=== PATIENT | female | born 1945 | race Caucasian/White ===

== ENCOUNTER 2018-03-09 15:20 | Inpatient (IN) | payer MEDICARE, OTHER ==
[2018-03-09] MEDS ORDERED: methylPREDNISolone 125 MG* 2 ML VIAL IV ONE (15:42)
[2018-03-09] MEDS ORDERED: Albuterol/Ipratropium NEB.SOL* Albuterol 2.5 MG/Ipratropium 0.5 MG 3 ML INH ONE (15:50)
--- OUTSIDE RECORDS SUMMARY | 2018-03-09 16:37 | XMS REPORT | Continuity of Care Document ---
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 Shaye Jack [id number] [facility] PayID: [id number] [address] [place] [address] Advance Directives Description No Information Available Problems Description No Information Family History Date Family Member(s) Problem(s) Comments Mother CAD Mother due to [place] () First Brother due to [place] () Second Brother Diabetes Social History Type Date Description Comments Sex Unknown Marital Status Lives With Spouse Occupation Retired Occupation [employer] and worked in [employer] Tobacco Use Start: Unknown currently smokes 1/2 Pack Daily ETOH Use Denies alcohol use Recreational Drug Use Denies Drug Use Tobacco Use Start: Unknown Patient is a current smoker, smokes every day Smoking Status Reviewed: 09/17/16 Patient is a current smoker, smokes every day Enjoy Exercising Enjoys exercising Allergies, Adverse Reactions, Alerts Date Description Reaction Status Severity Comments 09/17/2016 Codeine "bad stomach ache" Active Medications Medication Date Status Form Strength Qnty SIG Indications Ordering Provider Lisinopril 12/23/ Active Tablets 5mg 30tab 1 by mouth Brendon 2018 s every day MD Francois Doxycycline 12/09/ Active Capsules 100mg 10cap 1 tab by Brendon Monohydrate 2018 s mouth twice Heetderks a day for 5 , MD days Ferate 04/06/ Active Tablets 240(27Fe) 90tab Take One Maureen 2018 mg s Tablet By Ha, Mouth Once ALTERNATIVE ENERGY TECHNICIAN Daily Nebulizer 12/21/ Active Kit 1unit use to J44.1 Pearl Kit/Tubing/Tahmina 2016 s deliver Gerardo, thpiece albuterol [employer] SUPER[employer]OR[employer] via nebulizer four times a day Nebulizer 12/21/ Active Device 1unit use to J44.1 Pearl 2016 s administer Gerardo, albuterol [employer]PER[employer] Albuterol 12/21/ Active Nebulizer (2.5mg/3M 75uni inhale the Pearl Sulfate 2017 L) 0.083% ts contents of Gerardo, 1 vial via [employer] SUPER[employer]OR-[employer] nebulizer every 4 to 6 hours as needed for wheezing Atorvastatin 09/17/ Active Tablets 20mg 90tab 1 by mouth Pearl Calcium 2017 s every day Gerardo, [employer]IES SUPERVISOR-C Spiriva 09/17/ Active Aerosol 2.5mcg/Ac 4gm 2 J44.9 Brendon Respimat 2017 t inhalations Francois once daily MD Ventolin HFA / Active Aerosol 108(90Bas 18uni Inhale 2 Brendon 0000 e) ts Puffs By Francois mcg/Act Mouth Every MD 4 To 6 Hours as Needed For Wheezing / Tightness Prednisone 12/09/ Hx Tablets 20mg 10tab 2 tab by Brendon 2018 - s mouth daily Francois 12/23/ MD 2018 Advair Diskus 12/21/ Hx Aerosol 250-50mcg 60uni inhale one J44.1 Pearl 2016 - /Dose ts puff by Gerardo 12/09/ mouth twice [employer]ITIES SUPERVISOR-C 2018 a day Symbicort 11/29/ Hx Aerosol 160-4.5mc 18gm inhale two J44.9 Pearl 2017 - g/Act puffs into Gerardo 12/23/ lungs twice F[employer]ITIES SUPERVISOR-C 2018 a day Toprol XL 09/17/ Hx Tablets ER 25mg 30tab /2 tablet Pearl 2017 - 24HR s by mouth Gerardo 12/23/ every day F[employer]ITIES SUPER[employer]OR-C 2018 Dulera 09/17/ Hx Aerosol 100-5mcg/ 8.800 1 puff twice J44.9 Pearl 2017 - Act a day Gerardo 11/29/ CHARMAINE 2016 Medications Administered in Office Medication Date Status Form Strength Qnty SIG Indications Ordering Provider Injection 12/09/ Administered Injection Brendon Dexamethasone 2017 Shoaib Parrish MD Phosphate, 1 MG Immunizations CPT Code Status Date Vaccine Lot # [id number] Given 12/23/2017 Influenza Vaccine High Dose PF [id number] Given 11/29/2016 Influenza Vaccine High Dose PF [id number] Vital Signs Date Vital Result Comment 03/09/2018 2:16pm BP Systolic 152 mmHg BP Diastolic 90 mmHg Heart Rate 110 /min Body Temperature 97.6 F Respiratory Rate 30 /min O2 % BldC Oximetry 91 % 12/23/2017 2:30pm Weight 202.00 lb Weight 91.627 kg BP Systolic 150 mmHg BP Diastolic 80 mmHg Heart Rate 80 /min Body Temperature 97.9 F Respiratory Rate 16 /min O2 % BldC Oximetry 93 % 12/09/2017 10:57am BP Systolic 180 mmHg BP Diastolic 100 mmHg Heart Rate 106 /min Body Temperature 97.5 F Height 66 inches 5'6" O2 % BldC Oximetry 90 % 12/21/2016 10:09am BP Systolic 158 mmHg BP Diastolic 90 mmHg Heart Rate 108 /min Respiratory Rate 32 /min O2 % BldC Oximetry 96 % Ra 12/14/2016 2:16pm Weight 179.00 lb Weight 81.194 kg BP Systolic 100 mmHg BP Diastolic 70 mmHg Heart Rate 68 /min Body Temperature 97.8 F Respiratory Rate 20 /min O2 % BldC Oximetry 97 % 11/29/2016 11:09am Weight 178.00 lb Weight 80.741 kg BP Systolic 120 mmHg BP Diastolic 72 mmHg Heart Rate 80 /min Body Temperature 97.6 F Respiratory Rate 32 /min O2 % BldC Oximetry 96 % 09/17/2016 1:18pm Weight 178.00 lb Weight 80.741 kg BP Systolic 162 mmHg BP Diastolic 76 mmHg Heart Rate 86 /min Body Temperature 98.4 F Respiratory Rate 18 /min Height 66 inches 5'6" BMI (Body Mass Index) 28.7 kg/m2 O2 % BldC Oximetry 96 % Results Test Date Facility Test Result H/L Range Note Arterial Blood 01/10/2017 [facility] O2 Device nasal cannula N Gas [phone] Fio2 5 N PH Arterial 7.47 High 7.35-7.45 Pco2 Arterial 31 mmHg Low 35-45 Po2 Arterial 167 mmHg High 80-100 O2 Saturation Arterial 99.0 % High 95-98 Base Excess Arterial -0.9 N -2.0-2.0 1 Hco3 Arterial 24.2 mmol/L N 19-31 Laboratory test 01/10/2017 [facility] Packed Cells SEE RESULTS 2 finding [phone] BELO <SEE NOTE> Pathologist Review (SEE NOTE) N 3 Type & Screen 01/10/2017 [facility] Patient Blood O Positive N [phone] Type Antibody Screen NEGATIVE N Laboratory test 01/10/2017 [facility] Ferritin < 10.0 Low 11-307 finding [phone]/mL Iron & Iron 01/10/2017 [facility] Total Iron 482 g/ dL High 250-450 Binding Capacity [phone] Binding Capacity Iron < 15 g/dL Low 50-212 Unsaturated Iron Binding [phone] g/dL N % Iron Saturation 3 % Low 15-55 Laboratory test 01/10/2017 [facility] Procalcitonin < 0.1 ng/mL N <0.6 4 finding [phone] Cell Morphology 01/10/2017 [facility] Microcytosis 2 + N [phone] Hypochromasia 2+ N Polychromasia 1+ N Laboratory test 01/10/2017 [facility] Partial 27.4 seconds N 26.0-36.3 finding [phone] Thrombo Time PTT CBC Auto Diff 01/10/2017 [facility] White Blood 7.7 10^3/uL N 3.5-10.8 [phone] Count Red Blood Count 3.34 10^6/uL Low 4.0-5.4 Hemoglobin 6.4 g/dL Low 12.0-16.0 5 Hematocrit 22 % Low 35-47 Mean Corpuscular Volume 65 fL Low 80-97 Mean Corpuscular Hemoglobin 19 pg Low 27-31 Mean Corpuscular HGB Conc 29 g/dL Low 31-36 Red Cell Distribution Width 19 % High 10.5-15 Platelet Count 479 10^3/uL High 150-450 Mean Platelet Volume 8 um3 N 7.4-10.4 Abs Neutrophils 5.0 10^3/uL N 1.5-7.7 Abs Lymphocytes 1.9 10^3/uL N 1.0-4.8 Abs Monocytes 0.6 10^3/uL N 0-0.8 Abs Eosinophils 0.1 10^3/uL N 0-0.6 Abs Basophils 0.1 10^3/uL N 0-0.2 Abs Nucleated RBC 0.02 10^3/uL N Granulocyte % 65.3 % N 38-83 Lymphocyte % 24.8 % Low 25-47 Monocyte % 7.8 % N 1-9 Eosinophil % 1.1 % N 0-6 Basophil % 1.0 % N 0-2 Nucleated Red Blood Cells % 0.3 N Laboratory test 01/10/2017 [facility] B-Type 926 pg/ mL High 6 finding [phone] Natriuretic Peptide BNP CKMB 01/10/2017 [facility] CKMB ng/mL 1.7 ng/mL N 0.6-6 [phone] .[phone] Laboratory test 01/10/2017 [facility] C Reactive 13.47 mg/L High < 7 finding [phone] Protein 5.00 Troponin-I (TnI) 0.10 ng/mL High <0.04 8 Comp Metabolic Panel 01/10/2017 [facility] Sodium 137 mmol/L N 133-145 [phone] Potassium 3.1 mmol/L Low 3.5-5.0 Chloride 103 mmol/L N 101-111 Co2 Carbon Dioxide 27 mmol/L N 22-32 Anion Gap 7 mmol/L N 2-11 Glucose 115 mg/dL High 70-100 Blood Urea Nitrogen 16 mg/dL N 6-24 Creatinine 0.68 mg/dL N 0.51-0.95 BUN/Creatinine Ratio 23.5 High 8-20 Calcium 9.0 mg/dL N 8.6-10.3 Total Protein 6.6 g/dL N 6.4-8.9 Albumin 3.6 g/dL N 3.2-5.2 Globulin 3.0 g/dL N 2-4 Albumin/Globulin Ratio 1.2 N 1-3 Total Bilirubin 0.30 mg/dL N 0.2-1.0 Alkaline Phosphatase 91 U/L N 34-104 Alt 13 U/L N 7-52 Ast 13 U/L N 13-39 Egfr Non- 85.8 N >60 Egfr 110.3 N >60 9 Laboratory test 01/10/2017 [facility] Lactic Acid 1.6 mmol/L N 0.5-2.0 10 finding [phone] 1 Reference ranges based on room air. 2 SEE RESULTS BELOW [id number] OP PC TRANSFUSED 01/10/17 1902 [id number] OP PC TRANSFUSED 01/10/17 2257 3 Marked microcytic anemia. Thrombocytosis, favor reactive. Reviewed by Yolanda Pérez MD 4 Interpretive information available on [facility] Test Catalog at [email or web address] 5 Verbal to [id number] by [id number] at 1803 on 01/10/17. Results read back accurately. 6 >100 to <200 pg/mL: likely compensated congestive heart failure (CHF) 200 to 400 pg/mL: likely moderate CHF >400 pg/mL: likely moderate to severe CHF 7 Acute inflammation: >10.00 8 Result TnIDx:0.10 Called to [email or web address] at: 18:12:22 by:[id number] Read back by: [email or web address] 9 Because ethnic data is not always readily available, this report includes an eGFR for both -Americans and non- Americans. The National Kidney Disease Education Program (NKDEP) does not endorse the use of the MDRD equation for patients that are not between the ages of 18 and 70, are , have extremes of body size, muscle mass, or nutritional status, or are non- or non-. According to the National Kidney Foundation, irrespective of diagnosis, the stage of the disease is based on the level of kidney function: Stage Description GFR(mL/min/1.73 m(2)) 1 Kidney damage with normal or decreased GFR 90 2 Kidney damage with mild decrease in GFR 60-89 3 Moderate decrease in GFR 30-59 4 Severe decrease in GFR 15-29 5 Kidney failure <15 (or dialysis) 10 [facility] Severe Sepsis and Septic Shock Management Bundle Measure requires all lactic acids initially measuring >2.0 mmol/L be repeated. Procedures Date Code Description Status 12/09/2017 25410 Therapeutic,Prophylactic,Or Diagnostic Inj,SC/Im Completed Specify Drug 12/09/2017 38913 Nebulizer Treatment Completed 12/21/2016 76797 Nebulizer Treatment Completed 11/29/2016 69523 Nebulizer Treatment Completed 09/17/2016 18664 Spirometry Completed 03/14/2014 [id number] Mammogram Completed Encounters Type Date Location Provider Dx Diagnosis Office Visit 03/09/2018 Main Office Lan Styles44.1 Chronic obstructive 2:00p [employer] SUPERVISOR-[employer] pulmonary disease w (acute) exacerbation Office Visit 12/23/2017 Main Office Lan Silver44.1 Chronic obstructive 3:30p MD pulmonary disease w (acute) exacerbation I10 Essential (primary) hypertension Z12.31 Encntr screen mammogram for malignant neoplasm of breast Z23 Encounter for immunization Office Visit 12/09/2017 10:45a Main Office Lan Silver44.1 Chronic obstructive MD pulmonary disease w (acute) exacerbation Office Visit 12/21/2016 9:45a Main Office Lan Silva44.1 Chronic obstructive [employer]PER[employer] pulmonary disease w (acute) exacerbation Office Visit 12/14/2016 2:15p Main Office Lan Silva44.9 Chronic obstructive [employer] SUPER[employer]OR[employer] pulmonary disease, unspecified Office Visit 11/29/2016 11:15a Main Office Lan Silva44.9 Chronic obstructive [employer] pulmonary disease, unspecified Z23 Encounter for immunization Office Visit 09/17/2016 1:30p Main Office Pearl Carrillo, Z00.00 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 Daughter is in town until Sat; Report called to Dr Nichole Hernandez
[2018-03-09] MEDS ORDERED: Oseltamivir CAP* 75 MG CAP PO ONE (16:52)
[2018-03-09 17:17] LABS: Hematocrit 32 % (35-47); Mean Corpuscular HGB Conc 31 g/dl (31-36); Mean Corpuscular Hemoglobin 23 pg (27-31); Mean Corpuscular Volume 73 fL (80-97); Mean Platelet Volume 8.3 fL (7.4-10.4); Platelet Count 386 10^3/ul (150-450); Red Blood Count 4.42 10^6/ul (4.00-5.40); Red Cell Distribution Width 18 % (10.5-15); White Blood Count 8.9 10^3/ul (3.5-10.8)
[2018-03-09 17:22] LABS: Activated Partial Thrombo Time 27.1 seconds (26.0-36.3); INR 1.02 (0.77-1.02)
--- NOTE | 2018-03-09 17:25 | ED ---
Shortness of Breath - HPI Summary HPI Summary: A 72 y/o female presents to the ED via EMS c/o SOB. In the ED room, the patient has a pulse of 103 BPM. According to the patient, the SOB started yesterday. She went to yesterday and was given antibiotics, but didn't come to the [facility] ED as requested. Today, she saw her primary care provider who referred her to come to [facility] ED and was convinced by her to come. Patient took nebulizer Rxs and Prednisone today. She noted that the SOB started on 03/07/2018 on night and has chest pain ever since. She stated that she has a deep cough with sputum/phlegm. She denies any chest pain or pain whatsoever. She noted that she always has nebulizers. She stated that in August and September of 2017, she had a similar episode where her MD, Dr. Kang, gave her O2 and she felt better. She stated that she has felt good until 03/07/2018. No O2 at home. Patient did get flu shot. Patient stopped smoking 14 months ago. Admission on January 10, 2018. Allergic to codeine. Dr. Pennington calls her COPD. - History of Current Complaint Chief Complaint: EDShortnessOfBreath Time Seen by Provider: 03/09/18 15:29 Hx Obtained From: Patient, EMS Onset/Duration: Sudden Onset, Lasting Days, Still Present Timing: Constant Current Severity: None Dyspnea At: Rest Aggrevating Factors: Nothing Alleviating Factors: Nothing Associated Signs & Symptoms: Cough (Productive) - Allergy/Home Medications Allergies/Adverse Reactions: Allergies Allergy/AdvReac Type Severity Reaction Status Date / Time codeine Allergy GI Upset Verified 03/15/18 16:32 PMH/Surg Hx/FS Hx/Imm Hx Previously Healthy: No Endocrine/Hematology History: Denies: Hx Diabetes Respiratory History: Reports: Hx Chronic Obstructive Pulmonary Disease (COPD), Hx Pneumonia GI History: Reports: Hx Gastroesophageal Reflux Disease, Hx Ulcer Sensory History: Denies: Hx Contacts or Glasses, Hx Hearing Aid Opthamlomology History: Denies: Hx Contacts or Glasses - Surgical History Surgery Procedure, Year, and Place: CATARACTS AND CHOLECYSTECTOMY Infectious Disease History: No Infectious Disease History: Denies: Traveled Outside the [place] in Last 30 Days - Family History Known Family History: Positive: Other - [place] - Social History Lives: With Family Alcohol Use: None Substance Use Type: Reports: None Smoking Status (MU): Light Every Day Tobacco Smoker Review of Systems Negative: Fever Negative: Chest Pain Positive: Shortness Of Breath, Cough Gastrointestinal: Negative Positive: no symptoms reported Musculoskeletal: Negative Skin: Negative Neurological: Negative Psychological: Normal All Other Systems Reviewed And Are Negative: Yes Physical Exam - Summary Physical Exam Summary: Appearance: Well-appearing, no pain distress, well-nourished, respiratory distress at rest Skin: Warm, color reflects adequate perfusion, dry Head: Normal Head/Face inspection, atraumatic Eyes: Conjunctiva clear ENT: Normal inspection Neck: Supple, no nodes, no JVD Respiratory: decreased breath sounds throughout, expiratory wheezes Cardio: RRR, No murmur, pulses normal, brisk capillary refill Abdomen: Soft, nontender Bowel sounds: Present Musculoskeletal: Strength Intact/ROM intact, no calf tenderness, no edema. Psychological: Normal Neuro: Alert, muscle tone normal, no focal deficit Triage Information Reviewed: Yes Vital Signs On Initial Exam: Initial Vitals Temp Pulse Resp BP Pulse Ox 98.3 F 81 32 134/116 90 03/09/18 15:21 03/09/18 15:21 03/09/18 15:21 03/09/18 15:21 03/09/18 15:21 Vital Signs Reviewed: Yes Diagnostics - Vital Signs Vital Signs Temp Pulse Resp BP Pulse Ox 03/09/18 16:04 95 22 98 03/09/18 15:21 98.3 F 81 32 134/116 90 - Laboratory Lab Results: Lab Results 03/09/18 03/09/18 03/09/18 Range/Units 16:00 16:29 17:04 WBC 8.9 (3.5-10.8) 10^3/ul RBC 4.42 (4.00-5.40) 10^6/ul Hgb 10.0 L (12.0-16.0) g/dl Hct 32 L (35-47) % MCV 73 L (80-97) fL MCH 23 L (27-31) pg MCHC 31 (31-36) g/dl RDW 18 H (10.5-15) % Plt Count 386 (150-450) 10^3/ul MPV 8.3 (7.4-10.4) fL Neut % (Auto) Pending Lymph % (Auto) Pending [place] % (Auto) Pending Eos % (Auto) Pending Baso % (Auto) Pending Absolute Neuts (auto) Pending Absolute Lymphs (auto) Pending Absolute Monos (auto) Pending Absolute Eos (auto) Pending Absolute Basos (auto) Pending Absolute Nucleated RBC Pending Nucleated RBC % Pending Patient Temperature Not Reportable ABG pH 7.40 (7.35-7.45) ABG pH (Temp Correct) Not Reportable ABG pCO2 43 (35-45) mmHg ABG pCO2 (Temp Corrct Not Reportable ABG pO2 117 H (80-100) mmHg ABG pO2 (Temp Correct Not Reportable ABG HCO3 26.1 (19-31) mmol/L ABG O2 Saturation 98.8 H (94.0-98.0) % ABG Base Excess 1.5 (-2.0-2.0) mmol/L Respiration Rate Not Reportable O2 Delivery Device n/c Ventilator Type Not Reportable Vent Mode Not Reportable FiO2 2 Inspiratory Time Not Reportable PEEP Not Reportable Pressure Support Not Reportable Pressure Control Not Reportable EPAP Not Reportable IPAP Not Reportable BiPAP Not Reportable Influenza B (Rapid) Positive A (Negative) Result Diagrams: 03/14/18 05:52 03/14/18 05:52 Lab Statement: Any lab studies that have been ordered have been reviewed, and results considered in the medical decision making process. - Radiology CXR Radiology Interpretation Completed By: Radiologist Summary of Radiographic Findings: HYPERINFLATION, CONSISTENT WITH COPD. NO ACTIVE CARDIOPULMONARY DISEASE. ED PHYSICIAN REVIEWED THIS RADIOLOGY REPORT. - EKG 1601 Cardiac Rate: NL - 92 BPM EKG Rhythm: Sinus Rhythm - [address] Segment: Non-Specific Ectopy: None EKG Comparison: Other - Q-waves in leads II, III, AVF. Downsloping ST's in V5 and V6. Compared with 12/24/2016. Summary of EKG Findings: nl OMAR CT, nl QTc, nl axis Course/Dx - Course Course Of Treatment: A 72 y/o female presents to the ED c/o SOB. In the ED room , the patient has a pulse of 103 BPM. According to the patient, the SOB started yesterday. She went to yesterday and was given antibiotics, but didn't come to the [facility] ED as requested. Today, she saw her primary care provider who referred her to come to [facility] ED and was convinced by her to come. Patient took nebulizers and Prednisone today. She noted that the SOB started on 03/07/2018 on Janet night and had it ever since. She stated that she has a deep cough with sputum/phlegm. She denies any chest pain or pain whatsoever. Pt medications reviewed this visit. Physical examination findings significant for patient is well-appearing, no pain distress, well-nourished, respiratory distress at rest. Respiratory exam revealed decreased breath sounds throughout, expiratory wheezes. A CXR revealed hyperinflation, consistent with COPD, no active cardiopulmonary disease. An EKG revealed NSR of 92 BPM, nl OMAR CT, nl QTc, nl axis. Compared with an EKG on 12/24/2016, it was found Q-waves in leads II, III, AVF. Downsloping ST's in V5 and V6. Hematology, coagulation, blood gas , Chemistry, and serology screens were done. No significant laboratory abnormalities were found except Troponin I of 0.04 and positive influenza A screen. In the ED course, the patient received Tylenol, Ventolin, Duoneb, Aspirin, Lipitor, Robitussin, Heparin, Prinivil, Deltasone, Solu-Medrol, and Tamiflu. Patient care was discussed with investigator internal revenue, Dr. Zia Vega, who accepts patient for admission. Patient will be admitted with a diagnosis of acute respiratory distress, COPD exacerbation, and influenza. Patient is agreeable with this plan. - Diagnoses Differential Diagnosis/HQI/PQRI: Positive: Asthma, Bronchitis, CHF, COPD Exacerbation, [place], Pneumonia, Pulmonary Embolism Provider Diagnoses: Acute respiratory distress, COPD exacerbation, Influenza - Physician Notifications Discussed Care of Patient With: Zia Vega Time Discussed With Above Provider: 17:45 Instructed by Provider To: Other - ACCEPTS PATIENT FOR ADMISSION. Discharge - Sign-Out/Discharge Documenting (check all that apply): Patient Departure - ADMIT, Sign-Out Patient - RICHARDSON Signing out patient TO: Zia Vega Receiving patient FROM: Alejandra Bennett - Discharge Plan Condition: Stable Disposition: ADMITTED TO [facility] - Billing Disposition and Condition Condition: STABLE Disposition: Admitted to [facility] - Attestation Statements Document Initiated by Kamiibmary: Yes Documenting Scribe: Darren Lambert Provider For Whom Tashi is Documenting (Include Credential): Alejandra Bennett MD Scribe Attestation: Darren Sifuentes, scribed for Alejandra Bennett MD on 03/16/18 at 0114. Scribe Documentation Reviewed: Yes Provider Attestation: The documentation as recorded by the Darren rodriguez accurately reflects the service I personally performed and the decisions made by me, Alejandra Bennett MD Status of Scribe Document: Viewed
[2018-03-09 17:38] LABS: Albumin/Globulin Ratio 1.3 (1-3); BUN/Creatinine Ratio 34.9 (8-20); C Reactive Protein 9.01 mg/L (<8.01); Calcium 9.3 mg/dL (8.6-10.3); EGFR Non-African American 93.4 (>60); Potassium 3.7 mmol/L (3.5-5.0); Total Bilirubin 0.3 mg/dL (0.2-1.0)
[2018-03-09] MEDS ORDERED: Acetaminophen TAB* 325 MG PO PRN (17:39)
[2018-03-09 17:43] LABS: ABS Basophils 0 10^3/ul (0-0.2); ABS Eosinophils 0 10^3/ul (0-0.6); ABS Lymphocytes 0.6 10^3/ul (1.0-4.8); ABS Monocytes 0.8 10^3/ul (0-0.8); ABS Neutrophils 7.5 10^3/ul (1.5-7.7); ABS Nucleated RBC 0 10^3/ul; Eosinophil % 0 %; Lymphocyte % 7.2 %; Nucleated Red Blood Cells % 0
[2018-03-09 17:44] LABS: Microcytosis 1+
[2018-03-09 17:47] LABS: Polychromasia 1+
--- NOTE | 2018-03-09 20:25 | HP ---
CC: Carlyn Aguila NP* [facility] MEDICINE HISTORY AND PHYSICAL: DATE OF ADMISSION: 03/09/18 PRIMARY CARE PROVIDER: Carlyn Aguila NP ATTENDING PHYSICIAN: Dr. Haris Ayala* (dictation provided by Delores Aguila NP). CHIEF COMPLAINT: Shortness of breath. HISTORY OF PRESENT ILLNESS: Ms. Jack is a 72-year-old female with a past medical history of severe COPD and nfzcqnpa-cc-bchzgj aortic stenosis, who presents to the hospital today with concern for shortness of breath. Ms. Jack states that she started to feel unwell on Tuesday night. She felt more short of breath than usual. She had a more productive and irritating cough than usual. She denies any fever. She further denies any malaise or aches or unusual fatigue. She states she did have a flu shot this year. She has had no nausea, vomiting, diarrhea, or abdominal pain. In the emergency room, Ms. Jack was found to be flu positive. She is requiring 2 L nasal cannula to maintain an O2 saturation greater than 90%. She is short of breath and coughing at rest. PAST MEDICAL HISTORY: 1. COPD. 2. History of swskrobk-kq-lkcjop aortic stenosis. 3. History of PUD with GI bleed. 4. Hypertension. MEDICATIONS: Currently, per the patient are: 1. Lisinopril 2.5 mg p.o. daily. 2. Atorvastatin 20 mg p.o. daily. 3. Aspirin 81 mg p.o. daily. 4. Albuterol 2 puffs inhaled q.6 hours p.r.n. ALLERGIES: To CODEINE. FAMILY HISTORY: The patient reports that multiple members of her family have related to heart attacks. She does not know anything about her father's history. SOCIAL HISTORY: The patient is a long-term former smoker. She quit 01/11/17. She denies any alcohol or drug use. She states her will be the healthcare proxy. REVIEW OF SYSTEMS: A 14-point review of systems was completed with Ms. Jack and all those not mentioned above were negative. PHYSICAL EXAMINATION GENERAL: Ms. Jack is sitting in bed. She is in no acute distress. She becomes very winded when coughing. VITAL SIGNS: Temperature 98.3, pulse rate 81, respiratory rate 32, O2 saturation 90% on room air and 98% on 2 L nasal cannula, blood pressure 134/116. LUNGS: The patient is diminished throughout, but wheezing is noted with harsh coughing. HEART: S1, S2. No murmur, rub, or gallop, and regular. ABDOMEN: Soft, nontender with bowel sounds positive x4. EXTREMITIES: No cyanosis or edema. NEURO: She is alert, she is oriented x3. She moves all extremities equally. There is no facial asymmetry or focal weakness. Extraocular movements are intact. SKIN: Intact. DIAGNOSTIC STUDIES/LAB DATA: WBC 8.9, hemoglobin 10.0, hematocrit 32, platelet count 386. INR 1.02. D-dimer less than 200. pH 7.40, PCO2 of 43, PO2 of 117. Sodium 139, potassium 3.7, chloride 103, serum bicarbonate 26, BUN 22, creatinine 0.63, glucose 136. Alk phos 108. Total creatine kinase 348. Troponin 0.04. CRP 9.01. BNP 462. Flu B is positive. Chest x-ray shows no acute intrathoracic process. EKG shows sinus rhythm with no evidence of ischemia, though I did see T-wave inversion in V6. ASSESSMENT AND PLAN: Ms. Jack is a 72-year-old female with a past medical history of chronic obstructive pulmonary disease and mtsydbak-oj-tamnfz aortic stenosis, who presents today to the hospital with concern for shortness of breath, found to have a positive flu swab and likely component of chronic obstructive pulmonary disease exacerbation. Our plans are for inpatient admission as I expect her length of stay to be greater than 2 days for the followin. Shortness of breath. I think this is all attributable to flu causing chronic obstructive pulmonary disease exacerbation. Plan for Tamiflu, prednisone, albuterol nebulizers and inhalers. The patient is currently on 2 L nasal cannula and will wean that as tolerated. The patient will have guaifenesin p.r.n. and due to her new need for 2 L nasal cannula, she is evidencing acute hypoxic respiratory failure. 2. History of xmbmjpdn-pj-enndpi aortic stenosis. The patient has no erythema on exam and no pulmonary edema noted on chest x-ray. The patient states she had followed with Dr. Patel outpatient and I see a note there from June of this year. She states she has no longer been able to follow up with him due to a billing issue. He had hoped to get another repeat echocardiogram in October or so of this year. I do not see an indication at this point to repeat it while inpatient, but that certainly could be considered based on the clinical course. 3. Hypertension. Continue lisinopril. Her blood pressure is well controlled. 4. Code status is full code. TIME SPENT: Approximately 60 minutes was spent on the admission of this patient , more than half of the time was spent with the patient at the bedside reviewing the events leading up to this hospitalization, performing the physical examination, and reviewing my plan of care. DELORES AGUILA NP [id number]/[facility] #: [id number] ODALIS
[2018-03-09] MEDS: Heparin VIAL(*) 5000 UNITS/ML VIAL (FIVE THOUSAND) SUBCUT SCH (23:32)
[2018-03-10] MEDS: Albuterol HFA INHALER* 8 gm MDI INH PRN ×4 (03:28→18:05)
[2018-03-10] MEDS: Albuterol/Ipratropium NEB.SOL* Albuterol 2.5 MG/Ipratropium 0.5 MG 3 ML INH PRN ×2 (04:42→07:57)
--- NOTE | 2018-03-10 05:16 | PN ---
Hospitalist Progress Note Date of Service: 03/10/18 got called reg trending up trop from 0.04 to 0.09 to 0.12 pt has flu most likely demand iscehmia repeat trop and ekg at 6 am
[2018-03-10] MEDS: Heparin VIAL(*) 5000 UNITS/ML VIAL (FIVE THOUSAND) SUBCUT SCH ×3 (05:39→21:26)
--- NOTE | 2018-03-10 09:27 | PN ---
Subjective Date of Service: 03/10/18 Interval History: Pt is Influenza A + pt with h/o COPD. She c/o new productive cough, but states that her shortness of breath is at baseline after administration of nebulizer treatment. She denies gong, fever/chills. She has worsening shortness of breath and increased work of breathing after positioning for ECHO this morning. Rescue Inhaler administered. Objective Active Medications: Acetaminophen (Tylenol Tab*) 650 mg PO Q6H PRN Albuterol (Ventolin Hfa Inhaler*) 2 puff INH Q4H PRN Albuterol/Ipratropium (Duoneb (Albuterol 2.5 Mg/Ipratropium 0.5 Mg)) 1 neb INH Q4H PRN Aspirin (Aspirin Ec Tab*) 81 mg PO DAILY [facility] Atorvastatin Calcium (Lipitor*) 20 mg PO DAILY [facility] Guaifenesin (Robitussin*) 5 ml PO Q4H PRN Heparin Sodium (Porcine) (Heparin Vial(*)) 5,000 units SUBCUT Q8HR MONIQUE Lisinopril (Prinivil Tab*) 2.5 mg PO DAILY [facility] Prednisone (Deltasone Tab*) 40 mg PO DAILY [facility] Vital Signs: Temp Pulse Resp BP Pulse Ox 98.0 F 97 18 150/77 97 03/10/18 07:22 03/10/18 07:59 03/10/18 07:59 03/10/18 07:22 03/10/18 07:59 Oxygen Devices in Use Now: Nasal Cannula Appearance: Pt is resting upright in bed; in no acute distress Eyes: No Scleral Icterus Ears/Nose/Mouth/Throat: NL Teeth, Lips, Gums, Mucous Membranes Moist Neck: NL Appearance and Movements; NL JVP, Trachea Midline Respiratory: Symmetrical Chest Expansion and Respiratory Effort - Diffuse wheeze on R>L; diminished lung sounds, - - Diffuse wheezing and decreased breath sounds. Pt using accessory muscles for breathing. Cardiovascular: NL Sounds; No Murmurs; No JVD, RRR, No Edema Abdominal: NL Sounds; No Tenderness; No Distention Extremities: No Edema, No Clubbing, Cyanosis Neurological: Alert and Oriented x 3 Nutrition: Taking PO's Result Diagrams: 03/09/18 17:04 03/09/18 17:04 Additional Lab and Data: Microbiology and Other Data: Microbiology 03/09/18 16:15 Influenza Types A,B Antigen - Final Nasal Specimen received for Influenza A/B Molecular testing Assess/Plan/Problems-Billing Assessment: Pt is a 72yof who presents with Influenza A. Past medical hx significant for COPD, , HTN. - Patient Problems (1) Influenza A Current Visit: Yes Status: Acute Code(s): J10.1 - FLU DUE TO OTH IDENT INFLUENZA VIRUS W OTH RESP MANIFEST SNOMED Code(s): 843252389 Comment: -Tamiflu ordered, 75mg BID -Continue nebulizer treatments, inhaler -Continue PO fluids (2) COPD (chronic obstructive pulmonary disease) Current Visit: No Status: Acute Code(s): J44.9 - CHRONIC OBSTRUCTIVE PULMONARY DISEASE, UNSPECIFIED SNOMED Code(s): 68758477 Comment: -Wheezing throuhgout and decreased breath sounds. -Add Dulera, Spiriva -Add flutter valve -Continue prednisone (3) Severe aortic stenosis Current Visit: No Status: Acute Code(s): I35.0 - NONRHEUMATIC AORTIC (VALVE ) STENOSIS SNOMED Code(s): 67568418 Comment: -ECHO to evaluate (4) Hypertension Current Visit: Yes Status: Acute Code(s): I10 - ESSENTIAL (PRIMARY) HYPERTENSION SNOMED Code(s): 52856154 Comment: -Continue lisinopril (5) Hyperlipidemia Current Visit: Yes Status: Acute Code(s): E78.5 - HYPERLIPIDEMIA, UNSPECIFIED SNOMED Code(s): 59426551 Comment: -Continue atorvastatin (6) DVT prophylaxis Comment: -Heparin (7) Full code status Status and Disposition: Discharge to home when stable.
[2018-03-10] MEDS: Aspirin EC TAB* 81 MG TAB.EC PO SCH (09:39)
[2018-03-10] MEDS: Atorvastatin* 20 MG TAB PO SCH (09:39)
[2018-03-10] MEDS: Lisinopril TAB* 5 MG PO SCH (09:39)
[2018-03-10] MEDS: predniSONE TAB* 20 MG PO SCH (09:39)
[2018-03-10] MEDS: Albuterol/Ipratropium NEB.SOL* Albuterol 2.5 MG/Ipratropium 0.5 MG 3 ML INH SCH ×3 (11:38→19:15)
[2018-03-10] MEDS: Oseltamivir CAP* 75 MG CAP PO SCH ×2 (14:12→21:26)
[2018-03-10] MEDS: Tiotropium CAP.INH* CAP.INH/18 MCG (USE ORDER SET !) INH SCH (14:34)
[2018-03-10] MEDS ORDERED: Spiriva Inhaler DEVICE* 1 EACH DEVICE SCH (15:00)
--- NOTE | 2018-03-10 16:30 | ECHO ---
Patient: CAMERON SOTO [facility] Rec#: [id number] : 1945 Date: 03/10/2018 Age: 72y Height: 170 cm / 66.9 in Weight: 88 kg / 194.0 lbs Sex: F BSA: 1.99 Room#: [facility] Admit Date#: 03/09/2018 Type: Inpatient Referring: Cynthia Brower Reading: Jovi Lopez MD Medical Art Therapist: Ann Hayes RDCS CC: Carley Aguila Transthoracic Echocardiogram Indication: Shortness of breath BP: 141/65 HR: 91 Rhythm: NSR Findings History: COPD, moderate-severe aortic stenosis, HTN, former smoker. Patient was bent forward in seated position during the test due to respiratory needs. Technical Comments: The study is technically difficult. The study is technically limited due to the patient's history of COPD. Completed at 1340. Left Ventricle: The left ventricular chamber size is decreased. Moderate concentric left ventricular hypertrophy is observed. Global left ventricular wall motion and contractility are within normal limits. There is normal left ventricular systolic function. The estimated ejection fraction is 55-60%. Abnormal left ventricular diastolic function is observed. Left Atrium: The left atrial chamber size is normal. Right Ventricle: Moderator Band present. The right ventricular cavity size is normal. The right ventricle wall thickness is moderately increased. The right ventricular global systolic function is normal. Right Atrium: The right atrial cavity size is normal. Aortic Valve: The aortic valve is trileaflet. The aortic valve leaflets are moderately thickened. Moderate aortic leaflet calcification is visualized. Systolic excursion of the aortic valve cusps is reduced. There is no evidence of aortic regurgitation. There is mild to moderate aortic stenosis. The mean gradient of the aortic valve is 12 mmHg. The peak instantaneous gradient of the aortic valve is 28 mmHg. The aortic valve area, by peak velocities, is calculated at 1.3 cm2. The aortic valve area, by VTI's, is calculated at 1.4 cm2. Mitral Valve: There is mitral annular calcification. The mitral valve leaflets are mildly thickened. There is a trace of mitral regurgitation. Tricuspid Valve: There is trace tricuspid regurgitation. Unable to estimate the right ventricular systolic pressure. Pulmonic Valve: The pulmonic valve appears normal. There is no evidence of pulmonic regurgitation. There is no pulmonic stenosis. Pericardium: There is no significant pericardial effusion. Aorta: There is no dilatation of the ascending aorta. The aortic arch is not well visualized. The aortic root is normal in size. Pulmonary Artery: The main pulmonary artery is not well visualized. Venous: The inferior vena cava appears normal in size. There is a greater than 50% respiratory change in the inferior vena cava dimension. Conclusions There is normal left ventricular systolic function. The estimated ejection fraction is 55-60%. Global left ventricular wall motion and contractility are within normal limits. The left ventricular chamber size is decreased. Moderate concentric left ventricular hypertrophy is observed. Abnormal left ventricular diastolic function is observed. There is mild to moderate aortic stenosis. Since the prior echocardiogram completed 01/11/17, prior normal left ventricular size reported. Aortic stenosis assessment appears similiar. Measurements Name Value Normal Range RVIDd (AP) 2D 2.8 cm (0.9 - 2.6) RAd ISD 4CH 4.6 cm (3.4 - 4.9) RA (A4C)W 4.2 cm (2.9 - 4.6) IVSd (2D) 1.4 cm (0.6 - 1) LVPWd (2D) 1.5 cm (0.6 - 1) LVIDd (2D) 3.1 cm (3.6 - 5.4) LVIDs (2D) 1.7 cm - LV FS (2D) 44 % (25 - 45) Aortic Annulus 2.1 cm (1.4 - 2.6) Ao root diameter (2D) 3 cm (2.1 - 3.5) Ascending Ao 3.2 cm (2.1 - 3.4) LA dimension (AP) 2D 3.1 cm (2.3 - 3.8) LAd ISD 4CH 5.5 cm (2.9 - 5.3) LA ISD 4CH W 4.2 cm (2.5 - 4.5) Name Value Normal Range LA ESV BP (A/L) index 32 ml/m2 - Name Value Normal Range MV E-wave Vmax 1.2 m/sec - MV deceleration time 204 msec - MV A-wave Vmax 1.7 m/sec - MV E:A ratio 0.7 ratio - LV septal e' Vmax 0.03 m/sec - LV lateral e' Vmax 0.04 m/sec - LV E:e' septal ratio 40 ratio - LV E:e' lateral ratio 30 ratio - Name Value Normal Range AV Vmax 2.6 m/sec - AV VTI 50.7 cm - AV peak gradient 28 mmHg - AV mean gradient 12 mmHg - LVOT diameter 2 cm - LVOT Vmax 1.1 m/sec - LVOT VTI 22 cm - LVOT peak gradient 5 mmHg - LVOT mean gradient 2 mmHg - DOI (VTI) 0.44 ratio - LUIS ENRIQUE (continuity Vmax) 1.3 cm2 - LUIS ENRIQUE (continuity VTI) 1.4 cm2 - Name Value Normal Range TR peak gradient 23 mmHg - RAP 3 mmHg - IVC diameter 1.6 cm - Name Value Normal Range PV Vmax 1.9 m/sec -
[2018-03-10] MEDS: Mometasone/Formoter 100/5 MDI INH SCH (19:16)
[2018-03-11] MEDS: Albuterol/Ipratropium NEB.SOL* Albuterol 2.5 MG/Ipratropium 0.5 MG 3 ML INH SCH ×5 (00:30→23:53)
[2018-03-11] MEDS: Albuterol HFA INHALER* 8 gm MDI INH PRN (03:41)
[2018-03-11] MEDS: Heparin VIAL(*) 5000 UNITS/ML VIAL (FIVE THOUSAND) SUBCUT SCH ×3 (05:34→22:35)
[2018-03-11] MEDS: guaiFENesin LIQ* 100 MG/5 ML UDC PO PRN (05:37)
[2018-03-11] MEDS: Aspirin EC TAB* 81 MG TAB.EC PO SCH (07:20)
[2018-03-11] MEDS: predniSONE TAB* 20 MG PO SCH (07:20)
[2018-03-11] MEDS: Lisinopril TAB* 5 MG PO SCH (07:20)
[2018-03-11] MEDS: Atorvastatin* 20 MG TAB PO SCH (07:20)
[2018-03-11] MEDS: Oseltamivir CAP* 75 MG CAP PO SCH ×2 (07:20→22:35)
[2018-03-11] MEDS: Tiotropium CAP.INH* CAP.INH/18 MCG (USE ORDER SET !) INH SCH (08:39)
[2018-03-11] MEDS: Mometasone/Formoter 100/5 MDI INH SCH ×2 (08:42→19:28)
--- NOTE | 2018-03-11 09:17 | PN ---
Subjective Date of Service: 03/11/18 Interval History: Pt states that she becomes short of breath approximately 30 minutes before her next nebulizer treatment is due. She is always short of breath, but it has increased from baseline since she became ill on Tuesday. When she is between nebulizer treatments, the patient has decreased work of breathing, no use of accesory muscles, and no pursed lip breathings; within an hour before she is due , she has increased shortness of breath. Pt states that she feels weak with an occasional productive cough that has improved with guaifenecin use. She denies chest pain, gong, chills/fever, dizziness, myalgias, abdominal pain, n/v/d/c. Objective Active Medications: Acetaminophen (Tylenol Tab*) 650 mg PO Q6H PRN Albuterol (Ventolin Hfa Inhaler*) 2 puff INH Q4H PRN Albuterol/Ipratropium (Duoneb (Albuterol 2.5 Mg/Ipratropium 0.5 Mg)) 1 neb INH Q4H PRN Albuterol/Ipratropium (Duoneb (Albuterol 2.5 Mg/Ipratropium 0.5 Mg)) 1 neb INH [id number] AWAKE [facility] Aspirin (Aspirin Ec Tab*) 81 mg PO DAILY [facility] Atorvastatin Calcium (Lipitor*) 20 mg PO DAILY [facility] Device (Tiotropium Inhaler Device*) 1 each .SEE ORDER .USE w/ SPIRIVA CAPS [facility] Guaifenesin (Robitussin*) 5 ml PO Q4H PRN Heparin Sodium (Porcine) (Heparin Vial(*)) 5,000 units SUBCUT Q8HR [facility] Lisinopril (Prinivil Tab*) 2.5 mg PO DAILY [facility] Mometasone Furoate/Formoterol Fumar (Dulera 100/5 Mdi*) 2 puff INH BID [facility] Oseltamivir Phosphate (Tamiflu Cap*) 75 mg PO BID [facility] Prednisone (Deltasone Tab*) 40 mg PO DAILY [facility] Tiotropium [place] (Spiriva Cap.Inh*) 1 cap INH DAILY [facility] Vital Signs: Temp Pulse Resp BP Pulse Ox 99.8 F 99 20 138/72 97 03/11/18 07:24 03/11/18 07:24 03/11/18 07:25 03/11/18 07:24 03/11/18 07:24 Oxygen Devices in Use Now: Nasal Cannula Appearance: Pt is sitting up in bed, pursed lip breathing. Eyes: No Scleral Icterus Ears/Nose/Mouth/Throat: NL Teeth, Lips, Gums, Mucous Membranes Moist Neck: NL Appearance and Movements; NL JVP, Trachea Midline Respiratory: - - Breath sounds diminished throughout, wheezes noted in b/l upper lobes; use of accessory muscles for breathing. Cardiovascular: RRR, No Edema, - - Systolic murmur noted on auscultation Abdominal: NL Sounds; No Tenderness; No Distention Extremities: No Edema, No Clubbing, Cyanosis Neurological: Alert and Oriented x 3 Result Diagrams: 03/09/18 17:04 03/09/18 17:04 Additional Lab and Data: Microbiology and Other Data: Microbiology 03/09/18 16:15 Influenza Types A,B Antigen - Final Nasal Specimen received for Influenza A/B Molecular testing Assess/Plan/Problems-Billing Assessment: Pt is a 72yof who presents with Influenza A. Past medical hx significant for COPD, , HTN. - Patient Problems (1) Influenza A Current Visit: Yes Status: Acute Code(s): J10.1 - FLU DUE TO OTH IDENT INFLUENZA VIRUS W OTH RESP MANIFEST SNOMED Code(s): 904535538 Comment: -Continue tamiflu -Continue nebulizer treatments, inhalers -Continue to push PO fluids (2) COPD (chronic obstructive pulmonary disease) Current Visit: No Status: Acute Code(s): J44.9 - CHRONIC OBSTRUCTIVE PULMONARY DISEASE, UNSPECIFIED SNOMED Code(s): 89354981 Comment: -Pt continues to have decreased breath sounds and wheezing -Continue Dulera, Spiriva, flutter valve -Continue prednisone (3) Severe aortic stenosis Current Visit: No Status: Acute Code(s): I35.0 - NONRHEUMATIC AORTIC (VALVE ) STENOSIS SNOMED Code(s): 42759028 Comment: -Echo reads: normal LV fx, EF 55-60%, decreased LV chamber size, LVH, abnormal LV diastolic fx, mild to mod . Compared to 01/11/17, appears similar, while LV size was previously repoorted as normal. -Follow up with cardiology as outpatient (4) Hypertension Current Visit: Yes Status: Acute Code(s): I10 - ESSENTIAL (PRIMARY) HYPERTENSION SNOMED Code(s): 28142473 Comment: -Continue lisinopril (5) Hyperlipidemia Current Visit: Yes Status: Acute Code(s): E78.5 - HYPERLIPIDEMIA, UNSPECIFIED SNOMED Code(s): 51488633 Comment: -Continue atorvastatin (6) DVT prophylaxis Comment: -Heparin (7) Full code status Status and Disposition: Discharge to home when stable.
[2018-03-12] MEDS: Albuterol HFA INHALER* 8 gm MDI INH PRN ×2 (02:26→07:16)
[2018-03-12] MEDS: guaiFENesin LIQ* 100 MG/5 ML UDC PO PRN (03:49)
[2018-03-12] MEDS: Albuterol/Ipratropium NEB.SOL* Albuterol 2.5 MG/Ipratropium 0.5 MG 3 ML INH SCH ×3 (05:36→19:14)
[2018-03-12] MEDS: Heparin VIAL(*) 5000 UNITS/ML VIAL (FIVE THOUSAND) SUBCUT SCH ×3 (06:16→20:50)
[2018-03-12] MEDS: Aspirin EC TAB* 81 MG TAB.EC PO SCH (07:17)
[2018-03-12] MEDS: Lisinopril TAB* 5 MG PO SCH (07:17)
[2018-03-12] MEDS: Oseltamivir CAP* 75 MG CAP PO SCH ×2 (07:18→20:50)
[2018-03-12] MEDS: predniSONE TAB* 20 MG PO SCH (07:18)
[2018-03-12] MEDS: Atorvastatin* 20 MG TAB PO SCH (07:18)
[2018-03-12] MEDS: Mometasone/Formoter 100/5 MDI INH SCH ×2 (08:06→19:14)
[2018-03-12] MEDS: Tiotropium CAP.INH* CAP.INH/18 MCG (USE ORDER SET !) INH SCH (08:06)
--- NOTE | 2018-03-12 08:55 | PN ---
Subjective Date of Service: 03/12/18 Interval History: When asked how she feels, pt states "tired." She states she gets woken a lot during the night when people enter her room for vital signs, etc, but is not SOB at night. She states that her cough is controlled with medication, and that she is no longer bringing up sputum. She is less short of breath this morning, but states that she continues to be SOB before her next nebulizer is due throughout the day. She denies fever/chills/sweats, CP, bowel/bladder concerns. She denies hematemes, hematochezzia, recent fall or injury. She is wearing incontinence underwear, as she states she "leaks" when she coughs. Objective Active Medications: Acetaminophen (Tylenol Tab*) 650 mg PO Q6H PRN Albuterol (Ventolin Hfa Inhaler*) 2 puff INH Q4H PRN Albuterol/Ipratropium (Duoneb (Albuterol 2.5 Mg/Ipratropium 0.5 Mg)) 1 neb INH Q4H PRN Albuterol/Ipratropium (Duoneb (Albuterol 2.5 Mg/Ipratropium 0.5 Mg)) 1 neb INH [id number] AWAKE [facility] Aspirin (Aspirin Ec Tab*) 81 mg PO DAILY [facility] Atorvastatin Calcium (Lipitor*) 20 mg PO DAILY [facility] Device (Tiotropium Inhaler Device*) 1 each .SEE ORDER .USE w/ SPIRIVA CAPS MONIQUE Guaifenesin (Robitussin*) 5 ml PO Q4H PRN Heparin Sodium (Porcine) (Heparin Vial(*)) 5,000 units SUBCUT Q8HR [facility] Lisinopril (Prinivil Tab*) 2.5 mg PO DAILY [facility] Mometasone Furoate/Formoterol Fumar (Dulera 100/5 Mdi*) 2 puff INH BID [facility] Oseltamivir Phosphate (Tamiflu Cap*) 75 mg PO BID [facility] Prednisone (Deltasone Tab*) 40 mg PO DAILY [facility] Tiotropium [place] (Spiriva Cap.Inh*) 1 cap INH DAILY [facility] Vital Signs: Temp Pulse Resp BP Pulse Ox 99.1 F 93 16 122/72 98 03/12/18 07:03 03/12/18 08:07 12/30/18 08:07 03/12/18 07:14 03/12/18 08:07 Oxygen Devices in Use Now: Nasal Cannula Appearance: Pt wakes easily and sits upright exam; in no acute distress. Eyes: No Scleral Icterus, PERRLA Ears/Nose/Mouth/Throat: NL Teeth, Lips, Gums, Mucous Membranes Moist Neck: NL Appearance and Movements; NL JVP, Trachea Midline Respiratory: Symmetrical Chest Expansion and Respiratory Effort, - - No use of accessory muscles, no pursed lip breathing; diminished breath sounds in b/l lungs without wheeze, rales, rhonchi. Cardiovascular: NL Sounds; No Murmurs; No JVD, No Edema, - - Systolic murmur on auscultation Abdominal: NL Sounds; No Tenderness; No Distention Extremities: No Edema, No Clubbing, Cyanosis Skin: - - warm, dry, intact Neurological: Alert and Oriented x 3 Result Diagrams: 03/12/18 07:22 03/12/18 07:22 Additional Lab and Data: Microbiology and Other Data: Microbiology 03/09/18 16:15 Influenza Types A,B Antigen - Final Nasal Specimen received for Influenza A/B Molecular testing Assess/Plan/Problems-Billing Assessment: Pt is a 72yof who presents with Influenza A. Past medical hx significant for COPD, , HTN. - Patient Problems (1) Influenza A Comment: -Pt continues to be SOB before next nebulizer due -Continue tamiflu -Continue nebulizer treatments, inhalers -Continue to push PO fluids (2) Iron deficiency anemia Comment: -Pt severely anemic with hgb at 7.7. Pt has h/o iron deficiency anemia and hasn 't taken iron pills in unknown amount of time. This is likely the cause of the anemia. Iron study results of low iron, and low % saturation support deficiency as the likely cause. -Transfuse 1 unit PRBC -Fecal occult blood today -Ferrous gluconate 324 bid ordered -CBC in morning (3) Hypercapnia Comment: -Increase in CO2, likely 2/2 COPD, oxygen use -Continue to monitor (4) COPD (chronic obstructive pulmonary disease) Current Visit: No Status: Acute Code(s): J44.9 - CHRONIC OBSTRUCTIVE PULMONARY DISEASE, UNSPECIFIED SNOMED Code(s): 13664113 Comment: -Pt continues to have decreased breath sounds and SOB -Continue Dulera, Spiriva, flutter valve -Continue prednisone (5) Severe aortic stenosis Current Visit: No Status: Acute Code(s): I35.0 - NONRHEUMATIC AORTIC (VALVE ) STENOSIS SNOMED Code(s): 03587453 Comment: -Echo reads: normal LV fx, EF 55-60%, decreased LV chamber size, LVH, abnormal LV diastolic fx, mild to mod . Compared to 01/11/17, appears similar, while LV size was previously repoorted as normal. -Follow up with cardiology as outpatient (6) Hypertension Current Visit: Yes Status: Acute Code(s): I10 - ESSENTIAL (PRIMARY) HYPERTENSION SNOMED Code(s): 66642228 Comment: -Continue lisinopril (7) Hyperlipidemia Current Visit: Yes Status: Acute Code(s): E78.5 - HYPERLIPIDEMIA, UNSPECIFIED SNOMED Code(s): 69707377 Comment: -Continue atorvastatin (8) DVT prophylaxis Comment: -Heparin (9) Full code status Status and Disposition: Discharge to home when stable.
[2018-03-12 11:31] LABS: ABS Basophils 0 10^3/ul (0-0.2); ABS Eosinophils 0 10^3/ul (0-0.6); ABS Lymphocytes 1.5 10^3/ul (1.0-4.8); ABS Monocytes 0.8 10^3/ul (0-0.8); ABS Neutrophils 4.1 10^3/ul (1.5-7.7); ABS Nucleated RBC 0 10^3/ul; Eosinophil % 0.1 %; Hematocrit 25 % (35-47); Hemoglobin 7.7 g/dl (12.0-16.0); Mean Corpuscular HGB Conc 31 g/dl (31-36); Mean Corpuscular Hemoglobin 23 pg (27-31); Mean Corpuscular Volume 73 fL (80-97); Mean Platelet Volume 8.1 fL (7.4-10.4); Nucleated Red Blood Cells % 0.1; Platelet Count 329 10^3/ul (150-450); Red Cell Distribution Width 18 % (10.5-15); White Blood Count 6.5 10^3/ul (3.5-10.8)
[2018-03-12 11:43] LABS: Anion Gap 4 mmol/L (2-11); BUN/Creatinine Ratio 43.6 (8-20); Blood Urea Nitrogen 24 mg/dL (6-24); CO2 Carbon Dioxide 35 mmol/L (22-32); Calcium 8.6 mg/dL (8.6-10.3); Chloride 102 mmol/L (101-111); Creatine Kinase 90 U/L (10-223); EGFR Non-African American 109.3 (>60); Glucose 103 mg/dL (70-100); Potassium 3.7 mmol/L (3.5-5.0); Sodium 141 mmol/L (135-145)
[2018-03-12 12:20] LABS: Iron 37 ug/dL (50-212); Total Iron Binding Capacity 399 mcg/dL (250-450); Transferrin 285 mg/dL (203-362)
[2018-03-12 12:40] LABS: Ferritin 12.1 ng/mL (11-307)
[2018-03-12] MEDS: Ferrous Gluconate TAB* 324 MG TAB PO SCH ×2 (13:03→20:50)
[2018-03-13] MEDS: Albuterol/Ipratropium NEB.SOL* Albuterol 2.5 MG/Ipratropium 0.5 MG 3 ML INH SCH ×4 (01:48→19:33)
[2018-03-13] MEDS: Heparin VIAL(*) 5000 UNITS/ML VIAL (FIVE THOUSAND) SUBCUT SCH ×3 (06:12→20:17)
[2018-03-13] MEDS: Tiotropium CAP.INH* CAP.INH/18 MCG (USE ORDER SET !) INH SCH ×2 (06:30→07:45)
[2018-03-13] MEDS: Mometasone/Formoter 100/5 MDI INH SCH ×2 (06:30→07:44)
[2018-03-13 07:40] LABS: ABS Basophils 0 10^3/ul (0-0.2); ABS Eosinophils 0 10^3/ul (0-0.6); ABS Lymphocytes 1.4 10^3/ul (1.0-4.8); ABS Monocytes 0.7 10^3/ul (0-0.8); ABS Neutrophils 6.1 10^3/ul (1.5-7.7); ABS Nucleated RBC 0 10^3/ul; Eosinophil % 0.1 %; Hematocrit 23 % (35-47); Hemoglobin 6.9 g/dl (12.0-16.0); Lymphocyte % 16.9 %; Mean Corpuscular HGB Conc 30 g/dl (31-36); Mean Corpuscular Hemoglobin 22 pg (27-31); Mean Corpuscular Volume 73 fL (80-97); Mean Platelet Volume 7.9 fL (7.4-10.4); Nucleated Red Blood Cells % 0; Platelet Count 288 10^3/ul (150-450); Red Blood Count 3.13 10^6/ul (4.00-5.40); Red Cell Distribution Width 18 % (10.5-15); White Blood Count 8.3 10^3/ul (3.5-10.8)
[2018-03-13 07:42] LABS: BUN/Creatinine Ratio 45.3 (8-20); Calcium 8.6 mg/dL (8.6-10.3); Potassium 3.4 mmol/L (3.5-5.0)
[2018-03-13] MEDS: guaiFENesin LIQ* 100 MG/5 ML UDC PO PRN (08:14)
[2018-03-13] MEDS: Lisinopril TAB* 5 MG PO SCH (08:14)
[2018-03-13] MEDS: Atorvastatin* 20 MG TAB PO SCH (08:14)
[2018-03-13] MEDS: Ferrous Gluconate TAB* 324 MG TAB PO SCH ×2 (08:14→20:16)
[2018-03-13] MEDS: predniSONE TAB* 20 MG PO SCH (08:14)
[2018-03-13] MEDS: Aspirin EC TAB* 81 MG TAB.EC PO SCH (08:14)
[2018-03-13] MEDS: Oseltamivir CAP* 75 MG CAP PO SCH ×2 (08:15→20:16)
--- NOTE | 2018-03-13 10:30 | PN ---
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 Objective Active Medications: Acetaminophen (Tylenol Tab*) 650 mg PO Q6H PRN PRN Reason: PAIN Last Admin: 03/11/18 11:43 Dose: 650 mg Albuterol (Ventolin Hfa Inhaler*) 2 puff INH Q4H PRN PRN Reason: SOB/WHEEZING Last Admin: 03/12/18 07:16 Dose: 2 puff Albuterol/Ipratropium (Duoneb (Albuterol 2.5 Mg/Ipratropium 0.5 Mg)) 1 neb INH Q4H PRN PRN Reason: SOB/WHEEZING Last Admin: 03/10/18 07:57 Dose: 1 neb Albuterol/Ipratropium (Duoneb (Albuterol 2.5 Mg/Ipratropium 0.5 Mg)) 1 neb INH [id number] AWAKE [facility] Last Admin: 03/13/18 06:30 Dose: 1 neb Aspirin (Aspirin Ec Tab*) 81 mg PO DAILY [facility] Last Admin: 03/13/18 08:14 Dose: 81 mg Atorvastatin Calcium (Lipitor*) 20 mg PO DAILY [facility] Last Admin: 03/13/18 08:14 Dose: 20 mg Device (Tiotropium Inhaler Device*) 1 each .SEE ORDER .USE w/ SPIRIVA CAPS [facility] Ferrous Gluconate (Fergon Tab*) 324 mg PO BID [facility] Last Admin: 03/13/18 08:14 Dose: 324 mg Guaifenesin (Robitussin*) 5 ml PO Q4H PRN PRN Reason: COUGH Last Admin: 03/13/18 08:14 Dose: 5 ml Heparin Sodium (Porcine) (Heparin Vial(*)) 5,000 units SUBCUT Q8HR [facility] Last Admin: 03/13/18 06:12 Dose: 5,000 units Lisinopril (Prinivil Tab*) 2.5 mg PO DAILY [facility] Last Admin: 03/13/18 08:14 Dose: 2.5 mg Methylprednisolone Sodium Succinate (Solu-Medrol 40 Mg) 40 mg IV Q8H [facility] Mometasone Furoate/Formoterol Fumar (Dulera 200/5 Mdi*) 2 puff INH BID [facility] Oseltamivir Phosphate (Tamiflu Cap*) 75 mg PO BID [facility] Stop: 03/14/18 09:01 Last Admin: 03/13/18 08:15 Dose: 75 mg Tiotropium [place] (Spiriva Cap.Inh*) 1 cap INH DAILY [facility] Last Admin: 03/13/18 07:45 Dose: Not Given Vital Signs - 8 hr 03/13/18 03/13/18 02:48 06:31 Temperature 97.0 F Pulse Rate 92 84 Respiratory 18 20 Rate Blood Pressure 124/57 (mmHg) O2 Sat by Pulse 97 99 Oximetry Oxygen Devices in Use Now: Nasal Cannula - 2L Appearance: sitting up in bed, purse lip breathing Eyes: No Scleral Icterus, PERRLA Ears/Nose/Mouth/Throat: Mucous Membranes Moist Neck: NL Appearance and Movements; NL JVP, Trachea Midline Respiratory: Symmetrical Chest Expansion and Respiratory Effort, Clear to Auscultation, - - clear, prolonged expiratory phase Cardiovascular: RRR Abdominal: NL Sounds; No Tenderness; No Distention, No Hepatosplenomegaly Lymphatic: No Cervical Adenopathy Extremities: No Edema Skin: No Rash or Ulcers Neurological: Alert and Oriented x 3 Result Diagrams: 03/13/18 07:05 03/13/18 07:05 Additional Lab and Data: Microbiology and Other Data: Microbiology 03/09/18 16:15 Influenza Types A,B Antigen - Final Nasal Specimen received for Influenza A/B Molecular testing Assess/Plan/Problems-Billing Assessment: Pt is a 72 yo F who presents SOB f/w Influenza A with stay c/b worsening anemia. Past medical hx significant for COPD, , HTN. - Patient Problems (1) Influenza A Comment: -Continue tamiflu -Continue nebulizer treatments -increase steroids to IV 40 TID (2) Aortic stenosis Comment: mild-moderate on most recent TTE (3) Iron deficiency anemia Comment: -Pt anemic with hgb at 7.7 yesterday dropped to <7 today Pt has h/o iron deficiency anemia and hasn't taken iron pills in unknown amount of time. This is likely the cause of the anemia. Iron study results of low iron, and low % saturation support deficiency as the likely cause. -Transfuse 1 unit PRBC 03/13 -Fecal occult blood today (ordered) -Ferrous gluconate 324 bid ordered -trend H/H (4) COPD (chronic obstructive pulmonary disease) Comment: -Continue Dulera, Spiriva, flutter valve - prednisone transitioned to IV -increase dulera dose (5) Diastolic dysfunction with acute on chronic heart failure Comment: Continue lasix 20mg daily. [place] 1.5L fluid restriction continue daily weights, strict io (6) DVT prophylaxis Comment: HSQ Status and Disposition: Discharge to home when stable.
[2018-03-13] MEDS: methylPREDNISolone SOD 40 MG* 1 ML VIAL IV SCH ×2 (11:13→20:17)
[2018-03-13] MEDS: Mometasone/Formoter 200/5 MDI INH SCH (19:32)
[2018-03-14] MEDS: Albuterol/Ipratropium NEB.SOL* Albuterol 2.5 MG/Ipratropium 0.5 MG 3 ML INH SCH ×5 (00:47→19:14)
[2018-03-14] MEDS: Heparin VIAL(*) 5000 UNITS/ML VIAL (FIVE THOUSAND) SUBCUT SCH ×2 (04:26→12:23)
[2018-03-14] MEDS: methylPREDNISolone SOD 40 MG* 1 ML VIAL IV SCH ×2 (04:26→12:23)
[2018-03-14] MEDS: Albuterol HFA INHALER* 8 gm MDI INH PRN (05:03)
[2018-03-14 06:04] LABS: ABS Basophils 0 10^3/ul (0-0.2); ABS Eosinophils 0 10^3/ul (0-0.6); ABS Lymphocytes 1.2 10^3/ul (1.0-4.8); ABS Monocytes 0.5 10^3/ul (0-0.8); ABS Neutrophils 9.7 10^3/ul (1.5-7.7); ABS Nucleated RBC 0 10^3/ul; Eosinophil % 0 %; Hematocrit 24 % (35-47); Hemoglobin 7.5 g/dl (12.0-16.0); Lymphocyte % 10.6 %; Mean Corpuscular HGB Conc 31 g/dl (31-36); Mean Corpuscular Hemoglobin 23 pg (27-31); Mean Corpuscular Volume 75 fL (80-97); Mean Platelet Volume 8.1 fL (7.4-10.4); Nucleated Red Blood Cells % 0; Platelet Count 279 10^3/ul (150-450); Red Blood Count 3.19 10^6/ul (4.00-5.40); Red Cell Distribution Width 19 % (10.5-15); White Blood Count 11.4 10^3/ul (3.5-10.8)
[2018-03-14 06:26] LABS: BUN/Creatinine Ratio 47.9 (8-20); Calcium 8.9 mg/dL (8.6-10.3); EGFR Non-African American 127.9 (>60); Potassium 3.9 mmol/L (3.5-5.0)
[2018-03-14] MEDS: Mometasone/Formoter 200/5 MDI INH SCH ×2 (07:46→19:14)
[2018-03-14] MEDS: Tiotropium CAP.INH* CAP.INH/18 MCG (USE ORDER SET !) INH SCH (07:47)
[2018-03-14] MEDS: Atorvastatin* 20 MG TAB PO SCH (09:42)
[2018-03-14] MEDS: Aspirin EC TAB* 81 MG TAB.EC PO SCH (09:42)
[2018-03-14] MEDS: Lisinopril TAB* 5 MG PO SCH (09:42)
[2018-03-14] MEDS: Ferrous Gluconate TAB* 324 MG TAB PO SCH (09:43)
[2018-03-14] MEDS: Oseltamivir CAP* 75 MG CAP PO SCH (09:43)
--- NOTE | 2018-03-14 11:01 | PN ---
Subjective Date of Service: 03/14/18 Interval History: Pt is feeling much better now than on admission but still is SOB. She states her SOB is at her baseline level. She has a wet cough which is different from her baseline. She states she is absolutely leaving today. When I told her that I was concerned about her hemoglobin and blood in the stool she stated she still did not want to be in the hospital because she has to be home to take care of her . I told her I was worried that without attention for herself she may not be able to care for her . She intends to get help from office of the aging for her . She understands my concerns and the risks of going home and will seek attention again if needed. Objective Active Medications: Acetaminophen (Tylenol Tab*) 650 mg PO Q6H PRN PRN Reason: PAIN Last Admin: 03/11/18 11:43 Dose: 650 mg Albuterol (Ventolin Hfa Inhaler*) 2 puff INH Q4H PRN PRN Reason: SOB/WHEEZING Last Admin: 03/14/18 05:03 Dose: 2 puff Albuterol/Ipratropium (Duoneb (Albuterol 2.5 Mg/Ipratropium 0.5 Mg)) 1 neb INH Q4H PRN PRN Reason: SOB/WHEEZING Last Admin: 03/10/18 07:57 Dose: 1 neb Albuterol/Ipratropium (Duoneb (Albuterol 2.5 Mg/Ipratropium 0.5 Mg)) 1 neb INH [id number] AWAKE [facility] Last Admin: 03/14/18 07:46 Dose: 1 neb Aspirin (Aspirin Ec Tab*) 81 mg PO DAILY [facility] Last Admin: 03/14/18 09:42 Dose: 81 mg Atorvastatin Calcium (Lipitor*) 20 mg PO DAILY [facility] Last Admin: 03/14/18 09:42 Dose: 20 mg Device (Tiotropium Inhaler Device*) 1 each .SEE ORDER .USE w/ SPIRIVA CAPS [facility] Ferrous Gluconate (Fergon Tab*) 324 mg PO BID [facility] Last Admin: 03/14/18 09:43 Dose: 324 mg Guaifenesin (Robitussin*) 5 ml PO Q4H PRN PRN Reason: COUGH Last Admin: 03/13/18 08:14 Dose: 5 ml Heparin Sodium (Porcine) (Heparin Vial(*)) 5,000 units SUBCUT Q8HR [facility] Last Admin: 03/14/18 04:26 Dose: 5,000 units Lisinopril (Prinivil Tab*) 2.5 mg PO DAILY [facility] Last Admin: 03/14/18 09:42 Dose: 2.5 mg Methylprednisolone Sodium Succinate (Solu-Medrol 40 Mg) 40 mg IV Q8H [facility] Last Admin: 03/14/18 04:26 Dose: 40 mg Mometasone Furoate/Formoterol Fumar (Dulera 200/5 Mdi*) 2 puff INH BID [facility] Last Admin: 03/14/18 07:46 Dose: 2 puff Tiotropium [place] (Spiriva Cap.Inh*) 1 cap INH DAILY [facility] Last Admin: 03/14/18 07:47 Dose: 1 cap Vital Signs - 8 hr 03/14/18 03/14/18 03:49 07:47 Temperature 97.3 F Pulse Rate 69 66 Respiratory 19 20 Rate Blood Pressure 118/52 (mmHg) O2 Sat by Pulse 100 99 Oximetry Oxygen Devices in Use Now: Nasal Cannula - 3L, 99-100% Appearance: Elderly female sitting up in bed, pursed lip breathing but in NAD Eyes: No Scleral Icterus Ears/Nose/Mouth/Throat: Mucous Membranes Moist Respiratory: Symmetrical Chest Expansion and Respiratory Effort, - - moderately diminished breath sounds in all lung boyle Cardiovascular: NL Sounds; No Murmurs; No JVD, RRR, No Edema Abdominal: NL Sounds; No Tenderness; No Distention Extremities: No Clubbing, Cyanosis Skin: No Nodules or Sclerosis Neurological: Alert and Oriented x 3 Result Diagrams: 03/14/18 05:52 03/14/18 05:52 Additional Lab and Data: Microbiology and Other Data: Microbiology 03/09/18 16:15 Influenza Types A,B Antigen - Final Nasal Specimen received for Influenza A/B Molecular testing Assess/Plan/Problems-Billing Ms Jack is a 72 yo F who has a h/o COPD, HTN and aortic stenosis who presented to the ER with c/o SOB and was found to have influenza A. - Patient Problems (1) COPD (chronic obstructive pulmonary disease) Current Visit: Yes Status: Acute Code(s): J44.9 - CHRONIC OBSTRUCTIVE PULMONARY DISEASE, UNSPECIFIED SNOMED Code(s): 84875953 Comment: Pt with COPD exacerbation on admission secondary to influenza. Pt feels her breathing is now at baseline. Continue dulera, spiriva and transition back to prednisone 40mg daily as pt refuses to stay longer. (2) Influenza A Current Visit: Yes Status: Acute Code(s): J10.1 - FLU DUE TO OTH IDENT INFLUENZA VIRUS W OTH RESP MANIFEST SNOMED Code(s): 208531836 Comment: Pt has completed tamiflu treatment. Continue nebs, inhalers. Change back to prednisone 40mg daily. (3) Iron deficiency anemia Current Visit: Yes Status: Acute Code(s): D50.9 - IRON DEFICIENCY ANEMIA, UNSPECIFIED SNOMED Code(s): 68564494 Comment: Pt is quite anemic. Unclear what her baseline has been over the last 1 year. Last evaluation here was during an admission for dyspnea in 2017. The patient has a positive stool occult blood and H/H dropped from 10/32 on admission to a low of 6.9/23. On admission I suspect the patient was likely hemoconcentrated from being acutely ill with the flu. H/H has otherwise hovered in the 7-8/23-25 range. She received 1 unit PRBC this admission. She is markedly iron deficient with an iron level of 37 and ferritin of 12.1. She has been started on ferrous gluconate. She refuses to stay for GI evaluation and states that she wants to leave [place]. I am concerned however that she will not follow up with GI as she states all she ever does is pay bills to doctor's offices and she does not want to do that any more. Additionally she was recommended to have a colonoscopy after her hospitalization in 2017 as she never had one and I do not believe she ever followed up. I will try to contact her daughter to discuss my concerns about her leaving. (4) Aortic stenosis Current Visit: Yes Status: Acute Code(s): I35.0 - NONRHEUMATIC AORTIC (VALVE ) STENOSIS SNOMED Code(s): 53070141 Comment: Pt with mild to moderate on echo this admission. Will need outpatient follow up with cardiology for continued monitoring of the . (5) Hypertension Current Visit: Yes Status: Acute Code(s): I10 - ESSENTIAL (PRIMARY) HYPERTENSION SNOMED Code(s): 71500174 Comment: BP is under good control. Continue lisinopril 2.5mg daily. (6) Hyperlipidemia Current Visit: Yes Status: Acute Code(s): E78.5 - HYPERLIPIDEMIA, UNSPECIFIED SNOMED Code(s): 69100942 Comment: Continue lipitor. (7) DVT prophylaxis Current Visit: Yes Status: Acute Code(s): XOV9272 - SNOMED Code(s): 731180855 Comment: SQ heparin (8) Full code status Current Visit: Yes Status: Acute Code(s): Z78.9 - OTHER SPECIFIED HEALTH STATUS SNOMED Code(s): 896419127 Status and Disposition: .
[2018-03-14 13:28] VITALS: BP 106/47
--- NOTE | 2018-03-14 20:26 | DS ---
CC: [facility] * DISCHARGE SUMMARY: DATE OF ADMISSION: 03/09/18 DATE OF DISCHARGE: 03/14/18 PRIMARY CARE PROVIDER: [facility]. PRINCIPAL DIAGNOSES: 1. Chronic obstructive pulmonary disease exacerbation secondary to influenza A. 2. Iron deficiency anemia with heme-positive stool. DISCHARGE MEDICATIONS: 1. Lisinopril 2.5 mg p.o. daily. 2. Lipitor 20 mg p.o. daily. 3. Aspirin 81 mg p.o. daily. 4. Albuterol 2 puffs inhaled q.4 hours p.r.n. shortness of breath. 5. Prednisone 40 mg p.o. daily x2 days, 30 mg x2 days, 20 mg x2 days, and 10 mg x2 days. 6. Spiriva 1 puff inhaled daily (new). 7. Omeprazole 20 mg p.o. daily (new). 8. Ferrous gluconate 324 mg p.o. b.i.d.(new). HOSPITAL COURSE: Ms. Jack is a 72-year-old female who presented to the emergency room on 03/09/18 with complaints of shortness of breath. The patient has an extensive smoking history, but is not on home O2. Ultimately, she was found to be positive for influenza A. The patient was admitted for COPD exacerbation secondary to influenza A. The patient's breathing slowly recovered back to her baseline, which is quite tenuous. States at baseline she uses pursed-lip breathing. She does not have oxygen at home. She is being tested for this prior to discharge. The patient completed a full course of Tamiflu. She will continue on a prednisone taper at discharge. The patient will also have Spiriva added to her inhaler regimen. During the hospitalization, the patient was found to be quite anemic. Her hemoglobin on admission was 10, however, I suspect she was hemoconcentrated at that time. Her hemoglobin had subsequently decreased to a low of 6.9. The patient was transfused 1 unit of packed red blood cells. On the day of discharge, her hemoglobin is up to 7.5. She had a stool occult blood sent that was positive. I recommended to the patient staying for GI evaluation including possible upper and lower endoscopies. At this point, the patient absolutely refuses to do so. She states that she had an upper endoscopy many years ago, which was likely in 2010 when she had a GI bleed. She has never had a lower endoscopy. The patient at this point appears understand the risks of leaving the hospital and if she thinks to leave against medical advice. The patient has been started on ferrous gluconate and this should continue. Additionally, I have added omeprazole 20 mg daily, especially as the patient is on baby aspirin and has a history of peptic ulcer disease. I have recommended the patient be evaluated by Gastroenterology soon as an outpatient. Additionally, the patient has been recommended to follow up with her primary care provider in the next 4 to 7 days for post-hospital followup. The patient's daughter was present at the time of my discussion with the patient about the risks of leaving and is agreeable to helping, encourage her mom get to appropriate followup appointments. FOLLOWUP CONCERNS: The patient is being discharged to home today on 03/14/18. ACTIVITY LEVEL: As tolerated. DIET: Regular. CONDITION ON DISCHARGE: Stable. TOTAL TIME SPENT: 35 minutes were spent on discharging this patient. [id number]/[facility] #: [id number] ODALIS
== END 2018-03-14 15:00 | disposition home or self-care (01) | DRG 193 ==
LOC: ED 15:20 → MED 18:06
PROVIDERS: ADMIT Internal Medicine; ATTEND Hospitalist
PROC: 30233N1 Transfusion of Nonautologous Red Blood Cells into Peripheral Vein, Percutaneous Approach (ICD-10-PCS; principal; 2018-03-13)
DX: J10.1 Influenza due to other identified influenza virus with other respiratory manifestations (principal); J96.01 Acute respiratory failure with hypoxia; I50.33 Acute on chronic diastolic (congestive) heart failure; I24.8 Other forms of acute ischemic heart disease; J44.1 Chronic obstructive pulmonary disease with (acute) exacerbation; K92.1 Melena; I11.0 Hypertensive heart disease with heart failure; I35.0 Nonrheumatic aortic (valve) stenosis; E78.5 Hyperlipidemia, unspecified; R74.8 Abnormal levels of other serum enzymes; D50.9 Iron deficiency anemia, unspecified; Z79.82 Long term (current) use of aspirin; Z79.899 Other long term (current) drug therapy; Z88.5 Allergy status to narcotic agent; Z82.49 Family history of ischemic heart disease and other diseases of the circulatory system; Z87.891 Personal history of nicotine dependence
CPT/HCPCS: 36415; 71046; 80048; 80053; 82272; 82550; 82553; 82728; 82803; 83540; 83550; 83605; 83880; 84145; 84484; 85025; 85379; 85610; 85730; 86140; 86850; 86870; 86880; 86900; 86901; 86905; 86922; 87040; 93005; 93306; 94640; 99284; A9270-GY; J1644; J2920; J2930; J7512; P9016

== ENCOUNTER 2018-03-15 16:09 | Inpatient (IN) | payer MEDICARE, OTHER ==
--- NOTE | 2018-03-15 16:34 | ED ---
Shortness of Breath - HPI Summary HPI Summary: This pt is a 72 y/o female presenting to [facility] via EMS c/o worsening SOB today. Additionally pt has a fever and is tachycardic. Per EMS pt was saturating at 90 % on room air and respirations were 24. 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 EMS states pt was admitted to [facility] [place] [place] 4 days ago for influenza B and was discharged yesterday. Per , the doctor wanted the pt to stay longer but the pt declines as she did not want her to be alone yesterday. Pt was discharged home with 4 prescriptions but was unable to get spiriva but was told she didn't need it and was too expensive to pay out of pocket. Pt denies chest pain, nausea, vomiting. PMHx includes COPD - History of Current Complaint Chief Complaint: EDShortnessOfBreath Time Seen by Provider: 03/15/18 16:16 Hx Obtained From: Patient, EMS Onset/Duration: Lasting Days, Still Present Timing: Constant Dyspnea At: Rest Aggrevating Factors: Nothing Alleviating Factors: Oxygen Associated Signs & Symptoms: Fever - Allergy/Home Medications Allergies/Adverse Reactions: Allergies Allergy/AdvReac Type Severity Reaction Status Date / Time codeine Allergy GI Upset Verified 03/15/18 16:32 Home Medications: Home Medications Lisinopril TAB* [Prinivil TAB 5 MG*] 2.5 mg PO DAILY 03/15/18 [History Confirmed 03/15/18] PMH/Surg Hx/FS Hx/Imm Hx Endocrine/Hematology History: Denies: Hx Diabetes Respiratory History: Reports: Hx Chronic Obstructive Pulmonary Disease (COPD), Hx Pneumonia GI History: Reports: Hx Ulcer Sensory History: Denies: Hx Contacts or Glasses, Hx Hearing Aid Opthamlomology History: Denies: Hx Contacts or Glasses - Surgical History Surgery Procedure, Year, and Place: CATARACTS AND CHOLECYSTECTOMY Infectious Disease History: No Infectious Disease History: Denies: Traveled Outside the [place] in Last 30 Days - Family History Known Family History: Positive: Other - [place] - Social History Alcohol Use: None Substance Use Type: Reports: None Smoking Status (MU): Light Every Day Tobacco Smoker Type: Cigarettes Review of Systems Positive: Fever Negative: Chest Pain Positive: Shortness Of Breath Negative: Vomiting, Nausea Musculoskeletal: Negative Skin: Negative All Other Systems Reviewed And Are Negative: Yes Physical Exam - Summary Physical Exam Summary: GENERAL: Patient is a well developed and nourished female who is lying comfortable in the stretcher. HEAD AND FACE: Normocephalic EYES: PERRLA, EOMI x 2. EARS: Hearing grossly intact. MOUTH: Oropharynx within normal limits. NECK: Supple, trachea is midline, no adenopathy, no JVD, no carotid bruit. CHEST: Symmetric, no tenderness at palpation LUNGS: Decreased breath sounds. CVS: Regular rate and rhythm, S1 and S2 present, no murmurs or gallops appreciated. ABDOMEN: Soft, non-tender. Bowel sounds are normal. No abdominal abnormal pulsations. EXTREMITIES: Full ROM in all major joints, no edema, no cyanosis or clubbing. NEURO: Alert and oriented x 3. No acute neurological deficits. Speech is normal and follows commands. SKIN: Dry and warm Triage Information Reviewed: Yes Vital Signs On Initial Exam: Initial Vitals Temp Pulse Resp BP Pulse Ox 100.4 F 103 24 132/79 89 03/15/18 16:20 03/15/18 16:20 03/15/18 16:20 03/15/18 16:20 03/15/18 16:20 Vital Signs Reviewed: Yes Diagnostics - Vital Signs Vital Signs Temp Pulse Resp BP Pulse Ox 03/15/18 16:20 100.4 F 103 24 132/79 89 - Laboratory Result Diagrams: 03/15/18 17:56 03/15/18 17:56 Lab Statement: Any lab studies that have been ordered have been reviewed, and results considered in the medical decision making process. - Radiology Chest XR Radiology Interpretation Completed By: Radiologist Summary of Radiographic Findings: IMPRESSION: 1. Mild to moderate peribronchial cuffing could be seen in the setting of bronchitis/inflammatory lung disease. 2. There is very questionable infiltrate at the lateral aspect of the bilateral lung bases. Dr. Vo has reviewed this report. - EKG 17:29 Cardiac Rate: NL - at 98 bpm EKG Rhythm: Sinus Rhythm Summary of EKG Findings: ST depression but similar to old EKG on 03/10/18. Re-Evaluation - Re-Evaluation First Eval Re-Evaluation Time: 18:36 Comment: Pt is becoming septic Course/Dx - Course Assessment/Plan: Pt is a 72 y/o female, recently discharged yesterday from [facility] [place] [place], who presents to the ED via EMS c/o worsening SOB today. Additionally pt has a fever and is tachycardic. Per EMS pt was saturating at 90% on room air and respirations were 24. Chest XR shows 1. Mild to moderate peribronchial cuffing could be seen in the setting of bronchitis/inflammatory lung disease. 2. There is very questionable infiltrate at the lateral aspect of the bilateral lung bases. Workup remarkable for WBC of 16.7, hemoglobin of 8, hematocrit of 26, lactic acid of 4.5, troponin of 0.20, BNP of 294. Pt is septic secondary to pneumonia, most likely health care associated pneumonia given that she was recently discharged from the hospital. Pt was treated in the ED with Vancomycin and Zosyn. Pt will be admitted. Case discussed with hospitalist, Dr. Rodriguez, who accepted the pt for admission. I discussed results with patient. The patient agrees with this plan. - Diagnoses Provider Diagnoses: Pneumonia, Sepsis, Sepsis due to pneumonia - Physician Notifications Discussed Care of Patient With: Emma Rodriguez - hospitalist Time Discussed With Above Provider: 17:49 Instructed by Provider To: Admit As Inpatient - Critical Care Time Critical Care Time: 30-74 min Discharge - Sign-Out/Discharge Documenting (check all that apply): Patient Departure - Admit to [facility] [place] [place] - Discharge Plan Condition: Stable Disposition: ADMITTED TO [facility] Referrals: Carley Aguila VP [employer] [Primary Care Provider] - - Billing Disposition and Condition Condition: STABLE Disposition: Admitted to [facility] - Attestation Statements Document Initiated by Kamiibe: Yes Documenting Scribe: Adwoa Nieves Provider For Whom Scribe is Documenting (Include Credential): Pretty Vo MD Scribe Attestation: Adwoa Sifuentes, scribed for Pretty Vo MD on 03/15/18 at 1850. Scribe Documentation Reviewed: Yes Provider Attestation: The documentation as recorded by the Adwoa rodriguez accurately reflects the service I personally performed and the decisions made by me, Pretty Vo MD Status of Scribe Document: Viewed
[2018-03-15] MEDS ORDERED: Albuterol/Ipratropium NEB.SOL* Albuterol 2.5 MG/Ipratropium 0.5 MG 3 ML INH ONE (16:52)
[2018-03-15] MEDS ORDERED: NS 0.9% 1000 ML* 1,000 ML IV ONE ×2 (16:52→18:36)
[2018-03-15] MEDS ORDERED: Dexamethasone IV* 4 MG/ML 5 ML VIAL (20 MG) IVPB ONE (16:52)
[2018-03-15] MEDS ORDERED: Acetaminophen TAB* 325 MG PO ONE (16:53)
[2018-03-15] MEDS ORDERED: Vancomycin(*) 1,000 MG in NS 0.9% 250 ML* 250 ML IVPB ONE (17:39)
[2018-03-15] MEDS ORDERED: Piperacillin/Tazobac ADVAN(*) 3.375 GM in NS 0.9% 100 ML* 100 ML IVPB ONE (17:39)
[2018-03-15] MEDS ORDERED: NS 0.9% 250 ML* 250 ML ONE (17:43)
[2018-03-15 18:16] LABS: Hematocrit 26 % (35-47); Mean Corpuscular HGB Conc 30 g/dl (31-36); Mean Corpuscular Hemoglobin 24 pg (27-31); Mean Corpuscular Volume 77 fL (80-97); Red Blood Count 3.39 10^6/ul (4.00-5.40); Red Cell Distribution Width 21 % (10.5-15); White Blood Count 16.7 10^3/ul (3.5-10.8)
[2018-03-15 18:29] LABS: Albumin 3.5 g/dL (3.2-5.2); Albumin/Globulin Ratio 1.3 (1-3); BUN/Creatinine Ratio 34.4 (8-20); Calcium 8.8 mg/dL (8.6-10.3); Globulin 2.7 g/dL (2-4); Potassium 3.9 mmol/L (3.5-5.0); Total Bilirubin 0.3 mg/dL (0.2-1.0); Total Protein 6.2 g/dL (6.4-8.9)
[2018-03-15 18:30] LABS: Activated Partial Thrombo Time 25.4 seconds (26.0-36.3); INR 0.97 (0.77-1.02)
[2018-03-15 18:45] LABS: ABS Basophils 0 10^3/ul (0-0.2); ABS Eosinophils 0 10^3/ul (0-0.6); ABS Lymphocytes 2.2 10^3/ul (1.0-4.8); ABS Monocytes 1.1 10^3/ul (0-0.8); ABS Neutrophils 13.3 10^3/ul (1.5-7.7); ABS Nucleated RBC 0 10^3/ul; Eosinophil % 0.1 %; Lymphocyte % 13.1 %; Mean Platelet Volume 7.9 fL (7.4-10.4); Nucleated Red Blood Cells % 0.1; Platelet Count 235 10^3/ul (150-450)
[2018-03-15 18:47] LABS: Polychromasia 1+
[2018-03-15] MEDS ORDERED: Al Hydrox/Mg Hydrox/Simet LIQ* 30 ML UDC PO PRN (19:37)
[2018-03-15] MEDS ORDERED: Docusate CAP* 100 MG PO PRN (19:37)
[2018-03-15] MEDS ORDERED: Ondansetron INJ* 2 MG/ML VIAL IV PRN (19:37)
[2018-03-15] MEDS ORDERED: Senna TAB PO PRN (19:37)
[2018-03-15] MEDS ORDERED: Acetaminophen TAB* 325 MG PO PRN (19:37)
[2018-03-15] MEDS ORDERED: NS 0.9% 1000 ML* 1,000 ML IV SCH (19:45)
[2018-03-15 19:54] LABS: C Reactive Protein 27.27 mg/L (<8.01)
[2018-03-15 20:23] LABS: Urine Appearance Cloudy; Urine Bacteria Absent (Absent); Urine Bilirubin Negative (Negative); Urine Blood 3+ (Negative); Urine Color Yellow; Urine Glucose Negative (Negative); Urine Ketones Negative (Negative); Urine Nitrite Negative (Negative); Urine Protein Negative (Negative); Urine Red Blood Cell Trace(0-2/hpf) (Absent); Urine Specific Gravity 1.021 (1.010-1.030); Urine Urobilinogen Negative (Negative); Urine White Blood Cell 1+(6-10/hpf) (Absent)
[2018-03-15] MEDS ORDERED: Omeprazole CAP (NF) 20 MG CAP.DR PO SCH (21:00)
--- NOTE | 2018-03-15 21:20 | HP ---
CC: Carley Aguila NP * HISTORY AND PHYSICAL: DATE OF ADMISSION: 03/15/18 TIME OF EVALUATION: 1900 PRIMARY CARE PROVIDER: Carley Aguila NP CHIEF COMPLAINT: Shortness of breath. HISTORY OF PRESENT ILLNESS: This is a 72-year-old female with a past medical history of COPD, who was just admitted from 03/09/18 and left AMA on the with diagnosis of COPD exacerbation secondary to influenza. The patient states she needed to go home on 03/14/18 because her has dementia and no one can help him. When she got home, her daughter went to go pepper picker her medicines, stated it was 400 dollars and could not afford to pepper picker the medications. She became more anxious and short of breath and promptly came back to the emergency room for further evaluation. She states her cough is at its baseline. She denies any chest pain. No fevers. No nausea, vomiting, diarrhea. No abdominal pain. No urinary symptoms. She denies any black stools , bloody stools. She states that she is always short of breath. She states she can walk about 5 steps before she gets short of breath. When she was admitted, she did not qualify for oxygen and has remained on room air. When EMS came to pick her up, her sats were noted to be 80%. She came into the emergency room, requiring oxygen. She was found to have an elevated white count and elevated troponin. In the emergency room, the patient was given Tylenol, 1 DuoNeb, Decadron, Zosyn, vanco, 1 L of fluid and referred to the hospitalist service for further evaluation. PAST MEDICAL HISTORY: 1. History of an admission from 03/09/18 to 03/14/18, left AMA, diagnosed with COPD and influenza. 2. History of iron-deficiency anemia with heme-positive stool. 3. COPD, on room air. 4. History of idcs-ni-nvohsrpu aortic stenosis. 5. History of peptic ulcer disease with GI bleed. 6. Hypertension. 7. Hyperlipidemia. MEDICATIONS ON DISCHARGE: The 4 medications that she was unable to pepper picker were : 1. Ferrous gluconate 324 mg p.o. b.i.d. 2. Spiriva 1 cap inhale daily. 3. Omeprazole 20 mg p.o. daily. 4. Prednisone taper. The remaining medications that she takes on a regular basis are: 1. Atorvastatin 20 mg daily. 2. Aspirin 81 mg daily. 3. Lisinopril 2.5 mg daily. 4. Albuterol inhaler 2 puffs every 6 hours as needed. ALLERGIES: CODEINE, GI upset. FAMILY HISTORY: History of coronary disease, unable to give any further details. SOCIAL HISTORY: As mentioned, the patient lives at home with her who has dementia. She states she is independent of her ADLs and is always short of breath. She quit smoking back in December 2016. At that point, she had cut back to 1 pack per day as a long-time smoker. No alcohol use, no illicit drug use. Her healthcare proxy is her daughter and her . She states she would like to be a DNR/DNI. A MOLST will be completed this evening. REVIEW OF SYSTEMS: A 14-point review of systems as mentioned in the HPI, otherwise negative. PHYSICAL EXAMINATION GENERAL: Patient is sitting up with pursed lip breathing, in mild respiratory distress. VITAL SIGNS: T-max 100.4, pulse rate is 87, respiratory rate 24, oxygen saturation on 2 L, blood pressure 117/71. HEENT: Head: Normocephalic. Pupils equal and reactive, anicteric. Oropharynx : Mucous membranes moist. NECK: Supple. No lymphadenopathy. RESPIRATORY: Diminished breath sounds, poor aeration. Bilateral expiratory wheezing. No accessory muscle use aside from her pursed lip breathing. CARDIAC: Regular rate and rhythm. Harsh systolic blowing murmur, most prominent at the left sternal base. ABDOMEN: Soft, nontender, nondistended. EXTREMITIES: Trace pretibial edema, +1 DPs. NEUROLOGIC: Alert and oriented x3. No gross focal neurologic deficits. LABORATORY DATA: White count 16.7, hemoglobin 8, hematocrit 26, platelets 235, 000. INR is 0.97. PTT is 25. D-dimer is less than 200. Sodium 141, potassium 3.9, chloride 103, bicarb 31, BUN 21, creatinine 0.61, glucose 127, lactic acid is 4.5. Troponin 0.2. CRP is 27. BNP is 294. RADIOGRAPHIC DATA: Shows [id number] peribronchial cuffing, could be seen in the setting of bronchitis, inflammatory lung disease. There is very questionable infiltrate at the lateral aspect of the bilateral lung bases. EKG shows sinus rhythm with rate of [address] depression in the lateral leads. ASSESSMENT: This is a 72-year-old female with past medical history of chronic obstructive pulmonary disease, who was just discharged and left AMA on 03/14/18 , returns because she was unable to pepper picker her medications due to cost and now with shortness of breath. 1. Shortness of breath. Assessment: Patient presenting with acute hypoxic respiratory failure requiring oxygen supplement. She does have an elevated white count with an elevated troponin with ST depression on her EKG. I suspect this is her chronic obstructive pulmonary disease exacerbation secondary to her influenza that she was already treated for. I do not think that she has secondary bacterial infection based on her chest x-ray and her presentation. She already did get a dose of vanco and Zosyn in the emergency room. Plan: We will check a CRP. We will follow her sputum and blood culture. Repeat her lactate. Give her fluids. We will continue her on the prednisone at 40 mg in the morning and she got Decadron this evening. We will start her on albuterol neb and DuoNeb and start her on Dulera. She will need more maintenance therapy and Spiriva. I would recommend possibly getting Dr. Pennington involved and I also will consult Social Work to help with cost of her affording her prescriptions. I am also going to give her a low-dose Roxanol to help with work of breathing. 2. Microcytic anemia. On her last admission, she did require 1 unit of blood. She has heme-positive stool. Her H and H has not dropped since yesterday. She denies any black or bloody stools. No overt bleeding. Likely, she has some gastritis or peptic ulcer disease secondary to her chronic steroid use. Plan: We will monitor H and H. We will increase her omeprazole to 40 b.i.d. for now and consider GI workup as the patient is willing to stay for an EGD for further evaluation once her respiratory status stabilizes. 3. Elevated troponin. Assessment: The patient with no chest pain. She does have ST depression on her EKG. I suspect this is related to demand ischemia in the setting of her chronic obstructive pulmonary disease exacerbation. Plan: We will continue her on her aspirin, though may need to hold this if she continues to have low blood counts. We will trend her troponins and repeat an EKG in the morning. She had an echo on her last admission, which was on . It showed normal LV systolic function in the absence of chest pain on recent echocardiogram. No indication for further workup at this time. She likely would benefit from an outpatient stress test at some point. CHRONIC MEDICAL PROBLEMS: 1. Chronic obstructive pulmonary disease, as above. Continue Spiriva as well. 2. Anemia, as above. I will continue her on her ferrous sulfate. 3. Hyperlipidemia. Continue her on Lipitor. 4. Hypertension. The patient's blood pressures are soft. I am going to hold her lisinopril for now. 5. FEN. Continue the patient on regular diet. 6. DVT prophylaxis. Patient scores high risk. We will place her on SCDs in the setting of her heme-positive stools. 7. Code status. Patient confirms she is a DNR/DNI. We will have her fill out a MOLST form this evening. TIME SPENT: Greater than 60 minutes was spent doing the history and physical, more than half the time spent in direct patient contact. [id number]/[facility] #: [id number] ODALIS
[2018-03-15] MEDS ORDERED: Heparin VIAL(*) 5000 UNITS/ML VIAL (FIVE THOUSAND) SUBCUT SCH (22:00)
[2018-03-15] MEDS: Ferrous Gluconate TAB* 324 MG TAB PO SCH (23:28)
[2018-03-15] MEDS: Omeprazole CAP (NF) 20 MG CAP.DR PO SCH (23:28)
[2018-03-16] MEDS: Mometasone/Formoter 200/5 MDI INH SCH ×4 (03:15→20:30)
[2018-03-16] MEDS: Albuterol HFA INHALER* 8 gm MDI INH SCH ×7 (03:16→22:19)
[2018-03-16] MEDS: Albuterol/Ipratropium NEB.SOL* Albuterol 2.5 MG/Ipratropium 0.5 MG 3 ML INH PRN (03:24)
[2018-03-16] MEDS: Morphine ORAL CONCENTRATE* 5 MG/0.25 ML ORAL.SYRIN PO PRN ×4 (04:09→18:39)
--- NOTE | 2018-03-16 04:29 | PN ---
Progress Note - Progress Note Date of Service: 03/16/18 Note: Paged for pursed lip breathing, tacyhpnea and tri-podding - On arrival patient sleeping in bed. States her breathing seems better. Suspect treatments and morphine took effect. No further intervention at this time.
[2018-03-16] MEDS: Tiotropium CAP.INH* CAP.INH/18 MCG (USE ORDER SET !) INH SCH (08:12)
[2018-03-16] MEDS: Omeprazole CAP (NF) 20 MG CAP.DR PO SCH ×2 (08:38→20:52)
[2018-03-16] MEDS: Ferrous Gluconate TAB* 324 MG TAB PO SCH ×2 (08:38→20:52)
[2018-03-16] MEDS: predniSONE TAB* 20 MG PO SCH (08:38)
[2018-03-16] MEDS: Atorvastatin* 20 MG TAB PO SCH (08:38)
[2018-03-16] MEDS: Aspirin EC TAB* 81 MG TAB.EC PO SCH (08:38)
[2018-03-16 10:02] LABS: ABS Basophils 0 10^3/ul (0-0.2); ABS Eosinophils 0 10^3/ul (0-0.6); ABS Lymphocytes 1.1 10^3/ul (1.0-4.8); ABS Monocytes 0.5 10^3/ul (0-0.8); ABS Neutrophils 8.7 10^3/ul (1.5-7.7); ABS Nucleated RBC 0 10^3/ul; Eosinophil % 0 %; Hematocrit 24 % (35-47); Hemoglobin 7.4 g/dl (12.0-16.0); Lymphocyte % 10.8 %; Mean Corpuscular HGB Conc 31 g/dl (31-36); Mean Corpuscular Hemoglobin 24 pg (27-31); Mean Corpuscular Volume 77 fL (80-97); Mean Platelet Volume 8.4 fL (7.4-10.4); Nucleated Red Blood Cells % 0.2; Platelet Count 330 10^3/ul (150-450); Red Blood Count 3.08 10^6/ul (4.00-5.40); Red Cell Distribution Width 22 % (10.5-15); White Blood Count 10.3 10^3/ul (3.5-10.8)
[2018-03-16 10:25] LABS: BUN/Creatinine Ratio 27.8 (8-20); Calcium 8.6 mg/dL (8.6-10.3); EGFR Non-African American 111.6 (>60); Potassium 3.8 mmol/L (3.5-5.0)
[2018-03-16] MEDS ORDERED: Ipratropium 0.5MG/2.5ML NEB* 0.5 MG/2.5 ML NEB.SOLN INH PRN (15:39)
[2018-03-16] MEDS ORDERED: NS 0.9% 1000 ML* 1,000 ML IV SCH (15:45)
--- NOTE | 2018-03-16 15:48 | PN ---
Subjective Date of Service: 03/16/18 Interval History: C/O [place] with minimal walking. No cough. No new c/o. Objective Active Medications: Acetaminophen (Tylenol Tab*) 650 mg PO Q4H PRN PRN Reason: FEVER/PAIN Al Hydrox/Mg Hydrox/Simethicone (Maalox Plus*) 30 ml PO Q6H PRN PRN Reason: INDIGESTION Albuterol (Ventolin 2.5 Mg/3 Ml Neb.Светлана*) 2.5 mg INH Q2H PRN PRN Reason: SOB/WHEEZING Albuterol (Ventolin Hfa Inhaler*) 2 puff INH Q4HR [facility] Last Admin: 03/16/18 11:07 Dose: 2 puff Albuterol/Ipratropium (Duoneb (Albuterol 2.5 Mg/Ipratropium 0.5 Mg)) 1 neb INH Q4H PRN PRN Reason: SOB/WHEEZING Last Admin: 03/16/18 03:24 Dose: 1 neb Aspirin (Aspirin Ec Tab*) 81 mg PO DAILY [facility] Last Admin: 03/16/18 08:38 Dose: 81 mg Atorvastatin Calcium (Lipitor*) 20 mg PO DAILY [facility] Last Admin: 03/16/18 08:38 Dose: 20 mg Docusate Sodium (Colace Cap*) 100 mg PO BID PRN PRN Reason: CONSTIPATION Ferrous Gluconate (Fergon Tab*) 324 mg PO BID [facility] Last Admin: 03/16/18 08:38 Dose: 324 mg Sodium Chloride (Ns 0.9% 1000 Ml*) 1,000 mls @ 75 mls/hr IV PER RATE [facility] Last Admin: 03/16/18 00:22 Dose: 75 mls/hr Ipratropium [place] (Atrovent 0.5 Mg Neb.Светлана*) 0.5 mg INH Q6H PRN PRN Reason: SOB/WHEEZING Mometasone Furoate/Formoterol Fumar (Dulera 200/5 Mdi*) 2 puff INH BID [facility] Last Admin: 03/16/18 08:14 Dose: 2 puff Morphine Sulfate (Morphine Oral Concentrate*) 2.5 mg PO Q2H PRN PRN Reason: Pain and work of breathing Last Admin: 03/16/18 12:51 Dose: 2.5 mg Omeprazole (Prilosec Cap*) 40 mg PO BID [facility] Last Admin: 03/16/18 08:38 Dose: 40 mg Ondansetron HCl (Zofran Inj*) 4 mg IV Q4H PRN PRN Reason: NAUSEA/VOMITING Prednisone (Deltasone Tab*) 40 mg PO DAILY [facility] Last Admin: 03/16/18 08:38 Dose: 40 mg Senna (Senokot Tab*) 1 tab PO BID PRN PRN Reason: CONSTIPATION Tiotropium [place] (Spiriva Cap.Inh*) 1 cap INH DAILY [facility] Last Admin: 03/16/18 08:12 Dose: 1 cap Vital Signs - 8 hr 03/16/18 03/16/18 03/16/18 07:57 08:00 09:22 Temperature 97.9 F Pulse Rate 66 Respiratory 16 21 21 Rate Blood Pressure 121/55 (mmHg) O2 Sat by Pulse Oximetry 03/16/18 03/16/18 12:12 12:51 Temperature 98.3 F Pulse Rate 88 Respiratory 20 23 Rate Blood Pressure 126/94 (mmHg) O2 Sat by Pulse 100 Oximetry Oxygen Devices in Use Now: Nasal Cannula Appearance: Alert, partly up in bed. In fair spirits. Somewhat dyspneic. Eyes: No Scleral Icterus Respiratory: Symmetrical Chest Expansion and Respiratory Effort, Clear to Percussion, - - diminished BS BL Cardiovascular: NL Sounds; No Murmurs; No JVD, RRR, No Edema, - Extremities: No Edema, No Clubbing, Cyanosis, - Skin: No Rash or Ulcers, No Nodules or Sclerosis, - Neurological: Alert and Oriented x 3, NL Sensation Result Diagrams: 03/16/18 09:40 03/16/18 09:40 Assess/Plan/Problems-Billing Assessment: - Patient Problems (1) COPD (chronic obstructive pulmonary disease) Current Visit: No Status: Acute Code(s): J44.9 - CHRONIC OBSTRUCTIVE PULMONARY DISEASE, UNSPECIFIED SNOMED Code(s): 75678686 Comment: Pt could not afford tiotropium. Substitute neb ipratropium, investigate her eventual co-pay. Continue prednisone 40 mg daily for now. (2) Aortic stenosis Current Visit: No Status: Acute Code(s): I35.0 - NONRHEUMATIC AORTIC (VALVE ) STENOSIS SNOMED Code(s): 61573022 Comment: Pt with mild to moderate on echo 03/10/18. Will need outpatient follow up with cardiology. (3) Hyperlipidemia Current Visit: No Status: Acute Code(s): E78.5 - HYPERLIPIDEMIA, UNSPECIFIED SNOMED Code(s): 74069353 Comment: Continue lipitor. (4) Microcytic anemia Current Visit: No Status: Acute Code(s): D50.9 - IRON DEFICIENCY ANEMIA, UNSPECIFIED SNOMED Code(s): 343260678 Comment: Refused colonoscopy in past. Needs fup with PCP.
[2018-03-16] MEDS: Ipratropium 0.5MG/2.5ML NEB* 0.5 MG/2.5 ML NEB.SOLN INH SCH (17:59)
[2018-03-17] MEDS: Ipratropium 0.5MG/2.5ML NEB* 0.5 MG/2.5 ML NEB.SOLN INH SCH ×2 (01:10→06:01)
[2018-03-17] MEDS: Albuterol HFA INHALER* 8 gm MDI INH SCH ×3 (02:41→09:20)
[2018-03-17] MEDS: Mometasone/Formoter 200/5 MDI INH SCH ×4 (06:01→19:07)
[2018-03-17] MEDS: Tiotropium CAP.INH* CAP.INH/18 MCG (USE ORDER SET !) INH SCH ×2 (06:02→07:49)
[2018-03-17] MEDS: Omeprazole CAP (NF) 20 MG CAP.DR PO SCH ×2 (09:27→21:54)
[2018-03-17] MEDS: Aspirin EC TAB* 81 MG TAB.EC PO SCH (09:27)
[2018-03-17] MEDS: Ferrous Gluconate TAB* 324 MG TAB PO SCH ×2 (09:27→21:53)
[2018-03-17] MEDS: Atorvastatin* 20 MG TAB PO SCH (09:27)
[2018-03-17] MEDS: predniSONE TAB* 20 MG PO SCH (09:28)
--- NOTE | 2018-03-17 11:35 | PN ---
Subjective Date of Service: 03/17/18 Interval History: Less SOB today, minimal cough during the night non-productive. No new c/o. Objective Active Medications: Acetaminophen (Tylenol Tab*) 650 mg PO Q4H PRN PRN Reason: FEVER/PAIN Al Hydrox/Mg Hydrox/Simethicone (Maalox Plus*) 30 ml PO Q6H PRN PRN Reason: INDIGESTION Albuterol (Ventolin 2.5 Mg/3 Ml Neb.Светлана*) 2.5 mg INH Q2H PRN PRN Reason: SOB/WHEEZING Albuterol (Ventolin Hfa Inhaler*) 2 puff INH Q4HR [facility] Last Admin: 03/17/18 09:20 Dose: 2 puff Albuterol/Ipratropium (Duoneb (Albuterol 2.5 Mg/Ipratropium 0.5 Mg)) 1 neb INH Q4H PRN PRN Reason: SOB/WHEEZING Last Admin: 03/16/18 03:24 Dose: 1 neb Aspirin (Aspirin Ec Tab*) 81 mg PO DAILY [facility] Last Admin: 03/17/18 09:27 Dose: 81 mg Atorvastatin Calcium (Lipitor*) 20 mg PO DAILY [facility] Last Admin: 03/17/18 09:27 Dose: 20 mg Docusate Sodium (Colace Cap*) 100 mg PO BID PRN PRN Reason: CONSTIPATION Ferrous Gluconate (Fergon Tab*) 324 mg PO BID [facility] Last Admin: 03/17/18 09:27 Dose: 324 mg Sodium Chloride (Ns 0.9% 1000 Ml*) 1,000 mls @ 0 mls/hr IV PER RATE [facility] Last Admin: 03/17/18 10:08 Dose: 5 mls/hr Ipratropium [place] (Atrovent 0.5 Mg Neb.Светлана*) 0.5 mg INH [id number] AWAKE [facility] Last Admin: 03/17/18 06:01 Dose: 0.5 mg Mometasone Furoate/Formoterol Fumar (Dulera 200/5 Mdi*) 2 puff INH BID [facility] Last Admin: 03/17/18 07:49 Dose: Not Given Morphine Sulfate (Morphine Oral Concentrate*) 2.5 mg PO Q2H PRN PRN Reason: Pain and work of breathing Last Admin: 03/16/18 18:39 Dose: 2.5 mg Omeprazole (Prilosec Cap*) 40 mg PO BID [facility] Last Admin: 03/17/18 09:27 Dose: 40 mg Ondansetron HCl (Zofran Inj*) 4 mg IV Q4H PRN PRN Reason: NAUSEA/VOMITING Prednisone (Deltasone Tab*) 30 mg PO DAILY [facility] Senna (Senokot Tab*) 1 tab PO BID PRN PRN Reason: CONSTIPATION Tiotropium [place] (Spiriva Cap.Inh*) 1 cap INH DAILY [facility] Last Admin: 03/17/18 07:49 Dose: Not Given Vital Signs - 8 hr 03/17/18 03/17/18 03/17/18 06:03 08:00 08:22 Temperature 98.6 F Pulse Rate 84 70 Respiratory 20 23 16 Rate Blood Pressure 130/61 (mmHg) O2 Sat by Pulse 96 100 Oximetry Oxygen Devices in Use Now: Nasal Cannula Appearance: Alert, sitting up in bed. Somewhat tachypneic, in fair spirits. Eyes: No Scleral Icterus Respiratory: Symmetrical Chest Expansion and Respiratory Effort, Clear to Percussion, - - diminished bs BL, no wheezing Extremities: No Edema, No Clubbing, Cyanosis, - Skin: No Rash or Ulcers, No Nodules or Sclerosis, - Neurological: Alert and Oriented x 3, NL Sensation Result Diagrams: 03/16/18 09:40 03/16/18 09:40 Microbiology and Other Data: Microbiology 03/15/18 17:57 Aerobic Blood Culture - Preliminary Blood Venous No Growth Day 1 Anaerobic Blood Culture - Preliminary No Growth Day 1 Assess/Plan/Problems-Billing Assessment: - Patient Problems (1) COPD (chronic obstructive pulmonary disease) Current Visit: No Status: Acute Code(s): J44.9 - CHRONIC OBSTRUCTIVE PULMONARY DISEASE, UNSPECIFIED SNOMED Code(s): 64663311 Comment: Continue neb ipratropium, have ordered ipratropium/albuterol for neb , zero co-pay. Taper prednisone. (2) Aortic stenosis Current Visit: No Status: Acute Code(s): I35.0 - NONRHEUMATIC AORTIC (VALVE ) STENOSIS SNOMED Code(s): 52818403 Comment: Pt with mild to moderate on echo 03/10/18. Will need outpatient follow up with cardiology. (3) Hyperlipidemia Current Visit: No Status: Acute Code(s): E78.5 - HYPERLIPIDEMIA, UNSPECIFIED SNOMED Code(s): 22853911 Comment: Continue lipitor. (4) Microcytic anemia Current Visit: No Status: Acute Code(s): D50.9 - IRON DEFICIENCY ANEMIA, UNSPECIFIED SNOMED Code(s): 761154909 Comment: Refused colonoscopy in past. Needs fup with PCP.
[2018-03-17] MEDS ORDERED: Albuterol/Ipratropium NEB.SOL* Albuterol 2.5 MG/Ipratropium 0.5 MG 3 ML INH PRN (11:43)
[2018-03-17] MEDS: Albuterol/Ipratropium NEB.SOL* Albuterol 2.5 MG/Ipratropium 0.5 MG 3 ML INH SCH ×2 (12:00→17:58)
[2018-03-17] MEDS: Albuterol 2.5 MG/3 ML NEB.SOL* (0.083%) INH PRN (22:14)
[2018-03-18] MEDS: Albuterol/Ipratropium NEB.SOL* Albuterol 2.5 MG/Ipratropium 0.5 MG 3 ML INH SCH ×3 (01:20→13:09)
[2018-03-18] MEDS: Albuterol/Ipratropium NEB.SOL* Albuterol 2.5 MG/Ipratropium 0.5 MG 3 ML INH PRN (02:48)
[2018-03-18] MEDS: Mometasone/Formoter 200/5 MDI INH SCH ×2 (06:01→08:18)
[2018-03-18] MEDS: Aspirin EC TAB* 81 MG TAB.EC PO SCH (07:52)
[2018-03-18] MEDS: Atorvastatin* 20 MG TAB PO SCH (07:52)
[2018-03-18] MEDS: Omeprazole CAP (NF) 20 MG CAP.DR PO SCH (07:52)
[2018-03-18] MEDS: Ferrous Gluconate TAB* 324 MG TAB PO SCH (07:52)
[2018-03-18] MEDS ORDERED: predniSONE TAB* 10 MG PO SCH (09:00)
[2018-03-18] MEDS: Albuterol 2.5 MG/3 ML NEB.SOL* (0.083%) INH PRN (10:37)
[2018-03-18 11:31] VITALS: BP 124/63
--- NOTE | 2018-03-18 11:52 | PN ---
Progress Note - Progress Note Date of Service: 03/18/18
--- NOTE | 2018-03-18 11:54 | PN ---
Progress Note - Progress Note Date of Service: 03/18/18 Note: Time spent on discharge including exam of patient, discussion with patient, nurse, CM, Sherri pharmacist, review of EMR and preparation of discharge documents 50 minutes.
--- NOTE | 2018-03-18 20:20 | DS ---
CC: Carley Aguila [facility] DISCHARGE SUMMARY: DATE OF ADMISSION: DATE OF DISCHARGE: 03/18/18 HISTORY OF PRESENT ILLNESS: This 72-year-old woman presented with shortness of breath. She was admi tted on 03/09/18 for COPD exacerbation. She left AMA on 03/14/18. She was given prescription for ti otropium as well as prednisone and another medication. She was told the co-pay was 400 dollars and d id not pick pulling machine tender any of her medications. Tiotropium is not covered by her insurance. The patient was treated with bronchodilators and the prednisone taper. I think she is more or less at her baseline. She is markedly impaired. She has pursed-lip breathing and tachypnea at rest. On the day of discharge at rest, her O2 saturation was 88% on room air. She has been given home oxygen she has not had before. [facility] for her nebulizer from [place]. This did have a zero co -pay. She will use that 4 times a day and her nebulizer as needed. She was given her Dulera inhaler to take home; however, this is not covered by her insurance either. Her primary care provider will need to try to find some type of inhaler that is covered by her insurance, possibly a fluticasone francisca ne or some type of inhaled steroid combined with a long-acting beta-agonist. Otherwise, she will be p retty much tied to a nebulizer. She was given a prescription of Ventolin inhaler to take home, which I believe will be covered by her insurance. I note she has a very loud murmur of aortic stenosis. She has shhg-yp-cdommsep aortic stenosis on ec ho. She will follow up with her hostess cashier for this. FINAL DIAGNOSES: 1. Chronic obstructive pulmonary disease exacerbation. 2. Aortic stenosis. 3. History of peptic ulcer disease. DISCHARGE MEDICATIONS: 1. Albuterol/ipratropium by nebulizer every 4 hours p.r.n. 2. Mometasone/formoterol 200/5 two puffs b.i.d. 3. Prednisone 10 mg to taper from 3 to 0 over 3 days. 4. Ferrous gluconate 324 mg b.i.d. 5. Omeprazole 20 mg daily. 6. Albuterol inhaler 2 puffs every 4 hours p.r.n. CONDITION ON DISCHARGE: Stable. DISPOSITION ON DISCHARGE: Discharged to home. [id number]/[facility] #: [id number]
== END 2018-03-18 14:12 | disposition home or self-care (01) | DRG 190 ==
LOC: ED 16:09 → MEDTELE 19:37
PROVIDERS: ADMIT Pediatrics; ATTEND Internal Medicine
DX: J44.1 Chronic obstructive pulmonary disease with (acute) exacerbation (principal); J96.01 Acute respiratory failure with hypoxia; E78.5 Hyperlipidemia, unspecified; I35.0 Nonrheumatic aortic (valve) stenosis; I10 Essential (primary) hypertension; D50.9 Iron deficiency anemia, unspecified; K27.9 Peptic ulcer, site unspecified, unspecified as acute or chronic, without hemorrhage or perforation; Z66 Do not resuscitate; R79.89 Other specified abnormal findings of blood chemistry; Z88.5 Allergy status to narcotic agent; Z98.42 Cataract extraction status, left eye; Z98.41 Cataract extraction status, right eye; Z90.49 Acquired absence of other specified parts of digestive tract; Z87.891 Personal history of nicotine dependence; Z82.49 Family history of ischemic heart disease and other diseases of the circulatory system; Z99.81 Dependence on supplemental oxygen
CPT/HCPCS: 36415; 71045; 80048; 80053; 81003; 81015; 83605; 83735; 83880; 84484; 85025; 85379; 85610; 85730; 86140; 87040; 87086; 93005; 94640; 99284; A9270-GY; J1100; J2543; J3370; J7512

== ENCOUNTER 2018-04-09 04:30 | Inpatient (IN) | payer MEDICARE, OTHER ==
--- OUTSIDE RECORDS SUMMARY | 2018-04-09 04:38 | XMS REPORT | Continuity of Care Document ---
:1945 External Reference #:[id number] Author Name Jo Clark Care Team Providers Name Role Phone Carley Aguila NP Care Team Information Policy Services Representative Unavailable Payers Type Date Identification Numbers Payment Provider Subscriber Effective: Policy Number: [id number] Medicare - Bswny Umd Shaye Jack 2012 PayID: [id number] [address] [place] [address] Effective: 2013 Policy Number: [employer] Shaye Jack [id number] [facility] PayID: [id number] [address] [place] [address] Advance Directives Description No Information Available Problems Description No Information Family History Date Family Member(s) Problem(s) Comments Mother CAD Mother due to NM () First Brother due to NM () Second Brother Diabetes Social History Type Date Description Comments Sex Unknown Marital Status Lives With Spouse Occupation Retired Occupation [employer] and worked in [employer] Tobacco Use Start: Unknown currently smokes 1/2 [...] by Brendon Monohydrate 2018 s mouth twice Francois a day for 5 MD days Ferate 04/06/ Active Tablets 240(27Fe) 90tab Take One Maureen 2018 mg s Tablet By Shortle, Mouth Once ELECTRONIC COMPONENT PROCESSOR Daily Nebulizer 12/21/ Active Kit 1unit use to J44.1 Pearl Kit/Tubing/Tahmina 2016 s deliver georges Carrilloiece albuterol BACK STAYER-C via nebulizer four times a day Nebulizer 12/21/ Active Device 1unit use to J44.1 Pearl 2017 s administer Gerardo, albuterol BACK STAYER-C Albuterol 12/21/ Active Nebulizer (2.5mg/3M 75uni inhale the Pearl Sulfate 2017 L) 0.083% ts contents of Gerardo, 1 vial via BACK STAYER-C nebulizer every 4 to 6 hours as needed for wheezing Atorvastatin 09/17/ Active Tablets 20mg 90tab 1 by mouth Pearl Calcium 2017 s every day Gerardo, BACK STAYER-C Spiriva 09/17/ Active Aerosol 2.5mcg/Ac 4gm 2 J44.9 Brendon Respimat 2017 t inhalations Francois once daily MD Ventolin HFA / Active Aerosol 108(90Bas 18uni Inhale 2 Brendon 0000 e) ts Puffs By Francois mcg/Act Mouth Every MD 4 To 6 Hours as Needed For Wheezing / Tightness Prednisone 12/09/ Hx Tablets 20mg 10tab 2 tab by Brendon 2018 - s mouth daily Kristianetamelie 12/23/ MD Osorio Advair Diskus 12/21/ Hx Aerosol 250-50mcg 60uni inhale one J44.1 Pearl 2016 - /Dose ts puff by Gerardo 12/09/ mouth twice BACK STAYER-C 2018 a day Symbicort 11/29/ Hx Aerosol 160-4.5mc 18gm inhale two J44.9 Pearl 2016 - g/Act puffs into Gerardo 12/23/ lungs twice BACK STAYER-C 2018 a day Toprol XL 09/17/ Hx Tablets ER 25mg 30tab 1/2 tablet Pearl 2016 - 24HR s by mouth Gerardo 12/23/ every day BACK STAYER-C 2018 Dulera 09/17/ Hx Aerosol 100-5mcg/ 8.800 1 puff twice J44.9 Pearl 2017 - Act gm a day Gerardo 11/29/ BACK STAYER-C 2016 Medications Administered in Office Medication Date Status Form Strength Qnty SIG Indications Ordering Provider Injection 12/09/ Administered Injection Brendon Dexamethasone 2018 Shoaib Parrish MD Phosphate, 1 MG Immunizations CPT Code Status Date Vaccine Lot # [id number] Given 12/23/2017 Influenza Vaccine High Dose PF [id number] Given 11/29/2016 Influenza Vaccine High Dose PF [id number] Vital Signs Date Vital Result Comment 03/09/2018 [...] Date Facility Test Result H/L Range Note Inr/Protime 03/15/2018 [facility] Inr 0.97 N 0.77- 1.02 [phone] Laboratory test 03/15/2018 [facility] Partial 25.4 seconds Low 26.0-36.3 finding [phone] Thrombo Time PTT D Dimer Quantitative < 200 ng/mL N Less Than 230 1 Lactic Acid 4.5 mmol/L High 0.5-2.0 2 Comp Metabolic Panel 03/15/2018 [facility] Sodium 141 mmol/L N 135-145 [phone] Potassium 3.9 mmol/L N 3.5-5.0 Chloride 103 mmol/L N 101-111 Co2 Carbon Dioxide 31 mmol/L N 22-32 Anion Gap 7 mmol/L N 2-11 Glucose 127 mg/dL High 70-100 Blood Urea Nitrogen 21 mg/dL N 6-24 Creatinine 0.61 mg/dL N 0.51-0.95 BUN/Creatinine Ratio 34.4 High 8-20 Calcium 8.8 mg/dL N 8.6-10.3 Total Protein 6.2 g/dL Low 6.4-8.9 Albumin 3.5 g/dL N 3.2-5.2 Globulin 2.7 g/dL N 2-4 Albumin/Globulin Ratio 1.3 N 1-3 Total Bilirubin 0.30 mg/dL N 0.2-1.0 Alkaline Phosphatase 74 U/L N 34-104 Alt 27 U/L N 7-52 Ast 25 U/L N 13-39 Egfr Non- 97.0 >60 Egfr 117.3 >60 3 Laboratory test 03/15/2018 [facility] Magnesium 2.0 mg/dL N 1.9-2.7 finding [phone] Troponin-I (TnI) 0.20 ng/mL High <0.04 4 B-Type Natriuretic Peptide BNP 294 pg/mL High <=100 CBC Auto 03/15/2018 [facility] White Blood 16.7 10^3/ uL High 3.5-10.8 Diff [phone] Count Red Blood Count 3.39 10^6/uL Low 4.00-5.40 Hemoglobin 8.0 g/dL Low 12.0-16.0 Hematocrit 26 % Low 35-47 Mean Corpuscular Volume 77 fL Low 80-97 Mean Corpuscular Hemoglobin 24 pg Low 27-31 Mean Corpuscular HGB Conc 30 g/dL Low 31-36 Red Cell Distribution Width 21 % High 10.5-15 Platelet Count 235 10^3/uL N 150-450 Mean Platelet Volume 7.9 fL N 7.4-10.4 Abs Neutrophils 13.3 10^3/uL High 1.5-7.7 Abs Lymphocytes 2.2 10^3/uL N 1.0-4.8 Abs Monocytes 1.1 10^3/uL High 0-0.8 Abs Eosinophils 0 10^3/uL N 0-0.6 Abs Basophils 0 10^3/uL N 0-0.2 Abs Nucleated RBC 0 10^3/uL Granulocyte % 79.7 % Lymphocyte % 13.1 % Monocyte % 6.8 % Eosinophil % 0.1 % Basophil % 0.3 % Nucleated Red Blood Cells % 0.1 Cell Morphology 03/15/2018 [facility] Polychromasia 1 + [phone] Anisocytosis 1+ Laboratory test 03/15/2018 [facility] C Reactive 27.27 mg/L High <8.01 finding [phone] Protein Arterial Blood 03/09/2018 [facility] O2 Device n/c Gas [phone] Fio2 2 PH Arterial 7.40 N 7.35-7.45 Pco2 Arterial 43 mmHg N 35-45 Po2 Arterial 117 mmHg High 80-100 O2 Saturation Arterial 98.8 % High 94.0-98.0 Base Excess Arterial 1.5 mmol/L N -2.0-2.0 5 Hco3 Arterial 26.1 mmol/L N 19-31 Laboratory test 03/09/2018 [facility] Influenza A & B SEE RESULT 6 finding [phone] Request BELOW Procalcitonin < 0.1 ng/mL <0.6 7 Laboratory 03/09/2018 [facility] Influenza A & POSITIVE Abnormal Negative 8 test finding [phone] B Molecular Cell 03/09/2018 [facility] Microcytosis 1+ Morphology [phone] Hypochromasia 1+ Polychromasia 1+ Anisocytosis 1+ Laboratory test 03/09/2018 [facility] Troponin-I 0.04 ng/mL High <0.04 9 finding [phone] (TnI) CKMB 03/09/2018 [facility] CKMB ng/mL 8.2 ng/mL High 0.6-6.3 [phone] Laboratory test 03/09/2018 [facility] Creatine Kinase 348 U/L High 10-223 finding [phone] C Reactive Protein 9.01 mg/L High <8.01 Comp Metabolic Panel 03/09/2018 [facility] Sodium 139 mmol/L N 135-145 [phone] Potassium 3.7 mmol/L N 3.5-5.0 Chloride 103 mmol/L N 101-111 Co2 Carbon Dioxide 26 mmol/L N 22-32 Anion Gap 10 mmol/L N 2-11 Glucose 136 mg/dL High 70-100 Blood Urea Nitrogen 22 mg/dL N 6-24 Creatinine 0.63 mg/dL N 0.51-0.95 BUN/Creatinine Ratio 34.9 High 8-20 Calcium 9.3 mg/dL N 8.6-10.3 Total Protein 7.0 g/dL N 6.4-8.9 Albumin 4.0 g/dL N 3.2-5.2 Globulin 3.0 g/dL N 2-4 Albumin/Globulin Ratio 1.3 N 1-3 Total Bilirubin 0.30 mg/dL N 0.2-1.0 Alkaline Phosphatase 108 U/L High 34-104 Alt 14 U/L N 7-52 Ast 24 U/L N 13-39 Egfr Non- 93.4 >60 Egfr 113.0 >60 10 CBC Auto Diff 03/09/2018 [facility] White Blood 8.9 10^3/uL N 3.5-10.8 [phone] Count Red Blood Count 4.42 10^6/uL N 4.00-5.40 Hemoglobin 10.0 g/dL Low 12.0-16.0 Hematocrit 32 % Low 35-47 Mean Corpuscular Volume 73 fL Low 80-97 Mean Corpuscular Hemoglobin 23 pg Low 27-31 Mean Corpuscular HGB Conc 31 g/dL N 31-36 Red Cell Distribution Width 18 % High 10.5-15 Platelet Count 386 10^3/uL N 150-450 Mean Platelet Volume 8.3 fL N 7.4-10.4 Abs Neutrophils 7.5 10^3/uL N 1.5-7.7 Abs Lymphocytes 0.6 10^3/uL Low 1.0-4.8 Abs Monocytes 0.8 10^3/uL N 0-0.8 Abs Eosinophils 0 10^3/uL N 0-0.6 Abs Basophils 0 10^3/uL N 0-0.2 Abs Nucleated RBC 0 10^3/uL Granulocyte % 83.5 % Lymphocyte % 7.2 % Monocyte % 9.1 % Eosinophil % 0 % Basophil % 0.2 % Nucleated Red Blood Cells % 0 Laboratory test 03/09/2018 [facility] Partial 27.1 seconds N 26.0-36.3 finding [phone] Thrombo Time PTT D Dimer Quantitative < 200 ng/mL N Less Than 230 11 Lactic Acid 1.8 mmol/L N 0.5-2.0 12 B-Type Natriuretic Peptide BNP 462 pg/mL High <=100 Inr/Protime 03/09/2018 [facility] Inr 1.02 N 0.77- 1.02 [phone] Arterial Blood 01/10/2017 [facility] O2 Device nasal cannula N Gas [phone] Fio2 5 N PH Arterial 7.47 High 7.35-7.45 Pco2 Arterial 31 mmHg Low 35-45 Po2 Arterial 167 mmHg High 80-100 O2 Saturation Arterial 99.0 % High 95-98 Base Excess Arterial -0.9 N -2.0-2.0 13 Hco3 Arterial 24.2 mmol/L N 19-31 Laboratory test 01/10/2017 [facility] Packed Cells SEE RESULTS 14 finding [phone] BELO <SEE NOTE> Pathologist Review (SEE NOTE) N 15 Type & Screen 01/10/2017 [facility] Patient Blood O Positive N [phone] Type Antibody Screen NEGATIVE N Laboratory test 01/10/2017 [facility] Ferritin < 10.0 Low 11-307 finding [phone] ng/mL Iron & Iron 01/10/2017 [facility] Total Iron 482 g/ dL High 250-450 Binding Capacity [phone] Binding Capacity Iron < 15 g/dL Low 50-212 Unsaturated Iron Binding 467.56626 g/dL N % Iron Saturation 3 % Low 15-55 Laboratory test 01/10/2017 [facility] Procalcitonin < 0.1 ng/mL N <0.6 16 finding [phone] Cell Morphology 01/10/2017 [facility] Microcytosis 2 + N [phone] Hypochromasia 2+ N Polychromasia 1+ N Laboratory test 01/10/2017 [facility] Partial 27.4 seconds N 26.0-36.3 finding [phone] Thrombo Time PTT CBC Auto Diff 01/10/2017 [facility] White Blood 7.7 10^3/uL N 3.5-10.8 [phone] Count Red Blood Count 3.34 10^6/uL Low 4.0-5.4 Hemoglobin 6.4 g/dL Low 12.0-16.0 17 Hematocrit 22 % Low 35-47 Mean Corpuscular [...] Cells % 0.3 N Laboratory test 01/10/2017 [facility] B-Type 926 pg/ mL High 18 finding [phone] Natriuretic Peptide BNP CKMB 01/10/2017 [facility] CKMB ng/mL 1.7 ng/mL N 0.6-6 [phone] .3 Laboratory test 01/10/2017 [facility] C Reactive 13.47 mg/L High < 19 finding [phone] Protein 5.00 Troponin-I (TnI) 0.10 ng/mL High <0.04 20 Comp Metabolic Panel 01/10/2017 [facility] Sodium 137 mmol/L N 133-145 [phone] Potassium 3.1 mmol/L Low 3.5-5.0 Chloride 103 [...] 85.8 N >60 Egfr 110.3 N >60 21 Laboratory test 01/10/2017 [facility] Lactic Acid 1.6 mmol/L N 0.5-2.0 22 finding [phone] 1 Please note: The following may produce a false positive D Dimer test: - Rheumatoid factor greater than 60 IU/ml - Plasma hemoglobin greater than 0.05 gm/dl - Bilirubin greater than 50 mg/dl - Lipids greater than 1000 mg/dl - FDP greater than 20 ug/ml 2 Critical Result LACT:4.5 Called to [id number] at: 18:29:04 by:[id number] Read back by:AYANA [facility] Severe Sepsis and Septic Shock Management Bundle Measure requires all lactic acids initially measuring >2.0 mmol/L be repeated. 3 Because ethnic data is not always readily [...] 15-29 5 Kidney failure <15 (or dialysis) 4 Result TnIDx:0.20 Called to [id number] at: 18:28:48 by:[id number] Read back by: [id number] Troponin-I testing on Plasma Separator Tubes (PST) has a known false positive rate of 0.20-0.40%. All positive troponins reflex immediate secondary confirmatory testing. 5 Reference ranges based on room air. 6 SEE RESULT BELOW Name: SHAYE JACK : [address]: Alejandra Bennett MD Acct: [id number] Unit: [id number] AGE: 72 Location: ED Re03/09/18 SEX: F Status: PRE ER SPEC: [id number] DRAKE: 03/09/18-[address]: Alejandra Bennett MD REQ: [id number] RECD: 03/09/18 STATUS: DAVID MCKEON DR: Carley Aguila ELECTRONIC COMPONENT PROCESSOR _ SOURCE: NASAL SPDESC: ORDERED: Flu A B Request Procedure Result Reported Site Rapid Influenza A B Request Final 03/09/181625 ML Specimen received for Influenza A/B Molecular testing * ML - Main Lab . END OF REPORT DEPARTMENT OF PATHOLOGY, [address] [place] [address] Des Bach M.D. Director [facility] # [id number] Interpretive information available on [facility] Test Catalog at [email or web address] 8 Wound Specialist: [id number] Result TnIDx:0.04 Called to [id number] at: 17:40:48 by:[id number] Read back by: [id number] Troponin-I testing on Plasma Separator Tubes (PST) has a known false positive rate of 0.20-0.40%. All positive troponins reflex immediate secondary confirmatory testing. 10 Because ethnic data is not always readily [...] 15-29 5 Kidney failure <15 (or dialysis) 11 Please note: The following may produce a false positive D Dimer test: - Rheumatoid factor greater than 60 IU/ml - Plasma hemoglobin greater than 0.05 gm/dl - Bilirubin greater than 50 mg/dl - Lipids greater than 1000 mg/dl - FDP greater than 20 ug/ml 12 [facility] Severe Sepsis and Septic Shock Management Bundle Measure requires all lactic acids initially measuring >2.0 mmol/L be repeated. 13 Reference ranges based on room air. 14 SEE RESULTS BELOW [id number] OP PC TRANSFUSED 01/10/17 1902 [id number] OP PC TRANSFUSED 01/10/17 2257 15 Marked microcytic anemia. Thrombocytosis, favor reactive. Reviewed by Yolanda Pérez MD 16 Interpretive information available on [facility] Test Catalog at [email or web address] 17 Verbal to [id number] by [id number] at 1803 on 01/10/17. Results read back accurately. 18 >100 to <200 pg/mL: likely compensated congestive heart failure (CHF) 200 to 400 pg/mL: likely moderate CHF >400 pg/mL: likely moderate to severe CHF 19 Acute inflammation: >10.00 20 Result TnIDx:0.10 Called to [id number] at: 18:12:22 by:[id number] Read back by: [id number] 21 Because ethnic data is not always readily [...] 15-29 5 Kidney failure <15 (or dialysis) 22 [facility] Severe Sepsis and Septic Shock Management Bundle Measure requires all lactic acids initially measuring >2.0 mmol/L be repeated. Procedures Date Code Description Status 12/09/2017 83301 Therapeutic,Prophylactic,Or Diagnostic Inj,SC/Im Completed Specify Drug 12/09/2017 20553 Nebulizer Treatment Completed 12/21/2016 89137 Nebulizer Treatment Completed 11/29/2016 51444 Nebulizer Treatment Completed 09/17/2016 04001 Spirometry Completed 03/14/2014 [id number] Mammogram Completed Encounters Type Date Location Provider Dx Diagnosis Office Visit 03/09/2018 Main Office Lan Styles44.1 Chronic obstructive 2:00p [employer] STAYER-C pulmonary disease w (acute) exacerbation Office Visit 12/23/2017 Main Office Kalpana Silver.1 Chronic obstructive 3:30p MD pulmonary disease w (acute) exacerbation I10 Essential (primary) hypertension Z12.31 Encntr screen mammogram for malignant neoplasm of breast Z23 Encounter for immunization Office Visit 12/09/2017 10:45a Main Office Kalpana Silver.1 Chronic obstructive MD pulmonary disease w (acute) exacerbation Office Visit 12/21/2016 9:45a Main Office Lan Silva44.1 Chronic obstructive [employer]ER-C pulmonary disease w (acute) exacerbation Office Visit 12/14/2016 2:15p Main Office Kalpana Silva.9 Chronic obstructive [employer]ER-C pulmonary disease, unspecified Office Visit 11/29/2016 11:15a Main Office Pearl Carrillo, J44.9 Chronic obstructive [employer] STAYER-C pulmonary disease, unspecified Z23 Encounter for immunization Office Visit 09/17/2016 1:30p Main Office Pearl Carrillo, Z00.00 Encntr for BACK STAYER-C general adult medical exam w/o abnormal findings Z12.31 Encntr screen mammogram for malignant neoplasm of breast J44.9 Chronic obstructive pulmonary disease, unspecified I35.0 Nonrheumatic aortic (valve) stenosis Plan of Treatment Future Appointment(s):04/10/2018 2:30 pm - Brendon Parrish MD at Main Office
--- OUTSIDE RECORDS SUMMARY | 2018-04-09 04:38 | XMS REPORT | Continuity of Care Document ---
:1945 External Reference #:[id number] Author Name Karen Frausto Care Team Providers Name Role Phone Pearl Carrillo FNP Primary Care Physician Unavailable Payers Type Date Identification Numbers Payment Provider Subscriber Policy Number: [id number] Medicare Shaye Jack PayID: [id number] [address] [place] [address] Policy Number: [id number] [facility] Shaye Jack PayID: [id number] [address] [place] [address] Advance Directives Description No Information Available Problems Date Description Provider Status Onset: Chronic obstructive lung disease Active Onset: Aortic valve stenosis Active Family History Date Family Member(s) Problem(s) Comments Mother [place] Social History Type Date Description Comments Sex Unknown Marital Status Lives With Spouse Occupation Retired Tobacco Use Start: Unknown End: Former Cigarette Unknown Smoker Smoking Status Reviewed: 06/14/17 Former Cigarette Smoker ETOH Use Denies alcohol use Recreational Drug Use Denies Drug Use Tobacco Use Start: Unknown End: Patient is a former Unknown smoker Exercise Type/Frequency Does not exercise Exercises legs at night. Otherwise SOB Allergies, Adverse Reactions, Alerts Date Description Reaction Status Severity Comments 12/23/2016 Codeine "Bad stomach ache" Active Medications Medication Date Status Form Strength Qnty SIG Indications Ordering Provider Metoprolol / Active Tablets ER 25mg 1/2 by Unknown Succinate ER 0000 24HR mouth every day Atorvastatin 00/ Active Tablets 20mg 90tab 1 tab Max Calcium 0000 s daily Zander Patel M.D. Aspirin Ec / Active Tablets DR 81mg 1 by mouth Unknown 0000 every day Lisinopril / Active Tablets 2.5mg 90tab 1 by mouth Max 0000 s every day Zander Patel M.D. Ferrous / Active Tablets 240(27Fe) once a day Unknown Gluconate 0000 mg Albuterol / Active Nebulizer (2.5mg/3ML 1 vial via Unknown Sulfate 0000 ) 0.083% nebulizer 4 times daily as needed Ventolin HFA / Active Aerosol 108(90Base 18uni Inhale Two Laine 0000 ) mcg/Act ts Puffs By Aditi, Mouth 4 MD Times Daily as Needed Docusate Sodium 02/08/ Hx Capsules 100mg 60cap 1 by mouth Max 2017 - s twice D. Jorge, 02/06/ daily M.Zander 2017 Dulera / Hx Aerosol 100-5mcg/A 1 puff Unknown 0000 - ct twice a 2017 Spiriva /00/ Hx Aerosol 2.5mcg/Act 2 puffs Unknown Respimat 0000 - once daily 2016 Acetaminophen / Hx Tablets 500mg 1-2 tabs Unknown 0000 - 3x a day 02/06/ as needed 2016 Tussin / Hx Syrup 100mg/5ML 10ml Unknown 0000 - orally 02/06/ every 4 2017 hours as needed Albuterol / Hx Nebulizer (2.5mg/3ML 1 vial via Unknown Sulfate 0000 - ) 0.083% nebulizer 02/06/ 4 times 2017 daily as needed Advair Diskus / Hx Aerosol 250-50mcg/ 1 puff by Unknown 0000 - Dose mouth 05/22/ twice a 2018 day Lasix / Hx Tablets 20mg 1 by mouth Unknown 0000 - every day 05/22/ Pt states 2018 she is not currently taking Montelukast /00/ Hx Tablets 10mg 1 by mouth Unknown Sodium 0000 - every day 2017 Nicotine / Hx Patches 7mg/24HR apply Unknown Transdermal 0000 - 24HR patches System Step 3 02/06/ q24 hours 2017 Prednisone 00/00/ Hx TBPK 10mg (21) 6 tabs for Unknown 0000 - 2 days, 3 02/06/ tabs 2017 day#2, 2 tabs day#3, 1 tab for 7 days, 1/2 tab for 10 days Symbicort 00/00/ Hx Aerosol 160-4.5mcg 2 puff Unknown 0000 - /Act twice a 2016 Immunizations Description No Information Available Vital Signs Date Vital Result Comment 06/14/2017 2:16pm Height 67 inches 5'7" Weight 200.00 lb w/ shoes Heart Rate 86 /min BP Systolic Sitting 154 mmHg rue large cuff BP Diastolic Sitting 74 mmHg rue large cuff Respiratory Rate 18 /min BMI (Body Mass Index) 31.3 kg/m2 Ejection Fraction 50-55% echo 01/11/18 05/23/2017 10:22am Height 67 inches 5'7" Weight 191.00 lb Heart Rate 80 /min BP Systolic Sitting 120 mmHg BP Diastolic Sitting 72 mmHg Respiratory Rate 16 /min O2 % BldC Oximetry 94 % BMI (Body Mass Index) 29.9 kg/m2 02/08/2017 1:55pm Height 67 inches 5'7" Weight 180.00 lb w/shoes Heart Rate 88 /min 98 BP Systolic Sitting 108 mmHg LA reg cuff BP Diastolic Sitting 60 mmHg LA reg cuff BP Systolic Standing 88 mmHg LA reg cuff BP Diastolic Standing 60 mmHg LA reg cuff BMI (Body Mass Index) 28.2 kg/m2 Ejection Fraction 50-55% Echo 01/11/17 02/07/2017 3:19pm Height 67 inches 5'7" Weight 180.00 lb Heart Rate 84 /min BP Systolic Sitting 112 mmHg BP Diastolic Sitting 70 mmHg Respiratory Rate 14 /min O2 % BldC Oximetry 98 % BMI (Body Mass Index) 28.2 kg/m2 12/24/2016 11:00am Height 67 inches 5'7" Weight 177.00 lb per pt Heart Rate 86 /min BP Systolic Sitting 118 mmHg Rue reg cuff BP Diastolic Sitting 60 mmHg Rue reg cuff Respiratory Rate 26 /min O2 % BldC Oximetry 95 % On Ra BMI (Body Mass Index) 27.7 kg/m2 Neck Circumference in inches 16 Results Description No Information Available Procedures Date Code Description Status 03/10/2018 50247 ECHO Transthorasic Realtime 2D W Doppler & Color Flow Hosp Completed 06/14/2017 85723 EKG Tracing & Interpretation Completed 02/17/2017 31641 Diffusing Capacity Completed 02/17/2017 05817 Plethysmography Determination Lung Volumes & Per Airway Completed Resist 02/17/2017 43553 Pulmonary Stress Test Simple Completed 02/17/2017 62683 Pulmonary Function><Bronchodil Completed 01/11/2017 40338 ECHO Transthorasic Realtime 2D W Doppler & Color Flow Hosp Completed Encounters Type Date Location Provider Dx Diagnosis Office Visit 06/14/2017 [facility] Max Fermin R06.02 Shortness of 2:00p Of Cell Biologist AT [facility] Blanquita Patel breath J44.9 Chronic obstructive pulmonary disease, unspecified I35.0 Nonrheumatic aortic (valve) stenosis Office Visit 05/23/2017 10:45a Pulmonology And Laine R06.02 Shortness of Sleep Services Of MD Aditi breath [facility] J44.9 Chronic obstructive pulmonary disease, unspecified Office Visit 02/08/2017 1:30p [facility] Max Fermin J44.9 Chronic Of Cell Biologist AT [facility] Blanquita Patel obstructive pulmonary disease, unspecified I35.0 Nonrheumatic aortic (valve) stenosis R06.02 Shortness of breath Office Visit 02/07/2017 3:30p [facility] [place] J44.9 Chronic Sleep Services Of MD Aditi obstructive Cell Biologist pulmonary disease, unspecified Office Visit 01/16/2017 4:16p [facility] Haris Ayala MD J44.1 Chronic Assoc,pc obstructive Hospitalists pulmonary disease w (acute) exacerbation I35.0 Nonrheumatic aortic (valve) stenosis I50.33 Acute on chronic diastolic (congestive) heart failure D50.9 Iron deficiency anemia, unspecified Office Visit 01/15/2017 4:15p [place] Meredith Ayala I35.0 Nonrheumatic Assdesi man MD aortic (valve) Hospitalists stenosis R06.09 Other forms of dyspnea J44.1 Chronic obstructive pulmonary disease w (acute) exacerbation I50.33 Acute on chronic diastolic (congestive) heart failure Office Visit 01/14/2017 4:15p [facility] Haris Ayala I35.0 Nonrheumatic Assdesi man MD aortic (valve) Hospitalists stenosis R06.09 Other forms of dyspnea J44.1 Chronic obstructive pulmonary disease w (acute) exacerbation I50.33 Acute on chronic diastolic (congestive) heart failure Office Visit 01/13/2017 4:14p [facility] Emma I35.0 Nonrheumatic Assocdesi D.O. aortic (valve) Hospitalists stenosis R06.09 Other forms of dyspnea J44.1 Chronic obstructive pulmonary disease w (acute) exacerbation D50.9 Iron deficiency anemia, unspecified Office Visit 01/12/2017 [facility] Annabelle Thomas, I35.0 Nonrheumatic 12:26p Of Ilya Juares aortic (valve) stenosis Office Visit 01/12/2017 [facility] Haris Ayala MD I35.0 Nonrheumatic 4:14p Assoc,pc aortic (valve) Hospitalists stenosis R06.09 Other forms of dyspnea J44.9 Chronic obstructive pulmonary disease, unspecified D50.9 Iron deficiency anemia, unspecified Office Visit 01/11/2017 11:53a [facility] Max Fermin R06.02 Shortness of Of Ilya Patel M.D. breath I35.0 Nonrheumatic aortic (valve) stenosis Office Visit 01/11/2017 4:14p [facility] Haris Ayala I35.0 Nonrheumatic Assdesi man MD aortic (valve) Hospitalists stenosis R06.09 Other forms of dyspnea I50.33 Acute on chronic diastolic (congestive) heart failure D50.9 Iron deficiency anemia, unspecified Office Visit 01/10/2017 4:13p [facility] [place] D50.9 Iron deficiency Assoc,desi Hdez MD anemia, Hospitalists unspecified J44.1 Chronic obstructive pulmonary disease w (acute) exacerbation R74.8 Abnormal levels of other serum enzymes K27.9 Peptic ulc, site unsp, unsp as ac or chr, w/o hemor or perf Office Visit 12/24/2016 11:30a [facility] J44.9 Chronic Sleep Services Of MD Aditi obstructive Cell Biologist pulmonary disease, unspecified F17.210 Nicotine dependence, cigarettes, uncomplicated Z12.2 Encntr screen for malignant neoplasm of respiratory organs Plan of Treatment Future Appointment(s):04/12/2018 4:00 pm - Max Patel M.D. at [facility]04/05/2018 3:00 pm - Traveling ECHO 1 at [facility]06/14/2017 - Max Patel M.D.R06.02 Shortness of atqtyzX77.9 Chronic obstructive pulmonary disease, bcozfckbxvwW78.0 Nonrheumatic aortic (valve) stenosisNew Orders:Echocardiogram, Scheduled: 04/05/18Follow up:4 months
[2018-04-09 05:07] LABS: Hematocrit 19 % (35-47); Hemoglobin 5.6 g/dl (12.0-16.0); Mean Corpuscular HGB Conc 30 g/dl (31-36); Mean Corpuscular Hemoglobin 21 pg (27-31); Mean Corpuscular Volume 71 fL (80-97); Mean Platelet Volume 7.6 fL (7.4-10.4); Platelet Count 508 10^3/ul (150-450); Red Blood Count 2.62 10^6/ul (4.00-5.40); Red Cell Distribution Width 21 % (10.5-15); White Blood Count 8.9 10^3/ul (3.5-10.8)
[2018-04-09 05:14] LABS: Activated Partial Thrombo Time 26.8 seconds (26.0-36.3); INR 1.2 (0.77-1.02)
[2018-04-09 05:15] LABS: Albumin 3.3 g/dL (3.2-5.2); Calcium 9.1 mg/dL (8.6-10.3); Potassium 4.8 mmol/L (3.5-5.0); Total Bilirubin 0.8 mg/dL (0.2-1.0)
[2018-04-09 05:21] LABS: BUN/Creatinine Ratio 36.3 (8-20); EGFR Non-African American 61.1 (>60); Globulin 3.3 g/dL (2-4); Total Protein 6.6 g/dL (6.4-8.9)
[2018-04-09] MEDS ORDERED: NS 0.9% 1000 ML** 1,000 ML IV ONE ×2 (05:22→05:41)
[2018-04-09 05:45] LABS: ABS Basophils 0.1 10^3/ul (0-0.2); ABS Eosinophils 0 10^3/ul (0-0.6); ABS Lymphocytes 1.8 10^3/ul (1.0-4.8); ABS Monocytes 0.8 10^3/ul (0-0.8); ABS Neutrophils 6.1 10^3/ul (1.5-7.7); ABS Nucleated RBC 0.3 10^3/ul
[2018-04-09 05:54] LABS: Neutrophil % 68 %
[2018-04-09 06:06] LABS: Lymphocytes % 21 %
[2018-04-09 06:07] LABS: ABS Basophils 0.2 10^3/ul (0-0.2); ABS Eosinophils 0.1 10^3/ul (0-0.6); ABS Neutrophils 6.1 10^3/ul (1.5-7.7); Immature Granulocytes 1 % (0-9); Microcytosis 2+; Monocytes % 7 %; Nucleated Red Blood Cells/100 7 (0-0); Promyelocytes % 1 %
[2018-04-09 06:08] LABS: Polychromasia 2+
--- NOTE | 2018-04-09 06:49 | ED ---
Shortness of Breath - HPI Summary HPI Summary: Pt is 72 y/o F brought in by ambulance to ED c/o difficulty breathing since . She notes that she is very weak and hasnt been able to eat or sleep. Denies blood in stools. She has been admitted here twice this month for similar symptoms. On the first admission she was transfused and ultimately signed out AMA as she did not want to stay for more a GI workup for her anemia. - History of Current Complaint Chief Complaint: EDShortnessOfBreath Time Seen by Provider: 04/09/18 04:40 Hx Obtained From: Patient Onset/Duration: Lasting Weeks, Still Present Dyspnea At: Rest Aggrevating Factors: Nothing Alleviating Factors: Nothing - Allergy/Home Medications Allergies/Adverse Reactions: Allergies Allergy/AdvReac Type Severity Reaction Status Date / Time codeine Allergy GI Upset Verified 03/15/18 16:32 Home Medications: Home Medications Lisinopril TAB* [Prinivil TAB 5 MG*] 5 mg PO DAILY 04/09/18 [History Confirmed 04/09/18] PMH/Surg Hx/FS Hx/Imm Hx Endocrine/Hematology History: Denies: Hx Diabetes Respiratory History: Reports: Hx Chronic Obstructive Pulmonary Disease (COPD), Hx Pneumonia GI History: Reports: Hx Ulcer Sensory History: Reports: Hx Contacts or Glasses - readers Denies: Hx Hearing Aid Opthamlomology History: Reports: Hx Contacts or Glasses - readers - Surgical History Surgery Procedure, Year, and Place: CATARACTS AND CHOLECYSTECTOMY - Immunization History Immunizations Up to Date: Yes Infectious Disease History: No Infectious Disease History: Denies: Traveled Outside the [place] in Last 30 Days - Family History Known Family History: Positive: Other - [place] - Social History Alcohol Use: None Substance Use Type: Reports: None Smoking Status (MU): Former Smoker Type: Cigarettes Review of Systems Positive: Fatigue Positive: Other - Difficulty breathing Positive: Other - Negative: blood in stools All Other Systems Reviewed And Are Negative: Yes Physical Exam - Summary Physical Exam Summary: Appearance: Pale and mild respiratory distress, Well-nourished, lying in bed comfortably. VS notable for mild hypotension. Skin: Warm, dry, no obvious rash Eyes: sclera anicteric, marked conjunctival pallor is present. ENT: mucous membranes moist, pharynx appears normal Neck: Supple, nontender Respiratory: Clear to auscultation, no signs of respiratory distress Cardiovascular: Normal S1, S2. No murmurs. Normal distal pulses in tibial and radial bilaterally. Abdomen: Soft, nontender, normal active bowel sounds present Musculoskeletal: Normal, Strength/ROM Intact Neurological: A&Ox3, awake and alert, mentation is normal, speech is fluent and appropriate Psychiatric: affect is normal, does not appear anxious or depressed Triage Information Reviewed: Yes Vital Signs On Initial Exam: Initial Vitals Temp Pulse Resp BP Pulse Ox 98.3 F 90 20 89/42 95 04/09/18 04:35 04/09/18 04:35 04/09/18 04:35 04/09/18 04:35 04/09/18 04:35 Vital Signs Reviewed: Yes Diagnostics - Vital Signs Vital Signs Temp Pulse Resp BP Pulse Ox 04/09/18 05:10 89 68/53 97 04/09/18 05:00 88 94 04/09/18 04:40 89 89/42 100 04/09/18 04:39 89 100 04/09/18 04:35 98.3 F 90 20 89/42 95 - Laboratory Lab Results: Lab Results 04/09/18 04/09/18 04/09/18 Range/Units 04:44 04:44 04:44 WBC 8.9 (3.5-10.8) 10^3/ul RBC 2.62 L (4.00-5.40) 10^6/ul Hgb 5.6 L* (12.0-16.0) g/dl Hct 19 L (35-47) % MCV 71 L (80-97) fL MCH 21 L (27-31) pg MCHC 30 L (31-36) g/dl RDW 21 H (10.5-15) % Plt Count 508 H D (150-450) 10^3/ul MPV 7.6 (7.4-10.4) fL Neut % (Auto) Not Reportable Lymph % (Auto) Not Reportable [place] % (Auto) Not Reportable Eos % (Auto) Not Reportable Baso % (Auto) Not Reportable Absolute Neuts (auto) 6.1 (1.5-7.7) 10^3/ul Absolute Lymphs (auto) 1.8 (1.0-4.8) 10^3/ul Absolute Monos (auto) 0.8 (0-0.8) 10^3/ul Absolute Eos (auto) 0 (0-0.6) 10^3/ul Absolute Basos (auto) 0.1 (0-0.2) 10^3/ul Absolute Nucleated RBC 0.3 10^3/ul Immature Gran % 1 (0-9) % Neutrophils % 68 % Lymphocytes % 21 % Monocytes % 7 % Eosinophils % 1 % Basophils % 2 % Promyelocytes % 1 % Nucleated RBC % Not Reportable Abs Neuts (Manual) 6.1 (1.5-7.7) 10^3/ul Abs Lymphs (Manual) 1.9 (1.0-4.8) 10^3/ul Abs Monocytes (Manual) 0.6 (0-0.8) 10^3/ul Absolute Eos (Manual) 0.1 (0-0.6) 10^3/ul Abs Basophils (Manual) 0.2 (0-0.2) 10^3/ul Nucleated RBCs/100 WBC 7 H (0-0) Normal RBC Morphology Not Reportable Polychromasia 2+ Hypochromasia 2+ Microcytosis 2+ Elliptocytes 1+ INR (Anticoag Therapy) 1.20 H (0.77-1.02) APTT 26.8 (26.0-36.3) seconds Sodium 132 L (135-145) mmol/L Potassium 4.8 (3.5-5.0) mmol/L Chloride 97 L (101-111) mmol/L Carbon Dioxide 26 (22-32) mmol/L Anion Gap 9 (2-11) mmol/L BUN 33 H (6-24) mg/dL Creatinine 0.91 (0.51-0.95) mg/dL Est GFR ( Amer) 74.0 (>60) Est GFR (Non-Af Amer) 61.1 (>60) BUN/Creatinine Ratio 36.3 H (8-20) Glucose 131 H (70-100) mg/dL Calcium 9.1 (8.6-10.3) mg/dL Total Bilirubin 0.80 (0.2-1.0) mg/dL AST 64 H (13-39) U/L ALT 208 H (7-52) U/L Alkaline Phosphatase 145 H (34-104) U/L Total Protein 6.6 (6.4-8.9) g/dL Albumin 3.3 (3.2-5.2) g/dL Globulin 3.3 (2-4) g/dL Albumin/Globulin Ratio 1.0 (1-3) Blood Type Antibody Screen Crossmatch 04/09/18 Range/Units 04:44 WBC (3.5-10.8) 10^3/ul RBC (4.00-5.40) 10^6/ul Hgb (12.0-16.0) g/dl Hct (35-47) % MCV (80-97) fL MCH (27-31) pg MCHC (31-36) g/dl RDW (10.5-15) % Plt Count (150-450) 10^3/ul MPV (7.4-10.4) fL Neut % (Auto) Lymph % (Auto) [place] % (Auto) Eos % (Auto) Baso % (Auto) Absolute Neuts (auto) (1.5-7.7) 10^3/ul Absolute Lymphs (auto) (1.0-4.8) 10^3/ul Absolute Monos (auto) (0-0.8) 10^3/ul Absolute Eos (auto) (0-0.6) 10^3/ul Absolute Basos (auto) (0-0.2) 10^3/ul Absolute Nucleated RBC 10^3/ul Immature Gran % (0-9) % Neutrophils % % Lymphocytes % % Monocytes % % Eosinophils % % Basophils % % Promyelocytes % % Nucleated RBC % Abs Neuts (Manual) (1.5-7.7) 10^3/ul Abs Lymphs (Manual) (1.0-4.8) 10^3/ul Abs Monocytes (Manual) (0-0.8) 10^3/ul Absolute Eos (Manual) (0-0.6) 10^3/ul Abs Basophils (Manual) (0-0.2) 10^3/ul Nucleated RBCs/100 WBC (0-0) Normal RBC Morphology Polychromasia Hypochromasia Microcytosis Elliptocytes INR (Anticoag Therapy) (0.77-1.02) APTT (26.0-36.3) seconds Sodium (135-145) mmol/L Potassium (3.5-5.0) mmol/L Chloride (101-111) mmol/L Carbon Dioxide (22-32) mmol/L Anion Gap (2-11) mmol/L BUN (6-24) mg/dL Creatinine (0.51-0.95) mg/dL Est GFR ( Amer) (>60) Est GFR (Non-Af Amer) (>60) BUN/Creatinine Ratio (8-20) Glucose (70-100) mg/dL Calcium (8.6-10.3) mg/dL Total Bilirubin (0.2-1.0) mg/dL AST (13-39) U/L ALT (7-52) U/L Alkaline Phosphatase (34-104) U/L Total Protein (6.4-8.9) g/dL Albumin (3.2-5.2) g/dL Globulin (2-4) g/dL Albumin/Globulin Ratio (1-3) Blood Type O Positive Antibody Screen Positive Crossmatch See Detail Result Diagrams: 04/09/18 17:20 04/09/18 04:44 Lab Statement: Any lab studies that have been ordered have been reviewed, and results considered in the medical decision making process. - Radiology CXR Radiology Interpretation Completed By: ED Physician - No active disease, pending offical report. - EKG 446 Cardiac Rate: NL - 90 bpm EKG Rhythm: Sinus Rhythm Course/Dx - Course Course Of Treatment: Pt is 72 y/o F brought in by ambulance to ED c/o difficulty breathing since 03/08/18. She notes that she is very weak and hasnt been able to eat or sleep. Denies blood in stools. Physical exam revealed pt is pale, in mild respiratory distress, and has a marked conjunctival pallor. EKG taken at 0447 showed sinus rhythm at [address] Trujillo at 5:45 who agreed to admit pt. Pt is diagnosed with GI bleed and admitted to hospital. - Diagnoses Provider Diagnoses: GI bleeding - Physician Notifications Discussed Care of Patient With: Tonya Trujillo Time Discussed With Above Provider: 05:45 Instructed by Provider To: Admit As Observation - Critical Care Time Critical Care Time: 30-74 min - 72 y/o with symptomatic severe anemia associated with hypotension, requiring IVF and emergent transfusion. Discharge - Sign-Out/Discharge Documenting (check all that apply): Patient Departure - Admit - Discharge Plan Condition: Guarded Disposition: ADMITTED TO [facility] - Billing Disposition and Condition Condition: GUARDED Disposition: Admitted to [facility] - Attestation Statements Document Initiated by [place]: Yes Documenting Scribe: Sal Candelario Provider For Whom Michael is Documenting (Include Credential): Dr. Kashmir Mclain MD Scribe Attestation: Sal Sifuentes scribed for Dr. Kashmir Mclain MD on 04/09/18 at 1944. Scribe Documentation Reviewed: Yes Provider Attestation: The documentation as recorded by the michael, Sal Candelario accurately reflects the service I personally performed and the decisions made by me, Dr. Kashmir Mclain MD Status of Scribe Document: Viewed
[2018-04-09] MEDS ORDERED: Albuterol/Ipratropium NEB.SOL* Albuterol 2.5 MG/Ipratropium 0.5 MG 3 ML ONE (06:52)
[2018-04-09] MEDS ORDERED: Albuterol/Ipratropium NEB.SOL* Albuterol 2.5 MG/Ipratropium 0.5 MG 3 ML INH ONE (06:56)
--- NOTE | 2018-04-09 07:01 | PN ---
Hospitalist Progress Note Date of Service: 04/09/18 Patient admitted about an hour ago for GI bleed, and hypotension. Fluids were ordered 2 units PRBC ordered but unable to get thus far due to antibodies. Patient now having shortness of breath. on exam has wheezing and crackles. She has aortic stenosis, so giving massive hydration might make SOB worse. At this point will get ABG, ordered duonebs. telestrip showed heart block EKG obtained. Discussed with Dr. Bee. BP has now improved. Will place patient on vapotherm Dr. Bee to speak with farmworker cranberry.
[2018-04-09] MEDS ORDERED: Succinylcholine* 20 MG/ML 10 ML VIAL ONE (07:13)
[2018-04-09] MEDS ORDERED: fentaNYL* 50 MCG/ML 2 ML VIAL (100 MCG VIAL) ONE (07:42)
--- NOTE | 2018-04-09 08:57 | HP ---
CC: Carley Aguila NP * HISTORY AND PHYSICAL: DATE OF ADMISSION: 04/09/18 PRIMARY CARE PROVIDER: Ms. Carley Aguila NP CHIEF COMPLAINT: Shortness of breath, pale appearing. HISTORY OF PRESENT ILLNESS: This is a 72-year-old female with history of GERD, COPD, hypotension, hyperlipidemia, who now presents to the emergency room because of shortness of breath. knows the patient is looking very pale. Of note, the patient was in our hospital in February of 2018, at which point she was found to have anemia with iron deficiency anemia, as well as heme- positive stools. The patient was advised to get a GI evaluation while in the hospital, however, she left against medical advice. She now comes to the emergency room with complaining of shortness of breath that has been progressively worsening over the past week. This is associated with a pale appearance and occasional palpitations. There is occasional lightheadedness as well. She reports no chest pain, no nausea, no vomiting. She does not have any heartburn, however, reports that she takes medications for heartburn. She reports that she has had brown-colored stool with no blood or darkness to them. She reports that she had an endoscopy in 2010 and according to her, it was normal. PAST MEDICAL HISTORY: 1. COPD. 2. Hypotension. 3. Hyperlipidemia. 4. GERD. 5. Aortic stenosis. HOME MEDICATIONS: Include: 1. Lisinopril 5 mg daily. 2. DuoNebs every 4 hours as needed. 3. Omeprazole 20 mg daily. 4. Mometasone/formoterol 200/5 multidose inhaler 2 puffs b.i.d. 5. Ferrous gluconate 324 b.i.d. 6. Lipitor 20 mg daily. 7. Aspirin 81 mg daily. ALLERGIES: She is allergic to CODEINE, which causes her GI upset. FAMILY HISTORY: Mother: Heart attacks. SOCIAL HISTORY: She lives at home with her , is a former smoker, no alcohol use. REVIEW OF SYSTEMS: She does not have any fevers, however, does have lightheadedness, no chills. She has generalized weakness. She does not have any sore throat, no sinus congestion. She does not have trouble breathing, however, and is also having dry cough, no sputum production. Heart: She does not have any chest pain, however, does have palpitations, and is also having shortness of breath. GI: She does not have any abdominal pain, no nausea, no vomiting, does have chronic GERD, however, reports no heartburn. : No urinary symptoms, no dysuria, no increasing frequency. Neurological: She does not have any headaches, no generalized weakness or focal numbness. PHYSICAL EXAMINATION GENERAL: She is a very pale-appearing female, lying in an ER stretcher, in no apparent distress. VITAL SIGNS: Blood pressure of 75/40, pulse rate of 84, temperature of 98.3, oxygenation of 99% on 2 L nasal cannula, respiratory rate of 14. HEENT: Pupils equal, round, reactive to light, conjunctivae pale, there is oral mucosa that is dry, no nystagmus. Head is atraumatic, normocephalic. HEART: There is no chest wall tenderness, regular rate and rhythm, a 3/6 systolic murmur best heard at the right upper sternal border. LUNGS: There is no tachypnea, no use of accessory muscles. Minimal end- expiratory wheezing heard throughout all lung boyle. ABDOMEN: Bowel sounds are normoactive in all 4 quadrants. Abdomen is soft, nontender, nondistended. EXTREMITIES: There is no calf tenderness, no lower extremity edema. NEUROLOGICAL: Alert and oriented x3, there is no facial droop, speech is clear and coherent, symmetric smile, motor is 5/5 in all 4 extremities. DIAGNOSTIC STUDIES/LAB DATA: Labs, hemoglobin of 5.6, hematocrit of 19. Chemistry: Sodium of 132, potassium of 4.8, chloride of 97, BUN of 33, creatinine of 0.91, INR 1.20. EKG shows sinus rhythm with no acute ST-T changes. IMPRESSION AND PLAN: 1. Acute anemia: This is obcny-et-ihtzynq anemia, likely secondary to gastrointestinal losses. The patient was requested in February 2018 to get a GI workup, however, she refused and left against medical advice. At this point , I have started the patient on IV pantoprazole 40 mg b.i.d., hold home-dose ibuprofen as well as aspirin. We will give the patient 2 units of packed RBC. Monitor H and H. Requested GI consultation. 2. Hypotension: We have started the patient on IV bolus. Of note, the emergency room physician did not give any bolus, so I have ordered 1 L bolus now , we will give the patient blood and hopefully that will increase the patient's blood pressure as well. Hold the patient's lisinopril. 3. Hyperlipidemia: Continue the patient's home statin dose. 4. Chronic obstructive pulmonary disease: Currently does not appear to be in chronic obstructive pulmonary disease exacerbation. We will resume the patient' s home medication. 5. We will start the patient on a clear liquid diet, monitor H and H. 6. On bedrest, I have requested for a bed in the intensive care unit. We will follow the patient's vital signs closely. ICU level of care. 7. DVT prophylaxis with SCD. [id number]/[facility] #: [id number] ODALIS
[2018-04-09] MEDS ORDERED: Atorvastatin* 20 MG TAB PO SCH (09:00)
--- NOTE | 2018-04-09 10:02 | PRO ---
PROCEDURE NOTE: DATE OF PROCEDURE: 04/09/18 PROCEDURE: Insertion of a central line. DESCRIPTION OF PROCEDURE: The patient is a 72-year-old white female who is admitted with severe anem ia and probable GI bleeding and had poor vascular access, was unable to receive blood. To establish better venous access, a 7.5-[place] triple-lumen central venous catheter was inserted into the right i nternal jugular vein under ultrasound guidance and was advanced 20 cm. The patient tolerated the pro cedure well and there were no obvious complications and a post-insertion chest x- ray has been beatriz roberts [id number]/[id number] #: [id number]
[2018-04-09 10:20] LABS: Hematocrit 20 % (35-47); Hemoglobin 6.2 g/dl (12.0-16.0)
[2018-04-09] MEDS: Pantoprazole IV* 40 MG IV SCH ×2 (11:18→20:44)
[2018-04-09] MEDS: Ferrous Gluconate TAB* 324 MG TAB PO SCH ×2 (11:18→20:44)
[2018-04-09] MEDS: guaiFENesin ER TAB 600 MG PO SCH ×2 (11:18→20:44)
--- NOTE | 2018-04-09 12:30 | ECHO ---
Patient: CAMERON STOO Rec#: [id number] : 1945 Date: 04/09/2018 Age: 72y Height: 170 cm / 66.9 in Weight: 83.9 kg / 184.9 lbs Sex: F BSA: 1.95 Room#: [facility] 10 Admit Date#: 04/09/2018 Type: Inpatient Referring: Fabrice Bee MD Reading: Paul Lowe MD [place] Worker: Marine Burgess RN RDCS CC: Carley Aguila Transthoracic Echocardiogram Indication: Abnormal EKG BP: 72/42 HR: 85 Rhythm: NSR Findings History: COPD, aortic stenosis, HTN, former smoker. The patient was sitting upright in bed during the exam due to respiratory needs. Technical Comments: The study is technically limited due to the patient's history of COPD. The study was technically limited due to the patient's inability to lay in the left lateral decubitus position. Left Ventricle: The left ventricular chamber size is normal. Moderate concentric left ventricular hypertrophy is observed. There are multiple regional wall motion abnormalities. The posterolateral segments are best preserved. Moderate hypokinesis of the anterior and anterolateral segments. Severe hypokinesis to akinesis of the inferior and inferoseptal segments in the proximal to mid LV. There is moderate to severely decreased left ventricular systolic function. The estimated ejection fraction is 30-35%. Abnormal left ventricular diastolic function is observed. Abnormal left ventricular diastolic filling is observed, consistent with impaired relaxation. The patient was unable to perform a Valsalva maneuver. The basal anteroseptal, basal anterior, basal anterolateral, basal inferolateral, mid anteroseptal, mid anterolateral, mid inferolateral, mid inferior, apical septal, apical anterior, apical lateral, and apical inferior wall segments are hypokinetic (score 2). The basal inferior, basal inferoseptal, mid anterior, and mid inferoseptal wall segments are akinetic (score 3). Overall wallmotion score index is 2.25 Left Atrium: The left atrial chamber size is normal. Right Ventricle: The right ventricle wall thickness is mildly increased. The right ventricular cavity size is normal. The right ventricular global systolic function is mildly reduced. Right Atrium: The right atrial cavity size is normal. Aortic Valve: The aortic valve structure is not well visualized. The aortic valve leaflets are moderately thickened. Systolic excursion of the aortic valve cusps is reduced. There is a trace of aortic regurgitation. There is moderate to severe aortic stenosis.The peak velocity in the apical view was approximately 3.1 mps; DI of 0.32. The aortic appears to be severe by 2d c/w with low gradient . The mean gradient of the aortic valve is 20 mmHg. The peak instantaneous gradient of the aortic valve is 35 mmHg. The aortic valve area, by peak velocities, is calculated at 1.1 cm2. The aortic valve area, by VTI's, is calculated at 1.1 cm2. The dimensionless index is 0.34-0.35. Mitral Valve: There is mitral annular calcification. The mitral valve leaflets are mildly thickened. There is mild mitral regurgitation. There is mild mitral stenosis. by mean gradient. Tricuspid Valve: The tricuspid valve structure is not well visualized. There is mild to moderate tricuspid regurgitation. There is evidence of mild pulmonary hypertension. There is no tricuspid stenosis. Pulmonic Valve: The pulmonic valve structure is not well visualized. There is no evidence of pulmonic regurgitation. There is no pulmonic stenosis. Pericardium: There is no significant pericardial effusion. A pericardial fat pad is visualized. Aorta: There is no dilatation of the ascending aorta. The aortic arch is not well visualized. There is no dilation of the aortic root. Pulmonary Artery: The main pulmonary artery is not well visualized. Venous: The inferior vena cava is dilated. There is less than 50% respiratory change in the inferior vena cava dimension. Conclusions The study is technically limited due to the patient's history of COPD. Moderate concentric left ventricular hypertrophy is observed. The right ventricle wall thickness is mildly increased. The right ventricular global systolic function is mildly reduced. There is moderate to severe aortic stenosis.The peak velocity in the apical view was approximately 3.1 mps; DI of 0.32. The aortic appears to be severe by 2d c/w with low gradient . There is mild mitral regurgitation. There is mitral annular calcification. There is mild mitral stenosis by mean gradient. There is mild to moderate tricuspid regurgitation. There is evidence of mild pulmonary hypertension. There is moderate to severely decreased left ventricular systolic function. The estimated ejection fraction is 30-35%. Abnormal left ventricular diastolic filling is observed, consistent with impaired relaxation. There are multiple regional wall motion abnormalities. The posterolateral segments are best preserved. Moderate hypokinesis of the anterior and anterolateral segments. Severe hypokinesis to akinesis of the inferior and inferoseptal segments in the proximal to mid LV. Interval decrease in EF c/t 02/2018 when the EF was 55-60%. Measurements Name Value Normal Range RVIDd (AP) 2D 3.4 cm (0.9 - 2.6) RVDdMajor (2D) 3.7 cm (2.2 - 4.4) RAd ISD 4CH 4.8 cm (3.4 - 4.9) RA (A4C)W 3.8 cm (2.9 - 4.6) IVSd (2D) 1.2 cm (0.6 - 1) LVPWd (2D) 1.2 cm (0.6 - 1) LVIDd (2D) 4.3 cm (3.6 - 5.4) LVIDs (2D) 3.5 cm - LV FS (2D) 19 % (25 - 45) Aortic Annulus 2.1 cm (1.4 - 2.6) Ao root diameter (2D) 3 cm (2.1 - 3.5) Ascending Ao 3.4 cm (2.1 - 3.4) LA dimension (AP) 2D 2.9 cm (2.3 - 3.8) LAd ISD 4CH 4.4 cm (2.9 - 5.3) LA ISD 4CH W 3.7 cm (2.5 - 4.5) Name Value Normal Range LA ESV BP (A/L) index 32.8 ml/m2 - Name Value Normal Range MV E-wave Vmax 1.4 m/sec - MV deceleration time 236 msec - MV A-wave Vmax 1.2 m/sec - MV E:A ratio 1.1 ratio - LV septal e' Vmax 0.05 m/sec - LV lateral e' Vmax 0.07 m/sec - LV E:e' septal ratio 28 ratio - LV E:e' lateral ratio 20 ratio - Name Value Normal Range AV Vmax 2.9 m/sec - AV VTI 63.1 cm - AV peak gradient 35 mmHg - AV mean gradient 20 mmHg - LVOT diameter 2 cm - LVOT Vmax 1 m/sec - LVOT VTI 22.2 cm - LVOT peak gradient 4 mmHg - LVOT mean gradient 3 mmHg - DOI (VTI) 0.35 ratio - DOI (Vmax) 0.34 ratio - LUIS ENRIQUE (continuity Vmax) 1.1 cm2 - LUIS ENRIQUE (continuity VTI) 1.1 cm2 - Name Value Normal Range MV Vmax 1.6 m/sec - MV VTI 42.4 cm - MV peak gradient 10 mmHg - MV mean gradient 5 mmHg - MV PHT 65 msec - MVA (continuity VTI) 3.4 cm2 - Name Value Normal Range TR Vmax 2.5 m/sec - TR peak gradient 25 mmHg - RAP 15 mmHg - RVSP 40 mmHg - IVC diameter 2.4 cm - Name Value Normal Range PV Vmax 0.83 m/sec - Wallmotion BAS Hypokinetic BA Hypokinetic BAL Hypokinetic DONI Hypokinetic BI Akinetic BIS Akinetic MAS Hypokinetic MA Akinetic MAL Hypokinetic MIL Hypokinetic WA Hypokinetic MIS Akinetic Hypokinetic AA Hypokinetic AL Hypokinetic AI Hypokinetic APEX Hypokinetic
[2018-04-09 13:06] LABS: Hematocrit 25 % (35-47); Hemoglobin 7.7 g/dl (12.0-16.0)
[2018-04-09 13:32] LABS: Troponin I 0.68 ng/mL (<0.04)
[2018-04-09] MEDS ORDERED: Nitro Patch/OINT Remove TOPICAL SCH ×2 (14:00→21:00)
[2018-04-09 14:34] LABS: HDL Cholesterol 19.9 mg/dL
[2018-04-09] MEDS: Mometasone/Formoter 200/5 MDI INH SCH ×2 (14:47→20:04)
--- NOTE | 2018-04-09 15:27 | PN ---
Date of Service: 04/09/18 Critical Care Services: 72 y/o female woth COPD, aortic stenosis, and prior Hx PUD admitted with severe anemia and heme-positive stools. After admission, ECG showed a second-degree heart block (which resolved), and cardiac ECHO this AM shows LV systolic dysfunction. Has received 2 units packed RBCs with increase in hemoglobin to > 7 gm/dL. We are infusing blood slowly because of the risk of pulmonary congestion from the aortic stensis. Vital Signs: Temp Pulse Resp BP SpO2 FiO2 97.4 F 83 15 112/66 100 100 Physical Exam: Gen:Alert, oriented, and appears comfortable Lungs: Clear Cardiac:III/ harsh systolic murmur which radiates into the neck Extremities: Warm. No cyanosis or edema Fluid Balance (Past 24 Hours): 04/07/18 04/08/18 04/09/18 04/10/18 06:59 06:59 06:59 06:59 Intake Total 200 Balance 200 Weight 185 lb 199 lb 11.821 oz Intake: Oral 200 Labs: Laboratory Results - last 24 hr 04/09/18 04/09/18 04/09/18 04:44 04:44 04:44 WBC 8.9 RBC 2.62 L Hgb 5.6 L* Hct 19 L MCV 71 L MCH 21 L MCHC 30 L RDW 21 H Plt Count 508 H D MPV 7.6 Neut % (Auto) Not Reportable Lymph % (Auto) Not Reportable Rush % (Auto) Not Reportable Eos % (Auto) Not Reportable Baso % (Auto) Not Reportable Absolute Neuts (auto) 6.1 Absolute Lymphs (auto) 1.8 Absolute Monos (auto) 0.8 Absolute Eos (auto) 0 Absolute Basos (auto) 0.1 Absolute Nucleated RBC 0.3 Immature Gran % 1 Neutrophils % 68 Lymphocytes % 21 Monocytes % 7 Eosinophils % 1 Basophils % 2 Promyelocytes % 1 Nucleated RBC % Not Reportable Abs Neuts (Manual) 6.1 Abs Lymphs (Manual) 1.9 Abs Monocytes (Manual) 0.6 Absolute Eos (Manual) 0.1 Abs Basophils (Manual) 0.2 Nucleated RBCs/100 WBC 7 H Normal RBC Morphology Not Reportable Polychromasia 2+ Hypochromasia 2+ Microcytosis 2+ Elliptocytes 1+ INR (Anticoag Therapy) 1.20 H APTT 26.8 Patient Temperature ABG pH ABG pH (Temp Correct) ABG pCO2 ABG pCO2 (Temp Corrct ABG pO2 ABG pO2 (Temp Correct ABG HCO3 ABG O2 Saturation ABG Base Excess Respiration Rate Ventilator Type Vent Mode FiO2 Inspiratory Time PEEP Pressure Support Pressure Control EPAP IPAP BiPAP Sodium 132 L Potassium 4.8 Chloride 97 L Carbon Dioxide 26 Anion Gap 9 BUN 33 H Creatinine 0.91 Est GFR ( Amer) 74.0 Est GFR (Non-Af Amer) 61.1 BUN/Creatinine Ratio 36.3 H Glucose 131 H Calcium 9.1 Total Bilirubin 0.80 AST 64 H ALT 208 H Alkaline Phosphatase 145 H Troponin I B-Natriuretic Peptide Total Protein 6.6 Albumin 3.3 Globulin 3.3 Albumin/Globulin Ratio 1.0 Triglycerides Cholesterol LDL Cholesterol HDL Cholesterol Blood Type Antibody Screen Antibody Identification Direct Antiglob Test Crossmatch 04/09/18 04/09/18 04/09/18 04:44 07:04 08:30 WBC RBC Hgb Hct MCV MCH MCHC RDW Plt Count MPV Neut % (Auto) Lymph % (Auto) Rush % (Auto) Eos % (Auto) Baso % (Auto) Absolute Neuts (auto) Absolute Lymphs (auto) Absolute Monos (auto) Absolute Eos (auto) Absolute Basos (auto) Absolute Nucleated RBC Immature Gran % Neutrophils % Lymphocytes % Monocytes % Eosinophils % Basophils % Promyelocytes % Nucleated RBC % Abs Neuts (Manual) Abs Lymphs (Manual) Abs Monocytes (Manual) Absolute Eos (Manual) Abs Basophils (Manual) Nucleated RBCs/100 WBC Normal RBC Morphology Polychromasia Hypochromasia Microcytosis Elliptocytes INR (Anticoag Therapy) APTT ABG pH 7.31 L ABG pCO2 33 L ABG pO2 172 H ABG HCO3 18.2 L ABG O2 Saturation 100.0 H ABG Base Excess -8.6 L FiO2 100 Sodium Potassium Chloride Carbon Dioxide Anion Gap BUN Creatinine Est GFR ( Amer) Est GFR (Non-Af Amer) BUN/Creatinine Ratio Glucose Calcium Total Bilirubin AST ALT Alkaline Phosphatase Troponin I 0.65 H* B-Natriuretic Peptide Total Protein Albumin Globulin Albumin/Globulin Ratio Triglycerides Cholesterol LDL Cholesterol HDL Cholesterol Blood Type O Positive Antibody Screen Positive Antibody Identification Anti-S Direct Antiglob Test Negative Crossmatch See Detail 04/09/18 04/09/1804/09/19 10:05 12:50 12:50 WBC RBC Hgb 6.2 L* 7.7 L Hct 20 L 25 L MCV MCH MCHC RDW Plt Count MPV Neut % (Auto) Lymph % (Auto) Rush % (Auto) Eos % (Auto) Baso % (Auto) Absolute Neuts (auto) Absolute Lymphs (auto) Absolute Monos (auto) Absolute Eos (auto) Absolute Basos (auto) Absolute Nucleated RBC Immature Gran % Neutrophils % Lymphocytes % Monocytes % Eosinophils % Basophils % Promyelocytes % Nucleated RBC % Abs Neuts (Manual) Abs Lymphs (Manual) Abs Monocytes (Manual) Absolute Eos (Manual) Abs Basophils (Manual) Nucleated RBCs/100 WBC Normal RBC Morphology Polychromasia Hypochromasia Microcytosis Elliptocytes INR (Anticoag Therapy) APTT Patient Temperature ABG pH ABG pH (Temp Correct) ABG pCO2 ABG pCO2 (Temp Corrct ABG pO2 ABG pO2 (Temp Correct ABG HCO3 ABG O2 Saturation ABG Base Excess Respiration Rate Ventilator Type Vent Mode FiO2 Inspiratory Time PEEP Pressure Support Pressure Control EPAP IPAP BiPAP Sodium Potassium Chloride Carbon Dioxide Anion Gap BUN Creatinine Est GFR ( Amer) Est GFR (Non-Af Amer) BUN/Creatinine Ratio Glucose Calcium Total Bilirubin AST ALT Alkaline Phosphatase Troponin I 0.68 H* B-Natriuretic Peptide Total Protein Albumin Globulin Albumin/Globulin Ratio Triglycerides 55 Cholesterol 59 LDL Cholesterol 28 HDL Cholesterol 19.9 Blood Type Antibody Screen Antibody Identification Direct Antiglob Test Crossmatch 04/09/18 12:50 WBC RBC Hgb Hct MCV MCH MCHC RDW Plt Count MPV Neut % (Auto) Lymph % (Auto) Rush % (Auto) Eos % (Auto) Baso % (Auto) Absolute Neuts (auto) Absolute Lymphs (auto) Absolute Monos (auto) Absolute Eos (auto) Absolute Basos (auto) Absolute Nucleated RBC Immature Gran % Neutrophils % Lymphocytes % Monocytes % Eosinophils % Basophils % Promyelocytes % Nucleated RBC % Abs Neuts (Manual) Abs Lymphs (Manual) Abs Monocytes (Manual) Absolute Eos (Manual) Abs Basophils (Manual) Nucleated RBCs/100 WBC Normal RBC Morphology Polychromasia Hypochromasia Microcytosis Elliptocytes INR (Anticoag Therapy) APTT Patient Temperature ABG pH ABG pH (Temp Correct) ABG pCO2 ABG pCO2 (Temp Corrct ABG pO2 ABG pO2 (Temp Correct ABG HCO3 ABG O2 Saturation ABG Base Excess Respiration Rate Ventilator Type Vent Mode FiO2 Inspiratory Time PEEP Pressure Support Pressure Control EPAP IPAP BiPAP Sodium Potassium Chloride Carbon Dioxide Anion Gap BUN Creatinine Est GFR ( Amer) Est GFR (Non-Af Amer) BUN/Creatinine Ratio Glucose Calcium Total Bilirubin AST ALT Alkaline Phosphatase Troponin I B-Natriuretic Peptide > 1300 Total Protein Albumin Globulin Albumin/Globulin Ratio Triglycerides Cholesterol LDL Cholesterol HDL Cholesterol Blood Type Antibody Screen Antibody Identification Direct Antiglob Test Crossmatch Studies: Cardiac ECHO - results as mentioned. Nutrition: Soft diet started Impression: Patient with occult GI bleeding and severe (probably fe-deiciency) anemia, who also has aortic stenosis, a second-degree AV block that resolved, and possible myocardial ischemia. She is hemodynamically stable at present. Plan: 1. In light of possible myocardial ischemia, will transfuse to hemoglobin close to 10 gm/dL 2. Because of high BNP, will also "gently" diurese. 3. Will follow serial troponins and ECGs 4. Cardiology evaluating current situation, and possible need for pacemaker. Critical Care Time: 60 minutes
[2018-04-09 17:28] LABS: Hematocrit 27 % (35-47); Hemoglobin 8.6 g/dl (12.0-16.0)
[2018-04-09] MEDS ORDERED: Furosemide IV* 10 MG/ML 2 ML VIAL (20 MG) IV SLOW PU ONE (17:48)
[2018-04-09] MEDS: Atorvastatin* 80 MG TAB PO SCH (20:44)
[2018-04-09] MEDS ORDERED: Nitro Patch/OINT Remove PATCH OFF SCH (21:00)
--- NOTE | 2018-04-09 22:06 | CONS ---
CC: Dr. Parrish; Dr. Patel. CARDIOLOGY CONSULTATION: DATE OF CONSULT: . CONSULTING PROVIDER: Dr. Fabrice Bee. REASON FOR CONSULT: Abnormal EKG. HISTORY OF PRESENT ILLNESS: Shaye is a 72-year-old woman who has multiple medical problems including COPD of a moderate to severe degree, hypertension, hyperlipidemia and aortic stenosis. She apparently was in her usual state of health, able to do her own shopping and get around the house until late February when she was admitted with shortness of breath. She was diagnosed with influenza A and exacerbation of her COPD. She was also noted to be anemic with a hemoglobin that fell to 7.5. She had a history of iron-deficiency anemia and it was advised that she have endoscopy, but she declined and left against medical advice. She was discharged on medications for her COPD, but she did not acquire due to the cost. She was re-admitted in early March again with COPD, and was treated and discharged home. She states that since that time she has been limited in her ability to get around, more short of breath with exertion. She was sent home with nocturnal oxygen. She said that she has had to sit upright at 45 to 60 degrees at night and the last 4 or 5 days she has been having what she calls "hot flashes" episodes where she feels very warm , sweaty and has pressure in the back. She states this resolves after about 10 minutes or so. Early this morning, she was so short of breath that she decided to come to the emergency room. She was noted to have an exacerbation of her shortness of breath and was markedly anemic. She was admitted for possible GI bleed. She had brown stool that was guaiac positive. Her hemoglobin was 5.6. She received some opiates and Vapotherm and a central line was placed by Dr. Bee. She had an EKG performed at 4:47 a.m., which revealed sinus tachycardia with a possible old inferior KS and lateral ST depressions of 1 mm. She does have ischemia. The ST depressions were slightly more pronounced compared to 03/16/18, but were more similar to 03/15/18. She had a repeat EKG on 04/09/18 at 7 a.m. which revealed what appeared to be a third degree AV block with a narrow junctional escape that resolved on the 10:55 a.m. EKG, although she still had persistent [address] depressions and T-wave inversions and poor R-wave progression. It was felt that the AV block occurred in the setting of worsening hypoxemia. The patient is being transfused and currently is on 100% sat on 2 L nasal cannula. She has had no further arrhythmias. She denies any syncope or near syncope. She denies substernal chest pressure. She denies previous heart attacks. She does have a history of aortic stenosis. She was seen by Dr. Patel in January 2017 and it was felt that she had moderately severe aortic stenosis, EF of 65%, mean gradient across the valve was 20, peak velocity of 3 meters/ second, DI was 0.24 consistent with severe aortic stenosis and it was also thought that she had congestive heart failure, perhaps on the basis of diastolic dysfunction. He started her on diuretics and Lasix 20 mg a day and lisinopril 2.5 mg a day. She denies any strokes, mini strokes. She does apparently have a history of a GI bleed in 2010, possibly due to peptic ulcer disease. She has a history of tobacco use of 1 to 2 packs per day from the time she was a teenager until the end of 2016. She had a pulmonary function test in February 2017 which revealed an FEV1 of 0.7, moderate to severe COPD. PAST MEDICAL HISTORY: She has a history of hypertension, obesity, COPD, PUD/GI BLEED 2010, Iron deficiency anemia, Aortic stenosis, hyperlipidemia PAST SURGICAL HISTORY: Includes a hernia on the right and cholecystectomy. MEDICATIONS: As an outpatient include: 1. Lisinopril 5 mg a day. 2. DuoNeb 1 q.4 p.r.n. 3. Albuterol 2 puffs q.4 p.r.n. 4. Omeprazole 20 mg a day. 5. Ferrous gluconate 324 b.i.d. 6. Atorvastatin 20 mg a day. 7. Aspirin 81 mg a day. As an inpatient, she is on: 1. Atorvastatin 20 mg a day. 2. Albuterol. 3. Guanfacine. 4. Protonix IV 40 mg b.i.d. ALLERGIES: Her allergies include CODEINE, which results in GI upset. FAMILY HISTORY: Father's history is unknown. Her mother of an KS in her 70s. She has had 6 siblings, one brother of complications of diabetes, one brother of an KS in his 80s, and one brother of gangrene. SOCIAL HISTORY: She is and has 3 children. She denies alcohol use. She stopped smoking in December 2016. She was a nanny, retired in 2015. REVIEW OF SYSTEMS: Review of systems x12 was negative except as above and for a non-productive cough for the last few days. PHYSICAL EXAM: She is a well-developed obese female, in no apparent distress. Heart rate 85, blood pressure 112/66, O2 sats 100% on 2 L. No significant JVD. Carotids 2+, delayed and diminished with murmurs or transmitted bruits bilaterally. Extraocular muscles intact. Sclerae anicteric. There was xanthelasma of the eye folds medially. Cardiac exam: S1 and S2 with a 3/6 harsh systolic ejection murmur at the base radiating across the precordium, single S2. Chest: Decreased breath sounds, prolonged expiratory phase, no CVAT. Abdomen: Obese, nontender, no hepatosplenomegaly. Femoral pulses intact with bruits bilaterally. Distal pulses intact. No edema. Motor strength 5/5 bilaterally. Deep tendon reflexes are 2/4. Alert and oriented x3. DIAGNOSTIC STUDIES/LAB DATA: EKG was described as above. Her presenting hemoglobin was 5.6, which is now up to 7.7 with hematocrit of 25. Sodium 132, potassium 4.8, BUN 33, creatinine of 0.91. AST elevated at 64. ALT elevated at 208. Alk phos of 145. Troponin from 8:30 this morning was 0.65 and her repeat at 12:50 was 0.68. Her echo from today revealed moderate to severely decreased LV function, EF of 30% to 35%, abnormal diastolic function, multiple wall motion abnormalities with global moderate to severe hypokinesis as well as more severe hypokinesis and akinesis at the inferior and inferoseptal segments in the proximal to mid LV segments, interval decrease in EF compared to February 2008 when the EF was 55% to 60%. She also had moderate to severe , valve area calculated at 1.1 cm squared, appeared to be possibly severe and a peak velocity of 3.1 meter/second in the setting of decreased LV function raising the possibility of low gradient severe aortic stenosis. There was mild MR, mild mitral stenosis, mild to moderate TR, mild pulmonary hypertension. Chest x-ray from 04:38 revealed vascular congestion, increased lung boyle. IMPRESSION: Ms. Jack has a history of chronic obstructive pulmonary disease , moderate to severe, as well as aortic stenosis; tobacco use; hypertension; hyperlipidemia, now presents with decrease in exercise tolerance in the last month with severe anemia, and moderate to severe LV dysfunction. The severe anemia may be contributing to decompensation of her cardiopulmonary function but she also has newly found decreased LV function and elevation of her troponin. I suspect that she may have ischemic heart disease or a stress cardiomyopathy or a valvular cardiomyopathy as well as hemodynamically significant aortic stenosis in light of her pattern of symptoms for the last month consisting of progressive exercise limitation out of proportion to what she has had in past years. She does not appear to have acute GI bleed based on black or bright red blood but a GI evaluation is pending. I did discuss the case with her and Dr. Bee. Her prognosis is guarded given her multiple comorbidities as well as heart failure in her setting of severe aortic stenosis , LV dysfunction. Treatment options are limited. She had transient third degree AV block with extreme hypoxia this morning which limits our ability to use beta blockers, also excessive afterload reduction given her aortic stenosis. Anticoagulants are contraindicated given her anemia of unclear etiology at this point in time. Therefore, I recommend the followin. I would suggest transfusing as you are doing. 2. I would be vigilant for development of congestive heart failure on the basis of volume overload and use p.r.n. Lasix, perhaps between units. 3. I would add a low dose of nitrates given what appears to be ischemia and ischemic LV dysfunction. 4. I would watch for recurrent AV block. She may require temporary and then permanent pacing if this recurs outside the setting of severe hypoxemia and extremis. 5. We will try and maintain a potassium of over 4. 6. We would continue a GI evaluation as you are doing. 7. At some point, she may benefit from cardiac catheterization and consideration of TAVR. We will try to stabilize her before pursuing that. She is willing, she is a full resuscitation and understands that her prognosis is guarded. She also understands that when she stabilized, we should consider intervention for coronary artery disease and aortic stenosis. This may require revascularization and TAVR percutaneously or perhaps surgically. She will be at increased risk for complications at a major operating procedure given her underlying chronic obstructive pulmonary disease. She also appears to have some degree of vascular disease with femoral bruits. 8. We would recommend continuing aggressive treatment of her lipids. 9. We would recommend increasing her Lipitor to 80 mg a day. 10. We will start aspirin when it is safe to do so from a GI standpoint. 11. Further recommendations will depend on her clinical course. [id number]/[facility] #: [id number] ODALIS
[2018-04-09 22:12] LABS: Hematocrit 27 % (35-47); Hemoglobin 8.7 g/dl (12.0-16.0)
[2018-04-09] MEDS: Albuterol/Ipratropium NEB.SOL* Albuterol 2.5 MG/Ipratropium 0.5 MG 3 ML INH PRN (22:34)
--- NOTE | 2018-04-09 22:48 | CONS ---
GASTROENTEROLOGY CONSULTATION REPORT: DATE OF CONSULT: 04/09/18 REQUESTING PROVIDER: Dr. Bee in ICU REASON FOR CONSULT: Severe anemia. HISTORY OF PRESENT ILLNESS: Ms. Jack is a 72-year-old woman with a history of GERD, COPD, hyperlipidemia, udqatqlr-co-ezlppx aortic stenosis, LVH and a history of duodenal/jejunal ulcers in 2010, who is admitted with progressive dyspnea and severe anemia. Ms. Jack was admitted in late February for a COPD exacerbation. She was noted to be anemic at that time, but she declined GI consultation. Labs on discharge were hemoglobin of 7.4 and hematocrit of 24. Since late February, Ms. Jack states that she has had progressive shortness of breath. Symptoms got to the point that she presented to the ER yesterday for evaluation. She complains of some non-productive cough, which is new for her. Her has noticed that she is quite pale looking. She denies any GI symptoms including GERD, nausea, vomiting, dysphagia, abdominal pain, melena, or hematochezia. She states that she has 1 to 2 brown stools per day. She is not aware of the medications that she is on, although she is currently listed as taking omeprazole 20 mg daily. On arrival to the ER, labs are notable for a hemoglobin of 5.6 and hematocrit of 19. She was admitted to the ICU. She has since received at least 1 unit of blood with follow-up hemoglobin 6.2 and hematocrit 20. Labs also notable for elevated LFTs with an AST of 64, ALT of 208 , alk phos 145, as well as an elevated troponin of 0.65. On chart review, Ms. Jack was seen by GI in 2010 for GI bleeding. An initial EGD showed a large clot in the pyloric channel likely due to duodenal ulceration. Follow-up EGD demonstrated at least 3 duodenal and proximal jejunal ulcers. CLOtest was negative for H. pylori. No repeat EGD since this time. She says that she has never had a colonoscopy in the past. PAST MEDICAL HISTORY: 1. Severe COPD. 2. Hyperlipidemia. 3. GERD and history of duodenal ulceration with GI bleeding in 2010. 4. Yercnarb-xr-dljeiz aortic stenosis with LVH. PAST SURGICAL HISTORY: None. HOME MEDICATIONS: Per H and P (the patient not able to confirm): 1. Lisinopril 5 mg daily. 2. DuoNeb every 4 hours as needed. 3. Omeprazole 20 mg daily. 4. Mometasone/formoterol 200/5 two puffs b.i.d. 5. Iron 324 b.i.d. 6. Lipitor 20 daily. 7. Aspirin 81 daily. ALLERGIES: Allergic to CODEINE, which causes stomach upset. FAMILY HISTORY: No known GI or liver disease. SOCIAL HISTORY: Lives at home with her . Former smoker. No alcohol or drug use. REVIEW OF SYSTEMS: The patient complains of shortness of breath and nonproductive cough. Feels a bit lightheaded at times. 14 point review of systems otherwise negative except as previously stated. PHYSICAL EXAM: Vital Signs: Temp 97.4, heart rate 83, blood pressure 108/73, 100% on room air with a respiratory rate of 23. General: Chronically ill-appearing woman, sitting upright, coughing intermittently, in no acute distress. HEENT: Mildly dry oral mucosa. Cardiovascular: Systolic murmur. Regular rate and rhythm. Lungs: Mild tachypnea, some mild wheezing and faint crackles on bases. Abdomen: Soft, nontender, nondistended. Extremities: No lower extremity edema. Skin: No jaundice. DIAGNOSTIC STUDIES/LAB DATA: Labs reviewed. White count 8.9, hemoglobin 5.6, hematocrit 19, platelet count 508. Repeat blood count after several hours (and 1 unit of blood): hemoglobin 6.2 and hematocrit 20. INR 1.2. Sodium 132, BUN 33 , creatinine 0.91, AST 64, ALT 208, alk phos 145, bilirubin 0.8, troponin 0.65. Of note, the patient previously had normal LFTs. Imaging: Chest x-ray on 04/09/18 performed after a central line was placed, no pneumothorax noted on that imaging study. IMPRESSION AND RECOMMENDATION: Ms. Jack is a 72-year-old woman with a history of significant chronic obstructive pulmonary disease, moderate-to- severe aortic stenosis with left ventricular hypertrophy, gastroesophageal reflux disease, and history of peptic ulcer disease related bleeding in 2010, who is admitted with progressive dyspnea and severe anemia. Chart review demonstrates anemia dating back at least a month. The patient declined gastroenterology consultation at that time. It seems that her anemia has slightly worsened since this time suggestive of chronic versus acute-on- chronic anemia. Gastrointestinal blood loss is the concern, particularly given her history of duodenal ulcer bleeding in 2010. The patient is currently hemodynamically stable and receiving transfusions in the ICU. Labs are concerning for a new mild elevation in liver enzymes as well as as an elevation in her troponin to 0.65. It is possible that both of these lab abnormalities may be explained by decompensated heart failure in the setting of severe anemia. The patient's presentation certainly warrants endoscopic evaluation for source of blood loss; however, I think that it is best to wait until she has been optimized from a cardiopulmonary standpoint. Further transfusions needed to place her blood counts in a more safe range from cardiac standpoint. Cardiology evaluation pending for the elevated troponin and second degree heart block seen on EKG (per Dr Bee). We will continue to follow along to discuss timing of EGD depending on clinical status. 1. Clear diet okay from GI standpoint for now. 2. Continue supportive care and transfusions per ICU team. 3. IV PPI b.i.d. or drip. 4. We will await Cardiology's evaluation prior to determining time for case given the patient's cardiovascular history, abnormal heart rhythm seen by ICU team, and elevated troponin. 5. Please obtain abdominal ultrasound given abnormal liver function tests. Please also trend comprehensive panel daily. Depending on trend and ultrasound results, we will consider expanded abnormal liver function test workup. Thank you very much for this consult. GI will continue to follow. [id number]/[facility] #: [id number] ODALIS
[2018-04-10] MEDS: Albuterol/Ipratropium NEB.SOL* Albuterol 2.5 MG/Ipratropium 0.5 MG 3 ML INH PRN (05:03)
[2018-04-10 06:15] LABS: Hematocrit 31 % (35-47); Mean Corpuscular HGB Conc 33 g/dl (31-36); Mean Corpuscular Hemoglobin 25 pg (27-31); Mean Corpuscular Volume 77 fL (80-97); Mean Platelet Volume 7.9 fL (7.4-10.4); Platelet Count 380 10^3/ul (150-450); Red Blood Count 3.96 10^6/ul (4.00-5.40); Red Cell Distribution Width 21 % (10.5-15); White Blood Count 9.5 10^3/ul (3.5-10.8)
[2018-04-10 06:42] LABS: Albumin 3.1 g/dL (3.2-5.2); Albumin/Globulin Ratio 1.1 (1-3); BUN/Creatinine Ratio 31.3 (8-20); Calcium 8.5 mg/dL (8.6-10.3); EGFR African American 82.2 (>60); Globulin 2.8 g/dL (2-4); Potassium 4.3 mmol/L (3.5-5.0); Total Protein 5.9 g/dL (6.4-8.9)
[2018-04-10 06:44] LABS: Troponin I 0.73 ng/mL (<0.04)
[2018-04-10 07:01] LABS: Ferritin 14.5 ng/mL (11-307)
[2018-04-10 07:44] LABS: ABS Basophils 0.1 10^3/ul (0-0.2); ABS Eosinophils 0.1 10^3/ul (0-0.6); ABS Lymphocytes 1.9 10^3/ul (1.0-4.8); ABS Monocytes 0.9 10^3/ul (0-0.8); ABS Neutrophils 6.5 10^3/ul (1.5-7.7)
[2018-04-10 07:46] LABS: ABS Basophils 0 10^3/ul (0-0.2); ABS Eosinophils 0 10^3/ul (0-0.6); ABS Neutrophils 7.3 10^3/ul (1.5-7.7); Lymphocytes % 17 %; Monocytes % 6 %; Neutrophil % 77 %; Nucleated Red Blood Cells/100 2 (0-0); Polychromasia 1+
[2018-04-10] MEDS ORDERED: Nitro 2% OINT* (Nitroglycerin) 1 INCH/PAK PAK TOPICAL SCH (08:00)
[2018-04-10] MEDS: Mometasone/Formoter 200/5 MDI INH SCH ×2 (08:38→21:56)
[2018-04-10] MEDS: Pantoprazole IV* 40 MG IV SCH ×2 (09:16→20:38)
[2018-04-10] MEDS: Ferrous Gluconate TAB* 324 MG TAB PO SCH ×2 (09:16→20:41)
[2018-04-10] MEDS: guaiFENesin ER TAB 600 MG PO SCH ×2 (09:16→20:37)
[2018-04-10] MEDS: Levofloxacin TAB* 750 MG PO SCH (14:57)
--- NOTE | 2018-04-10 15:02 | PN ---
Date of Service: 04/10/18 Critical Care Services: 72 y/o female with PMH of tobacco induced COPD, moderate to severe aortic stenosis, obesity, and prior Hx PUD admitted with severe anemia and heme- positive stools. After admission, ECG showed a second-degree heart block ( which resolved), and cardiac ECHO showing LV systolic dysfunction. Has received 2 units packed RBCs with increase in hemoglobin to > 7 gm/dL. Current complains: thick, yellow, non-bloody sputum. No chest pain, fever, rigors, no blood in stool. Denies hematemesis, hemoptysis. Respiratory status at baseline. Home O2 requirements ~3LPM continuous. Overnight/24h events: 2 units of PRBC. EKG changes. Vital Signs: Temp Pulse Resp BP SpO2 FiO2 99.1 F 90 25 114/77 97 100 04/10/18 11:49 04/10/18 14:30 04/10/18 14:30 04/10/18 14:30 04/10/18 14:30 04/10 04:00 Physical Exam: Gen: HEENT: Lungs: Cardiac: Abdomen: Extremities: Neuro: Fluid Balance (Past 24 Hours): I= O= Net Intake & Output 04/08/18 04/09/18 04/10/18 04/11/18 06:59 06:59 06:59 06:59 Intake Total 2725 700 Balance 2725 700 Weight 185 lb 193 lb 12.581 oz Intake: IV Fluids 1475 NS (0.9%) 1475 Oral 660 700 Packed Cells 590 Other: Estimated Void Medium Large # Voids 1 ADLs: Meal Record Start: 04/09/18 06: 10 Freq: 09,13,18 Status: Active Protocol: Created 04/09/18 06:10 System (Rec: 04/09/18 06:10 System [id number]) Document 04/09/18 09:00 [id number] (Rec: 04/09/18 13:19 [id number] ICU-C07) Document 04/09/18 13:00 [id number] (Rec: 04/09/18 13:19 [id number] ICU-C07) Document 04/09/18 18:00 [id number] (Rec: 04/09/18 18:59 [id number] ICU-C07) Document 04/10/18 09:15 [id number] (Rec: 04/10/18 09:19 [id number] ICU-M25) Document 04/10/18 13:00 [id number] (Rec: 04/10/18 13:56 [id number] ICU-C25) Intake and Output Start: 04/09/18 04: 38 Freq: Status: Complete Protocol: Created 04/09/18 04:38 System (Rec: 04/09/18 04:38 System [id number]) Intake and Output Start: 04/09/18 06: 10 Freq: Q1HR Status: Active Protocol: Created 04/09/18 06:10 System (Rec: 04/09/18 06:10 System ICU-M25) Document 04/09/18 13:00 [id number] (Rec: 04/09/18 13:07 [id number] ICU-C07) Document 04/09/18 14:00 [id number] (Rec: 04/09/18 15:36 [id number] ICU-C07) Document 04/09/18 15:00 [id number] (Rec: 04/09/18 16:03 [id number] ICU-C07) Document 04/09/18 18:00 [id number] (Rec: 04/09/18 18:59 [id number] ICU-C07) Document 04/09/18 20:00 [id number] (Rec: 04/09/18 22:42 [id number] ICU-C06) Document 04/09/18 23:00 [id number] (Rec: 04/09/18 23:03 [id number] ICU-C06) Document 04/10/18 01:00 [id number] (Rec: 04/10/18 01:58 [id number] ICU-C06) Document 04/10/18 02:00 [id number] (Rec: 04/10/18 02:50 [id number] ICU-C25) Document 04/10/18 03:00 [id number] (Rec: 04/10/18 05:08 [id number] ICU-C25) Document 04/10/18 04:00 [id number] (Rec: 04/10/18 05:09 [id number] ICU-C25) Document 04/10/18 05:00 [id number] (Rec: 04/10/18 05:09 [id number] ICU-C25) Document 04/10/18 06:00 [id number] (Rec: 04/10/18 06:13 [id number] ICU-C25) Document 04/10/18 13:00 [id number] (Rec: 04/10/18 14:43 [id number] ICU-C25) Labs: Laboratory Results - last 24 hr 04/09/18 04/09/18 04/09/18 04:44 12:50 17:20 WBC RBC Hgb 8.6 L Hct 27 L MCV MCH MCHC RDW Plt Count MPV Neut % (Auto) Lymph % (Auto) Casey % (Auto) Eos % (Auto) Baso % (Auto) Absolute Neuts (auto) Absolute Lymphs (auto) Absolute Monos (auto) Absolute Eos (auto) Absolute Basos (auto) Absolute Nucleated RBC Neutrophils % Lymphocytes % Monocytes % Eosinophils % Basophils % Nucleated RBC % Abs Neuts (Manual) Abs Lymphs (Manual) Abs Monocytes (Manual) Absolute Eos (Manual) Abs Basophils (Manual) Nucleated RBCs/100 WBC Normal RBC Morphology Polychromasia Anisocytosis Sodium Potassium Chloride Carbon Dioxide Anion Gap BUN Creatinine Est GFR ( Amer) Est GFR (Non-Af Amer) BUN/Creatinine Ratio Glucose Calcium Ferritin Total Bilirubin AST ALT Alkaline Phosphatase Troponin I B-Natriuretic Peptide > 1300 H Total Protein Albumin Globulin Albumin/Globulin Ratio Blood Type O Positive Antibody Screen Positive Antibody Identification Anti-S Direct Antiglob Test Negative Crossmatch See Detail 04/09/18 04/09/18 04/10/18 19:37 22:04 06:00 WBC 9.5 RBC 3.96 L Hgb 8.7 L 10.0 L Hct 27 L 31 L MCV 77 L MCH 25 L MCHC 33 RDW 21 H Plt Count 380 MPV 7.9 Neut % (Auto) Not Reportable Lymph % (Auto) Not Reportable Casey % (Auto) Not Reportable Eos % (Auto) Not Reportable Baso % (Auto) Not Reportable Absolute Neuts (auto) 6.5 Absolute Lymphs (auto) 1.9 Absolute Monos (auto) 0.9 H Absolute Eos (auto) 0.1 Absolute Basos (auto) 0.1 Absolute Nucleated RBC Not Reportable Neutrophils % 77 Lymphocytes % 17 Monocytes % 6 Eosinophils % 0 Basophils % 0 Nucleated RBC % Not Reportable Abs Neuts (Manual) 7.3 Abs Lymphs (Manual) 1.6 Abs Monocytes (Manual) 0.6 Absolute Eos (Manual) 0 Abs Basophils (Manual) 0 Nucleated RBCs/100 WBC 2 H Normal RBC Morphology Not Reportable Polychromasia 1+ Anisocytosis 1+ Sodium Potassium Chloride Carbon Dioxide Anion Gap BUN Creatinine Est GFR ( Amer) Est GFR (Non-Af Amer) BUN/Creatinine Ratio Glucose Calcium Ferritin Total Bilirubin AST ALT Alkaline Phosphatase Troponin I 0.88 H* B-Natriuretic Peptide Total Protein Albumin Globulin Albumin/Globulin Ratio Blood Type Antibody Screen Antibody Identification Direct Antiglob Test Crossmatch 04/10/18 06:00 WBC RBC Hgb Hct MCV MCH MCHC RDW Plt Count MPV Neut % (Auto) Lymph % (Auto) Casey % (Auto) Eos % (Auto) Baso % (Auto) Absolute Neuts (auto) Absolute Lymphs (auto) Absolute Monos (auto) Absolute Eos (auto) Absolute Basos (auto) Absolute Nucleated RBC Neutrophils % Lymphocytes % Monocytes % Eosinophils % Basophils % Nucleated RBC % Abs Neuts (Manual) Abs Lymphs (Manual) Abs Monocytes (Manual) Absolute Eos (Manual) Abs Basophils (Manual) Nucleated RBCs/100 WBC Normal RBC Morphology Polychromasia Anisocytosis Sodium 133 L Potassium 4.3 Chloride 101 Carbon Dioxide 27 Anion Gap 5 BUN 26 H Creatinine 0.83 Est GFR ( Amer) 82.2 Est GFR (Non-Af Amer) 68.0 BUN/Creatinine Ratio 31.3 H Glucose 168 H Calcium 8.5 L Ferritin 14.5 Total Bilirubin 1.00 AST 38 ALT 142 H Alkaline Phosphatase 125 H Troponin I 0.73 H* B-Natriuretic Peptide Total Protein 5.9 L Albumin 3.1 L Globulin 2.8 Albumin/Globulin Ratio 1.1 Blood Type Antibody Screen Antibody Identification Direct Antiglob Test Crossmatch Studies: CXR 04/09: bilateral interstitial opacities. RCVL too deep Nutrition: advanced to cardiac diet Impression: # Acute symptomatic anemia 5.6 # hx/o of COPD # acute bronchitis # Troponin leak # Aortic stenosis # AV block Plan: # Acute symptomatic anemia 5.6 likely due to upper GIB # Hx/o duodenal ulcer with associated bleeding in 2010 s/p 2 u PRBC in the last 24 hours no suggestion of ongoing bleed hemodynamically stable -monitor CBC daily -GI recs noted. Need for endoscopy as per GI. -on PPI BID # hx/o of COPD # acute bronchitis # acute on chronic hypoxemic respiratory failure respiratory status improving to baseline. Currently on NC 3LPM new productive sputum x >2 weeks no suggestion of acute exacerbation -Levaquin x 5 days started 04/10 -agree with Dulera, bronchodilators, and Mucinex # Moderate to severe # Troponin leak, likely due to demand from anemia # Hx/o HTN, HLD # acute LV dysfunction likely due to anemia # Transient third degree AVB resolved as per last EKG down-trending trops 0.6-->0.88-->0.73 no overt signs of acute decompensation no c/o chest pain or suggestion of ongoing ACS -needs to start ASA no suggestion of bleeding for >48 hours - on statin - recommend starting ACEi by tomorrow if hemodynamics are stable - BB held due to AVB and - started Imdur 10 mg BID. Increase as tolerated. - keep on Tele at all times. - Cardio recs noted. Will need a cardiac cath with TAVR in the future. Prognosis: guarded Dispo: transfer to Tele Critical Care Time: 55 mins
[2018-04-10] MEDS: Atorvastatin* 80 MG TAB PO SCH (20:37)
[2018-04-10] MEDS: CMC:Isosorbide Mononitrate (NF) 20 MG TAB PO SCH (20:41)
[2018-04-10] MEDS: Albuterol HFA INHALER* 8 gm MDI INH PRN (21:55)
[2018-04-11] MEDS: Ferrous Gluconate TAB* 324 MG TAB PO SCH ×2 (08:34→20:10)
[2018-04-11] MEDS: guaiFENesin ER TAB 600 MG PO SCH ×2 (08:34→20:10)
[2018-04-11] MEDS: Levofloxacin TAB* 750 MG PO SCH (08:35)
[2018-04-11] MEDS: Pantoprazole IV* 40 MG IV SCH ×2 (08:35→20:10)
[2018-04-11] MEDS: CMC:Isosorbide Mononitrate (NF) 20 MG TAB PO SCH ×2 (08:35→20:10)
[2018-04-11] MEDS: Albuterol HFA INHALER* 8 gm MDI INH PRN (08:47)
[2018-04-11] MEDS: Mometasone/Formoter 200/5 MDI INH SCH ×2 (08:47→19:59)
--- NOTE | 2018-04-11 09:24 | PN ---
Subjective Date of Service: 04/11/18 Interval History: Probably at her baseline. Objective Active Medications: Albuterol (Ventolin Hfa Inhaler*) 2 puff INH Q4HR PRN PRN Reason: SHORTNESS OF BREATH Last Admin: 04/11/18 08:47 Dose: 2 puff Albuterol/Ipratropium (Duoneb (Albuterol 2.5 Mg/Ipratropium 0.5 Mg)) 1 neb INH Q4H PRN PRN Reason: SOB/WHEEZING Last Admin: 04/10/18 05:03 Dose: 1 neb Atorvastatin Calcium (Lipitor*) 80 mg PO 2100 [facility] Last Admin: 04/10/18 20:37 Dose: 80 mg Ferrous Gluconate (Fergon Tab*) 324 mg PO BID [facility] Last Admin: 04/11/18 08:34 Dose: 324 mg Guaifenesin (Mucinex*) 600 mg PO BID [facility] Last Admin: 04/11/18 08:34 Dose: 600 mg Isosorbide Mononitrate (Isosorbide Mononitrate (Nf)) 10 mg PO BID [facility]; Protocol Last Admin: 04/11/18 08:35 Dose: 10 mg Levofloxacin (Levaquin Tab*) 750 mg PO DAILY [facility] Stop: 04/14/18 09:01 Last Admin: 04/11/18 08:35 Dose: 750 mg Mometasone Furoate/Formoterol Fumar (Dulera 200/5 Mdi*) 2 puff INH BID [facility] Last Admin: 04/11/18 08:47 Dose: 2 puff Pantoprazole Sodium (Protonix Iv*) 40 mg IV BID [facility] Last Admin: 04/11/18 08:35 Dose: 40 mg Vital Signs - 8 hr 04/11/18 04/11/18 04/11/18 04:18 07:51 08:00 Temperature 98.2 F Pulse Rate 87 84 Respiratory 18 20 20 Rate Blood Pressure 104/58 105/57 (mmHg) O2 Sat by Pulse 100 100 100 Oximetry 04/11/18 08:48 Temperature Pulse Rate 84 Respiratory 20 Rate Blood Pressure (mmHg) O2 Sat by Pulse 100 Oximetry Oxygen Devices in Use Now: Nasal Cannula Appearance: Sitting up in bed. Somewhat tachypneic, otherwise looks comfortable. Eyes: No Scleral Icterus Respiratory: Clear to Percussion, - - diminished BS BL Cardiovascular: RRR, No Edema, - - 3/6 systolic murmur Extremities: No Edema, No Clubbing, Cyanosis, - Neurological: Alert and Oriented x 3, NL Sensation Result Diagrams: 04/11/18 09:50 04/11/18 09:50 Additional Lab and Data: Lab Results 04/09/18 04/09/18 04/09/18 Range/Units 04:44 04:44 04:44 WBC 8.9 (3.5-10.8) 10^3/ul RBC 2.62 L (4.00-5.40) 10^6/ul Hgb 5.6 L* (12.0-16.0) g/dl Hct 19 L (35-47) % MCV 71 L (80-97) fL MCH 21 L (27-31) pg MCHC 30 L (31-36) g/dl RDW 21 H (10.5-15) % Plt Count 508 H D (150-450) 10^3/ul MPV 7.6 (7.4-10.4) fL Neut % (Auto) Not Reportable Lymph % (Auto) Not Reportable [place] % (Auto) Not Reportable Eos % (Auto) Not Reportable Baso % (Auto) Not Reportable Absolute Neuts (auto) 6.1 (1.5-7.7) 10^3/ul Absolute Lymphs (auto) 1.8 (1.0-4.8) 10^3/ul Absolute Monos (auto) 0.8 (0-0.8) 10^3/ul Absolute Eos (auto) 0 (0-0.6) 10^3/ul Absolute Basos (auto) 0.1 (0-0.2) 10^3/ul Absolute Nucleated RBC 0.3 10^3/ul Immature Gran % 1 (0-9) % Neutrophils % 68 % Lymphocytes % 21 % Monocytes % 7 % Eosinophils % 1 % Basophils % 2 % Promyelocytes % 1 % Nucleated RBC % Not Reportable Abs Neuts (Manual) 6.1 (1.5-7.7) 10^3/ul Abs Lymphs (Manual) 1.9 (1.0-4.8) 10^3/ul Abs Monocytes (Manual) 0.6 (0-0.8) 10^3/ul Absolute Eos (Manual) 0.1 (0-0.6) 10^3/ul Abs Basophils (Manual) 0.2 (0-0.2) 10^3/ul Nucleated RBCs/100 WBC 7 H (0-0) Normal RBC Morphology Not Reportable Polychromasia 2+ Hypochromasia 2+ Microcytosis 2+ Elliptocytes 1+ INR (Anticoag Therapy) 1.20 H (0.77-1.02) APTT 26.8 (26.0-36.3) seconds Sodium 132 L (135-145) mmol/L Potassium 4.8 (3.5-5.0) mmol/L Chloride 97 L (101-111) mmol/L Carbon Dioxide 26 (22-32) mmol/L Anion Gap 9 (2-11) mmol/L BUN 33 H (6-24) mg/dL Creatinine 0.91 (0.51-0.95) mg/dL Est GFR ( Amer) 74.0 (>60) Est GFR (Non-Af Amer) 61.1 (>60) BUN/Creatinine Ratio 36.3 H (8-20) Glucose 131 H (70-100) mg/dL Calcium 9.1 (8.6-10.3) mg/dL Total Bilirubin 0.80 (0.2-1.0) mg/dL AST 64 H (13-39) U/L ALT 208 H (7-52) U/L Alkaline Phosphatase 145 H (34-104) U/L Total Protein 6.6 (6.4-8.9) g/dL Albumin 3.3 (3.2-5.2) g/dL Globulin 3.3 (2-4) g/dL Albumin/Globulin Ratio 1.0 (1-3) Blood Type Antibody Screen Crossmatch 04/09/18 Range/Units 04:44 WBC (3.5-10.8) 10^3/ul RBC (4.00-5.40) 10^6/ul Hgb (12.0-16.0) g/dl Hct (35-47) % MCV (80-97) fL MCH (27-31) pg MCHC (31-36) g/dl RDW (10.5-15) % Plt Count (150-450) 10^3/ul MPV (7.4-10.4) fL Neut % (Auto) Lymph % (Auto) [place] % (Auto) Eos % (Auto) Baso % (Auto) Absolute Neuts (auto) (1.5-7.7) 10^3/ul Absolute Lymphs (auto) (1.0-4.8) 10^3/ul Absolute Monos (auto) (0-0.8) 10^3/ul Absolute Eos (auto) (0-0.6) 10^3/ul Absolute Basos (auto) (0-0.2) 10^3/ul Absolute Nucleated RBC 10^3/ul Immature Gran % (0-9) % Neutrophils % % Lymphocytes % % Monocytes % % Eosinophils % % Basophils % % Promyelocytes % % Nucleated RBC % Abs Neuts (Manual) (1.5-7.7) 10^3/ul Abs Lymphs (Manual) (1.0-4.8) 10^3/ul Abs Monocytes (Manual) (0-0.8) 10^3/ul Absolute Eos (Manual) (0-0.6) 10^3/ul Abs Basophils (Manual) (0-0.2) 10^3/ul Nucleated RBCs/100 WBC (0-0) Normal RBC Morphology Polychromasia Hypochromasia Microcytosis Elliptocytes INR (Anticoag Therapy) (0.77-1.02) APTT (26.0-36.3) seconds Sodium (135-145) mmol/L Potassium (3.5-5.0) mmol/L Chloride (101-111) mmol/L Carbon Dioxide (22-32) mmol/L Anion Gap (2-11) mmol/L BUN (6-24) mg/dL Creatinine (0.51-0.95) mg/dL Est GFR ( Amer) (>60) Est GFR (Non-Af Amer) (>60) BUN/Creatinine Ratio (8-20) Glucose (70-100) mg/dL Calcium (8.6-10.3) mg/dL Total Bilirubin (0.2-1.0) mg/dL AST (13-39) U/L ALT (7-52) U/L Alkaline Phosphatase (34-104) U/L Total Protein (6.4-8.9) g/dL Albumin (3.2-5.2) g/dL Globulin (2-4) g/dL Albumin/Globulin Ratio (1-3) Blood Type O Positive Antibody Screen Positive Crossmatch See Detail Microbiology and Other Data: Microbiology 04/09/18 08:30 Nasal Screen MRSA (PCR) - Final Nasal Mrsa Not Detected Assess/Plan/Problems-Billing Assessment: - Patient Problems (1) Iron deficiency anemia Current Visit: No Status: Acute Code(s): D50.9 - IRON DEFICIENCY ANEMIA, UNSPECIFIED SNOMED Code(s): 05620454 Comment: Received 4 UPC's with good hgb response. CBC 04/[address] Stubbs will do EGD afternoon 04/11. Continue bid IV PPI for now. (2) COPD (chronic obstructive pulmonary disease) Current Visit: No Status: Acute Code(s): J44.9 - CHRONIC OBSTRUCTIVE PULMONARY DISEASE, UNSPECIFIED SNOMED Code(s): 36892902 Comment: Continue neb ipratropium, have ordered ipratropium/albuterol for neb , zero co-pay. Taper prednisone. (3) Third degree AV block Current Visit: Yes Status: Acute Code(s): I44.2 - ATRIOVENTRICULAR BLOCK, COMPLETE SNOMED Code(s): 45319319 Comment: Transient. In the setting of severe hypoxia and severe anemia. (4) Aortic stenosis Current Visit: No Status: Acute Code(s): I35.0 - NONRHEUMATIC AORTIC (VALVE ) STENOSIS SNOMED Code(s): 08675003 Comment: ? severe. Dr. Lowe's note appreciated. (5) CAD (coronary artery disease) Current Visit: Yes Status: Acute Code(s): I25.10 - ATHSCL HEART DISEASE OF [place] CORONARY ARTERY W/O ANG PCTRS SNOMED Code(s): 42712567 Comment: LVEF down to 30-35%, with wall motion abnormalities. Femoral bruits noted. Statin dose increased. Hold BB due to ht block.
[2018-04-11 10:07] LABS: ABS Basophils 0 10^3/ul (0-0.2); ABS Eosinophils 0.1 10^3/ul (0-0.6); ABS Lymphocytes 1.4 10^3/ul (1.0-4.8); ABS Monocytes 0.7 10^3/ul (0-0.8); ABS Nucleated RBC 0.1 10^3/ul; Eosinophil % 0.9 %; Hematocrit 32 % (35-47); Lymphocyte % 16.9 %; Mean Corpuscular HGB Conc 31 g/dl (31-36); Mean Corpuscular Hemoglobin 25 pg (27-31); Mean Corpuscular Volume 81 fL (80-97); Mean Platelet Volume 8.3 fL (7.4-10.4); Nucleated Red Blood Cells % 0.8; Platelet Count 300 10^3/ul (150-450); Red Blood Count 3.98 10^6/ul (4.00-5.40); Red Cell Distribution Width 21 % (10.5-15); White Blood Count 8.1 10^3/ul (3.5-10.8)
[2018-04-11 10:36] LABS: CO2 Carbon Dioxide 22 mmol/L (22-32); Calcium 8.4 mg/dL (8.6-10.3); Chloride 104 mmol/L (101-111); Sodium 134 mmol/L (135-145)
[2018-04-11 10:42] LABS: Anion Gap 8 mmol/L (2-11); BUN/Creatinine Ratio 25.4 (8-20); Blood Urea Nitrogen 16 mg/dL (6-24); EGFR Non-African American 93.4 (>60); Glucose 138 mg/dL (70-100)
[2018-04-11] MEDS: Albuterol/Ipratropium NEB.SOL* Albuterol 2.5 MG/Ipratropium 0.5 MG 3 ML INH SCH ×3 (13:38→19:59)
[2018-04-11] MEDS ORDERED: fentaNYL* 50 MCG/ML 2 ML VIAL (100 MCG VIAL) ONE (15:25)
[2018-04-11] MEDS ORDERED: Midazolam* 1 MG/ML 10 ML VIAL (10 MG) ONE (15:26)
[2018-04-11] MEDS: Atorvastatin* 80 MG TAB PO SCH (20:10)
--- NOTE | 2018-04-12 01:11 | PRO ---
DATE: 04/11/18 - ROOM #442 REFERRING PHYSICIAN: Bill Solis* PROCEDURE: Upper gastrointestinal endoscopy through to distal duodenum with a pediatric scope. INDICATION: This 72-year-old woman presented with profound microcytic anemia and was found to have heme-positive stool. She has severe COPD. She had upper endoscopy in June 2010 with a bleeding duodenal bulb ulcer, seen by Dr. Soto. Her medication listing shows omeprazole 20 mg and chronic iron, though she cannot identify her medications and just says with irritation that she is on 4 medications that are listed and that should be consulted. Labs at this presentation were hemoglobin 5.6, MCV 71 and she has had microcytic anemia presentations before including 01/10/17 when her MCV was 65 and hemoglobin 6.4. Stool occult blood was negative January 2017 and positive 03/13/18, when she refused workup. She denies any acid peptic complaint currently. Informed consent was obtained for a limited sedation pediatric exam. She has never had a colonoscopy. ENDOSCOPIST: Mark Stubbs MD MEDICATION: Midazolam 1.5 mg. FINDINGS: She is a chronically ill-appearing, substantially overweight woman with a hacking, barking cough that is nonproductive. She tells me she quit smoking 14 months ago and accepted O2 therapy during an admission several weeks ago. She was positioned left side down and a small amount of sedative given in 3 increments and she seemed to calm down with less cough and tolerated the exam quite well. ESOPHAGOGASTRODUODENOSCOPY: Larynx - very limited views, showed no obvious erythema and there was no blood. Esophagus - easily entered. The mucosa was normal in the upper, mid, and lower esophagus with EG junction at 40. There were no erosions. The EG junction appeared a little loose, but there was no scarring or Boyd's change. Stomach - there was a moderate amount of food layering in the mid gastric body, greater curvature. With air distention, she had no trouble and eventually views of the antrum were complete and fundus complete without any pathology or bleeding. There was no deformity. There was no blood in the mid body where mucosal views were approximately two-thirds to three-quarters. Duodenum - the pylorus, bulb, and second through fourth portions appeared normal. No blood was seen. There were no AVMs. IMPRESSION: 1. Normal upper endoscopy - slight limitations in the mid gastric body, though this would be the lowest risk area for an acute or chronic bleeding source. Postprocedure, another rectal specimen was sent for Hemoccult. 2. Iron-deficiency anemia - chronic source seems very likely. Her ability to tolerate a prep, cooperate with the exam, and subsequently tolerate treatment that would be directed towards findings is very much in question. Parenteral iron followed by verified oral iron would be the initial plan with followup with her pulmonary physician and an assessment of her realistic capabilities. [id number]/[facility] #: [id number] ODALIS
[2018-04-12] MEDS: Albuterol/Ipratropium NEB.SOL* Albuterol 2.5 MG/Ipratropium 0.5 MG 3 ML INH SCH ×4 (01:14→20:13)
[2018-04-12] MEDS: Mometasone/Formoter 200/5 MDI INH SCH ×2 (07:56→20:13)
--- NOTE | 2018-04-12 08:14 | PN ---
Subjective Date of Service: 04/12/18 Interval History: HD# 4 on 04/12/18 for this 72 yo F with PMH COPD on home 2-3L, severe aortic stenosis, who presnted SOB with ? COPD exacerbation and severe ID anemia with hemoglobin to 5 s/p 4U PRBC, hospital stay c/b transient 3rd degree AVB, tropinemia. Overnight no acute events. Vitals 105/57, 89, 98.2, 99% on 3L. Voiding freely, last BM 04/11. No labs this morning, CBC ordered. This morning seen lying in bed, still sig short of breath, and with poor pulm reserve. she has no acute complaints and poorly oriented to what brought her in the hospital. Discussed this morning with much time spent in education. She has no chest pain, she does have SOB but is at her home O2 requirement, no GI concerns. Would be amenable to colo if needed to be done. Tolerating diet Objective Active Medications: Albuterol (Ventolin Hfa Inhaler*) 2 puff INH Q4HR PRN PRN Reason: SHORTNESS OF BREATH Last Admin: 04/11/18 08:47 Dose: 2 puff Albuterol/Ipratropium (Duoneb (Albuterol 2.5 Mg/Ipratropium 0.5 Mg)) 1 neb INH [id number] [facility] Last Admin: 04/12/18 07:56 Dose: 1 neb Atorvastatin Calcium (Lipitor*) 80 mg PO 2100 [facility] Last Admin: 04/11/18 20:10 Dose: 80 mg Ferrous Gluconate (Fergon Tab*) 324 mg PO BID [facility] Last Admin: 04/11/18 20:10 Dose: 324 mg Guaifenesin (Mucinex*) 600 mg PO BID [facility] Last Admin: 04/11/18 20:10 Dose: 600 mg Isosorbide Mononitrate (Isosorbide Mononitrate (Nf)) 10 mg PO BID [facility]; Protocol Last Admin: 04/11/18 20:10 Dose: 10 mg Levofloxacin (Levaquin Tab*) 750 mg PO DAILY [facility] Stop: 04/14/18 09:01 Last Admin: 04/11/18 08:35 Dose: 750 mg Mometasone Furoate/Formoterol Fumar (Dulera 200/5 Mdi*) 2 puff INH BID [facility] Last Admin: 04/12/18 07:56 Dose: 2 puff Pantoprazole Sodium (Protonix Iv*) 40 mg IV BID [facility] Last Admin: 04/11/18 20:10 Dose: 40 mg Vital Signs - 8 hr 04/12/18 04/12/18 04/12/18 00:17 00:54 01:15 Temperature 98.2 F Pulse Rate 91 89 Respiratory 20 16 Rate Blood Pressure 93/60 (mmHg) O2 Sat by Pulse 100 98 99 Oximetry 04/12/18 04/12/18 03:33 07:58 Temperature 98.2 F Pulse Rate 89 86 Respiratory 24 18 Rate Blood Pressure 105/57 (mmHg) O2 Sat by Pulse 99 100 Oximetry Oxygen Devices in Use Now: Nasal Cannula Appearance: Woman in bed in no acute distress Eyes: No Scleral Icterus, PERRLA Ears/Nose/Mouth/Throat: NL Teeth, Lips, Gums, Mucous Membranes Moist Neck: NL Appearance and Movements; NL JVP Respiratory: Symmetrical Chest Expansion and Respiratory Effort, - - Distant lung sounds qith E wheeze, SOB with short sentences, pursed lip breathing Cardiovascular: NL Sounds; No Murmurs; No JVD, - - 3/6 ARTURO across precordium Abdominal: NL Sounds; No Tenderness; No Distention Lymphatic: No Cervical Adenopathy Extremities: No Edema Skin: No Rash or Ulcers Neurological: Alert and Oriented x 3 Result Diagrams: 04/11/18 09:50 04/11/18 09:50 Microbiology and Other Data: Microbiology 04/09/18 08:30 Nasal Screen MRSA (PCR) - Final Nasal Mrsa Not Detected Assess/Plan/Problems-Billing Assessment: 72 yo F with PMH COPD, severe aortic stenosis, who presnted SOB with ? COPD exacerbation and severe ID anemia with hemoglobin to 5 s/p 4U PRBC, hospital stay c/b transient 3rd degree AVB, tropinemia. - Patient Problems (1) Iron deficiency anemia Current Visit: No Status: Acute Code(s): D50.9 - IRON DEFICIENCY ANEMIA, UNSPECIFIED SNOMED Code(s): 80464064 Comment: Received 4 UPC's with good hgb response. EGD neg per verbal report, discuss with GI if colonoscopy indicated in this event -Has not done colo in the past (2) COPD (chronic obstructive pulmonary disease) Current Visit: No Status: Acute Code(s): J44.9 - CHRONIC OBSTRUCTIVE PULMONARY DISEASE, UNSPECIFIED SNOMED Code(s): 16229576 Comment: With acute exacerbation. Remains on Duonebs, does not appear she has been on steroids this admission, unclear why not -Start Pred 40mg daily and will likely need slow taper -DC Levaquin, no e/o acute consolidation, resume azithromyci Abx Day 06/18 on (3) Third degree AV block Current Visit: Yes Status: Acute Code(s): I44.2 - ATRIOVENTRICULAR BLOCK, COMPLETE SNOMED Code(s): 69896451 Comment: Transient. In the setting of severe hypoxia and severe anemia. -Cardiology following, plan for outpt pacer (4) Aortic stenosis Current Visit: No Status: Acute Code(s): I35.0 - NONRHEUMATIC AORTIC (VALVE ) STENOSIS SNOMED Code(s): 96856539 Comment: ? severe. She has seen Dr. Thomas and considering TAVR, likely a cath prior -She needs to be optimized from a pulm standpoint (see above) -Continue careful fluid mgmt -Will need repeat Echo prior to discharge per cards recommendation (5) Elevated troponin Current Visit: No Status: Acute Code(s): R74.8 - ABNORMAL LEVELS OF OTHER SERUM ENZYMES SNOMED Code(s): 348193484 Comment: Likely demand ischemia. No further work up at this time. She will follow up with Dr. Patel as an outpatient. -Cath should be planned if going for TAVR (6) Hypertension Current Visit: No Status: Acute Code(s): I10 - ESSENTIAL (PRIMARY) HYPERTENSION SNOMED Code(s): 70925011 Comment: BP is under good control. Hold lisinopiorl still (7) DVT prophylaxis Current Visit: No Status: Acute Code(s): NVR1527 - SNOMED Code(s): 645299188 Comment: SQ heparin Status and Disposition: Inpatient, start steroids today
[2018-04-12] MEDS: Pantoprazole IV* 40 MG IV SCH ×2 (09:32→20:32)
[2018-04-12] MEDS: CMC:Isosorbide Mononitrate (NF) 20 MG TAB PO SCH ×2 (09:32→20:32)
[2018-04-12] MEDS: Levofloxacin TAB* 750 MG PO SCH (09:33)
[2018-04-12] MEDS: guaiFENesin ER TAB 600 MG PO SCH ×2 (09:33→20:32)
[2018-04-12] MEDS: Ferrous Gluconate TAB* 324 MG TAB PO SCH ×2 (09:33→20:32)
--- NOTE | 2018-04-12 09:59 | PN ---
Subjective Date of Service: 04/12/18 - CC: SOB Interval History: The patient remains SOB, per nurse pursed lip breathing this AM, improved post nebulizer Tx. Persistent cough, productive of sputum, white. Medications Active Medications: Albuterol (Ventolin Hfa Inhaler*) 2 puff INH Q4HR PRN PRN Reason: SHORTNESS OF BREATH Last Admin: 04/11/18 08:47 Dose: 2 puff Albuterol/Ipratropium (Duoneb (Albuterol 2.5 Mg/Ipratropium 0.5 Mg)) 1 neb INH [id number] [facility] Last Admin: 04/12/18 07:56 Dose: 1 neb Atorvastatin Calcium (Lipitor*) 80 mg PO 2100 [facility] Last Admin: 04/11/18 20:10 Dose: 80 mg Ferrous Gluconate (Fergon Tab*) 324 mg PO BID [facility] Last Admin: 04/12/18 09:33 Dose: 324 mg Guaifenesin (Mucinex*) 600 mg PO BID [facility] Last Admin: 04/12/18 09:33 Dose: 600 mg Isosorbide Mononitrate (Isosorbide Mononitrate (Nf)) 10 mg PO BID [facility]; Protocol Last Admin: 04/12/18 09:32 Dose: 10 mg Levofloxacin (Levaquin Tab*) 750 mg PO DAILY [facility] Stop: 04/14/18 09:01 Last Admin: 04/12/18 09:33 Dose: 750 mg Mometasone Furoate/Formoterol Fumar (Dulera 200/5 Mdi*) 2 puff INH BID [facility] Last Admin: 04/12/18 07:56 Dose: 2 puff Pantoprazole Sodium (Protonix Iv*) 40 mg IV BID [facility] Last Admin: 04/12/18 09:32 Dose: 40 mg Objective Vital Signs: Temp Pulse Resp BP Pulse Ox 97.6 F 92 18 113/59 100 04/12/18 08:23 04/12/18 08:23 04/12/18 08:23 04/12/18 08:23 04/12/18 08:23 Oxygen Devices in Use Now: Nasal Cannula Appearance: Pale elderly female, appears chronically ill, SOB, lying at 45 degrees. Eyes: No Scleral Icterus, PERRLA - conjunctiva pale, some color. Ears/Nose/Mouth/Throat: Mucous Membranes Moist Neck: Trachea Midline, No Thyroid Enlargement, Masses Respiratory: Symmetrical Chest Expansion and Respiratory Effort - Rhonchi and rhonchorous cough, no wheezing, no rales. Cardiovascular: RRR - S1, no S2, 3/6 pansystolic murmur RUSB with radiation. Abdominal: NL Sounds; No Tenderness; No Distention Skin: No Rash or Ulcers Neurological: Alert and Oriented x 3 Laboratory Results: 04/11/18 09:50 04/11/18 09:50 INR (Anticoag Therapy) 1.20 (0.77-1.02) H 04/09/18 04:44 APTT 26.8 seconds (26.0-36.3) 04/09/18 04:44 Total Bilirubin 1.00 mg/dL (0.2-1.0) 04/10/18 06:00 AST 38 U/L (13-39) 04/10/18 06:00 ALT 142 U/L (7-52) H 04/10/18 06:00 Alkaline Phosphatase 125 U/L (34-104) H 04/10/18 06:00 B-Natriuretic Peptide > 1300 pg/mL (<=100) H 04/09/18 12:50 Total Protein 5.9 g/dL (6.4-8.9) L 04/10/18 06:00 Albumin 3.1 g/dL (3.2-5.2) L 04/10/18 06:00 Globulin 2.8 g/dL (2-4) 04/10/18 06:00 Albumin/Globulin Ratio 1.1 (1-3) 04/10/18 06:00 Triglycerides 55 mg/dL 04/09/18 12:50 Cholesterol 59 mg/dL 04/09/18 12:50 LDL Cholesterol 28 mg/dL 04/09/18 12:50 HDL Cholesterol 19.9 mg/dL 04/09/18 12:50 04/09/18 04/09/18 04/09/18 08:30 12:50 19:37 Troponin I 0.65 H* 0.68 H* 0.88 H* 04/10/18 06:00 Troponin I 0.73 H* Diagnostic Imaging: Endoscopy, upper 04/12/18: No acute issues identified. ECHO: 04/09/18: F 30-35%, mod-sev , DI 0.31, MS, MR, TR. February EF 55%. EKG Data: Telemetry: NSR, no heart block x 3 days (did not check further back). Assessment/Plan 72 yo who presented with SOB. Anemic, iron deficiency w/o upper GI etiology seen on EGD, Mod-severe , new CM, transient 3rd degree HB, COPD. : Mod-severe, exam suggests severe. Discussed again TAVR, pt amenable, expressed interest in RPH/Marco. I discussed impact this could have on breathing. CM: New from February, could be from alone, but I am more suspicious her hypoxia on prentation contributed as well. Plan: repeat limited echo to look at EF before discharge (check or Tuesday). Conduction: No further heart block, but I agree with Dr Patel a non urgent pacer indicated as could recur. Optimize COPD prior to scheduling. Trop bump: Needs cath to eval for CAD as well as pre TAVR. Timing depends on stabilization of lungs. Low Fe+ anemia: Per GI not source on EGD, Fe replacement planned, no lower endoscopy planned. At risk for AVM's with . I will discuss with cathing cardiologists: I don't think any need for colonoscopy for diagnostic cath, but she may not be considered a candidate for stents if needed w/o additional work up (and TAVR requires antiplatelet agents as well for several weeks). COPD: Per hospitalists, but impacts on moving forward with cardiac issues, needs to be able to lie flatter. ADDENDUM: discussed with GI, tentative plan is clears to prep to colonoscopy Tuesday. I support this as GI issues impact on cardiac procedures, much better to give this complex woman a GI prep here than home (at risk for drop in BP with , more heart block with increased vagal tone from prep. LS
[2018-04-12 13:16] LABS: ABS Basophils 0.1 10^3/ul (0-0.2); ABS Eosinophils 0.1 10^3/ul (0-0.6); ABS Lymphocytes 1.3 10^3/ul (1.0-4.8); ABS Monocytes 0.9 10^3/ul (0-0.8); ABS Neutrophils 6.2 10^3/ul (1.5-7.7); ABS Nucleated RBC 0 10^3/ul; Eosinophil % 1.5 %; Hematocrit 33 % (35-47); Lymphocyte % 14.7 %; Mean Corpuscular HGB Conc 31 g/dl (31-36); Mean Corpuscular Hemoglobin 25 pg (27-31); Mean Corpuscular Volume 80 fL (80-97); Mean Platelet Volume 7.9 fL (7.4-10.4); Nucleated Red Blood Cells % 0.3; Platelet Count 347 10^3/ul (150-450); Red Blood Count 4.08 10^6/ul (4.00-5.40); Red Cell Distribution Width 22 % (10.5-15); White Blood Count 8.5 10^3/ul (3.5-10.8)
[2018-04-12] MEDS: predniSONE TAB* 20 MG PO SCH (13:39)
[2018-04-12] MEDS ORDERED: Albuterol/Ipratropium NEB.SOL* Albuterol 2.5 MG/Ipratropium 0.5 MG 3 ML INH SCH (15:00)
--- NOTE | 2018-04-12 16:41 | PN ---
Progress Note - Progress Note Date of Service: 04/12/18 Note: GASTROENTEROLOGY FOLLOW-UP IE/S: Hgb remains stable. Started on Prednisone for COPD exacerbation. Patient reports feeling short of breath. Continues to have mildly productive cough. Denies any GI symptoms. O: VSS 100% on 3LNC NAD. CV: RRR, ARTURO Pulm: On O2. Some increased work of breathing. Rhonci/wheezing on expiration. GI: NT/ND Labs reviewed: H/H stable since 04/10. A/P: 72yF with history of COPD, severe aortic stenosis, GERD, and remote PUD, who is admitted with acute anemia and dyspnea. Now status-post 4 units of blood. Hgb stable at 10 since 04/10. EGD without explanation for anemia. No overt GI bleeding since admission. Currently being treated for COPD exacerbation with Prednisone and Azithromycin. Cardiology has discussed possible TAVR at some point in future given severe . Of note, patient had transient third degree heart block, which has resolved. Plan for non-urgent pacemaker in outpatient setting. No explanation for EMILY yet identified. Presentation suggestive of slow/chronic GI blood loss. Differential includes AVM(s) given severe aortic stenosis history. Lower GI bleeding source such as polyp or mass also possible, particularly as patient has not had a colonoscopy before. Discussed case with patient's hospitalist (Dr Esparza) and cardiology (Martha). Patient's clinical course is moving towards (outpatient) work-up for TAVR and pacemaker placement. She will likely require heart cath and antiplatelet therapy as part of this process. Therefore, it is important for us to evaluate for bleeding source(s). Unfortunately, patient's cardiac function is unlikely to be significantly improved in near future. Performing a colonoscopy while hospitalized is likely to be safer than in the outpatient setting as she will be monitored with labs and on telemetry while taking the prep. Currently, there is concern for COPD exacerbation for which she has been started on Prednisone. If her breathing improves over next 1-2 days on steroids, then she may be a reasonable candidate for inpatient colonoscopy. - Recommend clear diet tomorrow. Tentatively plan to start colon prep (Golytely ) tomorrow afternoon with colonoscopy on Tuesday. Consider anesthesia support for the case, although she was able to tolerate small amount of moderate sedation for EGD. Touch base with GI physician tomorrow afternoon to confirm this plan. - Please obtain abdominal US given abnormal liver enzymes Tonya Trujillo MD Gastroenterology
[2018-04-12] MEDS: Atorvastatin* 80 MG TAB PO SCH (20:32)
[2018-04-13] MEDS: Albuterol/Ipratropium NEB.SOL* Albuterol 2.5 MG/Ipratropium 0.5 MG 3 ML INH SCH ×5 (01:08→19:21)
[2018-04-13 07:08] LABS: Hematocrit 30 % (35-47); Hemoglobin 9.4 g/dl (12.0-16.0); Mean Corpuscular HGB Conc 32 g/dl (31-36); Mean Corpuscular Hemoglobin 25 pg (27-31); Mean Corpuscular Volume 79 fL (80-97); Mean Platelet Volume 7.8 fL (7.4-10.4); Platelet Count 318 10^3/ul (150-450); Red Blood Count 3.75 10^6/ul (4.00-5.40); Red Cell Distribution Width 23 % (10.5-15); White Blood Count 8.3 10^3/ul (3.5-10.8)
[2018-04-13 07:35] LABS: BUN/Creatinine Ratio 19.3 (8-20); Calcium 8.8 mg/dL (8.6-10.3); EGFR African American 126.9 (>60); EGFR Non-African American 104.9 (>60); Potassium 4.4 mmol/L (3.5-5.0)
[2018-04-13] MEDS: Mometasone/Formoter 200/5 MDI INH SCH ×2 (07:35→19:27)
[2018-04-13 07:40] LABS: ABS Basophils 0 10^3/ul (0-0.2); ABS Eosinophils 0 10^3/ul (0-0.6); ABS Lymphocytes 0.7 10^3/ul (1.0-4.8); ABS Monocytes 0.6 10^3/ul (0-0.8); ABS Neutrophils 6.9 10^3/ul (1.5-7.7); ABS Nucleated RBC 0 10^3/ul; Eosinophil % 0.1 %; Lymphocyte % 8.5 %; Nucleated Red Blood Cells % 0.2; Polychromasia 1+
[2018-04-13] MEDS: CMC:Isosorbide Mononitrate (NF) 20 MG TAB PO SCH ×2 (09:15→20:02)
[2018-04-13] MEDS: Azithromycin TAB* 250 MG PO SCH (09:16)
[2018-04-13] MEDS: guaiFENesin ER TAB 600 MG PO SCH ×2 (09:16→20:02)
[2018-04-13] MEDS: Pantoprazole IV* 40 MG IV SCH ×2 (09:16→20:02)
[2018-04-13] MEDS: predniSONE TAB* 20 MG PO SCH (09:16)
[2018-04-13] MEDS: Ferrous Gluconate TAB* 324 MG TAB PO SCH ×2 (09:16→20:02)
[2018-04-13] MEDS ORDERED: PEG 3000 GI LAVAGE* 1 GALLON PO ONE (17:00)
--- NOTE | 2018-04-13 17:11 | PN ---
Subjective Date of Service: 04/13/18 Interval History: Sl less SOB today. No cough, chest pain. Objective Active Medications: Albuterol (Ventolin Hfa Inhaler*) 2 puff INH Q4HR PRN PRN Reason: SHORTNESS OF BREATH Last Admin: 04/11/18 08:47 Dose: 2 puff Albuterol/Ipratropium (Duoneb (Albuterol 2.5 Mg/Ipratropium 0.5 Mg)) 1 neb INH [id number] AWAKE [facility] Last Admin: 04/13/18 13:21 Dose: 1 neb Atorvastatin Calcium (Lipitor*) 80 mg PO 2100 [facility] Last Admin: 04/12/18 20:32 Dose: 80 mg Azithromycin (Zithromax Tab*) 250 mg PO DAILY [facility] Last Admin: 04/13/18 09:16 Dose: 250 mg Ferrous Gluconate (Fergon Tab*) 324 mg PO BID [facility] Last Admin: 04/13/18 09:16 Dose: 324 mg Guaifenesin (Mucinex*) 600 mg PO BID [facility] Last Admin: 04/13/18 09:16 Dose: 600 mg Isosorbide Mononitrate (Isosorbide Mononitrate (Nf)) 10 mg PO BID [facility]; Protocol Last Admin: 04/13/18 09:15 Dose: 10 mg Magnesium Citrate (Citrate Of Magnesia*) 300 ml PO ONCE ONE Stop: 04/14/18 08:01 Mometasone Furoate/Formoterol Fumar (Dulera 200/5 Mdi*) 2 puff INH BID [facility] Last Admin: 04/13/18 07:35 Dose: 2 puff Pantoprazole Sodium (Protonix Iv*) 40 mg IV BID [facility] Last Admin: 04/13/18 09:16 Dose: 40 mg Polyethylene Glycol/Electrolytes (Golytely*) 4,000 ml PO ONCE ONE Stop: 04/13/18 17:01 Prednisone (Deltasone Tab*) 40 mg PO DAILY [facility] Last Admin: 04/13/18 09:16 Dose: 40 mg Vital Signs - 8 hr 04/13/18 04/13/18 11:10 15:14 Temperature 98.3 F 98.0 F Pulse Rate 85 99 Respiratory 20 14 Rate Blood Pressure 105/58 102/56 (mmHg) O2 Sat by Pulse 100 97 Oximetry Oxygen Devices in Use Now: Nasal Cannula Appearance: Sitting up in bed. In fair spirits. Looks comfortable. Eyes: No Scleral Icterus Respiratory: Clear to Percussion, - - Diminished BS BL, no rales or wheezes Cardiovascular: RRR, No Edema, - - 3/6 systolic murmur across precordium Extremities: No Edema, No Clubbing, Cyanosis, - Skin: No Rash or Ulcers, No Nodules or Sclerosis, - Neurological: Alert and Oriented x 3, NL Sensation Result Diagrams: 04/13/18 06:42 04/13/18 06:42 Additional Lab and Data: Lab Results 04/09/18 04/09/18 04/09/18 Range/Units 04:44 04:44 04:44 WBC 8.9 (3.5-10.8) 10^3/ul RBC 2.62 L (4.00-5.40) 10^6/ul Hgb 5.6 L* (12.0-16.0) g/dl Hct 19 L (35-47) % MCV 71 L (80-97) fL MCH 21 L (27-31) pg MCHC 30 L (31-36) g/dl RDW 21 H (10.5-15) % Plt Count 508 H D (150-450) 10^3/ul MPV 7.6 (7.4-10.4) fL Neut % (Auto) Not Reportable Lymph % (Auto) Not Reportable [place] % (Auto) Not Reportable Eos % (Auto) Not Reportable Baso % (Auto) Not Reportable Absolute Neuts (auto) 6.1 (1.5-7.7) 10^3/ul Absolute Lymphs (auto) 1.8 (1.0-4.8) 10^3/ul Absolute Monos (auto) 0.8 (0-0.8) 10^3/ul Absolute Eos (auto) 0 (0-0.6) 10^3/ul Absolute Basos (auto) 0.1 (0-0.2) 10^3/ul Absolute Nucleated RBC 0.3 10^3/ul Immature Gran % 1 (0-9) % Neutrophils % 68 % Lymphocytes % 21 % Monocytes % 7 % Eosinophils % 1 % Basophils % 2 % Promyelocytes % 1 % Nucleated RBC % Not Reportable Abs Neuts (Manual) 6.1 (1.5-7.7) 10^3/ul Abs Lymphs (Manual) 1.9 (1.0-4.8) 10^3/ul Abs Monocytes (Manual) 0.6 (0-0.8) 10^3/ul Absolute Eos (Manual) 0.1 (0-0.6) 10^3/ul Abs Basophils (Manual) 0.2 (0-0.2) 10^3/ul Nucleated RBCs/100 WBC 7 H (0-0) Normal RBC Morphology Not Reportable Polychromasia 2+ Hypochromasia 2+ Microcytosis 2+ Elliptocytes 1+ INR (Anticoag Therapy) 1.20 H (0.77-1.02) APTT 26.8 (26.0-36.3) seconds Sodium 132 L (135-145) mmol/L Potassium 4.8 (3.5-5.0) mmol/L Chloride 97 L (101-111) mmol/L Carbon Dioxide 26 (22-32) mmol/L Anion Gap 9 (2-11) mmol/L BUN 33 H (6-24) mg/dL Creatinine 0.91 (0.51-0.95) mg/dL Est GFR ( Amer) 74.0 (>60) Est GFR (Non-Af Amer) 61.1 (>60) BUN/Creatinine Ratio 36.3 H (8-20) Glucose 131 H (70-100) mg/dL Calcium 9.1 (8.6-10.3) mg/dL Total Bilirubin 0.80 (0.2-1.0) mg/dL AST 64 H (13-39) U/L ALT 208 H (7-52) U/L Alkaline Phosphatase 145 H (34-104) U/L Total Protein 6.6 (6.4-8.9) g/dL Albumin 3.3 (3.2-5.2) g/dL Globulin 3.3 (2-4) g/dL Albumin/Globulin Ratio 1.0 (1-3) Blood Type Antibody Screen Crossmatch 04/09/18 Range/Units 04:44 WBC (3.5-10.8) 10^3/ul RBC (4.00-5.40) 10^6/ul Hgb (12.0-16.0) g/dl Hct (35-47) % MCV (80-97) fL MCH (27-31) pg MCHC (31-36) g/dl RDW (10.5-15) % Plt Count (150-450) 10^3/ul MPV (7.4-10.4) fL Neut % (Auto) Lymph % (Auto) [place] % (Auto) Eos % (Auto) Baso % (Auto) Absolute Neuts (auto) (1.5-7.7) 10^3/ul Absolute Lymphs (auto) (1.0-4.8) 10^3/ul Absolute Monos (auto) (0-0.8) 10^3/ul Absolute Eos (auto) (0-0.6) 10^3/ul Absolute Basos (auto) (0-0.2) 10^3/ul Absolute Nucleated RBC 10^3/ul Immature Gran % (0-9) % Neutrophils % % Lymphocytes % % Monocytes % % Eosinophils % % Basophils % % Promyelocytes % % Nucleated RBC % Abs Neuts (Manual) (1.5-7.7) 10^3/ul Abs Lymphs (Manual) (1.0-4.8) 10^3/ul Abs Monocytes (Manual) (0-0.8) 10^3/ul Absolute Eos (Manual) (0-0.6) 10^3/ul Abs Basophils (Manual) (0-0.2) 10^3/ul Nucleated RBCs/100 WBC (0-0) Normal RBC Morphology Polychromasia Hypochromasia Microcytosis Elliptocytes INR (Anticoag Therapy) (0.77-1.02) APTT (26.0-36.3) seconds Sodium (135-145) mmol/L Potassium (3.5-5.0) mmol/L Chloride (101-111) mmol/L Carbon Dioxide (22-32) mmol/L Anion Gap (2-11) mmol/L BUN (6-24) mg/dL Creatinine (0.51-0.95) mg/dL Est GFR ( Amer) (>60) Est GFR (Non-Af Amer) (>60) BUN/Creatinine Ratio (8-20) Glucose (70-100) mg/dL Calcium (8.6-10.3) mg/dL Total Bilirubin (0.2-1.0) mg/dL AST (13-39) U/L ALT (7-52) U/L Alkaline Phosphatase (34-104) U/L Total Protein (6.4-8.9) g/dL Albumin (3.2-5.2) g/dL Globulin (2-4) g/dL Albumin/Globulin Ratio (1-3) Blood Type O Positive Antibody Screen Positive Crossmatch See Detail Microbiology and Other Data: Microbiology 04/09/18 08:30 Nasal Screen MRSA (PCR) - Final Nasal Mrsa Not Detected Assess/Plan/Problems-Billing Assessment: 72 yo F with PMH COPD, severe aortic stenosis, who presnted SOB with ? COPD exacerbation and severe ID anemia with hemoglobin to 5 s/p 4U PRBC, hospital stay c/b transient 3rd degree AVB, tropinemia. - Patient Problems (1) Iron deficiency anemia Current Visit: No Status: Acute Code(s): D50.9 - IRON DEFICIENCY ANEMIA, UNSPECIFIED SNOMED Code(s): 14570837 Comment: Received 4 UPC's with good hgb response. EGD neg per verbal report, colonoscopy planned for 04/14/18. (2) COPD (chronic obstructive pulmonary disease) Current Visit: No Status: Acute Code(s): J44.9 - CHRONIC OBSTRUCTIVE PULMONARY DISEASE, UNSPECIFIED SNOMED Code(s): 14947043 Comment: Quit smoking 14 mos ago. Taper prednisone. -DC Levaquin, no e/o acute consolidation, last day of azithromycin 04/15. (3) Third degree AV block Current Visit: Yes Status: Acute Code(s): I44.2 - ATRIOVENTRICULAR BLOCK, COMPLETE SNOMED Code(s): 21656886 Comment: Transient. In the setting of severe hypoxia and severe anemia. -Cardiology following, plan for outpt pacer. (4) Aortic stenosis Current Visit: No Status: Acute Code(s): I35.0 - NONRHEUMATIC AORTIC (VALVE ) STENOSIS SNOMED Code(s): 85292355 Comment: ? severe. She has seen Dr. Thomas and considering TAVR, likely a cath prior to discharge/transfer. CXR 04/13--give IV fuorsemiode if evidence of CHF on CXR to prepare for colonoscopy 04/14. (5) CAD (coronary artery disease) Current Visit: Yes Status: Acute Code(s): I25.10 - ATHSCL HEART DISEASE OF [place] CORONARY ARTERY W/O ANG PCTRS SNOMED Code(s): 59607191 Comment: LVEF down to 30-35%, with wall motion abnormalities. Femoral bruits noted. Statin dose increased. Hold BB due to ht block. Status and Disposition: Inpatient, start steroids today
--- NOTE | 2018-04-13 17:50 | PN ---
Subjective Date of Service: 04/13/18 Interval History: f/u CHF, systolic HF, Plan for colonoscopy tomorrow Bowel prep ongoing CXR I reviewed appears small R pleural effusion No change in breathing Still coughing Tele no arrhythmias Medications Active Medications: Albuterol (Ventolin Hfa Inhaler*) 2 puff INH Q4HR PRN PRN Reason: SHORTNESS OF BREATH Last Admin: 04/11/18 08:47 Dose: 2 puff Albuterol/Ipratropium (Duoneb (Albuterol 2.5 Mg/Ipratropium 0.5 Mg)) 1 neb INH [id number] AWAKE [facility] Last Admin: 04/13/18 13:21 Dose: 1 neb Atorvastatin Calcium (Lipitor*) 80 mg PO 2100 [facility] Last Admin: 04/12/18 20:32 Dose: 80 mg Azithromycin (Zithromax Tab*) 250 mg PO DAILY [facility] Last Admin: 04/13/18 09:16 Dose: 250 mg Ferrous Gluconate (Fergon Tab*) 324 mg PO BID [facility] Last Admin: 04/13/18 09:16 Dose: 324 mg Guaifenesin (Mucinex*) 600 mg PO BID [facility] Last Admin: 04/13/18 09:16 Dose: 600 mg Isosorbide Mononitrate (Isosorbide Mononitrate (Nf)) 10 mg PO BID [facility]; Protocol Last Admin: 04/13/18 09:15 Dose: 10 mg Magnesium Citrate (Citrate Of Magnesia*) 300 ml PO ONCE ONE Stop: 04/14/18 08:01 Mometasone Furoate/Formoterol Fumar (Dulera 200/5 Mdi*) 2 puff INH BID [facility] Last Admin: 04/13/18 07:35 Dose: 2 puff Pantoprazole Sodium (Protonix Iv*) 40 mg IV BID [facility] Last Admin: 04/13/18 09:16 Dose: 40 mg Prednisone (Deltasone Tab*) 30 mg PO DAILY [facility] Objective Vital Signs: Temp Pulse Resp BP Pulse Ox 98.0 F 99 14 102/56 97 04/13/18 15:14 04/13/18 15:14 04/13/18 15:14 04/13/18 15:14 04/13/18 15:14 Oxygen Devices in Use Now: Nasal Cannula Appearance: NAD Eyes: No Scleral Icterus, PERRLA - conjunctiva pale, some color. Ears/Nose/Mouth/Throat: Mucous Membranes Moist Neck: Trachea Midline, No Thyroid Enlargement, Masses Respiratory: Symmetrical Chest Expansion and Respiratory Effort - no wheeze or rales, distant Cardiovascular: RRR - S1, no S2, 3/6 pansystolic murmur RUSB with radiation., - - high pitched 3/6 systolic murmur, uncertain about s2 Abdominal: NL Sounds; No Tenderness; No Distention Extremities: No Edema Skin: No Rash or Ulcers Neurological: Alert and Oriented x 3 Laboratory Results: 04/13/18 06:42 04/13/18 06:42 INR (Anticoag Therapy) 1.20 (0.77-1.02) H 04/09/18 04:44 APTT 26.8 seconds (26.0-36.3) 04/09/18 04:44 Total Bilirubin 1.00 mg/dL (0.2-1.0) 04/10/18 06:00 AST 38 U/L (13-39) 04/10/18 06:00 ALT 142 U/L (7-52) H 04/10/18 06:00 Alkaline Phosphatase 125 U/L (34-104) H 04/10/18 06:00 B-Natriuretic Peptide > 1300 pg/mL (<=100) H 04/09/18 12:50 Total Protein 5.9 g/dL (6.4-8.9) L 04/10/18 06:00 Albumin 3.1 g/dL (3.2-5.2) L 04/10/18 06:00 Globulin 2.8 g/dL (2-4) 04/10/18 06:00 Albumin/Globulin Ratio 1.1 (1-3) 04/10/18 06:00 Triglycerides 55 mg/dL 04/09/18 12:50 Cholesterol 59 mg/dL 04/09/18 12:50 LDL Cholesterol 28 mg/dL 04/09/18 12:50 HDL Cholesterol 19.9 mg/dL 04/09/18 12:50 04/09/18 04/09/18 04/09/18 08:30 12:50 19:37 Troponin I 0.65 H* 0.68 H* 0.88 H* 04/10/18 06:00 Troponin I 0.73 H* Diagnostic Imaging: Endoscopy, upper 04/12/18: No acute issues identified. ECHO: 04/09/18: F 30-35%, mod-sev , DI 0.31, MS, MR, TR. February EF 55%. Assessment/Plan 72 yo who presented with prior tobacco use, COPD a/w decompensated HF in setting of GI bleed, new systolic HF (suspect mostly ischemic) and moderate by echo gradients appears worse on exam and qualitatively - Plan for colonoscopy tomorrow - Keep I/o slightly negative - Continue statin - Restart aspirin when ok from GI standpoint - Not on beta-yanick due to transient AV dissociation early in hospital course - Would consider LHC and invasive evaluation once further stabilized
[2018-04-13] MEDS: Atorvastatin* 80 MG TAB PO SCH (20:02)
[2018-04-14] MEDS: Albuterol/Ipratropium NEB.SOL* Albuterol 2.5 MG/Ipratropium 0.5 MG 3 ML INH SCH ×4 (01:38→19:49)
[2018-04-14] MEDS: Mometasone/Formoter 200/5 MDI INH SCH ×2 (07:31→19:50)
[2018-04-14] MEDS ORDERED: Magnesium CITRATE* 300 ML BTL PO ONE (08:00)
[2018-04-14] MEDS: Ferrous Gluconate TAB* 324 MG TAB PO SCH ×2 (08:13→20:30)
[2018-04-14] MEDS: Azithromycin TAB* 250 MG PO SCH (08:13)
[2018-04-14] MEDS: guaiFENesin ER TAB 600 MG PO SCH ×2 (08:14→20:30)
[2018-04-14] MEDS: CMC:Isosorbide Mononitrate (NF) 20 MG TAB PO SCH (08:14)
[2018-04-14] MEDS: predniSONE TAB* 10 MG PO SCH (08:15)
[2018-04-14] MEDS: Pantoprazole IV* 40 MG IV SCH ×2 (08:26→20:30)
--- NOTE | 2018-04-14 09:38 | PN ---
Subjective Date of Service: 04/14/18 Interval History: Ms. Jack is feeling ok this morning. She offers no complaints. She is agreeable to a colonoscopy today. She denies SOB. Reports that she is on 3L NC at baseline, as of one week prior to admission. She denies CP, N/V, bloating or abd discomfort. Family History: Unchanged from Admission Social History: Unchanged from Admission Past Medical History: Unchanged from Admission Objective Active Medications: Albuterol (Ventolin Hfa Inhaler*) 2 puff INH Q4HR PRN SHORTNESS OF BREATH Albuterol/Ipratropium (Duoneb (Albuterol 2.5 Mg/Ipratropium 0.5 Mg)) 1 neb INH [id number] AWAKE [facility] Atorvastatin Calcium (Lipitor*) 80 mg PO 2100 [facility] Azithromycin (Zithromax Tab*) 250 mg PO DAILY [facility] Ferrous Gluconate (Fergon Tab*) 324 mg PO BID [facility] Guaifenesin (Mucinex*) 600 mg PO BID [facility] Isosorbide Mononitrate (Isosorbide Mononitrate (Nf)) 10 mg PO BID [facility]; Protocol Mometasone Furoate/Formoterol Fumar (Dulera 200/5 Mdi*) 2 puff INH BID [facility] Pantoprazole Sodium (Protonix Iv*) 40 mg IV BID [facility] Prednisone (Deltasone Tab*) 30 mg PO DAILY [facility] Vital Signs - 8 hr 04/14/18 04/14/18 04/14/18 01:39 03:51 07:35 Temperature 97.7 F Pulse Rate 82 91 89 Respiratory 14 20 17 Rate Blood Pressure 121/70 (mmHg) O2 Sat by Pulse 99 98 97 Oximetry Oxygen Devices in Use Now: Nasal Cannula - 3L Appearance: Elderly female sitting in bed in NAD; Drowsy Eyes: No Scleral Icterus Ears/Nose/Mouth/Throat: Mucous Membranes Moist Neck: NL Appearance and Movements; NL JVP, Trachea Midline Respiratory: Symmetrical Chest Expansion and Respiratory Effort, - - Wheezing to bilat bases; Scattered rhonchi; Diminished throughout Cardiovascular: RRR, - - Grade 3/6 systolic murmur right sternal border Extremities: No Edema Skin: No Rash or Ulcers Neurological: Alert and Oriented x 3 Lines/Tubes/Other Access: Clean, Dry and Intact Peripheral IV Nutrition: Taking PO's Result Diagrams: 04/13/18 06:42 04/13/18 06:42 Assess/Plan/Problems-Billing Assessment: Ms. Jack is a 72 yo F with PMH of COPD, severe aortic stenosis, who presented SOB with questionable COPD exacerbation and severe ID anemia with s/ p 4U PRBC. Hospital stay c/b transient 3rd degree AVB, tropinemia, decompensated HF. - Patient Problems (1) Iron deficiency anemia Code(s): D50.9 - IRON DEFICIENCY ANEMIA, UNSPECIFIED Comment: - Hgb 5.6 on admission; now up to 9-10 after 4 units PRBC - Longstanding; appears to have been present since at least 2016 - Appreciate GI consult; no findings on EGD, plan for colonoscopy today - Continue ferrous gluconate, pantoprazole (2) COPD exacerbation Code(s): J44.1 - CHRONIC OBSTRUCTIVE PULMONARY DISEASE W (ACUTE) EXACERBATION Comment: - Continues to have significant rhonchi and wheezing on exam - Quit smoking approx 1 year ago - Contionue nebs, prednisone, Dulera, azithromycin (day 08/18) (3) Acute decompensated heart failure Code(s): I50.9 - HEART FAILURE, UNSPECIFIED Comment: - Echo shows EF 30-35% (previously 55% in February) - Secondary to anemia/GI bleed, severe - Appreciate Cardiology consult; recommends keep I&O slightly negative - No indication for diurectics at this point; BB contraindicated d/t transient AV block - Monitor strict I&O, daily weights (4) Third degree AV block Code(s): I44.2 - ATRIOVENTRICULAR BLOCK, COMPLETE Comment: - Transient, in the setting of severe hypoxia and anemia - Appreciate Cardiology consult; plan for pacer as an outpatient (5) Elevated LFTs Code(s): R94.5 - ABNORMAL RESULTS OF LIVER FUNCTION STUDIES Comment: - Mildly elevated since this admission - Check liver US today per GI recommendation (6) Elevated troponin Code(s): R74.8 - ABNORMAL LEVELS OF OTHER SERUM ENZYMES Comment: - Trops peaked at 0.88 - Likely demand ischemia - Appreciate Cardiology consult; cath should be planned if going for TAVR (7) Aortic stenosis Code(s): I35.0 - NONRHEUMATIC AORTIC (VALVE) STENOSIS Comment: - Echo shows moderate to severe - She has seen Dr. [place] and considering cath and TAVR; would need to be cleared from a pulmonology standpoint (8) CAD (coronary artery disease) Code(s): I25.10 - ATHSCL HEART DISEASE OF [place] CORONARY ARTERY W/O ANG PCTRS Comment: - LVEF down to 30-35% with wall motion abnormalities - Hold aspirin until cleared from GI standpoint - Continue atorvastatin, isosorbide (9) Hypertension Code(s): I10 - ESSENTIAL (PRIMARY) HYPERTENSION Comment: - Normotensive; SBP 100-120s - Hold lisinopril (10) DVT prophylaxis Comment: - SCDs (11) Full code status Code(s): Z78.9 - OTHER SPECIFIED HEALTH STATUS Comment: Status and Disposition: Inpatient. Plan for colonoscopy today. Will need to be cleared by GI and Cardiology prior to d/c. Anticipate d/c home when medically stable. Attending: Farhana Cunningham
[2018-04-14] MEDS ORDERED: Midazolam* 1 MG/ML 10 ML VIAL (10 MG) ONE (14:55)
[2018-04-14] MEDS ORDERED: fentaNYL* 50 MCG/ML 2 ML VIAL (100 MCG VIAL) ONE (14:55)
[2018-04-14] MEDS ORDERED: Furosemide IV* 10 MG/ML 2 ML VIAL (20 MG) IV ONE (16:59)
--- NOTE | 2018-04-14 17:10 | PN ---
Subjective Date of Service: 04/14/18 Interval History: f/u CHF, systolic HF, Inadequate C-scope prep still with cough and dyspnea no cp tele nsr Medications Active Medications: Albuterol (Ventolin Hfa Inhaler*) 2 puff INH Q4HR PRN PRN Reason: SHORTNESS OF BREATH Last Admin: 04/11/18 08:47 Dose: 2 puff Albuterol/Ipratropium (Duoneb (Albuterol 2.5 Mg/Ipratropium 0.5 Mg)) 1 neb INH [id number] AWAKE [facility] Last Admin: 04/14/18 12:33 Dose: 1 neb Atorvastatin Calcium (Lipitor*) 80 mg PO 2100 [facility] Last Admin: 04/13/18 20:02 Dose: 80 mg Azithromycin (Zithromax Tab*) 250 mg PO DAILY [facility] Last Admin: 04/14/18 08:13 Dose: Not Given Ferrous Gluconate (Fergon Tab*) 324 mg PO BID [facility] Last Admin: 04/14/18 08:13 Dose: Not Given Furosemide (Lasix Iv*) 20 mg IV ONCE ONE Stop: 04/14/18 17:00 Guaifenesin (Mucinex*) 600 mg PO BID [facility] Last Admin: 04/14/18 08:14 Dose: Not Given Iron Sucrose 200 mg/ Sodium (Chloride) 110 mls @ 110 mls/hr IVPB ONCE ONE Stop: 04/14/18 17:58 Lisinopril (Prinivil Tab*) 2.5 mg PO DAILY [facility] Mometasone Furoate/Formoterol Fumar (Dulera 200/5 Mdi*) 2 puff INH BID [facility] Last Admin: 04/14/18 07:31 Dose: 2 puff Pantoprazole Sodium (Protonix Iv*) 40 mg IV BID [facility] Last Admin: 04/14/18 08:26 Dose: 40 mg Prednisone (Deltasone Tab*) 30 mg PO DAILY [facility] Last Admin: 04/14/18 08:15 Dose: Not Given Objective Vital Signs: Temp Pulse Resp BP Pulse Ox 97.5 F 86 18 112/65 100 04/14/18 16:10 04/14/18 16:10 04/14/18 16:10 04/14/18 16:10 04/14/18 16:10 Oxygen Devices in Use Now: Nasal Cannula Appearance: NAD Eyes: No Scleral Icterus, PERRLA - conjunctiva pale, some color. Ears/Nose/Mouth/Throat: Mucous Membranes Moist Neck: Trachea Midline, No Thyroid Enlargement, Masses Respiratory: Symmetrical Chest Expansion and Respiratory Effort - no wheeze or rales, distant, - - crackles left base Cardiovascular: RRR - S1, no S2, 3/6 pansystolic murmur RUSB with radiation., - - high pitched 3/6 systolic murmur, no clear s2 heard Abdominal: NL Sounds; No Tenderness; No Distention Extremities: No Edema Skin: No Rash or Ulcers Neurological: Alert and Oriented x 3 Laboratory Results: 04/13/18 06:42 04/13/18 06:42 INR (Anticoag Therapy) 1.20 (0.77-1.02) H 04/09/18 04:44 APTT 26.8 seconds (26.0-36.3) 04/09/18 04:44 Total Bilirubin 1.00 mg/dL (0.2-1.0) 04/10/18 06:00 AST 38 U/L (13-39) 04/10/18 06:00 ALT 142 U/L (7-52) H 04/10/18 06:00 Alkaline Phosphatase 125 U/L (34-104) H 04/10/18 06:00 B-Natriuretic Peptide > 1300 pg/mL (<=100) H 04/09/18 12:50 Total Protein 5.9 g/dL (6.4-8.9) L 04/10/18 06:00 Albumin 3.1 g/dL (3.2-5.2) L 04/10/18 06:00 Globulin 2.8 g/dL (2-4) 04/10/18 06:00 Albumin/Globulin Ratio 1.1 (1-3) 04/10/18 06:00 Triglycerides 55 mg/dL 04/09/18 12:50 Cholesterol 59 mg/dL 04/09/18 12:50 LDL Cholesterol 28 mg/dL 04/09/18 12:50 HDL Cholesterol 19.9 mg/dL 04/09/18 12:50 04/09/18 04/09/18 04/09/18 08:30 12:50 19:37 Troponin I 0.65 H* 0.68 H* 0.88 H* 04/10/18 06:00 Troponin I 0.73 H* ferritin htis admission 14.5 Diagnostic Imaging: Endoscopy, upper 04/12/18: No acute issues identified. ECHO: 04/09/18: F 30-35%, mod-sev , DI 0.31, February EF 55%. EKG Data: ekg 04/09/2018: Sinus tachycardia ~ 100 bpm, Junctional rhythm ~ 50 bpm, complete AV dissociation, evidence of acute inferior/posterior infarct ekg 04/10/2018: NSR, old IWMI, improvement of infarct pattern Assessment/Plan 72 yo who presented with prior tobacco use, COPD a/w decompensated HF in setting of iron deficient anemia suspect GI bleed, new systolic HF (suspect large ischemic component) and moderate by echo gradients appears worse on exam and qualitatively - Tentative plan for colonoscopy repeat next week - Continue statin - Restart aspirin when ok from GI standpoint - Given lasix 20 mg x 1 IV now (ordered), recheck bnp tomorrow (ordered) - Give 200 mg IV venofer x 1 now (ordered) - Start lisinopril 2.5 mg po daily (ordered) - Start toprol at 12.5 mg po daily, prior EKGs reviewed, strong suspicion AV dissociation was related in part to AV node ischemia and beta-yanick (along with revascularization) could paradoxically help prevent, recheck cTnI tomorrow (ordered) - check tsh and mg (ordered) - Would recommend LHC and invasive evaluation once further stabilized
[2018-04-14] MEDS ORDERED: Iron Sucrose* 200 MG in NS 0.9% 100 ML* 100 ML IVPB ONE (18:00)
--- NOTE | 2018-04-14 20:27 | PRO ---
DATE OF PROCEDURE: 04/14/18 - ROOM #442 PROCEDURE: Incomplete colonoscopy. INDICATIONS: Anemia. MEDICATIONS GIVEN: 25 mcg IV fentanyl, 1 mg IV Versed. DESCRIPTION OF PROCEDURE: After the colonoscopy procedure, including the risks , benefits, and alternatives, not limited to perforation, surgery, and/or were explained to the patient, written consent was then obtained, IV medication was given, and a rectal exam was performed. The rectal exam was unremarkable. Pediatric colonoscope was then inserted into the patient's rectum and advanced to the splenic flexure. Unfortunately, I did have to navigate through an extremely large amount of solid stool. By the time I reached the splenic flexure due to large stool burden, I decided to terminate the procedure. The scope was withdrawn. No obvious lesions or masses were seen. Scope was withdrawn from the patient and she was returned to our hospital room in stable condition. IMPRESSION: 1. Incomplete colonoscopy to splenic flexure terminated secondary to solid stool, poor quality of preparation. 2. The patient tells me that she did not take any of the prep. We had discussed this with the nurses on the floor, they said that she had taken all of her prep; however, this was an extremely poor quality prep. I discussed with the patient that she will need to drink an entire gallon, probably be on clear liquids for 2 days, entire gallon of GoLYTELY and mag citrate before the colonoscopy. She tells me she cannot do this and she is not interested in doing this. 3. I will follow up with the patient tomorrow for further discussions. [id number]/[facility] #: [id number] ODALIS
[2018-04-14] MEDS: Atorvastatin* 80 MG TAB PO SCH (20:30)
[2018-04-15] MEDS: Albuterol/Ipratropium NEB.SOL* Albuterol 2.5 MG/Ipratropium 0.5 MG 3 ML INH SCH ×5 (02:08→19:32)
[2018-04-15 05:42] LABS: ABS Basophils 0 10^3/ul (0-0.2); ABS Eosinophils 0.2 10^3/ul (0-0.6); ABS Lymphocytes 1.4 10^3/ul (1.0-4.8); ABS Monocytes 0.7 10^3/ul (0-0.8); ABS Neutrophils 5.2 10^3/ul (1.5-7.7); ABS Nucleated RBC 0 10^3/ul; Eosinophil % 2.6 %; Hematocrit 32 % (35-47); Hemoglobin 10.2 g/dl (12.0-16.0); Mean Corpuscular HGB Conc 32 g/dl (31-36); Mean Corpuscular Hemoglobin 25 pg (27-31); Mean Corpuscular Volume 79 fL (80-97); Mean Platelet Volume 7.6 fL (7.4-10.4); Nucleated Red Blood Cells % 0.2; Platelet Count 348 10^3/ul (150-450); Red Blood Count 4.05 10^6/ul (4.00-5.40); Red Cell Distribution Width 23 % (10.5-15); White Blood Count 7.5 10^3/ul (3.5-10.8)
[2018-04-15 05:57] LABS: Albumin 2.9 g/dL (3.2-5.2); Albumin/Globulin Ratio 1.2 (1-3); BUN/Creatinine Ratio 22.6 (8-20); Calcium 8.4 mg/dL (8.6-10.3); EGFR African American 115.1 (>60); EGFR Non-African American 95.2 (>60); Globulin 2.4 g/dL (2-4); Magnesium 1.8 mg/dL (1.9-2.7); Potassium 3.7 mmol/L (3.5-5.0); Total Bilirubin 0.4 mg/dL (0.2-1.0); Total Protein 5.3 g/dL (6.4-8.9)
[2018-04-15 06:01] LABS: Troponin I 0.13 ng/mL (<0.04)
[2018-04-15 06:21] LABS: TSH (Thyroid Stimulating Horm) 1.35 mcIU/mL (0.34-5.60)
[2018-04-15] MEDS: Metoprolol Succinate XL TAB* 25 MG PO SCH ×2 (07:31→08:48)
[2018-04-15] MEDS: Mometasone/Formoter 200/5 MDI INH SCH ×2 (07:38→19:32)
[2018-04-15] MEDS ORDERED: Potassium Chlor TAB* 20 MEQ TAB.ER PO ONE (08:20)
[2018-04-15] MEDS ORDERED: Magnesium Sulfate 2 GM IV* 2 GM/50 ML BAG IVPB ONE (08:20)
[2018-04-15] MEDS: Pantoprazole IV* 40 MG IV SCH ×2 (08:45→21:01)
[2018-04-15] MEDS: Azithromycin TAB* 250 MG PO SCH (08:46)
[2018-04-15] MEDS: Lisinopril TAB* 5 MG PO SCH (08:46)
[2018-04-15] MEDS: guaiFENesin ER TAB 600 MG PO SCH ×2 (08:47→21:01)
[2018-04-15] MEDS: predniSONE TAB* 10 MG PO SCH (08:47)
[2018-04-15] MEDS: Ferrous Gluconate TAB* 324 MG TAB PO SCH ×2 (08:48→21:01)
--- NOTE | 2018-04-15 09:07 | PN ---
Subjective Date of Service: 04/15/18 Interval History: f/u CHF, systolic HF, still with cough and dyspnea good selft-reported uop s/p IV lasix, not quantifued no cp tele nsr Medications Active Medications: Albuterol (Ventolin Hfa Inhaler*) 2 puff INH Q4HR PRN PRN Reason: SHORTNESS OF BREATH Last Admin: 04/11/18 08:47 Dose: 2 puff Albuterol/Ipratropium (Duoneb (Albuterol 2.5 Mg/Ipratropium 0.5 Mg)) 1 neb INH [id number] AWAKE [facility] Last Admin: 04/15/18 07:38 Dose: 1 neb Atorvastatin Calcium (Lipitor*) 80 mg PO 2100 [facility] Last Admin: 04/14/18 20:30 Dose: 80 mg Azithromycin (Zithromax Tab*) 250 mg PO DAILY [facility] Last Admin: 04/15/18 08:46 Dose: 250 mg Ferrous Gluconate (Fergon Tab*) 324 mg PO BID [facility] Last Admin: 04/15/18 08:48 Dose: 324 mg Guaifenesin (Mucinex*) 600 mg PO BID [facility] Last Admin: 04/15/18 08:47 Dose: 600 mg Heparin Sodium (Porcine) (Heparin Vial(*)) 5,000 units SUBCUT Q8HR [facility] Magnesium Sulfate (Magnesium Sulfate 2 Gm Iv*) 2 gm in 50 mls @ 50 mls/hr IVPB ONCE ONE Stop: 04/15/18 09:19 Last Admin: 04/15/18 08:50 Dose: 50 mls/hr Lisinopril (Prinivil Tab*) 2.5 mg PO DAILY [facility] Last Admin: 04/15/18 08:46 Dose: 2.5 mg Metoprolol Succinate (Toprol Xl Tab*) 12.5 mg PO DAILY [facility] Last Admin: 04/15/18 08:48 Dose: 12.5 mg Mometasone Furoate/Formoterol Fumar (Dulera 200/5 Mdi*) 2 puff INH BID [facility] Last Admin: 04/15/18 07:38 Dose: 2 puff Pantoprazole Sodium (Protonix Iv*) 40 mg IV BID [facility] Last Admin: 04/15/18 08:45 Dose: 40 mg Prednisone (Deltasone Tab*) 30 mg PO DAILY [facility] Last Admin: 04/15/18 08:47 Dose: 30 mg Objective Vital Signs: Temp Pulse Resp BP Pulse Ox 97.4 F 79 16 110/62 99 04/15/18 07:15 04/15/18 07:40 04/15/18 07:40 04/15/18 07:15 04/15/18 07:40 Oxygen Devices in Use Now: Nasal Cannula Appearance: NAD Eyes: No Scleral Icterus, PERRLA - conjunctiva pale, some color. Ears/Nose/Mouth/Throat: Mucous Membranes Moist Neck: Trachea Midline, No Thyroid Enlargement, Masses Respiratory: Symmetrical Chest Expansion and Respiratory Effort - no wheeze or rales, distant, - - faint bibasilar crackles Cardiovascular: RRR - S1, no S2, 3/6 pansystolic murmur RUSB with radiation., - - high pitched 3/6 systolic murmur, singular s2 Abdominal: NL Sounds; No Tenderness; No Distention Extremities: No Edema Skin: No Rash or Ulcers Neurological: Alert and Oriented x 3 Laboratory Results: 04/15/18 05:13 04/15/18 05:13 INR (Anticoag Therapy) 1.20 (0.77-1.02) H 04/09/18 04:44 APTT 26.8 seconds (26.0-36.3) 04/09/18 04:44 Total Bilirubin 0.40 mg/dL (0.2-1.0) 04/15/18 05:13 AST 24 U/L (13-39) 04/15/18 05:13 ALT 50 U/L (7-52) 04/15/18 05:13 Alkaline Phosphatase 87 U/L (34-104) 04/15/18 05:13 B-Natriuretic Peptide > 1300 pg/mL (<=100) H 04/15/18 05:13 Total Protein 5.3 g/dL (6.4-8.9) L 04/15/18 05:13 Albumin 2.9 g/dL (3.2-5.2) L 04/15/18 05:13 Globulin 2.4 g/dL (2-4) 04/15/18 05:13 Albumin/Globulin Ratio 1.2 (1-3) 04/15/18 05:13 Triglycerides 55 mg/dL 04/09/18 12:50 Cholesterol 59 mg/dL 04/09/18 12:50 LDL Cholesterol 28 mg/dL 04/09/18 12:50 HDL Cholesterol 19.9 mg/dL 04/09/18 12:50 TSH 1.35 mcIU/mL (0.34-5.60) 04/15/18 05:13 04/09/18 04/09/18 04/09/18 08:30 12:50 19:37 Troponin I 0.65 H* 0.68 H* 0.88 H* 04/10/18 04/15/18 06:00 05:13 Troponin I 0.73 H* 0.13 H* Diagnostic Imaging: Endoscopy, upper 04/12/18: No acute issues identified. ECHO: 04/09/18: F 30-35%, mod-sev , DI 0.31, February EF 55%. EKG Data: ekg 04/09/2018: Sinus tachycardia ~ 100 bpm, Junctional rhythm ~ 50 bpm, complete AV dissociation, evidence of acute inferior/posterior infarct ekg 04/10/2018: NSR, old IWMI, improvement of infarct pattern Assessment/Plan 72 yo who presented with prior tobacco use, COPD a/w decompensated HF in setting of iron deficient anemia suspect GI bleed, new systolic HF (suspect large ischemic component) and moderate by echo gradients appears worse on exam and qualitatively - Tentative plan for colonoscopy repeat next week - Continue statin - Restart aspirin when ok from GI standpoint - Continue lisinopril 2.5 mg po daily - Continue toprol at 12.5 mg po daily, will uptitrate, prior EKGs reviewed, strong suspicion AV dissociation was related in part to AV node ischemia (see EKG above) and beta-yanick (along with revascularization) could paradoxically help prevent. - Will re-evaluate for another dose of IV lasix tomorrow - Would recommend LHC and invasive evaluation once further stabilized
--- NOTE | 2018-04-15 10:47 | PN ---
Subjective Date of Service: 04/15/18 Interval History: Ms. Jack is feeling ok today. She reports being up frequently yesterday after receiving diuretic. She admits to not drinking the bowel prep because she "did not want to" and there was no one "making me drink it." She is not open to drinking further bowel prep and would like to take laxatives in pill form only. She does understand that the colonoscopy is necessary if she would like to pursue any cardiac procedures in the future. She denies CP, SOB, N/V. Family History: Unchanged from Admission Social History: Unchanged from Admission Past Medical History: Unchanged from Admission Objective Active Medications: Albuterol (Ventolin Hfa Inhaler*) 2 puff INH Q4HR PRN SHORTNESS OF BREATH Albuterol/Ipratropium (Duoneb (Albuterol 2.5 Mg/Ipratropium 0.5 Mg)) 1 neb INH [id number] AWAKE [facility] Atorvastatin Calcium (Lipitor*) 80 mg PO 2100 [facility] Azithromycin (Zithromax Tab*) 250 mg PO DAILY [facility] Ferrous Gluconate (Fergon Tab*) 324 mg PO BID [facility] Guaifenesin (Mucinex*) 600 mg PO BID [facility] Heparin Sodium (Porcine) (Heparin Vial(*)) 5,000 units SUBCUT Q8HR [facility] Lisinopril (Prinivil Tab*) 2.5 mg PO DAILY [facility] Metoprolol Succinate (Toprol Xl Tab*) 12.5 mg PO DAILY [facility] Mometasone Furoate/Formoterol Fumar (Dulera 200/5 Mdi*) 2 puff INH BID [facility] Pantoprazole Sodium (Protonix Iv*) 40 mg IV BID [facility] Prednisone (Deltasone Tab*) 30 mg PO DAILY [facility] Vital Signs - 8 hr 04/15/18 04/15/18 04/15/18 03:10 03:22 07:15 Temperature 97.5 F 97.4 F Pulse Rate 81 78 77 Respiratory 18 18 18 Rate Blood Pressure 96/55 110/62 (mmHg) O2 Sat by Pulse 98 97 99 Oximetry 04/15/18 04/15/18 07:40 08:00 Temperature Pulse Rate 79 Respiratory 16 17 Rate Blood Pressure (mmHg) O2 Sat by Pulse 97 Oximetry Oxygen Devices in Use Now: Nasal Cannula - 3L Appearance: Elderly female sitting in bed in NAD; Cantankerous Eyes: No Scleral Icterus Ears/Nose/Mouth/Throat: Mucous Membranes Moist Neck: NL Appearance and Movements; NL JVP, Trachea Midline Respiratory: Symmetrical Chest Expansion and Respiratory Effort, - - Fine crackles to bilat bases, otherwise diminished Cardiovascular: RRR, - - Grade 3/6 systolic murmur, RUSB Abdominal: NL Sounds; No Tenderness; No Distention Extremities: No Edema Skin: No Rash or Ulcers Neurological: Alert and Oriented x 3 Lines/Tubes/Other Access: Clean, Dry and Intact Peripheral IV Nutrition: Taking PO's Result Diagrams: 04/15/18 05:13 04/15/18 05:13 Assess/Plan/Problems-Billing Assessment: Ms. Jack is a 72 yo F with PMH of COPD, severe aortic stenosis, who presented SOB with questionable COPD exacerbation and severe ID anemia with s/ p 4U PRBC. Hospital stay c/b transient 3rd degree AVB, tropinemia, decompensated HF. - Patient Problems (1) Iron deficiency anemia Code(s): D50.9 - IRON DEFICIENCY ANEMIA, UNSPECIFIED Comment: - Hgb 5.6 on admission; now up to 9-10 after 4 units PRBC - Longstanding; appears to have been present since at least 2016, but is it unclear why she presented with such severe anemia - Appreciate GI consult; no findings on EGD, colonoscopy not able to be completed yesterday d/t poor prep; Viky may attempt to rescope on Tuesday if she is able to comply with prep - Continue ferrous gluconate, pantoprazole (2) COPD exacerbation Code(s): J44.1 - CHRONIC OBSTRUCTIVE PULMONARY DISEASE W (ACUTE) EXACERBATION Comment: - Continues to have significant rhonchi and wheezing on exam - Quit smoking approx 1 year ago - Contionue nebs, prednisone, Dulera, azithromycin (day 09/17) (3) Acute decompensated heart failure Code(s): I50.9 - HEART FAILURE, UNSPECIFIED Comment: - Echo shows EF 30-35% (previously 55% in February) - Secondary to anemia/GI bleed, severe - Appreciate Cardiology consult; following closely, recommends keep I&O slightly negative; may give another dose of Lasix tomorrow - BB contraindicated d/t transient AV block - Monitor strict I&O, daily weights (4) Third degree AV block Code(s): I44.2 - ATRIOVENTRICULAR BLOCK, COMPLETE Comment: - Transient, in the setting of severe hypoxia and anemia - Appreciate Cardiology consult; plan for pacer as an outpatient (5) Elevated LFTs Code(s): R94.5 - ABNORMAL RESULTS OF LIVER FUNCTION STUDIES Comment: - Mildly elevated on admission, now resolved - Liver US unremarkable (6) Elevated troponin Code(s): R74.8 - ABNORMAL LEVELS OF OTHER SERUM ENZYMES Comment: - Trops peaked at 0.88, down to 0.13 today - Likely demand ischemia - Appreciate Cardiology consult; cath should be planned if going for TAVR (7) Aortic stenosis Code(s): I35.0 - NONRHEUMATIC AORTIC (VALVE) STENOSIS Comment: - Echo shows moderate to severe - She has seen Dr. Thomas and considering cath and TAVR; would need to be cleared from a pulmonology standpoint (8) CAD (coronary artery disease) Code(s): I25.10 - ATHSCL HEART DISEASE OF [place] CORONARY ARTERY W/O ANG PCTRS Comment: - LVEF down to 30-35% with wall motion abnormalities - Hold aspirin until cleared from GI standpoint - Continue atorvastatin, isosorbide (9) Hypertension Code(s): I10 - ESSENTIAL (PRIMARY) HYPERTENSION Comment: - Normotensive; SBP 110s - Resume lisinopril and metoprolol per Cardiology (10) DVT prophylaxis Comment: - Resume Heparin SQ per Cardiology (11) Full code status Code(s): Z78.9 - OTHER SPECIFIED HEALTH STATUS Comment: Status and Disposition: Inpatient. Plan for colonoscopy today. Will need to be cleared by GI and Cardiology prior to d/c. Anticipate d/c home when medically stable. Attending: Sarah Smith
[2018-04-15] MEDS: Heparin VIAL(*) 5000 UNITS/ML VIAL (FIVE THOUSAND) SUBCUT SCH ×2 (13:38→21:01)
[2018-04-15] MEDS: Atorvastatin* 80 MG TAB PO SCH (21:01)
[2018-04-16] MEDS: Albuterol/Ipratropium NEB.SOL* Albuterol 2.5 MG/Ipratropium 0.5 MG 3 ML INH SCH ×4 (01:18→19:09)
[2018-04-16 05:51] LABS: BUN/Creatinine Ratio 23.1 (8-20); Calcium 8.9 mg/dL (8.6-10.3); EGFR African American 141.1 (>60); EGFR Non-African American 116.6 (>60); Potassium 3.8 mmol/L (3.5-5.0)
[2018-04-16 06:07] LABS: ABS Basophils 0.1 10^3/ul (0-0.2); ABS Eosinophils 0 10^3/ul (0-0.6); ABS Lymphocytes 1.3 10^3/ul (1.0-4.8); ABS Monocytes 0.9 10^3/ul (0-0.8); ABS Neutrophils 6.3 10^3/ul (1.5-7.7); ABS Nucleated RBC 0 10^3/ul; Eosinophil % 0.4 %; Hematocrit 31 % (35-47); Hemoglobin 9.7 g/dl (12.0-16.0); Lymphocyte % 15.1 %; Mean Corpuscular HGB Conc 32 g/dl (31-36); Mean Corpuscular Hemoglobin 25 pg (27-31); Mean Corpuscular Volume 79 fL (80-97); Mean Platelet Volume 7.7 fL (7.4-10.4); Nucleated Red Blood Cells % 0.1; Platelet Count 306 10^3/ul (150-450); Red Blood Count 3.89 10^6/ul (4.00-5.40); Red Cell Distribution Width 23 % (10.5-15); White Blood Count 8.5 10^3/ul (3.5-10.8)
[2018-04-16] MEDS: Heparin VIAL(*) 5000 UNITS/ML VIAL (FIVE THOUSAND) SUBCUT SCH ×3 (06:12→21:49)
[2018-04-16] MEDS: Mometasone/Formoter 200/5 MDI INH SCH ×2 (06:59→19:09)
[2018-04-16] MEDS: Pantoprazole IV* 40 MG IV SCH ×2 (08:32→21:49)
[2018-04-16] MEDS: Ferrous Gluconate TAB* 324 MG TAB PO SCH ×2 (08:34→21:48)
[2018-04-16] MEDS: guaiFENesin ER TAB 600 MG PO SCH ×2 (08:35→21:48)
[2018-04-16] MEDS: predniSONE TAB* 10 MG PO SCH (08:35)
[2018-04-16] MEDS: Metoprolol Succinate XL TAB* 25 MG PO SCH (09:41)
[2018-04-16] MEDS: Lisinopril TAB* 5 MG PO SCH (09:41)
[2018-04-16] MEDS ORDERED: Metoprolol Succinate XL TAB* 25 MG PO ONE (09:47)
[2018-04-16] MEDS ORDERED: Furosemide IV* 10 MG/ML 2 ML VIAL (20 MG) IV ONE (09:48)
--- NOTE | 2018-04-16 09:57 | PN ---
Subjective Date of Service: 04/16/18 Interval History: f/u CHF, systolic HF, still with cough no dyspnea at rest no cp plan bowel prep for repeat c-scope tomorrow tele nsr Medications Active Medications: Albuterol (Ventolin Hfa Inhaler*) 2 puff INH Q4HR PRN PRN Reason: SHORTNESS OF BREATH Last Admin: 04/11/18 08:47 Dose: 2 puff Albuterol/Ipratropium (Duoneb (Albuterol 2.5 Mg/Ipratropium 0.5 Mg)) 1 neb INH Q6H [facility] Last Admin: 04/16/18 06:59 Dose: 1 neb Atorvastatin Calcium (Lipitor*) 80 mg PO 2100 [facility] Last Admin: 04/15/18 21:01 Dose: 80 mg Ferrous Gluconate (Fergon Tab*) 324 mg PO BID [facility] Last Admin: 04/16/18 08:34 Dose: 324 mg Furosemide (Lasix Iv*) 20 mg IV ONCE ONE Stop: 04/16/18 09:49 Guaifenesin (Mucinex*) 600 mg PO BID [facility] Last Admin: 04/16/18 08:35 Dose: 600 mg Heparin Sodium (Porcine) (Heparin Vial(*)) 5,000 units SUBCUT Q8HR [facility] Last Admin: 04/16/18 06:12 Dose: 5,000 units Lisinopril (Prinivil Tab*) 2.5 mg PO DAILY [facility] Last Admin: 04/15/18 08:46 Dose: 2.5 mg Metoprolol Succinate (Toprol Xl Tab*) 12.5 mg PO ONCE ONE Stop: 04/16/18 09:48 Metoprolol Succinate (Toprol Xl Tab*) 25 mg PO DAILY [facility] Mometasone Furoate/Formoterol Fumar (Dulera 200/5 Mdi*) 2 puff INH BID [facility] Last Admin: 04/16/18 06:59 Dose: 2 puff Pantoprazole Sodium (Protonix Iv*) 40 mg IV BID [facility] Last Admin: 04/16/18 08:32 Dose: 40 mg Potassium Chloride (Klor Con Er Tab*) 40 meq PO ONCE ONE Stop: 04/16/18 09:49 Prednisone (Deltasone Tab*) 30 mg PO DAILY [facility] Last Admin: 04/16/18 08:35 Dose: 30 mg Objective Vital Signs: Temp Pulse Resp BP Pulse Ox 97.9 F 83 18 107/52 100 04/16/18 07:11 04/16/18 09:33 04/16/18 07:11 04/16/18 09:33 04/16/18 07:11 Oxygen Devices in Use Now: Nasal Cannula Appearance: NAD Eyes: No Scleral Icterus, PERRLA - conjunctiva pale, some color. Ears/Nose/Mouth/Throat: Mucous Membranes Moist Neck: Trachea Midline, No Thyroid Enlargement, Masses Respiratory: Symmetrical Chest Expansion and Respiratory Effort - no wheeze or rales, distant, - - faint bibasilar crackles Cardiovascular: RRR - S1, no S2, 3/6 pansystolic murmur RUSB with radiation., - - high pitched 3/6 systolic murmur, singular s2 Abdominal: NL Sounds; No Tenderness; No Distention Extremities: No Edema Skin: No Rash or Ulcers Neurological: Alert and Oriented x 3 Laboratory Results: 04/16/18 05:18 04/16/18 05:18 INR (Anticoag Therapy) 1.20 (0.77-1.02) H 04/09/18 04:44 APTT 26.8 seconds (26.0-36.3) 04/09/18 04:44 Total Bilirubin 0.40 mg/dL (0.2-1.0) 04/15/18 05:13 AST 24 U/L (13-39) 04/15/18 05:13 ALT 50 U/L (7-52) 04/15/18 05:13 Alkaline Phosphatase 87 U/L (34-104) 04/15/18 05:13 B-Natriuretic Peptide > 1300 pg/mL (<=100) H 04/15/18 05:13 Total Protein 5.3 g/dL (6.4-8.9) L 04/15/18 05:13 Albumin 2.9 g/dL (3.2-5.2) L 04/15/18 05:13 Globulin 2.4 g/dL (2-4) 04/15/18 05:13 Albumin/Globulin Ratio 1.2 (1-3) 04/15/18 05:13 Triglycerides 55 mg/dL 04/09/18 12:50 Cholesterol 59 mg/dL 04/09/18 12:50 LDL Cholesterol 28 mg/dL 04/09/18 12:50 HDL Cholesterol 19.9 mg/dL 04/09/18 12:50 TSH 1.35 mcIU/mL (0.34-5.60) 04/15/18 05:13 04/09/18 04/09/18 04/09/18 08:30 12:50 19:37 Troponin I 0.65 H* 0.68 H* 0.88 H* 04/10/18 04/15/18 06:00 05:13 Troponin I 0.73 H* 0.13 H* Diagnostic Imaging: Endoscopy, upper 04/12/18: No acute issues identified. ECHO: 04/09/18: F 30-35%, mod-sev , DI 0.31, February EF 55%. EKG Data: ekg 04/09/2018: Sinus tachycardia ~ 100 bpm, Junctional rhythm ~ 50 bpm, complete AV dissociation, evidence of acute inferior/posterior infarct ekg 04/10/2018: NSR, old IWMI, improvement of infarct pattern Assessment/Plan 72 yo who presented with prior tobacco use, COPD a/w decompensated HF in setting of iron deficient anemia suspect slow GI bleed, new systolic HF ( suspect large ischemic component) and moderate by echo gradients appears worse on exam and qualitatively - Tentative plan for colonoscopy repeat next week - Continue statin - Restart aspirin when ok from GI standpoint - Continue lisinopril 2.5 mg po daily - Increase toprol to 25 mg po daily (ordered), prior EKGs reviewed, strong suspicion AV dissociation was related in part to AV node ischemia (see EKG above ). Beta-yanick (along with revascularization) could paradoxically help prevent this again. - Given another 20 mg IV lasix with K+ now (ordered) - Would recommend LHC and invasive evaluation once further stabilized
[2018-04-16] MEDS ORDERED: Potassium Chlor TAB* 20 MEQ TAB.ER PO ONE (10:00)
--- NOTE | 2018-04-16 14:40 | PN ---
Subjective Date of Service: 04/16/18 Interval History: Ms. Jack is feeling ok today. She is frustrated about getting Lasix and having to urinate frequently. She denies SOB, but is pursed lip breathing. Denies CP, N/V. She still does not want to drink the colonoscopy prep, but sounds somewhat agreeable if the drink is flavored and cold. Her daughter is at the bedside and is encouraging the pt to go forward with the colonoscopy. Family History: Unchanged from Admission Social History: Unchanged from Admission Past Medical History: Unchanged from Admission Objective Active Medications: Albuterol (Ventolin Hfa Inhaler*) 2 puff INH Q4HR PRN SHORTNESS OF BREATH Albuterol/Ipratropium (Duoneb (Albuterol 2.5 Mg/Ipratropium 0.5 Mg)) 1 neb INH Q6H [facility] Atorvastatin Calcium (Lipitor*) 80 mg PO 2100 [facility] Ferrous Gluconate (Fergon Tab*) 324 mg PO BID [facility] Guaifenesin (Mucinex*) 600 mg PO BID [facility] Heparin Sodium (Porcine) (Heparin Vial(*)) 5,000 units SUBCUT Q8HR [facility] Lisinopril (Prinivil Tab*) 2.5 mg PO DAILY [facility] Metoprolol Succinate (Toprol Xl Tab*) 25 mg PO DAILY [facility] Mometasone Furoate/Formoterol Fumar (Dulera 200/5 Mdi*) 2 puff INH BID [facility] Pantoprazole Sodium (Protonix Iv*) 40 mg IV BID [facility] Prednisone (Deltasone Tab*) 30 mg PO DAILY [facility] Vital Signs - 8 hr 04/16/18 04/16/18 04/16/18 07:03 07:11 08:00 Temperature 97.9 F Pulse Rate 77 74 Respiratory 16 18 18 Rate Blood Pressure 101/51 (mmHg) O2 Sat by Pulse 98 100 Oximetry 04/16/18 04/16/18 04/16/18 09:33 11:52 12:54 Temperature 97.8 F Pulse Rate 83 78 79 Respiratory 18 16 Rate Blood Pressure 107/52 103/56 (mmHg) O2 Sat by Pulse 98 98 Oximetry Oxygen Devices in Use Now: Nasal Cannula - 3L Appearance: Elderly female sitting in chair in NAD Eyes: No Scleral Icterus Ears/Nose/Mouth/Throat: Mucous Membranes Moist Neck: NL Appearance and Movements; NL JVP, Trachea Midline Respiratory: Symmetrical Chest Expansion and Respiratory Effort, - - Faint crackles to bilat bases, otherwise diminished throughout Cardiovascular: RRR, - - Grade 3/6 systolic murmur, best heard RUSB Abdominal: NL Sounds; No Tenderness; No Distention Extremities: No Edema Skin: No Rash or Ulcers Neurological: Alert and Oriented x 3 Lines/Tubes/Other Access: Clean, Dry and Intact Peripheral IV Nutrition: Taking PO's Result Diagrams: 04/16/18 05:18 04/16/18 05:18 Assess/Plan/Problems-Billing Assessment: Ms. Jack is a 72 yo F with PMH of COPD, severe aortic stenosis, who presented SOB with questionable COPD exacerbation and severe ID anemia with s/ p 4U PRBC. Hospital stay c/b transient 3rd degree AVB, tropinemia, decompensated HF. - Patient Problems (1) Iron deficiency anemia Code(s): D50.9 - IRON DEFICIENCY ANEMIA, UNSPECIFIED Comment: - Hgb 5.6 on admission; now up to 9-10 after 4 units PRBC - Longstanding; appears to have been present since at least 2016, but is it unclear why she presented with such severe anemia - Appreciate GI consult; no findings on EGD, colonoscopy not able to be completed d/t poor prep; Viky may attempt to rescope if she is able to comply with prep - Continue ferrous gluconate, pantoprazole (2) COPD exacerbation Code(s): J44.1 - CHRONIC OBSTRUCTIVE PULMONARY DISEASE W (ACUTE) EXACERBATION Comment: - Continues to have significant rhonchi and wheezing on exam - Quit smoking approx 1 year ago - Completed course of azithromycin - Contionue nebs, prednisone, Dulera (3) Acute decompensated heart failure Code(s): I50.9 - HEART FAILURE, UNSPECIFIED Comment: - Echo shows EF 30-35% (previously 55% in February) - Secondary to anemia/GI bleed, severe - Appreciate Cardiology consult; following closely, recommends keep I&O slightly negative; ordering Lasix as needed - Monitor strict I&O, daily weights - Continue metoprolol (restarted by Cardiology) (4) Aortic stenosis Code(s): I35.0 - NONRHEUMATIC AORTIC (VALVE) STENOSIS Comment: - Echo shows moderate to severe - She has seen Dr. Thomas and considering cath and TAVR; would need to be cleared from a pulmonology standpoint (5) Third degree AV block Code(s): I44.2 - ATRIOVENTRICULAR BLOCK, COMPLETE Comment: - Transient, in the setting of severe hypoxia and anemia - Appreciate Cardiology consult; plan for pacer as an outpatient, but can restart metoprolol at this point (6) Elevated troponin Code(s): R74.8 - ABNORMAL LEVELS OF OTHER SERUM ENZYMES Comment: - Trops peaked at 0.88, down to 0.13 today - Likely demand ischemia - Appreciate Cardiology consult; cath should be planned if going for TAVR (7) Elevated LFTs Code(s): R94.5 - ABNORMAL RESULTS OF LIVER FUNCTION STUDIES Comment: - Mildly elevated on admission, now resolved - Unclear etiology - Liver US unremarkable (8) CAD (coronary artery disease) Code(s): I25.10 - ATHSCL HEART DISEASE OF [place] CORONARY ARTERY W/O ANG PCTRS Comment: - LVEF down to 30-35% with wall motion abnormalities - Hold aspirin until cleared from GI standpoint - Continue atorvastatin (9) Hypertension Code(s): I10 - ESSENTIAL (PRIMARY) HYPERTENSION Comment: - Normotensive; SBP 100-110s - Continue lisinopril, metoprolol (10) DVT prophylaxis Comment: - Heparin SQ (11) Full code status Code(s): Z78.9 - OTHER SPECIFIED HEALTH STATUS Comment: Status and Disposition: Inpatient. Plan for colonoscopy today. Will need to be cleared by GI and Cardiology prior to d/c. Anticipate d/c home when medically stable. Attending: Sarah Simth
[2018-04-16] MEDS: Atorvastatin* 80 MG TAB PO SCH (21:48)
[2018-04-17] MEDS: Albuterol/Ipratropium NEB.SOL* Albuterol 2.5 MG/Ipratropium 0.5 MG 3 ML INH SCH ×4 (01:52→19:57)
[2018-04-17 05:54] LABS: ABS Basophils 0 10^3/ul (0-0.2); ABS Eosinophils 0.1 10^3/ul (0-0.6); ABS Lymphocytes 1.7 10^3/ul (1.0-4.8); ABS Monocytes 0.8 10^3/ul (0-0.8); ABS Neutrophils 6.1 10^3/ul (1.5-7.7); ABS Nucleated RBC 0 10^3/ul; Eosinophil % 1.1 %; Hematocrit 31 % (35-47); Hemoglobin 9.6 g/dl (12.0-16.0); Lymphocyte % 19.8 %; Mean Corpuscular HGB Conc 31 g/dl (31-36); Mean Corpuscular Hemoglobin 25 pg (27-31); Mean Corpuscular Volume 79 fL (80-97); Mean Platelet Volume 7.5 fL (7.4-10.4); Nucleated Red Blood Cells % 0.1; Platelet Count 318 10^3/ul (150-450); Red Blood Count 3.88 10^6/ul (4.00-5.40); Red Cell Distribution Width 23 % (10.5-15); White Blood Count 8.7 10^3/ul (3.5-10.8)
[2018-04-17] MEDS: Heparin VIAL(*) 5000 UNITS/ML VIAL (FIVE THOUSAND) SUBCUT SCH ×3 (06:17→21:46)
[2018-04-17] MEDS ORDERED: PEG 3000 GI LAVAGE* 1 GALLON PO ONE (06:21)
[2018-04-17] MEDS: Mometasone/Formoter 200/5 MDI INH SCH ×2 (07:57→19:57)
[2018-04-17] MEDS: Pantoprazole IV* 40 MG IV SCH ×2 (08:35→21:47)
[2018-04-17] MEDS: Ferrous Gluconate TAB* 324 MG TAB PO SCH ×2 (08:35→21:46)
[2018-04-17] MEDS: guaiFENesin ER TAB 600 MG PO SCH ×2 (08:36→21:46)
[2018-04-17] MEDS: Lisinopril TAB* 5 MG PO SCH (08:36)
[2018-04-17] MEDS: predniSONE TAB* 10 MG PO SCH (08:36)
[2018-04-17] MEDS: Metoprolol Succinate XL TAB* 25 MG PO SCH (08:36)
[2018-04-17] MEDS ORDERED: Acetaminophen TAB* 325 MG PO PRN (08:45)
--- NOTE | 2018-04-17 14:31 | PN ---
Subjective Date of Service: 04/17/18 Interval History: Ms. Jack is feeling ok today. She is frustrated that there have been many staff members in and out of her room this morning. She is agreeable to drinking the colonoscopy prep with certain stipulations. She understands that she will not be able to have any necessary cardiac procedures until it is confirmed that she is not bleeding. She denies CP, SOB, N/V. Family History: Unchanged from Admission Social History: Unchanged from Admission Past Medical History: Unchanged from Admission Objective Active Medications: Acetaminophen (Tylenol Tab*) 650 mg PO Q4H PRN FEVER/PAIN Albuterol (Ventolin Hfa Inhaler*) 2 puff INH Q4HR PRN SHORTNESS OF BREATH Albuterol/Ipratropium (Duoneb (Albuterol 2.5 Mg/Ipratropium 0.5 Mg)) 1 neb INH Q6H [facility] Atorvastatin Calcium (Lipitor*) 80 mg PO 2100 [facility] Ferrous Gluconate (Fergon Tab*) 324 mg PO BID [facility] Guaifenesin (Mucinex*) 600 mg PO BID [facility] Heparin Sodium (Porcine) (Heparin Vial(*)) 5,000 units SUBCUT Q8HR [facility] Lisinopril (Prinivil Tab*) 2.5 mg PO DAILY [facility] Metoprolol Succinate (Toprol Xl Tab*) 25 mg PO DAILY [facility] Mometasone Furoate/Formoterol Fumar (Dulera 200/5 Mdi*) 2 puff INH BID [facility] Pantoprazole Sodium (Protonix Iv*) 40 mg IV BID [facility] Prednisone (Deltasone Tab*) 30 mg PO DAILY [facility] Vital Signs - 8 hr 04/17/18 04/17/18 04/17/18 07:19 07:40 07:57 Temperature 97.9 F Pulse Rate 73 71 Respiratory 20 18 18 Rate Blood Pressure 101/53 (mmHg) O2 Sat by Pulse 99 99 Oximetry 04/17/18 04/17/18 04/17/18 11:14 13:27 13:28 Temperature 97.9 F Pulse Rate 83 94 Respiratory 20 18 Rate Blood Pressure 112/61 (mmHg) O2 Sat by Pulse 100 98 100 Oximetry Oxygen Devices in Use Now: Nasal Cannula - 3L Appearance: Elderly cantankerous female sitting in bed in NAD Eyes: No Scleral Icterus Ears/Nose/Mouth/Throat: Mucous Membranes Moist Neck: NL Appearance and Movements; NL JVP, Trachea Midline Respiratory: Symmetrical Chest Expansion and Respiratory Effort, - - Diminished throughout Cardiovascular: RRR, - - Grade 3/6 systolic murmur RUSB Abdominal: NL Sounds; No Tenderness; No Distention Extremities: No Edema Skin: No Rash or Ulcers Neurological: Alert and Oriented x 3 Lines/Tubes/Other Access: Clean, Dry and Intact Peripheral IV Nutrition: Taking PO's Result Diagrams: 04/17/18 05:36 04/16/18 05:18 Assess/Plan/Problems-Billing Assessment: Ms. Jack is a 72 yo F with PMH of COPD, severe aortic stenosis, who presented SOB with questionable COPD exacerbation and severe ID anemia with s/ p 4U PRBC. Hospital stay c/b transient 3rd degree AVB, tropinemia, decompensated HF. - Patient Problems (1) Iron deficiency anemia Code(s): D50.9 - IRON DEFICIENCY ANEMIA, UNSPECIFIED Comment: - Hgb 5.6 on admission; now up to 9-10 after 4 units PRBC - Longstanding; appears to have been present since at least 2016, but is it unclear why she presented with such severe anemia - Appreciate GI consult; no findings on EGD, colonoscopy not able to be completed d/t poor prep; plan will be to reattempt colonoscopy tomorrow if she is compliant with prep - Continue ferrous gluconate, pantoprazole (2) COPD exacerbation Code(s): J44.1 - CHRONIC OBSTRUCTIVE PULMONARY DISEASE W (ACUTE) EXACERBATION Comment: - Continues to have significant rhonchi and wheezing on exam - Quit smoking approx 1 year ago - Completed course of azithromycin - Contionue nebs, prednisone, Dulera (3) Acute combined systolic and diastolic congestive heart failure Code(s): I50.41 - ACUTE COMBINED SYSTOLIC AND DIASTOLIC (CONGESTIVE) HRT FAIL Comment: - Echo shows EF 30-35% (previously 55% in February), abnormal diastolic function - Secondary to anemia/GI bleed, severe - Appreciate Cardiology consult; following closely, recommends keep I&O slightly negative; ordering Lasix as needed - Monitor strict I&O, daily weights - Continue metoprolol (restarted by Cardiology) (4) Aortic stenosis Code(s): I35.0 - NONRHEUMATIC AORTIC (VALVE) STENOSIS Comment: - Echo shows moderate to severe - She has seen Dr. Thomas and considering cath and TAVR; would need to be cleared from a pulmonology standpoint (5) Third degree AV block Code(s): I44.2 - ATRIOVENTRICULAR BLOCK, COMPLETE Comment: - Transient, in the setting of severe hypoxia and anemia - Appreciate Cardiology consult; plan for pacer as an outpatient, but can restart metoprolol at this point (6) Elevated troponin Code(s): R74.8 - ABNORMAL LEVELS OF OTHER SERUM ENZYMES Comment: - Trops peaked at 0.88, down to 0.13 today - Likely demand ischemia - Appreciate Cardiology consult; cath should be planned if going for TAVR (7) Elevated LFTs Code(s): R94.5 - ABNORMAL RESULTS OF LIVER FUNCTION STUDIES Comment: - Mildly elevated on admission, now resolved - Unclear etiology - Liver US unremarkable (8) CAD (coronary artery disease) Code(s): I25.10 - ATHSCL HEART DISEASE OF [place] CORONARY ARTERY W/O ANG PCTRS Comment: - LVEF down to 30-35% with wall motion abnormalities - Hold aspirin until cleared from GI standpoint - Continue atorvastatin (9) Hypertension Code(s): I10 - ESSENTIAL (PRIMARY) HYPERTENSION Comment: - Normotensive; SBP 100-110s - Continue lisinopril, metoprolol (10) DVT prophylaxis Comment: - Heparin SQ (11) Full code status Code(s): Z78.9 - OTHER SPECIFIED HEALTH STATUS Comment: Status and Disposition: Inpatient. Plan for colonoscopy tomorrow. Will need to be cleared by GI and Cardiology prior to d/c. Anticipate d/c home when medically stable. Attending: Haris Ayala
[2018-04-17] MEDS: Atorvastatin* 80 MG TAB PO SCH (21:47)
[2018-04-18] MEDS: Albuterol/Ipratropium NEB.SOL* Albuterol 2.5 MG/Ipratropium 0.5 MG 3 ML INH SCH ×2 (01:38→07:49)
[2018-04-18] MEDS: Heparin VIAL(*) 5000 UNITS/ML VIAL (FIVE THOUSAND) SUBCUT SCH ×3 (06:00→21:12)
[2018-04-18 06:31] LABS: ABS Basophils 0.1 10^3/ul (0-0.2); ABS Eosinophils 0.1 10^3/ul (0-0.6); ABS Lymphocytes 2.1 10^3/ul (1.0-4.8); ABS Monocytes 0.6 10^3/ul (0-0.8); ABS Neutrophils 6.3 10^3/ul (1.5-7.7); ABS Nucleated RBC 0 10^3/ul; Eosinophil % 1.1 %; Hematocrit 33 % (35-47); Mean Corpuscular HGB Conc 31 g/dl (31-36); Mean Corpuscular Hemoglobin 25 pg (27-31); Mean Corpuscular Volume 80 fL (80-97); Nucleated Red Blood Cells % 0; Platelet Count 294 10^3/ul (150-450); Red Blood Count 4.09 10^6/ul (4.00-5.40); Red Cell Distribution Width 23 % (10.5-15); White Blood Count 9.2 10^3/ul (3.5-10.8)
[2018-04-18] MEDS: Mometasone/Formoter 200/5 MDI INH SCH ×2 (07:49→20:20)
[2018-04-18] MEDS: Ferrous Gluconate TAB* 324 MG TAB PO SCH ×2 (08:29→21:11)
[2018-04-18] MEDS: Pantoprazole IV* 40 MG IV SCH ×2 (08:29→21:12)
[2018-04-18] MEDS: Lisinopril TAB* 5 MG PO SCH (08:29)
[2018-04-18] MEDS: guaiFENesin ER TAB 600 MG PO SCH ×2 (08:29→21:11)
[2018-04-18] MEDS: predniSONE TAB* 10 MG PO SCH (08:29)
[2018-04-18] MEDS: Metoprolol Succinate XL TAB* 25 MG PO SCH (08:29)
--- NOTE | 2018-04-18 08:35 | PN ---
<TamyjoeAkila - Last Filed: 04/18/18 08:30> Subjective Date of Service: 04/18/18 - moderate/severe , decompensated SHF, troponin elevation, transient AVB Interval History: No events last night per nurse (Stefani) whom I personally spoke with. Patient is to have colonoscopy today given poor bowel prep last week, however, she was apparently non compliant with prep last night. GI service has been notified per RN. Patient continues to have non productive cough, states breathing is near baseline, denies dizziness, palpitations or sensation of heart racing. reports good urinary output. Medications Active Medications: Acetaminophen (Tylenol Tab*) 650 mg PO Q4H PRN PRN Reason: FEVER/PAIN Albuterol (Ventolin Hfa Inhaler*) 2 puff INH Q4HR PRN PRN Reason: SHORTNESS OF BREATH Last Admin: 04/11/18 08:47 Dose: 2 puff Albuterol/Ipratropium (Duoneb (Albuterol 2.5 Mg/Ipratropium 0.5 Mg)) 1 neb INH Q4H PRN PRN Reason: SOB/WHEEZING Atorvastatin Calcium (Lipitor*) 80 mg PO 2100 [facility] Last Admin: 04/17/18 21:47 Dose: 80 mg Ferrous Gluconate (Fergon Tab*) 324 mg PO BID [facility] Last Admin: 04/17/18 21:46 Dose: 324 mg Guaifenesin (Mucinex*) 600 mg PO BID [facility] Last Admin: 04/17/18 21:46 Dose: 600 mg Heparin Sodium (Porcine) (Heparin Vial(*)) 5,000 units SUBCUT Q8HR [facility] Last Admin: 04/18/18 06:00 Dose: 5,000 units Lisinopril (Prinivil Tab*) 2.5 mg PO DAILY [facility] Last Admin: 04/17/18 08:36 Dose: 2.5 mg Metoprolol Succinate (Toprol Xl Tab*) 25 mg PO DAILY [facility] Last Admin: 04/17/18 08:36 Dose: 25 mg Mometasone Furoate/Formoterol Fumar (Dulera 200/5 Mdi*) 2 puff INH BID [facility] Last Admin: 04/18/18 07:49 Dose: 2 puff Pantoprazole Sodium (Protonix Iv*) 40 mg IV BID [facility] Last Admin: 04/18/18 08:29 Dose: 40 mg Prednisone (Deltasone Tab*) 30 mg PO DAILY [facility] Last Admin: 04/17/18 08:36 Dose: 30 mg Objective Vital Signs: Temp Pulse Resp BP Pulse Ox 97.6 F 88 20 105/57 100 04/18/18 08:04 04/18/18 08:04 04/18/18 08:04 04/18/18 08:04 04/18/18 08:04 Oxygen Devices in Use Now: Nasal Cannula Appearance: NAD Eyes: No Scleral Icterus, PERRLA - conjunctiva pale, some color. Ears/Nose/Mouth/Throat: Mucous Membranes Moist Neck: Trachea Midline, No Thyroid Enlargement, Masses Respiratory: Symmetrical Chest Expansion and Respiratory Effort - + inspiratory and expiratory rales in left lower lung field, - - faint bibasilar crackles Cardiovascular: RRR - S1, no S2, 3/6 pansystolic murmur RUSB with radiation., - - early systolic murmur 3/6 auscultated across entire pericardium into right carotid. no gallop or rub. Abdominal: NL Sounds; No Tenderness; No Distention Extremities: No Edema Skin: No Rash or Ulcers Neurological: Alert and Oriented x 3 Lines/Tubes/Other Access: Clean, Dry and Intact Peripheral IV Laboratory Results: 04/18/18 06:15 04/16/18 05:18 INR (Anticoag Therapy) 1.20 (0.77-1.02) H 04/09/18 04:44 APTT 26.8 seconds (26.0-36.3) 04/09/18 04:44 Total Bilirubin 0.40 mg/dL (0.2-1.0) 04/15/18 05:13 AST 24 U/L (13-39) 04/15/18 05:13 ALT 50 U/L (7-52) 04/15/18 05:13 Alkaline Phosphatase 87 U/L (34-104) 04/15/18 05:13 B-Natriuretic Peptide > 1300 pg/mL (<=100) H 04/15/18 05:13 Total Protein 5.3 g/dL (6.4-8.9) L 04/15/18 05:13 Albumin 2.9 g/dL (3.2-5.2) L 04/15/18 05:13 Globulin 2.4 g/dL (2-4) 04/15/18 05:13 Albumin/Globulin Ratio 1.2 (1-3) 04/15/18 05:13 Triglycerides 55 mg/dL 04/09/18 12:50 Cholesterol 59 mg/dL 04/09/18 12:50 LDL Cholesterol 28 mg/dL 04/09/18 12:50 HDL Cholesterol 19.9 mg/dL 04/09/18 12:50 TSH 1.35 mcIU/mL (0.34-5.60) 04/15/18 05:13 04/09/18 04/09/18 04/09/18 08:30 12:50 19:37 Troponin I 0.65 H* 0.68 H* 0.88 H* 04/10/18 04/15/18 06:00 05:13 Troponin I 0.73 H* 0.13 H* Laboratory Results - last 24 hr 04/18/18 06:15 WBC 9.2 RBC 4.09 Hgb 10.0 L Hct 33 L MCV 80 MCH 25 L MCHC 31 RDW 23 H Plt Count 294 MPV 8.0 Neut % (Auto) 68.5 Lymph % (Auto) 23.0 [place]oard % (Auto) 6.7 Eos % (Auto) 1.1 Baso % (Auto) 0.7 Absolute Neuts (auto) 6.3 Absolute Lymphs (auto) 2.1 Absolute Monos (auto) 0.6 Absolute Eos (auto) 0.1 Absolute Basos (auto) 0.1 Absolute Nucleated RBC 0 Nucleated RBC % 0 Diagnostic Imaging: Endoscopy, upper 04/12/18: No acute issues identified. 04/14/2018 incomplete colonoscopy. ECHO: 04/09/18: F 30-35%, mod-sev , DI 0.31, February EF 55%. EKG Data: ekg 04/09/2018: Sinus tachycardia ~ 100 bpm, Junctional rhythm ~ 50 bpm, complete AV dissociation, evidence of acute inferior/posterior infarct ekg 04/10/2018: NSR, old IWMI, improvement of infarct pattern telemetry reviewed; NSR rate 80's with PACs. Assessment/Plan #1 Newly diagnosed severe LV dysfunction; etiology unclear. she has moderate to severe . Will continue Toprol 25/day, Lisinopril 2.5/day. She had AV dissociation initially however she has been stable on telemetry with no further events. will start Lasix 40mg /day given + rales in left lower lung boyle and + JVD. diurese with caution due to moderate to severe . Avoid volume contraction. #2 ? Posterior/inferior SC. Troponin peaked 04/09/2018 at .88; Patient denies chest pain. Needs eventual LHC, however, she first needs colonoscopy. Not on ASA due to ? GI bleed. HGB 5.7 04/09/2018. Continue Bblocker and statin therapy. #3 Moderate to Severe ; Mean gradient 20, Peak-35, DI .32. LVEF is 30-35% thus it is possible she has low flow low gradient. Would avoid nitrates at this time. She is tolerative Lisinopril 2.5mg/day but I would not uptitrate after load reduction agent. will initiate Lasix 40mg/day given evidence of volume overload, + rales in left lower base. will replace K+ #4 Anemia; hgb was 5.7 04/09/2018. She had an incomplete colonoscopy 04/14/2018 due to poor bowel prep. Tentative repeat C-scope today however, patient was apparently non compliant with prep again last night but has since started drinking prep. She has a long standing GI history but given moderate to severe she is at risk for Heyde syndrome. differ to GI. Hgb stable today with no c/ o hematochezia, melena. #5 Transient third degree AVB; occurred 04/10/2018 in the setting of hypoxia with decompensated SHF. No reoccurrence on telemetry. She is tolerating toprol 25/day. QRS 102 on 04/10/2018 ekg. She has known moderate to severe continue to monitor closely on telemetry. #6 Disposition pending course; patient is a full code. Will discuss plan of care with Dr. Patel Attending: Max Patel <Max Patel - Last Filed: 04/18/18 14:40> Medications Active Medications: Acetaminophen (Tylenol Tab*) 650 mg PO Q4H PRN PRN Reason: FEVER/PAIN Albuterol (Ventolin Hfa Inhaler*) 2 puff INH Q4HR PRN PRN Reason: SHORTNESS OF BREATH Last Admin: 01/29/19 08:47 Dose: 2 puff Albuterol/Ipratropium (Duoneb (Albuterol 2.5 Mg/Ipratropium 0.5 Mg)) 1 neb INH Q4H PRN PRN Reason: SOB/WHEEZING Atorvastatin Calcium (Lipitor*) 80 mg PO 2100 [facility] Last Admin: 04/17/18 21:47 Dose: 80 mg Ferrous Gluconate (Fergon Tab*) 324 mg PO BID [facility] Last Admin: 04/18/18 08:29 Dose: 324 mg Furosemide (Lasix Tab*) 40 mg PO DAILY [facility] Last Admin: 04/18/18 11:14 Dose: Not Given Guaifenesin (Mucinex*) 600 mg PO BID [facility] Last Admin: 04/18/18 08:29 Dose: 600 mg Heparin Sodium (Porcine) (Heparin Vial(*)) 5,000 units SUBCUT Q8HR [facility] Last Admin: 04/18/18 13:24 Dose: 5,000 units Lisinopril (Prinivil Tab*) 2.5 mg PO DAILY [facility] Last Admin: 04/18/18 08:29 Dose: 2.5 mg Metoprolol Succinate (Toprol Xl Tab*) 25 mg PO DAILY [facility] Last Admin: 04/18/18 08:29 Dose: 25 mg Mometasone Furoate/Formoterol Fumar (Dulera 200/5 Mdi*) 2 puff INH BID [facility] Last Admin: 04/18/18 07:49 Dose: 2 puff Pantoprazole Sodium (Protonix Iv*) 40 mg IV BID [facility] Last Admin: 04/18/18 08:29 Dose: 40 mg Prednisone (Deltasone Tab*) 20 mg PO DAILY [facility] Objective Vital Signs: Temp Pulse Resp BP Pulse Ox 97.7 F 80 20 106/66 98 04/18/18 12:12 04/18/18 12:12 04/18/18 12:12 04/18/18 12:12 04/18/18 12:12 Laboratory Results: 04/18/18 06:15 04/18/18 06:15 INR (Anticoag Therapy) 1.20 (0.77-1.02) H 04/09/18 04:44 APTT 26.8 seconds (26.0-36.3) 04/09/18 04:44 Total Bilirubin 0.40 mg/dL (0.2-1.0) 04/15/18 05:13 AST 24 U/L (13-39) 04/15/18 05:13 ALT 50 U/L (7-52) 04/15/18 05:13 Alkaline Phosphatase 87 U/L (34-104) 04/15/18 05:13 B-Natriuretic Peptide > 1300 pg/mL (<=100) H 04/15/18 05:13 Total Protein 5.3 g/dL (6.4-8.9) L 04/15/18 05:13 Albumin 2.9 g/dL (3.2-5.2) L 04/15/18 05:13 Globulin 2.4 g/dL (2-4) 04/15/18 05:13 Albumin/Globulin Ratio 1.2 (1-3) 04/15/18 05:13 Triglycerides 55 mg/dL 04/09/18 12:50 Cholesterol 59 mg/dL 04/09/18 12:50 LDL Cholesterol 28 mg/dL 04/09/18 12:50 HDL Cholesterol 19.9 mg/dL 04/09/18 12:50 TSH 1.35 mcIU/mL (0.34-5.60) 04/15/18 05:13 04/09/18 04/09/18 04/09/18 08:30 12:50 19:37 Troponin I 0.65 H* 0.68 H* 0.88 H* 04/10/18 04/15/18 06:00 05:13 Troponin I 0.73 H* 0.13 H* Assessment/Plan Points of Discussion: Pt well known to History of mild CAD and now with GI bleed Found to Mod/ severe Continue GI evaluation I will see pt in the office after discharge
[2018-04-18] MEDS ORDERED: Potassium Chlor TAB* 20 MEQ TAB.ER PO ONE ×2 (08:53→15:23)
[2018-04-18] MEDS ORDERED: Furosemide TAB* 40 MG PO SCH (09:00)
--- NOTE | 2018-04-18 09:50 | PN ---
Subjective Date of Service: 04/18/18 Interval History: Resting in bed. Reports she is tired as she was not able to sleep last night as staff kept waking her up. Per Stefani STOCK patient is "finishing" her prep for her colonoscopy today. Patient denies sob, palpitations, chest pain/pressure, abd pain, bloody stool. Family History: Unchanged from Admission Social History: Unchanged from Admission Past Medical History: Unchanged from Admission Objective Active Medications: Acetaminophen (Tylenol Tab*) 650 mg PO Q4H PRN PRN Reason: FEVER/PAIN Albuterol (Ventolin Hfa Inhaler*) 2 puff INH Q4HR PRN PRN Reason: SHORTNESS OF BREATH Last Admin: 04/11/18 08:47 Dose: 2 puff Albuterol/Ipratropium (Duoneb (Albuterol 2.5 Mg/Ipratropium 0.5 Mg)) 1 neb INH Q4H PRN PRN Reason: SOB/WHEEZING Atorvastatin Calcium (Lipitor*) 80 mg PO 2100 [facility] Last Admin: 04/17/18 21:47 Dose: 80 mg Ferrous Gluconate (Fergon Tab*) 324 mg PO BID [facility] Last Admin: 04/18/18 08:29 Dose: 324 mg Furosemide (Lasix Tab*) 40 mg PO DAILY [facility] Guaifenesin (Mucinex*) 600 mg PO BID [facility] Last Admin: 04/18/18 08:29 Dose: 600 mg Heparin Sodium (Porcine) (Heparin Vial(*)) 5,000 units SUBCUT Q8HR [facility] Last Admin: 04/18/18 06:00 Dose: 5,000 units Lisinopril (Prinivil Tab*) 2.5 mg PO DAILY [facility] Last Admin: 04/18/18 08:29 Dose: 2.5 mg Metoprolol Succinate (Toprol Xl Tab*) 25 mg PO DAILY [facility] Last Admin: 04/18/18 08:29 Dose: 25 mg Mometasone Furoate/Formoterol Fumar (Dulera 200/5 Mdi*) 2 puff INH BID [facility] Last Admin: 04/18/18 07:49 Dose: 2 puff Pantoprazole Sodium (Protonix Iv*) 40 mg IV BID [facility] Last Admin: 04/18/18 08:29 Dose: 40 mg Prednisone (Deltasone Tab*) 30 mg PO DAILY [facility] Last Admin: 04/18/18 08:29 Dose: 30 mg Vital Signs - 8 hr 04/18/18 04/18/18 04/18/18 04:01 07:45 08:04 Temperature 98.4 F 97.6 F Pulse Rate 80 76 88 Respiratory 16 16 20 Rate Blood Pressure 114/59 105/57 (mmHg) O2 Sat by Pulse 100 99 100 Oximetry Oxygen Devices in Use Now: Nasal Cannula Appearance: Comfortable, NAD Eyes: No Scleral Icterus Ears/Nose/Mouth/Throat: Clear Oropharnyx Neck: NL Appearance and Movements; NL JVP Respiratory: Symmetrical Chest Expansion and Respiratory Effort, - - Faint crackles in bilateral bases. Mildly diminished aeration Cardiovascular: No Edema, - - RRR. Systolic murmur noted. Abdominal: NL Sounds; No Tenderness; No Distention Extremities: No Clubbing, Cyanosis Skin: No Rash or Ulcers Neurological: Alert and Oriented x 3 Result Diagrams: 04/18/18 06:15 04/18/18 06:15 Additional Lab and Data: Laboratory Results - last 24 hr 04/18/18 06:15 WBC 9.2 RBC 4.09 Hgb 10.0 L Hct 33 L MCV 80 MCH 25 L MCHC 31 RDW 23 H Plt Count 294 MPV 8.0 Neut % (Auto) 68.5 Lymph % (Auto) 23.0 [place] % (Auto) 6.7 Eos % (Auto) 1.1 Baso % (Auto) 0.7 Absolute Neuts (auto) 6.3 Absolute Lymphs (auto) 2.1 Absolute Monos (auto) 0.6 Absolute Eos (auto) 0.1 Absolute Basos (auto) 0.1 Absolute Nucleated RBC 0 Nucleated RBC % 0 Microbiology and Other Data: Microbiology 04/09/18 08:30 Nasal Screen MRSA (PCR) - Final Nasal Mrsa Not Detected EKG Data: SR in 80 to 90s per tele Assess/Plan/Problems-Billing Assessment: Ms. Jack is a 72 yo F with PMH of COPD, severe aortic stenosis, who presented SOB with questionable COPD exacerbation and severe ID anemia with s/ p 4U PRBC. Hospital stay c/b transient 3rd degree AVB, tropinemia, decompensated HF. - Patient Problems (1) Acute combined systolic and diastolic congestive heart failure Comment: - Echo shows EF 30-35% (previously 55% in February), abnormal diastolic function - Secondary to anemia/GI bleed, severe - Appreciate Cardiology consult; following closely, recommends keep I&O slightly negative; Cardiology ordered Lasix 40 mg daily. Discussed with PA and we will adjust to start with 20 mg daily given low K (monitor K). - Monitor strict I&O, daily weights - Continue metoprolol 25 mg daily (restarted by Cardiology) - Needs [facility] (2) CAD (coronary artery disease) Comment: - LVEF down to 30-35% with wall motion abnormalities - Hold aspirin until cleared from GI standpoint - Continue atorvastatin - Needs (inpatient versus outpatient?) (3) COPD exacerbation Current Visit: Yes Status: Acute Code(s): J44.1 - CHRONIC OBSTRUCTIVE PULMONARY DISEASE W (ACUTE) EXACERBATION SNOMED Code(s): 453946728 Comment: - No rhonchi and wheezing on exam - Quit smoking approx 1 year ago - Completed course of azithromycin - Contionue nebs and Dulera - Cont prednisone taper (4) Elevated LFTs Current Visit: Yes Status: Acute Code(s): R94.5 - ABNORMAL RESULTS OF LIVER FUNCTION STUDIES SNOMED Code(s): 397645442 Comment: - Mildly elevated on admission, now resolved - Unclear etiology - Liver US unremarkable (5) Third degree AV block Comment: - Transient, in the setting of severe hypoxia and anemia - Appreciate Cardiology consult; plan for pacer as an outpatient - Metoprolol restarted per cardiology (6) Aortic stenosis Comment: - Echo shows moderate to severe - She has seen Dr. Thomas and considering cath and TAVR; would need to be cleared from a pulmonology standpoint (7) Elevated troponin Current Visit: No Status: Acute Code(s): R74.8 - ABNORMAL LEVELS OF OTHER SERUM ENZYMES SNOMED Code(s): 087655285 Comment: - Trops peaked at 0.88, trended down - Likely demand ischemia - Appreciate Cardiology consult; cath should be planned if going for TAVR - Needs (inpatient versus outpatient?) (8) Hypertension Comment: - Normotensive; SBP 100-110s - Continue lisinopril, metoprolol (9) Iron deficiency anemia Comment: - Hgb 5.6 on admission; now up to 10 after 4 units PRBC - Longstanding; appears to have been present since at least 2017, but is it unclear why she presented with such severe anemia - Appreciate GI consult; no findings on EGD, colonoscopy not able to be completed d/t poor prep; plan will be to reattempt colonoscopy today - Continue ferrous gluconate, pantoprazole (10) Full code status Comment: (11) DVT prophylaxis Comment: - Heparin SQ Status and Disposition: Inpatient. Plan for colonoscopy today. Will need to be cleared by GI and Cardiology prior to d/c. Anticipate d/c home when medically stable. Attending: Edis Martinez
[2018-04-18 10:03] LABS: Calcium 9.1 mg/dL (8.6-10.3); Magnesium 1.6 mg/dL (1.9-2.7); Potassium 3.4 mmol/L (3.5-5.0)
[2018-04-18 10:09] LABS: BUN/Creatinine Ratio 18.5 (8-20); EGFR Non-African American 111.6 (>60)
[2018-04-18] MEDS ORDERED: Magnesium Sulfate 2 GM IV* 2 GM/50 ML BAG IVPB ONE (10:26)
[2018-04-18] MEDS ORDERED: Furosemide TAB* 20 MG PO ONE (15:21)
[2018-04-18] MEDS ORDERED: fentaNYL* 50 MCG/ML 2 ML VIAL (100 MCG VIAL) ONE (17:52)
[2018-04-18] MEDS ORDERED: Midazolam* 1 MG/ML 10 ML VIAL (10 MG) ONE (17:53)
[2018-04-18] MEDS: Albuterol HFA INHALER* 8 gm MDI INH PRN (20:19)
[2018-04-18] MEDS: Atorvastatin* 80 MG TAB PO SCH (21:12)
--- NOTE | 2018-04-18 23:16 | PRO ---
DATE: 04/18/18 - ROOM #442 REFERRING PRACTITIONER: Carley Aguila NP.* PROCEDURE: Colonoscopy and ileoscopy. INDICATION: This is a 72-year-old woman with severe COPD and with a microcytic anemia, noted in late December 2016 but also in the past in 2010. She has never had a colonoscopy. After 4 to 5 days of exhortations to prep, today she suddenly decided to drink the fluid and did pretty well, passing fairly clear material. She has had three [place] [facility] [place] in January 2017 , positive in February 2018, and then negative again one week ago on 04/11/18. Upper endoscopy on 04/11/18 was negative with a pediatric scope (on account of her severe COPD). Attempted colonoscopy on 04/14/18 failed. ENDOSCOPIST: Dr. Stubbs. MEDICATIONS: Midazolam 2, fentanyl 50. FINDINGS: She is a substantially obese woman with pursed lip breathing and appearing to have significant chronic pulmonary disease. She nonetheless tolerated lying flat. She was positioned left side down and small doses of moderate sedation given and she tolerated the exams surprisingly well. Initial views showed a fair to good prep. There was a fair amount of granular material, but on the left side, the granules were small and the particle size allowed suctioning to take place. The bowel was very floppy. Steady advancement, however, was made through the sigmoid, descending, and transverse. Then, larger particle debris began to be seen. With movement of various segments and loops, the retained seed debris (great deal of pop corn it appeared ) did move around and ultimately it was judged that views were 96% to 98%. Suctioning of supernatant was possible. the cecum was only seen about half, but there was no blood present. There is no certainly no mass. The ileocecal valve and 25 cm of terminal ileum were normal. Coming back slowly from the cecum, no polyps and no AVMs were seen. There was no blood. Again, views were judged as quite acceptable. Final views in the rectum including retroflexion were normal. IMPRESSION: 1. Normal colonoscopy and ileoscopy - no further colon exams appear indicated. 2. Iron-deficiency anemia - would restore iron and then follow her Hemoccult. Capsule endoscopy is an option, but most likely a nonsurgical approach would be chosen and observation with iron yazidi would seem a reasonable option too. [id number]/[facility] #: [id number] ODALIS
[2018-04-19] MEDS: Albuterol/Ipratropium NEB.SOL* Albuterol 2.5 MG/Ipratropium 0.5 MG 3 ML INH PRN ×3 (02:52→19:32)
[2018-04-19] MEDS: Heparin VIAL(*) 5000 UNITS/ML VIAL (FIVE THOUSAND) SUBCUT SCH ×3 (05:38→21:50)
[2018-04-19 06:02] LABS: Hematocrit 32 % (35-47); Hemoglobin 10.1 g/dl (12.0-16.0); Mean Corpuscular HGB Conc 32 g/dl (31-36); Mean Corpuscular Hemoglobin 25 pg (27-31); Mean Corpuscular Volume 79 fL (80-97); Mean Platelet Volume 8.2 fL (7.4-10.4); Platelet Count 270 10^3/ul (150-450); Red Cell Distribution Width 24 % (10.5-15)
[2018-04-19 06:27] LABS: ABS Basophils 0.1 10^3/ul (0-0.2); ABS Eosinophils 0.1 10^3/ul (0-0.6); ABS Lymphocytes 1.8 10^3/ul (1.0-4.8); ABS Monocytes 0.8 10^3/ul (0-0.8); ABS Neutrophils 6.2 10^3/ul (1.5-7.7); ABS Nucleated RBC 0 10^3/ul; Eosinophil % 1.6 %; Lymphocyte % 20.1 %; Nucleated Red Blood Cells % 0; Polychromasia 1+
[2018-04-19 07:06] LABS: Albumin 2.8 g/dL (3.2-5.2); Anion Gap 8 mmol/L (2-11); CO2 Carbon Dioxide 32 mmol/L (22-32); Calcium 8.6 mg/dL (8.6-10.3); Chloride 104 mmol/L (101-111); Sodium 144 mmol/L (135-145)
[2018-04-19 07:12] LABS: ALT 36 U/L (7-52); Albumin/Globulin Ratio 1.3 (1-3); Alkaline Phosphatase 82 U/L (34-104); BUN/Creatinine Ratio 17.6 (8-20); Blood Urea Nitrogen 9 mg/dL (6-24); EGFR African American 144.3 (>60); EGFR Non-African American 119.2 (>60); Globulin 2.1 g/dL (2-4); Glucose 90 mg/dL (70-100); Total Protein 4.9 g/dL (6.4-8.9)
[2018-04-19] MEDS: guaiFENesin ER TAB 600 MG PO SCH ×2 (08:42→20:29)
[2018-04-19] MEDS: Metoprolol Succinate XL TAB* 25 MG PO SCH (08:42)
[2018-04-19] MEDS: predniSONE TAB* 10 MG PO SCH (08:42)
[2018-04-19] MEDS: Furosemide TAB* 20 MG PO SCH (08:43)
[2018-04-19] MEDS: Ferrous Gluconate TAB* 324 MG TAB PO SCH ×2 (08:43→20:29)
[2018-04-19] MEDS: Lisinopril TAB* 5 MG PO SCH (08:44)
[2018-04-19] MEDS: Albuterol HFA INHALER* 8 gm MDI INH PRN (08:53)
[2018-04-19] MEDS: Pantoprazole IV* 40 MG IV SCH ×2 (08:56→20:30)
[2018-04-19 09:14] LABS: Potassium Redraw 3.2 mmol/L (3.5-5.0)
[2018-04-19] MEDS: Mometasone/Formoter 200/5 MDI INH SCH ×2 (09:53→19:32)
[2018-04-19] MEDS ORDERED: Potassium Chlor TAB* 20 MEQ TAB.ER PO ONE (15:29)
--- NOTE | 2018-04-19 18:09 | PN ---
Subjective Date of Service: 04/19/18 Interval History: Resting in bed on assessment. Noted to have pursed lipped breathing on assessment and patient reports this is baseline for her after activity and she had just transferred self from bed to commode and back. With rest patient improved. Denies chest pain/pressure, palpitations, cough, nausea, vomiting, diarrhea, bloody stool, fever/chills Reports sob, which is her baseline. Denies increase in shortness of breath Family History: Unchanged from Admission Social History: Unchanged from Admission Past Medical History: Unchanged from Admission Objective Active Medications: Acetaminophen (Tylenol Tab*) 650 mg PO Q4H PRN PRN Reason: FEVER/PAIN Albuterol (Ventolin Hfa Inhaler*) 2 puff INH Q4HR PRN PRN Reason: SHORTNESS OF BREATH Last Admin: 04/19/18 08:53 Dose: 2 puff Albuterol/Ipratropium (Duoneb (Albuterol 2.5 Mg/Ipratropium 0.5 Mg)) 1 neb INH Q4H PRN PRN Reason: SOB/WHEEZING Last Admin: 04/19/18 11:13 Dose: 1 neb Atorvastatin Calcium (Lipitor*) 80 mg PO 2100 [facility] Last Admin: 04/18/18 21:12 Dose: 80 mg Ferrous Gluconate (Fergon Tab*) 324 mg PO BID [facility] Last Admin: 04/19/18 08:43 Dose: 324 mg Furosemide (Lasix Tab*) 20 mg PO DAILY [facility] Last Admin: 04/19/18 08:43 Dose: 20 mg Guaifenesin (Mucinex*) 600 mg PO BID [facility] Last Admin: 04/19/18 08:42 Dose: 600 mg Heparin Sodium (Porcine) (Heparin Vial(*)) 5,000 units SUBCUT Q8HR [facility] Last Admin: 04/19/18 14:11 Dose: 5,000 units Lisinopril (Prinivil Tab*) 2.5 mg PO DAILY [facility] Last Admin: 04/19/18 08:44 Dose: 2.5 mg Metoprolol Succinate (Toprol Xl Tab*) 25 mg PO DAILY [facility] Last Admin: 04/19/18 08:42 Dose: 25 mg Mometasone Furoate/Formoterol Fumar (Dulera 200/5 Mdi*) 2 puff INH BID [facility] Last Admin: 04/19/18 09:53 Dose: 2 puff Pantoprazole Sodium (Protonix Iv*) 40 mg IV BID [facility] Last Admin: 04/19/18 08:56 Dose: 40 mg Prednisone (Deltasone Tab*) 20 mg PO DAILY [facility] Last Admin: 04/19/18 08:42 Dose: 20 mg Vital Signs - 8 hr 04/19/18 04/19/18 04/19/18 12:38 15:07 16:00 Temperature 98.0 F 97.6 F Pulse Rate 87 74 Respiratory 21 20 Rate Blood Pressure 121/70 101/65 (mmHg) O2 Sat by Pulse 98 98 96 Oximetry Oxygen Devices in Use Now: Nasal Cannula Appearance: NAD Eyes: No Scleral Icterus Ears/Nose/Mouth/Throat: Clear Oropharnyx, Mucous Membranes Moist Neck: NL Appearance and Movements; NL JVP Respiratory: Symmetrical Chest Expansion and Respiratory Effort, - - Crackles in left lower lobe. Remainder clear. Cardiovascular: NL Sounds; No Murmurs; No JVD, RRR, No Edema Abdominal: NL Sounds; No Tenderness; No Distention Extremities: No Edema Skin: No Rash or Ulcers Neurological: Alert and Oriented x 3 Nutrition: Taking PO's Result Diagrams: 04/19/18 05:29 04/19/18 08:06 Additional Lab and Data: Laboratory Results - last 24 hr 04/19/18 04/19/18 04/19/18 05:29 05:29 08:06 WBC 9.0 RBC 4.00 Hgb 10.1 L Hct 32 L MCV 79 L MCH 25 L MCHC 32 RDW 24 H Plt Count 270 MPV 8.2 Neut % (Auto) 68.9 Lymph % (Auto) 20.1 Lamb % (Auto) 8.5 Eos % (Auto) 1.6 Baso % (Auto) 0.9 Absolute Neuts (auto) 6.2 Absolute Lymphs (auto) 1.8 Absolute Monos (auto) 0.8 Absolute Eos (auto) 0.1 Absolute Basos (auto) 0.1 Absolute Nucleated RBC 0 Nucleated RBC % 0 Polychromasia 1+ Hypochromasia 1+ Anisocytosis 2+ Sodium 144 Potassium TNP 3.2 L Chloride 104 Carbon Dioxide 32 Anion Gap 8 BUN 9 Creatinine 0.51 Est GFR ( Amer) 144.3 Est GFR (Non-Af Amer) 119.2 BUN/Creatinine Ratio 17.6 Glucose 90 Calcium 8.6 Magnesium 2.0 Total Bilirubin 0.50 AST TNP 24 ALT 36 Alkaline Phosphatase 82 Total Protein 4.9 L Albumin 2.8 L Globulin 2.1 Albumin/Globulin Ratio 1.3 Microbiology and Other Data: Microbiology 04/09/18 08:30 Nasal Screen MRSA (PCR) - Final Nasal Mrsa Not Detected EKG Data: SR in 80 to 90s per tele Assess/Plan/Problems-Billing Assessment: Ms. Jack is a 72 yo F with PMH of COPD, severe aortic stenosis, who presented SOB with questionable COPD exacerbation and severe ID anemia with s/ p 4U PRBC. Hospital stay c/b transient 3rd degree AVB, tropinemia, decompensated HF. - Patient Problems (1) Acute combined systolic and diastolic congestive heart failure Comment: - Echo shows EF 30-35% (previously 55% in February), abnormal diastolic function - Secondary to anemia/GI bleed, severe - Appreciate Cardiology consult; following closely, recommends keep I&O slightly negative - Cont Lasix 20 mg daily - Monitor strict I&O, daily weights - Continue metoprolol 25 mg daily - Needs [facility]; which Dr Patel will follow up with patient as an outpatient. (2) CAD (coronary artery disease) Comment: - LVEF down to 30-35% with wall motion abnormalities - Resume ASA. Approved by GI - Continue atorvastatin - Needs [facility] (outpatient) (3) COPD exacerbation Comment: - No rhonchi and wheezing on exam - Quit smoking approx 1 year ago - Completed course of azithromycin - Contionue nebs and Dulera - Cont prednisone taper (4) Third degree AV block Comment: - Transient, in the setting of severe hypoxia and anemia - Appreciate Cardiology consult; plan for pacer as an outpatient - Metoprolol restarted per cardiology (5) Aortic stenosis Comment: - Echo shows moderate to severe - Considering cath and TAVR; would need to be cleared from a pulmonology standpoint - Follow with Dr Patel as outpatient (6) Elevated troponin Comment: - Trops peaked at 0.88, trended down - Likely demand ischemia - Appreciate Cardiology consult; cath should be planned if going for TAVR - Needs [facility] (outpatient) (7) Hypertension Comment: - Normotensive; SBP 100-110s - Continue lisinopril, metoprolol (8) Iron deficiency anemia Comment: - Hgb 5.6 on admission; now up to 10 after 4 units PRBC and holding steady - Longstanding; appears to have been present since at least 2017, but is it unclear why she presented with such severe anemia - Appreciate GI consult; no findings on EGD or colonoscopy - Continue ferrous gluconate and pantoprazole - Follow up with GI as outpatient in one week from discharge (9) Full code status Comment: (10) DVT prophylaxis Comment: - Heparin SQ Status and Disposition: Inpatient. Will need to be cleared by GI and Cardiology prior to d/c. Anticipate d/c home when medically stable. Attending: Bill Solis
[2018-04-19] MEDS: Atorvastatin* 80 MG TAB PO SCH (20:30)
[2018-04-20] MEDS: Albuterol/Ipratropium NEB.SOL* Albuterol 2.5 MG/Ipratropium 0.5 MG 3 ML INH SCH ×4 (01:30→19:53)
[2018-04-20] MEDS: Heparin VIAL(*) 5000 UNITS/ML VIAL (FIVE THOUSAND) SUBCUT SCH ×3 (06:00→22:05)
[2018-04-20 06:47] LABS: BUN/Creatinine Ratio 23.5 (8-20); Calcium 8.8 mg/dL (8.6-10.3); EGFR African American 144.3 (>60); EGFR Non-African American 119.2 (>60); Magnesium 1.9 mg/dL (1.9-2.7); Potassium 3.5 mmol/L (3.5-5.0)
[2018-04-20] MEDS: guaiFENesin ER TAB 600 MG PO SCH ×2 (08:29→22:04)
[2018-04-20] MEDS: Ferrous Gluconate TAB* 324 MG TAB PO SCH ×2 (08:29→22:04)
[2018-04-20] MEDS: Metoprolol Succinate XL TAB* 25 MG PO SCH (08:29)
[2018-04-20] MEDS: Aspirin EC TAB* 81 MG TAB.EC PO SCH (08:29)
[2018-04-20] MEDS: Pantoprazole IV* 40 MG IV SCH ×2 (08:29→22:05)
[2018-04-20] MEDS: predniSONE TAB* 10 MG PO SCH (08:29)
[2018-04-20] MEDS: Furosemide TAB* 20 MG PO SCH (08:29)
[2018-04-20] MEDS: Lisinopril TAB* 5 MG PO SCH (08:30)
[2018-04-20] MEDS ORDERED: Magnesium Sulfate 2 GM IV* 2 GM/50 ML BAG IVPB ONE (08:39)
[2018-04-20] MEDS: Mometasone/Formoter 200/5 MDI INH SCH ×2 (08:41→19:53)
--- NOTE | 2018-04-20 18:48 | PN ---
Subjective Date of Service: 04/20/18 Interval History: On assessment patient is sitting in bed. Reports shortness of breath is at her baseline. She is on home dose of supplemental O2. Denies chest pain, palpitations, nausea, vomiting, fever/chills. Reports occasional diarrhea since colonoscopy prep. Denies blood in stool Family History: Unchanged from Admission Social History: Unchanged from Admission Past Medical History: Unchanged from Admission Objective Active Medications: Acetaminophen (Tylenol Tab*) 650 mg PO Q4H PRN PRN Reason: FEVER/PAIN Albuterol (Ventolin Hfa Inhaler*) 2 puff INH Q4HR PRN PRN Reason: SHORTNESS OF BREATH Last Admin: 04/19/18 08:53 Dose: 2 puff Albuterol/Ipratropium (Duoneb (Albuterol 2.5 Mg/Ipratropium 0.5 Mg)) 1 neb INH Q4H PRN PRN Reason: SOB/WHEEZING Last Admin: 04/19/18 19:32 Dose: 1 neb Albuterol/Ipratropium (Duoneb (Albuterol 2.5 Mg/Ipratropium 0.5 Mg)) 1 neb INH Q6H [facility] Last Admin: 04/20/18 13:13 Dose: 1 neb Aspirin (Aspirin Ec Tab*) 81 mg PO DAILY [facility] Last Admin: 04/20/18 08:29 Dose: 81 mg Atorvastatin Calcium (Lipitor*) 80 mg PO 2100 [facility] Last Admin: 04/19/18 20:30 Dose: 80 mg Ferrous Gluconate (Fergon Tab*) 324 mg PO BID [facility] Last Admin: 04/20/18 08:29 Dose: 324 mg Furosemide (Lasix Tab*) 20 mg PO DAILY [facility] Last Admin: 04/20/18 08:29 Dose: 20 mg Guaifenesin (Mucinex*) 600 mg PO BID [facility] Last Admin: 04/20/18 08:29 Dose: 600 mg Heparin Sodium (Porcine) (Heparin Vial(*)) 5,000 units SUBCUT Q8HR [facility] Last Admin: 04/20/18 14:52 Dose: 5,000 units Lisinopril (Prinivil Tab*) 2.5 mg PO DAILY [facility] Last Admin: 04/20/18 08:30 Dose: 2.5 mg Metoprolol Succinate (Toprol Xl Tab*) 25 mg PO DAILY [facility] Last Admin: 04/20/18 08:29 Dose: 25 mg Mometasone Furoate/Formoterol Fumar (Dulera 200/5 Mdi*) 2 puff INH BID [facility] Last Admin: 04/20/18 08:41 Dose: 2 puff Pantoprazole Sodium (Protonix Iv*) 40 mg IV BID [facility] Last Admin: 04/20/18 08:29 Dose: 40 mg Prednisone (Deltasone Tab*) 20 mg PO DAILY [facility] Last Admin: 04/20/18 08:29 Dose: 20 mg Vital Signs - 8 hr 04/20/18 04/20/18 04/20/18 11:41 13:14 16:00 Temperature 97.6 F Pulse Rate 92 95 Respiratory 18 20 Rate Blood Pressure 132/77 (mmHg) O2 Sat by Pulse 97 96 96 Oximetry Oxygen Devices in Use Now: Nasal Cannula Appearance: NAD Eyes: No Scleral Icterus Ears/Nose/Mouth/Throat: Clear Oropharnyx, Mucous Membranes Moist Neck: NL Appearance and Movements; NL JVP Respiratory: Symmetrical Chest Expansion and Respiratory Effort - Slight crackles in left base. Remainder clear. Cardiovascular: RRR, No Edema, - - Systolic murmur noted Abdominal: NL Sounds; No Tenderness; No Distention Lymphatic: No Cervical Adenopathy Extremities: No Edema Skin: No Rash or Ulcers Neurological: Alert and Oriented x 3 Nutrition: Taking PO's Result Diagrams: 04/19/18 05:29 04/20/18 05:46 Additional Lab and Data: Laboratory Results - last 24 hr 04/20/18 05:46 Sodium 144 Potassium 3.5 Chloride 104 Carbon Dioxide 35 H Anion Gap 5 BUN 12 Creatinine 0.51 Est GFR ( Amer) 144.3 Est GFR (Non-Af Amer) 119.2 BUN/Creatinine Ratio 23.5 H Glucose 121 H Calcium 8.8 Magnesium 1.9 Microbiology and Other Data: Microbiology 04/09/18 08:30 Nasal Screen MRSA (PCR) - Final Nasal Mrsa Not Detected EKG Data: SR in 80 to 90s per tele Assess/Plan/Problems-Billing Assessment: Ms. Jack is a 72 yo F with PMH of COPD, severe aortic stenosis, who presented SOB with questionable COPD exacerbation and severe ID anemia with s/ p 4U PRBC. Hospital stay c/b transient 3rd degree AVB, tropinemia, decompensated HF. - Patient Problems (1) Acute combined systolic and diastolic congestive heart failure Comment: - Echo shows EF 30-35% (previously 55% in February), abnormal diastolic function - Appreciate Cardiology consult - Cont Lasix 20 mg daily - Monitor strict I&O, daily weights - Continue metoprolol 25 mg daily - Needs [facility]; which Dr Patel will follow up with patient as an outpatient on 05/03 (2) CAD (coronary artery disease) Comment: - LVEF down to 30-35% with wall motion abnormalities - Resume ASA. Approved by GI - Continue atorvastatin - Needs [facility] (outpatient); which Dr Patel will follow up with patient as an outpatient on 05/03/18 (3) COPD exacerbation Comment: - No rhonchi and wheezing on exam - Quit smoking approx 1 year ago - Completed course of azithromycin - Continue nebs and Dulera - Cont prednisone taper - On home dose supplemental O2 (4) Third degree AV block Comment: - Transient, in the setting of severe hypoxia and anemia - Appreciate Cardiology consult; plan for pacer as an outpatient - Metoprolol restarted per cardiology (5) Aortic stenosis Comment: - Echo shows moderate to severe - Considering cath and TAVR; would need to be cleared from a pulmonology standpoint - Follow with Dr Patel as outpatient; which Dr Patel will follow up with patient as an outpatient on 05/03/18 (6) Elevated troponin Comment: - Trops peaked at 0.88, trended down - Likely demand ischemia - Appreciate Cardiology consult; cath should be planned if going for TAVR - Needs [facility] (outpatient) (7) Hypertension Comment: - Normotensive; SBP 100-110s - Continue lisinopril, metoprolol (8) Iron deficiency anemia Comment: - Hgb 5.6 on admission; now up to 10 after 4 units PRBC and holding steady - Longstanding; appears to have been present since at least 2017, but is it unclear why she presented with such severe anemia - Appreciate GI consult; no findings on EGD or colonoscopy - Continue ferrous gluconate and pantoprazole - Follow up with GI as outpatient in one week from discharge (9) Full code status Comment: (10) DVT prophylaxis Comment: - Heparin SQ Status and Disposition: Inpatient. Cleared by GI and Cardiology for d/c. Attempted to D/C patient today , but she refuses as she is having work done to her house and cannot return until Tuesday. gas operation manager notified and discussed with patient. Attending: Bill Solis
[2018-04-20] MEDS: Atorvastatin* 80 MG TAB PO SCH (22:04)
[2018-04-21] MEDS: Albuterol/Ipratropium NEB.SOL* Albuterol 2.5 MG/Ipratropium 0.5 MG 3 ML INH SCH ×4 (01:10→19:46)
[2018-04-21] MEDS: Heparin VIAL(*) 5000 UNITS/ML VIAL (FIVE THOUSAND) SUBCUT SCH ×3 (05:16→20:20)
[2018-04-21] MEDS: Mometasone/Formoter 200/5 MDI INH SCH ×2 (07:36→19:47)
[2018-04-21] MEDS: Furosemide TAB* 20 MG PO SCH (10:02)
[2018-04-21] MEDS: predniSONE TAB* 10 MG PO SCH (10:03)
[2018-04-21] MEDS: Aspirin EC TAB* 81 MG TAB.EC PO SCH (10:03)
[2018-04-21] MEDS: Ferrous Gluconate TAB* 324 MG TAB PO SCH ×2 (10:04→20:19)
[2018-04-21] MEDS: Metoprolol Succinate XL TAB* 25 MG PO SCH (10:04)
[2018-04-21] MEDS: guaiFENesin ER TAB 600 MG PO SCH ×2 (10:04→20:20)
[2018-04-21] MEDS: Lisinopril TAB* 5 MG PO SCH (10:05)
[2018-04-21] MEDS: Pantoprazole IV* 40 MG IV SCH ×2 (11:18→20:20)
--- NOTE | 2018-04-21 11:38 | PN ---
Subjective Date of Service: 04/21/18 Interval History: Ms. Jack is feeling fine today. She offers no complaints. She denies any SOB or CP. She reports that she will return home tomorrow when work is completed on her house. She is upset that there were no areas of bleeding noted on her colonoscopy. Family History: Unchanged from Admission Social History: Unchanged from Admission Past Medical History: Unchanged from Admission Objective Active Medications: Acetaminophen (Tylenol Tab*) 650 mg PO Q4H PRN FEVER/PAIN Albuterol (Ventolin Hfa Inhaler*) 2 puff INH Q4HR PRN SHORTNESS OF BREATH Albuterol/Ipratropium (Duoneb (Albuterol 2.5 Mg/Ipratropium 0.5 Mg)) 1 neb INH Q4H PRN SOB/WHEEZING Albuterol/Ipratropium (Duoneb (Albuterol 2.5 Mg/Ipratropium 0.5 Mg)) 1 neb INH Q6H [facility] Aspirin (Aspirin Ec Tab*) 81 mg PO DAILY [facility] Atorvastatin Calcium (Lipitor*) 80 mg PO 2100 [facility] Ferrous Gluconate (Fergon Tab*) 324 mg PO BID [facility] Furosemide (Lasix Tab*) 20 mg PO DAILY [facility] Guaifenesin (Mucinex*) 600 mg PO BID [facility] Heparin Sodium (Porcine) (Heparin Vial(*)) 5,000 units SUBCUT Q8HR [facility] Lisinopril (Prinivil Tab*) 2.5 mg PO DAILY [facility] Metoprolol Succinate (Toprol Xl Tab*) 25 mg PO DAILY [facility] Mometasone Furoate/Formoterol Fumar (Dulera 200/5 Mdi*) 2 puff INH BID [facility] Pantoprazole Sodium (Protonix Iv*) 40 mg IV BID [facility] Prednisone (Deltasone Tab*) 20 mg PO DAILY [facility] Vital Signs - 8 hr 04/21/18 04/21/18 04/21/18 03:50 07:11 07:38 Temperature 97.7 F 98.0 F Pulse Rate 75 77 83 Respiratory 18 16 16 Rate Blood Pressure 114/54 122/70 (mmHg) O2 Sat by Pulse 96 98 97 Oximetry Oxygen Devices in Use Now: Nasal Cannula - 2L Appearance: Elderly female sitting in bed in NAD Eyes: No Scleral Icterus Ears/Nose/Mouth/Throat: Mucous Membranes Moist Neck: NL Appearance and Movements; NL JVP, Trachea Midline Respiratory: Symmetrical Chest Expansion and Respiratory Effort, Clear to Auscultation Cardiovascular: RRR, - - Grade 3/6 sustolic murmur, RUSB Abdominal: NL Sounds; No Tenderness; No Distention Extremities: No Edema Skin: No Rash or Ulcers Neurological: Alert and Oriented x 3 Lines/Tubes/Other Access: Clean, Dry and Intact Peripheral IV Nutrition: Taking PO's Result Diagrams: 04/19/18 05:29 04/20/18 05:46 Assess/Plan/Problems-Billing Assessment: Ms. Jack is a 72 yo F with PMH of COPD, severe aortic stenosis, who presented SOB with questionable COPD exacerbation and severe ID anemia with s/ p 4U PRBC. Hospital stay c/b transient 3rd degree AVB, tropinemia, decompensated HF. - Patient Problems (1) Acute combined systolic and diastolic congestive heart failure Code(s): I50.41 - ACUTE COMBINED SYSTOLIC AND DIASTOLIC (CONGESTIVE) HRT FAIL Comment: - Echo shows EF 30-35% (previously 55% in February), abnormal diastolic function - Appreciate Cardiology consult - Monitor strict I&O, daily weights - Needs [facility]; which Dr Patel will follow up with patient as an outpatient on 05/03 - Cont Lasix, metoprolol (2) COPD exacerbation Code(s): J44.1 - CHRONIC OBSTRUCTIVE PULMONARY DISEASE W (ACUTE) EXACERBATION Comment: - No rhonchi and wheezing on exam; on baseline oxygen requirements - Quit smoking approx 1 year ago - Completed course of azithromycin - Continue nebs and Dulera, prednisone (3) Aortic stenosis Code(s): I35.0 - NONRHEUMATIC AORTIC (VALVE) STENOSIS Comment: - Echo shows moderate to severe - Considering cath and TAVR; would need to be cleared from a pulmonology standpoint - Follow with Dr Patel as outpatient; follow up appointment on 05/03/18 (4) Iron deficiency anemia Code(s): D50.9 - IRON DEFICIENCY ANEMIA, UNSPECIFIED Comment: - Hgb 5.6 on admission; now up to 10 after 4 units PRBC and stable - Longstanding; appears to have been present since at least 2017, but is it unclear why she presented with such severe anemia - Appreciate GI consult; no findings on EGD or colonoscopy - Follow up with GI as outpatient in one week from discharge - Continue ferrous gluconate and pantoprazole (5) Third degree AV block Code(s): I44.2 - ATRIOVENTRICULAR BLOCK, COMPLETE Comment: - Transient, in the setting of severe hypoxia and anemia - Appreciate Cardiology consult; plan for pacer as an outpatient (6) Elevated troponin Code(s): R74.8 - ABNORMAL LEVELS OF OTHER SERUM ENZYMES Comment: - Trops peaked at 0.88, trended down - Likely demand ischemia - Appreciate Cardiology consult; cath should be planned if going for TAVR, this will be done on an outpt basis (7) Elevated LFTs Code(s): R94.5 - ABNORMAL RESULTS OF LIVER FUNCTION STUDIES Comment: - Mildly elevated on admission, now resolved - Unclear etiology - Liver US unremarkable (8) CAD (coronary artery disease) Code(s): I25.10 - ATHSCL HEART DISEASE OF [place] CORONARY ARTERY W/O ANG PCTRS Comment: - LVEF down to 30-35% with wall motion abnormalities - Resume ASA. Approved by GI - Continue atorvastatin - Needs [facility] (outpatient); Dr Patel will follow up on 05/03/18 (9) Hypertension Code(s): I10 - ESSENTIAL (PRIMARY) HYPERTENSION Comment: - Normotensive; SBP 110-120s - Continue lisinopril, metoprolol (10) DVT prophylaxis Comment: - Heparin SQ (11) Full code status Code(s): Z78.9 - OTHER SPECIFIED HEALTH STATUS Comment: Status and Disposition: Inpatient. Cleared by GI and Cardiology for d/c. Appealed d/c yesterday. Reports work is being done on her house and she is agreeable for d/c tomorrow. Case management involved. Attending: Bill Solis
[2018-04-21] MEDS: Atorvastatin* 80 MG TAB PO SCH (20:18)
[2018-04-22] MEDS: Albuterol/Ipratropium NEB.SOL* Albuterol 2.5 MG/Ipratropium 0.5 MG 3 ML INH SCH ×3 (01:25→14:02)
[2018-04-22] MEDS: Heparin VIAL(*) 5000 UNITS/ML VIAL (FIVE THOUSAND) SUBCUT SCH (05:43)
[2018-04-22 07:39] VITALS: BP 125/61
[2018-04-22] MEDS: Mometasone/Formoter 200/5 MDI INH SCH (08:14)
[2018-04-22] MEDS: Lisinopril TAB* 5 MG PO SCH (08:21)
[2018-04-22] MEDS: Aspirin EC TAB* 81 MG TAB.EC PO SCH (08:22)
[2018-04-22] MEDS: Furosemide TAB* 20 MG PO SCH (08:22)
[2018-04-22] MEDS: Metoprolol Succinate XL TAB* 25 MG PO SCH (08:22)
[2018-04-22] MEDS: predniSONE TAB* 10 MG PO SCH (08:23)
[2018-04-22] MEDS: Ferrous Gluconate TAB* 324 MG TAB PO SCH (08:23)
[2018-04-22] MEDS: guaiFENesin ER TAB 600 MG PO SCH (08:23)
[2018-04-22] MEDS: Pantoprazole IV* 40 MG IV SCH (08:24)
--- NOTE | 2018-04-22 20:12 | DS ---
CC: Carley Aguila NP; Dr. Max Patel * DISCHARGE SUMMARY: DATE OF ADMISSION: 04/09/18 DATE OF DISCHARGE: 04/22/18 PRIMARY CARE PROVIDER: Carley Aguila NP. ELECTRICIAN MACHINE SHOP: Dr. Max Patel. ATTENDING PHYSICIAN: Dr. Zia Vega * (dictated by Tia Garcia NP). PRIMARY DIAGNOSES: 1. Acute combined systolic and diastolic congestive heart failure. 2. COPD exacerbation. 3. Iron deficiency anemia. 4. Third-degree AV block, transient. 5. Elevated troponin. 6. Elevated LFTs. SECONDARY DIAGNOSES: 1. Aortic stenosis. 2. Coronary artery disease. 3. Hypertension. STUDIES WHILE IN THE HOSPITAL: 1. Chest x-ray on 04/09/18 reads as findings consistent with vascular congestion. No alveolar consolidation is noted. 2. EKG on 04/09/18 shows normal sinus rhythm with a rate of 90, QTc 431, Q- waves present in inferior leads. No acute changes. 3. EKG on 04/09/18 shows third-degree AV block with a rate of 51. Again noted are Q-waves in inferior leads. 4. Chest x-ray on 04/09/18 reads as central line is deep in the right atrium close to the inferior vena cava. No pneumothorax is noted. 5. EKG on 04/09/18 shows normal sinus rhythm with a rate of 83, QTc 412. Again noted are Q-waves in inferior leads. 6. Transthoracic echocardiogram on 04/09/18 reads as the study is technically limited due to the patient's history of COPD. Mild concentric left ventricular hypertrophy is observed. The right ventricle wall thickness is mildly increased. The right ventricular global systolic function is mildly reduced. There is ellpstxo-wx-uvjopz aortic stenosis. The peak velocity in the apical view was approximately 3.1 m/s , DI of 0.32. The aorta appears severe by 2D consistent with low-gradient aortic stenosis. There is mild mitral regurgitation. There is mitral annular calcification. There is mild mitral stenosis by mean gradient. There is euft-mb-nxkmshlm tricuspid regurgitation. There is evidence of mild pulmonary hypertension. There is moderate-to- severely decreased left ventricular systolic function. The estimated ejection fraction is 30% to 35%. Abnormal left ventricular diastolic filling is observed consistent with impaired relaxation. There are multiple regional wall motion abnormalities. The posterolateral segments are best preserved. Moderate hypokinesis of the anterolateral segments. Severe hypokinesis to akinesis of the inferior and inferior septal segments in the proximal to mid LV. Interval decrease in EF compared to 03/02/18 when the EF was 50% to 60%. 7. EKG on 04/09/18 shows normal sinus rhythm with a rate of 84, QTc 458. Again noted are Q-waves in inferior leads. 8. EKG on 04/10/18 shows normal sinus rhythm with a rate of 88, QTc 442. Again noted are Q-waves in inferior leads. 9. Chest x-ray on 04/13/18 reads as COPD. Small right pleural effusion with patchy atelectasis versus consolidation at the lung bases bilaterally. 10. Liver ultrasound on 04/14/18 reads as left pleural effusion. Status post cholecystectomy. The common duct measures up to 0.7 cm. HISTORY OF PRESENT ILLNESS AND HOSPITAL COURSE: Ms. Jack is a 72-year-old female with a complex past medical history including COPD, hyperlipidemia and severe aortic stenosis, who presented to the emergency room on 04/09/18 with complaints of shortness of breath. Please see the history and physical by Dr. Camacho for complete summary of the events leading up to this hospitalization. In short, the patient was diagnosed with iron deficiency anemia on 03/02/18 and did not follow up with GI as was recommended at her discharge. She presented to the emergency room with shortness of breath, worsening over the last week and she also was noted to be quite pale. She did report occasional heart palpitations and lightheadedness. In the emergency room, she had imaging as noted above. She also had lab work which was remarkable for an H and H of 5.6 and 19, mildly elevated LFTs, and an elevated troponin at 0.65. She was admitted by the hospitalist service for acute anemia. The patient ultimately received 4 L of packed red blood cells and her H and H corrected to 10 and 31. As noted on imaging above, the patient was noted to have a third-degree heart block and was therefore seen in consultation by Cardiology. I will note that during her episode of third-degree heart block, she was noted to be extremely hypoxic. GI felt as though this heart block was likely secondary to her hypoxia and recommended treating her anemia. Cardiology felt as though she would likely benefit from a cardiac catheterization and consideration of a TAVR due to her known severe aortic stenosis. They additionally recommended increasing her atorvastatin to 80 mg daily. The patient was also seen in consultation by Gastroenterology who felt as though her anemia warranted an endoscopic evaluation for blood loss, though felt as though the patient needed to be optimized from a cardiopulmonary standpoint. The patient was optimized and ultimately the patient went for an EGD on 04/11/18, which was noted to be normal. Cardiology and Gastroenterology continued to follow the patient while here in the hospital. In addition to her anemia, the patient was also noted to be in acute congestive heart failure with both systolic and diastolic components. Her echo results are noted above. She was slowly diuresed for this. She was also noted to have a COPD exacerbation with significant wheezing and was requiring a high amount of oxygen than her baseline requirement. The patient did have a liver ultrasound because of her elevated LFTs. There were no liver abnormalities noted on this ultrasound and ultimately, the patient's LFTs normalized without intervention. I will note that the patient's troponin did peak at 0.88 though she did not have any acute EKG changes. Cardiology noted that this bump in troponin was secondary to demand ischemia from her acute congestive heart failure and did not represent an acute infarct. Gastroenterology felt as though the patient would benefit from a colonoscopy to ensure that there was no active bleeding. A colonoscopy was attempted though the patient did not prep properly and so, was aborted; although ultimately, the patient did undergo a colonoscopy on 04/18/18 which was normal. Cardiology did feel that the patient would need to be optimized from a pulmonary and GI standpoint prior to undergoing any further cardiac workup for her aortic stenosis. They also felt as though she would benefit from a pacemaker due to her transient third-degree heart block. The patient was fully diuresed and as of now shows no signs of volume overload. Concerning her COPD exacerbation, she has been treated with nebulizers and prednisone and is back on her baseline oxygen requirements of 2 L. Her H and H has remained stable for the rest of this hospitalization and as of 04/19/18 was 10.1 and 32. It is likely that this severe anemia that she presented with was secondary to longstanding iron deficiency and not from any acute bleeding as there was no evidence of acute bleed on EGD or colonoscopy. The patient has admitted to being noncompliant with medications in the past, so it is likely that she has been noncompliant with taking her iron supplements. I have spoken at length with the patient about her diagnoses and she does understand that if she is not compliant with her health from here on out, she may have a poor prognosis as her aortic valve will not be able to be repaired if she continues to have such severe anemia. While the patient's acute diagnoses are stable at this time, I believe that the patient is still at high risk due to her severely impaired pulmonary and cardiac functions. The patient was cleared for discharge by Gastroenterology and Cardiology on 04/20/18, though the patient reported that she would not be able to return home until 04/22/18 as she was having works done on her house while she was in the hospital. As of today, the patient reports feeling well. She feels as though her respiratory status is at its baseline. Her lung sounds are severely diminished throughout though there is no wheezing or adventitious sounds. She is on her baseline oxygen requirements of 2 L and is saturating well. I will note that she typically does pursed lip breathe at rest, though is in no acute distress. She has had no further episodes of third- degree AV block or any other arrhythmias while here in the hospital and has been monitored on telemetry the entire time. She does understand that she will need to follow up closely with her PCP and with Cardiology in order to optimize her health. Ms. Jack is stable for discharge today. Vital signs are as follows: Temp 96.5, heart rate 81, respiratory rate 18, oxygen saturation 98% on 2 L nasal cannula, blood pressure 125/61. DISCHARGE MEDICATIONS: New medications: 1. Furosemide 20 mg p.o. daily. 2. Metoprolol succinate 25 mg p.o. daily. 3. Prednisone 10 mg p.o. taper (take 2 tabs for 2 days, then 1 tab for 2 days). 4. Spiriva 1 cap inhalation daily. Changed medications: 1. Atorvastatin 80 mg p.o. daily (previously with 20 mg p.o. daily). 2. Ferrous gluconate 324 mg p.o. t.i.d. (previously was b.i.d.). 3. Omeprazole 20 mg p.o. b.i.d. (previously was daily). Continued medications: 1. Albuterol MDI 2 puffs q.4 hours p.r.n. shortness of breath. 2. Albuterol/ipratropium 1 nebulizer q.4 hours p.r.n. shortness of breath, wheezing. 3. Aspirin 81 mg p.o. daily. 4. Lisinopril 5 mg p.o. daily. 5. Dulera 200/5 two puffs b.i.d. DISCHARGE PLAN: Ms. Jack will be discharged home. Activity will be as tolerated. Diet will be heart-healthy. Medications are noted above. As noted earlier, the patient's atorvastatin has been increased due to her significant cardiac risks. I have additionally increased her omeprazole to b.i.d. and her ferrous gluconate to t.i.d. at this point though these may need to be readjusted by her PCP. She has been started on furosemide and metoprolol while here in the hospital due to her acute heart failure and she will continue those at this time. Cardiology can determine any further medication adjustments. I have also prescribed the patient's Spiriva. It is unclear why she has not been on an anticholinergic though due to her severe COPD, a daily anticholinergic is recommended per GOLD guidelines. She can continue her other usual medications as noted above. The patient will need to follow up with her primary care provider in 4 to 7 days. She will also need to follow up with Cardiology, she has an appointment scheduled on 05/03/18 at 3 p.m. She has been strongly encouraged to follow up as advised and understands the risks to her health if she does not follow up appropriately. She has been advised to return to the emergency room or nearest hospital for any worsening of symptoms, shortness of breath, lightheadedness, dizziness, chest discomfort, high fevers, chills, night sweats, loss of consciousness, or any other worrisome signs or symptoms. This is a summarized report of a complex medical history and hospital stay. For further details, please see the entire medical record. TIME SPENT: Approximately 50 minutes was spent on this discharge. TIA GARCIA, DEVELOPMENT WRITER [id number]/[facility] #: [id number] ODALIS
== END 2018-04-22 13:46 | disposition home or self-care (01) | DRG 811 ==
LOC: ED 04:30 → ICU 05:24 → MEDTELE 04-10 20:10
PROVIDERS: ADMIT Internal Medicine; ATTEND Student in an Organized Health Care Education/Training Program
PROC: 30233N1 Transfusion of Nonautologous Red Blood Cells into Peripheral Vein, Percutaneous Approach (ICD-10-PCS; principal; 2018-04-09)
PROC: 02H633Z Insertion of Infusion Device into Right Atrium, Percutaneous Approach (ICD-10-PCS; 2018-04-09)
PROC: 0DJ08ZZ Inspection of Upper Intestinal Tract, Via Natural or Artificial Opening Endoscopic (ICD-10-PCS; 2018-04-11)
PROC: 0DJD8ZZ Inspection of Lower Intestinal Tract, Via Natural or Artificial Opening Endoscopic (ICD-10-PCS; 2018-04-14)
PROC: 0DJD8ZZ Inspection of Lower Intestinal Tract, Via Natural or Artificial Opening Endoscopic (ICD-10-PCS; 2018-04-18)
DX: D50.9 Iron deficiency anemia, unspecified (principal); J96.21 Acute and chronic respiratory failure with hypoxia; I50.41 Acute combined systolic (congestive) and diastolic (congestive) heart failure; I44.2 Atrioventricular block, complete; I24.8 Other forms of acute ischemic heart disease; I42.9 Cardiomyopathy, unspecified; J44.1 Chronic obstructive pulmonary disease with (acute) exacerbation; I08.3 Combined rheumatic disorders of mitral, aortic and tricuspid valves; I27.20 Pulmonary hypertension, unspecified; K21.9 Gastro-esophageal reflux disease without esophagitis; E78.5 Hyperlipidemia, unspecified; I95.9 Hypotension, unspecified; E66.9 Obesity, unspecified; J20.9 Acute bronchitis, unspecified; I25.10 Atherosclerotic heart disease of native coronary artery without angina pectoris; I11.0 Hypertensive heart disease with heart failure; R79.89 Other specified abnormal findings of blood chemistry; R00.0 Tachycardia, unspecified; Z91.14 Patient's other noncompliance with medication regimen; Z83.3 Family history of diabetes mellitus; Z88.5 Allergy status to narcotic agent; Z87.01 Personal history of pneumonia (recurrent); Z98.42 Cataract extraction status, left eye; Z98.41 Cataract extraction status, right eye; Z90.49 Acquired absence of other specified parts of digestive tract; Z82.49 Family history of ischemic heart disease and other diseases of the circulatory system; Z68.31 Body mass index [BMI] 31.0-31.9, adult; Z87.891 Personal history of nicotine dependence; Z87.11 Personal history of peptic ulcer disease; Z79.82 Long term (current) use of aspirin
CPT/HCPCS: 36415; 36600; 71045; 71046; 76705; 80048; 80053; 80061; 82272; 82728; 82803; 83735; 83880; 84443; 84484; 85014; 85018; 85025; 85060; 85610; 85730; 86850; 86870; 86880; 86900; 86901; 86905; 86922; 87641; 93005; 93306; 94640; 99156; 99157; 99284; A9270-GY; J0330; J1644; J1756; J1940; J2250; J3010; J3475; J7512; P9040

== ENCOUNTER 2018-04-26 14:47 | Emergency (ER) | payer MEDICARE, OTHER ==
[2018-04-26] MEDS ORDERED: EPINEPHrine SYR 0.1MG/ML* SYRINGE ONE (14:49)
--- OUTSIDE RECORDS SUMMARY | 2018-04-26 15:02 | XMS REPORT | Continuity of Care Document ---
:1945 External Reference #:[id number] Author Name Nikki Lopez Care Team Providers Name Role Phone Pearl Carrillo FNP Primary Care Physician Unavailable Payers Type Date Identification Numbers Payment Provider Subscriber Policy Number: [id number] Medicare Shaye Jack PayID: [id number] [address] [place] [address] Policy Number: [id number] [facility] Shaye Jack PayID: [id number] [address] [place] [address] Advance Directives Description No Information Available Problems Date Description Provider Status Onset: Chronic obstructive lung disease Active Onset: Aortic valve stenosis Active Family History Date Family Member(s) Problem(s) Comments Mother [place] Social History Type Date Description Comments Sex [...] Unknown Sulfate 0000 - ) 0.083% nebulizer 4 times 2017 daily as needed Advair Diskus 00/ Hx Aerosol 250-50mcg/ 1 puff by Unknown 0000 - Dose mouth 05/22/ twice a 2018 day Lasix / Hx Tablets 20mg 1 by mouth Unknown 0000 - every day 05/22/ Pt states 2018 she is not currently taking Montelukast /00/ Hx Tablets 10mg 1 by mouth Unknown Sodium 0000 - every day 2017 Nicotine 00/ Hx Patches 7mg/24HR apply Unknown Transdermal 0000 [...] Available Procedures Date Code Description Status 03/10/2018 11296 ECHO Transthorasic Realtime 2D W Doppler & Color Flow Hosp Completed 06/14/2017 29447 EKG Tracing & Interpretation Completed 02/17/2017 98412 Diffusing Capacity Completed 02/17/2017 16935 Plethysmography Determination Lung Volumes & Per Airway Completed Resist 02/17/2017 64354 Pulmonary Stress Test Simple Completed 02/17/2017 78344 Pulmonary Function><Bronchodil Completed 01/11/2017 09313 ECHO Transthorasic Realtime 2D W Doppler & Color Flow Hosp Completed Encounters Type Date Location Provider Dx Diagnosis Office Visit 06/14/2017 [facility] Max Fermin R06.02 Shortness of 2:00p Of Vice President Sales And Marketing AT [facility] [place] Blanquita Patel breath J44.9 Chronic obstructive pulmonary disease, unspecified I35.0 Nonrheumatic aortic (valve) stenosis Office Visit 05/23/2017 10:45a Pulmonology And [place]aine R06.02 Shortness of Sleep Services Of [place] Aditi breath Vice President Sales And Marketing J44.9 Chronic obstructive pulmonary disease, unspecified Office Visit 02/08/2017 1:30p [facility] Max Fermin J44.9 Chronic Of Vice President Sales And Marketing AT [facility] [place] Blanquita Patel obstructive pulmonary disease, unspecified I35.0 Nonrheumatic aortic (valve) stenosis R06.02 Shortness of breath Office Visit 02/07/2017 3:30p [facility] [place] J44.9 Chronic Sleep Services Of [place] Aditi obstructive Vice President Sales And Marketing pulmonary disease, unspecified Office Visit 01/16/2017 4:16p [facility] Haris Ayala MD J44.1 Chronic Assoc,pc obstructive Hospitalists pulmonary disease w (acute) exacerbation I35.0 Nonrheumatic aortic (valve) stenosis I50.33 Acute on chronic diastolic (congestive) heart failure D50.9 Iron deficiency anemia, unspecified Office Visit 01/15/2017 4:15p [facility] Meredith Ayala I35.0 Nonrheumatic Assdesi man MD aortic (valve) Hospitalists stenosis R06.09 Other forms of dyspnea J44.1 Chronic obstructive pulmonary disease w (acute) exacerbation I50.33 Acute on chronic diastolic (congestive) heart failure Office Visit 01/14/2017 4:15p [facility] Haris Ayala I35.0 Nonrheumatic Assdesi man MD aortic (valve) Hospitalists stenosis R06.09 Other forms of dyspnea J44.1 Chronic obstructive pulmonary disease w (acute) exacerbation I50.33 Acute on chronic diastolic (congestive) heart failure Office Visit 01/13/2017 4:14p [facility] Emma I35.0 Nonrheumatic Assocdesi D.O. aortic (valve) Hospitalists stenosis R06.09 Other forms of dyspnea J44.1 Chronic obstructive pulmonary disease w (acute) exacerbation D50.9 Iron deficiency anemia, unspecified Office Visit 01/12/2017 [facility] Annabelle Thoams, I35.0 Nonrheumatic 12:26p Of Ilya Juares aortic (valve) stenosis Office Visit 01/12/2017 [facility] Haris Ayala MD I35.0 Nonrheumatic 4:14p Assoc,pc aortic (valve) Hospitalists stenosis R06.09 Other forms of dyspnea J44.9 Chronic obstructive pulmonary disease, unspecified D50.9 Iron deficiency anemia, unspecified Office Visit 01/11/2017 11:53a [facility] Max Fermin R06.02 Shortness of Of Ilya Patel M.D. breath I35.0 Nonrheumatic aortic (valve) stenosis Office Visit 01/11/2017 4:14p [facility] Haris Ayala, I35.0 Nonrheumatic Assdesi man MD aortic (valve) Hospitalists stenosis R06.09 Other forms of dyspnea I50.33 Acute on chronic diastolic (congestive) heart failure D50.9 Iron deficiency anemia, unspecified Office Visit 01/10/2017 4:13p [facility] [place] D50.9 Iron deficiency Assoc,desi Hdez MD anemia, Hospitalists unspecified J44.1 Chronic obstructive pulmonary disease w (acute) exacerbation R74.8 Abnormal levels of other serum enzymes K27.9 Peptic ulc, site unsp, unsp as ac or chr, w/o hemor or perf Office Visit 12/24/2016 11:30a [facility] [place] J44.9 Chronic Sleep Services Of [facility] Aditi obstructive Vice President Sales And Marketing pulmonary disease, unspecified F17.210 Nicotine dependence, cigarettes, uncomplicated Z12.2 Encntr screen for malignant neoplasm of respiratory organs Plan of Treatment 06/14/2017 - Max Patel M.D.R06.02 Shortness of uwpjerA18.9 Chronic obstructive pulmonary disease, btjpwfpwllgU48.0 Nonrheumatic aortic (valve) stenosisNew Orders:Echocardiogram, Scheduled: 04/05/18Follow up:4 months
--- OUTSIDE RECORDS SUMMARY | 2018-04-26 15:03 | XMS REPORT | Continuity of Care Document ---
:1945 External Reference #:[id number] Author Name Nikki Lopez Care Team Providers Name Role Phone Pearl Carrillo FNP Primary Care Physician Unavailable Payers Type Date Identification Numbers Payment Provider Subscriber Policy Number: [id number] Medicare Shaye Jack PayID: [id number] [address] [place] [address] Policy Number: [id number] [facility] Shaye Jack PayID: [id number] [address] [place] [address] Advance Directives Description No Information Available Problems Date Description Provider Status Onset: Chronic obstructive lung disease Active Onset: Aortic valve stenosis Active Family History Date Family Member(s) Problem(s) Comments Mother [place] Social History Type Date Description Comments Sex [...] Available Procedures Date Code Description Status 03/10/2018 77804 ECHO Transthorasic Realtime 2D W Doppler & Color Flow Hosp Completed 06/14/2017 49648 EKG Tracing & Interpretation Completed 02/17/2017 97564 Diffusing Capacity Completed 02/17/2017 27803 Plethysmography Determination Lung Volumes & Per Airway Completed Resist 02/17/2017 63888 Pulmonary Stress Test Simple Completed 02/17/2017 10466 Pulmonary Function><Bronchodil Completed 01/11/2017 56578 ECHO Transthorasic Realtime 2D W Doppler & Color Flow Hosp Completed Encounters Type Date Location Provider Dx Diagnosis Office Visit 06/14/2017 [facility] Max Fermin R06.02 Shortness of 2:00p Of Food Counselor AT [facility] [place] Blanquita Patel breath J44.9 Chronic obstructive pulmonary disease, unspecified I35.0 Nonrheumatic aortic (valve) stenosis Office Visit 05/23/2017 10:45a [facility] [place] R06.02 Shortness of Sleep Services Of [place] Aditi breath Food Counselor J44.9 Chronic obstructive pulmonary disease, unspecified Office Visit 02/08/2017 1:30p [facility] Max Fermin J44.9 Chronic Of Food Counselor AT [facility] [place] Blanquita Patel obstructive pulmonary disease, unspecified I35.0 Nonrheumatic aortic (valve) stenosis R06.02 Shortness of breath Office Visit 02/07/2017 3:30p [facility] [place] J44.9 Chronic Sleep Services Of [facility] Aditi obstructive Food Counselor pulmonary disease, unspecified Office Visit 01/16/2017 4:16p [facility] Haris Ayala MD J44.1 Chronic Assoc,pc obstructive Hospitalists pulmonary disease w (acute) exacerbation I35.0 Nonrheumatic aortic (valve) stenosis I50.33 Acute on chronic diastolic (congestive) heart failure D50.9 Iron deficiency anemia, unspecified Office Visit 01/15/2017 4:15p [place] Meredith Ayala I35.0 Nonrheumatic Assdesi man MD aortic (valve) Hospitalists stenosis R06.09 Other forms of dyspnea J44.1 Chronic obstructive pulmonary disease w (acute) exacerbation I50.33 Acute on chronic diastolic (congestive) heart failure Office Visit 01/14/2017 4:15p [facility] Haris Ayala I35.0 Nonrheumatic Assdesi man MD aortic (valve) Hospitalists stenosis R06.09 Other forms of dyspnea J44.1 Chronic obstructive pulmonary disease w (acute) exacerbation I50.33 Acute on chronic diastolic (congestive) heart failure Office Visit 01/13/2017 4:14p [facility] Emma I35.0 Nonrheumatic Assocdeis D.O. aortic (valve) Hospitalists stenosis R06.09 Other forms of dyspnea J44.1 Chronic obstructive pulmonary disease w (acute) exacerbation D50.9 Iron deficiency anemia, unspecified Office Visit 01/12/2017 [facility] Annabelle Thomas, I35.0 Nonrheumatic 12:26p Of Ilya Juares aortic (valve) stenosis Office Visit 01/12/2017 [facility] Haris Ayala MD I35.0 Nonrheumatic 4:14p Assoc,pc aortic (valve) Hospitalists stenosis R06.09 Other forms of dyspnea J44.9 Chronic obstructive pulmonary disease, unspecified D50.9 Iron deficiency anemia, unspecified Office Visit 01/11/2017 11:53a [facility] Max Fermin R06.02 Shortness of Of Ilya Patel M.D. breath I35.0 Nonrheumatic aortic (valve) stenosis Office Visit 01/11/2017 4:14p [facility] Haris Ayala, I35.0 Nonrheumatic Assdesi man MD aortic (valve) Hospitalists stenosis R06.09 Other forms of dyspnea I50.33 Acute on chronic diastolic (congestive) heart failure D50.9 Iron deficiency anemia, unspecified Office Visit 01/10/2017 4:13p [facility] [place] D50.9 Iron deficiency Assoc,desi Hdez MD anemia, Hospitalists unspecified J44.1 Chronic obstructive pulmonary disease w (acute) exacerbation R74.8 Abnormal levels of other serum enzymes K27.9 Peptic ulc, site unsp, unsp as ac or chr, w/o hemor or perf Office Visit 12/24/2016 11:30a [facility] [place] J44.9 Chronic Sleep Services Of [place] Aditi obstructive Food Counselor pulmonary disease, unspecified F17.210 Nicotine dependence, cigarettes, uncomplicated Z12.2 Encntr screen for malignant neoplasm of respiratory organs Plan of Treatment 06/14/2017 - Max Patel M.D.R06.02 Shortness of srhtmhT00.9 Chronic obstructive pulmonary disease, laykorsrpihA86.0 Nonrheumatic aortic (valve) stenosisNew Orders:Echocardiogram, Scheduled: 04/05/18Follow up:4 months
[2018-04-26 15:09] VITALS: BP 0/0
--- NOTE | 2018-04-26 15:18 | ED ---
Cardiac Resuscitation - HPI Summary HPI Summary: Pt is 72 y/o F presenting to the ED brought in by ambulance for cardiac arrest this morning. LEVEL 5 CAVEAT: Pts full history and physical is limited due to pt being unconscious. ABC alert was called at 1443 with ETA of 1447. EMS arrival at 1447. EMS gave epi at 1419, 1424, 1429, and 1435. Per EMS, she was [place] [facility] [place], dx is unconfirmed, and she was in distress again most of this morning. Pt had a witnessed cardiac arrest at 1400, CPR was started by family prior to EMS arrival, EMS took over CPR upon arrival, pt was also intubated. Epi was given again at 1449. Resuscitation was called off at 1450. - History of Current Complaint Chief Complaint: EDCardiacArrest Stated Complaint: CARADIC ARESST Time Seen by Provider: 04/26/18 14:47 Hx Obtained From: Patient Hx From Patient Unobtainable Due To: Extremis Onset/Duration: Minutes/Hours: - onset at 1400 Arrest Witnessed: Yes Down-time Before Basic Life Support Initiated: Down-time before BLS initiated: - none Down-time Before Advanced Life Support Initiated: Unknown Was AED Placed on Patient: Yes - Additional Pertinent History Primary Care Physician: [id number] - Allergies/Home Medications Allergies/Adverse Reactions: Allergies Allergy/AdvReac Type Severity Reaction Status Date / Time codeine Allergy GI Upset Verified 03/15/18 16:32 Home Medications: Home Medications Aspirin EC TAB* [Ecotrin EC Low Dose 81 MG*] 81 mg PO DAILY 04/26/18 [History Confirmed 04/26/18] - Past Medical History Past Medical History: Unobtainable Due to Extremis - Family History Family History: Unobtainable Due to Extremis - Social History Social History: Unobtainable Due to Extremis - Review of Systems Review of Systems: Unobtainable Due to Extremis Physical Examination - Summary Physical Exam Summary: General: pale female being given CPR by autopulse machine with endotracheal tube in place HEENT: pupils affixed and dilated Neck: no adenopathy noted Lungs: clear on bagged ventilation, no spontaneous respiratory effort CVS: no pulse felt Abd: normal without trauma Extremities: no signs of trauma, no spontaneous movement to noxious stimuli, flaccid Neuro: pupils affixed and dilated - Physical Examination Triage Information Reviewed: Yes Completion Of Physical Exam Limited Due To: Extremis Resuscitation Termination Time: 14:50 Resuscitation: Unsuccessful Diagnostics - Vital Signs Vital Signs Temp Pulse Resp BP Pulse Ox 04/26/18 15:02 0 F 0 0 0/0 0 - Laboratory Lab Statement: Any lab studies that have been ordered have been reviewed, and results considered in the medical decision making process. Cardiac Resus. Course/Dx - Course Course Of Treatment: Pt is 72 y/o F presenting to the ED brought in by ambulance for cardiac arrest this morning. LEVEL 5 CAVEAT: Pts full history and physical is limited due to pt being unconscious. ABC alert was called at 1443 with ETA of 1447. EMS arrival at 1447. EMS gave epi at 1419, 1424, 1429, and 1435. Per EMS, she was recently [place] [facility] [place], dx is unconfirmed, and she was in distress again most of this morning. Pt had a witnessed cardiac arrest at 1400, CPR was started by family prior to EMS arrival , EMS took over CPR upon arrival, pt was also intubated. Epi was given again at 1449. Resuscitation was called off at 1450. EDRS certificate completed. - Diagnoses Provider Diagnoses: Myocardial infarction During the Visit The Following Alert/Code Occurred: ABC Alert - called 1443 - EMS arrival 1447 Discharge - Sign-Out/Discharge Documenting (check all that apply): Patient Departure - Discharge Plan Condition: Disposition: Referrals: Carley Aguila NP [Primary Care Provider] - - Billing Disposition and Condition Condition: Disposition: - Attestation Statements Document Initiated by Kamiibe: Yes Documenting Scribe: Kaylah Rendon Provider For Whom Tashi is Documenting (Include Credential): Kashmir Mclian MD. Scribe Attestation: Kaylah Sifuentes, charyed for Kashmir Mclain MD. on 04/30/18 at 0405. Scribe Documentation Reviewed: Yes Provider Attestation: The documentation as recorded by the kamiibKyalah hernandez accurately reflects the service I personally performed and the decisions made by me, Kashmir Mclain MD. Status of Scribe Document: Viewed
== END 2018-04-26 16:24 | disposition expired ==
LOC: ED 14:47
DX: I21.9 Acute myocardial infarction, unspecified (principal); I46.9 Cardiac arrest, cause unspecified; Z88.5 Allergy status to narcotic agent
CPT/HCPCS: 99283; J0171